=== PATIENT | male | born 1935 | race Caucasian/White ===

== ENCOUNTER → 2018-07-20 08:44 | Outpatient (CLI) | payer MEDICARE, SELFPAY ==
[2018-07-20 09:50] LABS: Add Manual Diff / Slide Review NO; Basophils Absolute Auto 100 /uL (0-100); Basophils Percent Auto 0.8 % (0-2); Eosinophils Absolute Auto 600 /uL (0-450); Eosinophils Percent Auto 7.6 % (2-4); Hematocrit 38.4 % (41-53); Hemoglobin 12.8 g/dL (13.5-17.5); Lymphocytes Absolute Auto 1300 /uL (1100-4500); Lymphocytes Percent Auto 17.7 % (25-40); Mean Corpuscular HGB Conc 33.4 % (30-36); Mean Corpuscular Hemoglobin 29.7 PG (26-34); Monocytes Absolute Auto 700 /uL (0-900); Monocytes Percent Auto 8.8 % (3-14); Neutrophils Absolute Auto 4900 /uL (1500-7000); Neutrophils Percent Auto 65.1 % (50-75); Platelet Count 229 X10^3/uL (150-400); Red Blood Cell Count 4.31 X10^6/uL (4.5-5.9); White Blood Cell Count 7.6 X10^3/uL (4.5-11.0)
[2018-07-20 09:56] LABS: Alanine Aminotransferase 34 IU/L (21-72); Albumin 4.1 g/dL (3.5-5.0); Albumin Globulin Ratio 1.5 (1.0-2.8); Alkaline Phosphatase 92 U/L (38-126); Aspartate Aminotransferase 33 IU/L (17-59); BUN Creatinine Ratio 18.3 (6-22); Bilirubin Total 0.8 mg/dL (0.2-1.3); Blood Urea Nitrogen 22 mg/dL (9-20); Calcium 9.4 mg/dL (8.4-10.2); Carbon Dioxide 29 mmol/L (22-32); Chloride 102 mmol/L (98-107); Cholesterol 141 mg/dL (140-199); Estimated Glomerular Filt Rate 57.8 mL/min (>60); Globulin 2.7 g/dL (1.7-4.1); Glucose 110 mg/dL (80-110); HDL Cholesterol 41 mg/dL (40-60); HEMOLYSIS < 15 (0-50); LDL Cholesterol Calculated 77 mg/dL (<100); Potassium 3.8 mmol/L (3.4-5.1); Sodium 140 mmol/L (137-145); Total Protein 6.8 g/dL (6.3-8.2); Triglycerides 116 mg/dL (35-150)
[2018-07-20 10:23] LABS: Thyroid Stimulating Hormone 2.15 uIU/mL (0.47-4.68)
[2018-07-20 10:25] LABS: Prostate Specific Antigen Scrn 2.19 ng/mL (0.1-4.0)
[2018-07-21 10:04] LABS: Creatinine Urine Random 140.5 mg/dL
[2018-07-21 10:07] LABS: Microalbumi Creatinin Ratio Ur 51.9 ug/mg CR (<30); Microalbumin Urine Random 7.3 mg/dL (0-1.6)
== END ==
PROVIDERS: Family Provider Family Medicine; PCP Family Medicine; Visit Provider Family Medicine
DX: E78.2 Mixed hyperlipidemia (principal); D64.9 Anemia, unspecified; E87.6 Hypokalemia; I10 Essential (primary) hypertension
CPT/HCPCS: 36415; 80053; 80061; 82043; 82570; 84443; 85025; G0103

== ENCOUNTER → 2018-07-21 08:38 | Outpatient (CLI) | payer MEDICARE, SELFPAY | PROVIDERS: PCP Family Medicine; Visit Provider Family Medicine ==

== ENCOUNTER → 2018-08-29 10:29 | Outpatient (CLI) | payer MEDICARE, SELFPAY ==
[2018-08-29 12:13] LABS: BUN Creatinine Ratio 18.2 (6-22); Blood Urea Nitrogen 20 mg/dL (9-20); Calcium 9.6 mg/dL (8.4-10.2); Carbon Dioxide 30 mmol/L (22-32); Chloride 101 mmol/L (98-107); Estimated Glomerular Filt Rate > 60.0 mL/min (>60); Glucose 103 mg/dL (80-110); HEMOLYSIS < 15 (0-50); Potassium 3.9 mmol/L (3.4-5.1); Sodium 139 mmol/L (137-145)
[2018-08-29 15:53] LABS: Creatinine Urine Random 163.6 mg/dL
[2018-08-29 17:30] LABS: Microalbumi Creatinin Ratio Ur 234.7 ug/mg CR (<30); Microalbumin Urine Random 38.4 mg/dL (0-1.6)
== END ==
PROVIDERS: PCP Family Medicine; Visit Provider Family Medicine
DX: D64.9 Anemia, unspecified (principal); I10 Essential (primary) hypertension
CPT/HCPCS: 80048; 82043; 82570; 82728

== ENCOUNTER 2018-10-04 07:58 | Day surgery (SDC) | payer MEDICARE, SELFPAY ==
[2018-10-04 08:48] VITALS: BP 167/84; PULSE 67; RESP 16; TEMP 36.3; O2SAT 96; BMI 32.5
[2018-10-04] MEDS: PROPARACAINE 0.5% OPHTH SOL 2 DROPS EYE-OP (08:57)
[2018-10-04] MEDS: CATARACT EYE COMPOUND (10 DROPS/SYRINGE) 3 DROPS EYE-OP (09:01)
--- NOTE | 2018-10-04 09:34 | PM.PREOP ---
Pre-operative Note Interval Note History & Physical reviewed/Exam performed by Physician: No Changes to H&P: No
--- NOTE | 2018-10-04 09:34 | PM.OP.1 ---
Operative Date/Time/Diagnoses Pre-op diagnosis: Nuclear Cataract Left eye Post-op diagnosis: same Procedure & Clinicians Surgeon: Carrington Haddad Anesthesia Type: MAC +/- and Sedation Operative Notes Procedure in detail: Patient brought to the operating suite. Tetracaine drops placed in the left eye. Patient was prepped and draped in sterile manner. Wire lid speculum was placed in the eye. Betadine drops were placed on the eye. This was irrigated. Lidocaine jelly was placed on the eye. A paracentesis port was created with a side-port blade. 0.1 mL 1% preservative free lidocaine was injected into the anterior chamber. The anterior chamber was deepened with viscoelastic. 2.6 mm keratome was used to create a temporal clear corneal incision. The pupil was floppy and miotic. A 6.25mm Malyugin ring was used to enlarge the pupil. Cystotome and Utrata forceps were used to create continuous tear capsulorrhexis. Balanced salt solution was used to hydro dissect the nucleus. The phacoemulsification handpiece was inserted and the nucleus was removed using the stop and chop technique. The irrigation aspiration handpiece was inserted and the remaining cortex was removed. Anterior chamber was deepened with viscoelastic. An Quintana ZCB00 intraocular lens with a power of 21.0 was injected into the capsular bag. The Malyugin ring was removed. Irrigation aspiration handpiece was inserted and the remaining viscoelastic was removed. Incision was hydrated with balanced salt solution and found to be leak free with pressure with Weck-Vanessa sponges. 0.1 mL Vigamox injected anterior chamber. 0.3 mL Kenalog 10 mg was injected subconjunctivally. Lid speculum was removed. The patient left the operating room in excellent condition. Complications: none Condition: stable Disposition: same day surgery
[2018-10-04] MEDS: CHONDROIDTIN/SOD HYALURONATE 1.05 ML SYRINGE INTRAOCULA (09:58)
[2018-10-04] MEDS: MOXIFLOXACIN OPHTH DROPS 3 ML BOTTLE 2 DROPS INJ (09:59)
[2018-10-04] MEDS: BALANCED SALT IRRIG SOLN NO.2 500 ML, EPINEPHrine 1 MG IRR (09:59)
[2018-10-04] MEDS: TETRACAINE 0.5% OPHTH DROPS 4 ML 2 DROPS EYE-OP (10:00)
[2018-10-04] MEDS: PHENYLEPHRINE/LIDOCAINE VIAL (OR) 0.2 ML EYE-OP (10:00)
[2018-10-04] MEDS: TRIAMCINOLONE 50 MG/5 ML VIAL INJ (10:02)
[2018-10-04] MEDS: LIDOCAINE JELLY 2% 5 ML 1 APPLIC TOP (10:02)
[2018-10-04 10:17] VITALS: BP 170/80; PULSE 70; RESP 16; TEMP 36.3; O2SAT 97
== END 2018-10-04 10:26 | disposition home or self-care (01) ==
LOC: OR 08:00
PROVIDERS: PCP Family Medicine; Visit Provider Ophthalmology
PROC: (CPT 66984; principal; 2018-10-04 09:45)
DX: H25.12 Age-related nuclear cataract, left eye (principal)
CPT/HCPCS: 66984; J0171; J2250; J3010; J3301

== ENCOUNTER 2018-10-18 08:16 | Day surgery (SDC) | payer MEDICARE, SELFPAY ==
[2018-10-18 09:10] VITALS: BP 179/85; PULSE 74; RESP 16; TEMP 36.1; O2SAT 97; BMI 32.5
[2018-10-18] MEDS: PROPARACAINE 0.5% OPHTH SOL 2 DROPS EYE-OP (09:15)
[2018-10-18] MEDS: CATARACT EYE COMPOUND (10 DROPS/SYRINGE) 3 DROPS EYE-OP (09:17)
--- NOTE | 2018-10-18 10:04 | PM.PREOP ---
Pre-operative Note Interval Note History & Physical reviewed/Exam performed by Physician: No Changes to H&P: No
--- NOTE | 2018-10-18 10:04 | PM.OP.1 ---
Operative Date/Time/Diagnoses Pre-op diagnosis: Nuclear cataract right eye Procedure & Clinicians Procedure: Cataract Surgery Same procedure as scheduled: Yes Surgeon: Carrington Haddad Anesthesia Type: MAC +/- and Sedation Operative Notes Procedure in detail: Patient brought to the operating suite. Tetracaine drops placed in the right eye. Patient was prepped and draped in sterile manner. Wire lid speculum was placed in the eye. Betadine drops were placed on the eye. This was irrigated. Lidocaine jelly was placed on the eye. A paracentesis port was created with a side-port blade. 0.1 mL 1% preservative free lidocaine was injected into the anterior chamber. The anterior chamber was deepened with viscoelastic. 2.6 mm keratome was used to create a temporal clear corneal incision. The pupil was floppy and miotic. A 6.25 mm Malyugin ring was used to enlarge the pupil. Cystotome and Utrata forceps were used to create continuous tear capsulorrhexis. Balanced salt solution was used to hydro dissect the nucleus. The phacoemulsification handpiece was inserted and the nucleus was removed using the stop and chop technique. The irrigation aspiration handpiece was inserted and the remaining cortex was removed. Anterior chamber was deepened with viscoelastic. An Quintana ZCB00 intraocular lens with a power of 20.5 was injected into the capsular bag. The malyugin ring was removed. Irrigation aspiration handpiece was inserted and the remaining viscoelastic was removed. Incision was hydrated with balanced salt solution and found to be leak free with pressure with Weck-Vanessa sponges. 0.1 mL Vigamox injected anterior chamber. 0.3 mL Kenalog 10 mg was injected subconjunctivally. Lid speculum was removed. The patient left the operating room in excellent condition. Complications: none Condition: stable Disposition: same day surgery
[2018-10-18] MEDS: PHENYLEPHRINE/LIDOCAINE VIAL (OR) 0.2 ML EYE-OP (10:24)
[2018-10-18] MEDS: TRIAMCINOLONE 50 MG/5 ML VIAL INJ (10:24)
[2018-10-18] MEDS: MOXIFLOXACIN OPHTH DROPS 3 ML BOTTLE 2 DROPS INJ (10:24)
[2018-10-18] MEDS: LIDOCAINE JELLY 2% 5 ML 1 APPLIC TOP (10:25)
[2018-10-18] MEDS: TETRACAINE 0.5% OPHTH DROPS 4 ML 2 DROPS EYE-OP (10:25)
[2018-10-18] MEDS: CHONDROIDTIN/SOD HYALURONATE 1.05 ML SYRINGE INTRAOCULA (10:25)
[2018-10-18] MEDS: BALANCED SALT IRRIG SOLN NO.2 500 ML, EPINEPHrine 1 MG IRR (10:26)
[2018-10-18 10:44] VITALS: BP 170/82; PULSE 66; RESP 16; TEMP 36.6; O2SAT 97
== END 2018-10-18 11:05 | disposition home or self-care (01) ==
PROVIDERS: PCP Family Medicine; Visit Provider Ophthalmology
PROC: (CPT 66982; principal; 2018-10-18 10:15)
DX: H25.11 Age-related nuclear cataract, right eye (principal)
CPT/HCPCS: 66982; J0171; J2250; J3010; J3301

== ENCOUNTER → 2019-01-24 07:48 | Outpatient (CLI) | payer MEDICARE, SELFPAY ==
[2019-01-24 08:55] LABS: Add Manual Diff / Slide Review NO; Basophils Absolute Auto 100 /uL (0-100); Basophils Percent Auto 1.3 % (0-2); Eosinophils Absolute Auto 600 /uL (0-450); Eosinophils Percent Auto 7.2 % (2-4); Hematocrit 42.4 % (41-53); Hemoglobin 14.4 g/dL (13.5-17.5); Lymphocytes Absolute Auto 2200 /uL (1100-4500); Lymphocytes Percent Auto 26.5 % (25-40); Mean Corpuscular HGB Conc 33.9 % (30-36); Mean Corpuscular Hemoglobin 30.4 PG (26-34); Mean Corpuscular Volume 89.8 fL (80-100); Monocytes Absolute Auto 800 /uL (0-900); Monocytes Percent Auto 9.1 % (3-14); Neutrophils Absolute Auto 4700 /uL (1500-7000); Neutrophils Percent Auto 55.9 % (50-75); Platelet Count 265 X10^3/uL (150-400); Red Blood Cell Count 4.73 X10^6/uL (4.5-5.9); Red Cell Distribution Width 13.3 % (11.6-14.8); White Blood Cell Count 8.4 X10^3/uL (4.5-11.0)
[2019-01-24 09:09] LABS: BUN Creatinine Ratio 18.2 (6-22); Blood Urea Nitrogen 20 mg/dL (9-20); Calcium 9.9 mg/dL (8.4-10.2); Carbon Dioxide 30 mmol/L (22-32); Chloride 101 mmol/L (98-107); Estimated Glomerular Filt Rate > 60.0 mL/min (>60); Glucose 120 mg/dL (80-110); HEMOLYSIS < 15 (0-50); Potassium 3.7 mmol/L (3.4-5.1); Sodium 142 mmol/L (137-145)
== END ==
PROVIDERS: PCP Family Medicine; Visit Provider Family Medicine
DX: I10 Essential (primary) hypertension (principal)
CPT/HCPCS: 36415; 80048; 85025

== ENCOUNTER → 2019-01-31 10:01 | Outpatient (CLI) | payer MEDICARE, SELFPAY ==
[2019-01-31 10:43] LABS: Hemoglobin A1C% w Est Avg Glu 5.8 % (4.0-6.0)
== END ==
PROVIDERS: PCP Family Medicine; Visit Provider Family Medicine
DX: R73.09 Other abnormal glucose (principal); E78.2 Mixed hyperlipidemia
CPT/HCPCS: 36415; 83036

== ENCOUNTER 2019-03-29 13:16 | Emergency (ER) | payer MEDICARE, SELFPAY ==
[2019-03-29 13:25] VITALS: BP 187/85; PULSE 74; RESP 24; TEMP 36.4; O2SAT 98
--- NOTE | 2019-03-29 13:32 | DI.CT.S_ITS ---
PROCEDURE: CT HEAD/BRAIN WO CON INDICATIONS: fell backwards hitting head on concrete floor. TECHNIQUE: Noncontrast 4.5 mm thick angled axial sections acquired from the foramen magnum to the vertex, with coronal and sagittal reformats. For radiation dose reduction, the following was used: automated exposure control, adjustment of mA and/or kV according to patient size. COMPARISON: None. FINDINGS: Image quality: Excellent. CSF spaces: Basal cisterns are patent. No extra-axial fluid collections. The ventricles are symmetric in size and shape. There is moderate cerebral volume loss, with resultant ventricular and sulcal prominence. Brain: No intracranial hemorrhage, mass, or mass effect. There are confluent subcortical, periventricular and deep white matter hypodensities consistent with moderate chronic small vessel ischemic changes. There is atrophic appearance of the pituitary in the sella. There is intracranial internal carotid artery atherosclerosis. Skull and face: There is a soft tissue laceration in the right posterior parietal scalp region. Calvarium and visualized facial bones appear intact, without suspicious lesions. Sinuses: Visualized sinuses demonstrate mild mucosal thickening within the ethmoid sinuses. The mastoid air cells are clear. IMPRESSION: 1. No acute intracranial abnormality. 2. Moderate chronic white matter small vessel ischemic changes and cerebral volume loss. 3. Atrophic appearance of the pituitary gland. Dictated by: Kev Molina M.D. on 03/29/2019 at 13:59 Approved by: Kev Molina M.D. on 03/29/2019 at 14:20
--- NOTE | 2019-03-29 13:32 | DI.CT.S_ITS ---
PROCEDURE: CT CERVICAL SPINE WO CON INDICATIONS: fell backwards hitting head on concrete floor. TECHNIQUE: Noncontrast 3 mm thick sections acquired from the skull base to the T4 level. Sagittal and coronal reformats were then constructed. For radiation dose reduction, the following was used: automated exposure control, adjustment of mA and/or kV according to patient size. COMPARISON: None. FINDINGS: Image quality: Excellent. Bones: No fractures or dislocations. Visualized superior ribs are intact. Soft tissues: Prevertebral soft tissues are normal in thickness. No paravertebral hematomas. No apical pneumothoraces. 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 Dictated by: Ed Hernandes M.D. on 03/29/2019 at 14:13 Approved by: Ed Hernandes M.D. on 03/29/2019 at 14:14
[2019-03-29] MEDS: TET,DIPH,PERTUSS(ACELL),VAC/PF 0.5 ML SYRINGE IM (14:13)
--- NOTE | 2019-03-29 14:16 | ED_ITS ---
HPI - Head Injury General Chief complaint: Head Injury Stated complaint: fell backwards and hit back of head on garage floo Time Seen by Provider: 03/29/19 14:12 Source: patient Mode of arrival: Ambulatory Limitations: no limitations History of Present Illness HPI Narrative: Patient is an 83-year-old male who presents after a mechanical ground level fall. He says that he lost his balance fell backwards hitting his head no loss of consciousness. He is not on any blood thinner or anti-platelet medication. There's no loss of consciousness no numbness tingling or weakness. He does have an obvious laceration on the right posterior scalp area. He denies any neck pain. MD Complaint: head injury Onset (ago): hour(s) Mechanism of Injury: fall Related Data Home Medications Medication Instructions Recorded Confirmed FERROUS SULFATE (#FERROUS SULFATE) 65 mg PO BID #0 05/12/11 01/31/19 Fish Oil (#FISH OIL) 1 iu PO Q DAY #0 05/12/11 01/31/19 MULTIVITAMIN (#MULTIPLE VITAMINS) 1 cap PO Q DAY #0 05/12/11 01/31/19 acetaminophen 500 mg PO Q DAY #0 06/09/16 01/31/19 cholecalciferol (vitamin D3) 1,000 u PO BID #0 06/09/16 01/31/19 [Vitamin D3] Previous Rx's Medication Instructions Recorded triamterene 37.5 1 cap PO QDAY #90 cap 04/11/18 mg-hydrochlorothiazide 25 mg capsule omeprazole magnesium 20 mg 20 mg PO Q DAY #90 cap 07/04/18 tablet,delayed release Disabled Parking Permit #1 ea 07/26/18 hydrocodone 5 mg-acetaminophen 325 1 tab PO Q6HP PRN #30 tab 07/26/18 mg tablet amlodipine 5 mg tablet 5 mg PO QDAY #90 tab 10/03/18 atorvastatin 10 mg tablet 10 mg PO HS #90 tab 10/03/18 enalapril maleate 20 mg tablet 20 mg PO BID #180 tab 10/03/18 tamsulosin 0.4 mg capsule 0.4 mg PO HS #90 cap 10/31/18 Allergies Allergy/AdvReac Type Severity Reaction Status Date / Time No Known Allergies Allergy Unknown Verified 03/29/19 13:29 [NO KNOWN ALLERGIES] Review of Systems Review of Systems Narrative: GENERAL: Denies chills, fatigue, malaise, fever, sweats, travel HEENT: Denies sinus pain, ear pain, sore throat, difficulty swallowing, neck pain RESPIRATORY: Denies dyspnea, cough, wheezing, hemoptysis, sputum. CARDIOVASCULAR: Denies chest pain, palpitations, orthopnea, edema GASTROINTESTINAL: Denies nausea, vomiting, abdominal pain, diarrhea, constipation, melena. : Denies dysuria, frequency, incontinence, hematuria, urinary retention, flank pain. MUSCULOSKELETAL: Denies weakness, joint pain, or bony pain SKIN: See HPI NEUROLOGIC: Denies weakness, dizziness, headache, numbness, change in speech, confusion PSYCHIATRIC: No concerning psychosocial issues. 12 point review of systems is negative except for those stated above and HPI Patient History Medical History Chronic anemia (Acute) Essential hypertension (Acute) Mixed hyperlipidemia (Acute) Tremor (Acute) Surgical History Status post appendectomy Social History household members: spouse Smoking Status: Former smoker Smoking Status: Former smoker alcohol intake frequency: 0-2 drinks per day Substance Use Type: does not use Exam Initial Vital Signs Initial Vital Signs: Vital Signs Temperature 97.6 F 03/29/19 13:25 Pulse Rate 74 03/29/19 13:25 Respiratory Rate 24 03/29/19 13:25 Blood Pressure 187/85 H 03/29/19 13:25 Pulse Oximetry 98 03/29/19 13:25 GENERAL: Alert well-appearing elderly male HEENT: Head skin abrasions noted on scalp and laceration noted right posterior scalp CARDIOVASCULAR: Regular rate and rhythm without murmurs, rubs or gallops. RESPIRATORY: Breath sounds equal bilaterally, no wheezes rales or rhonchi. ABDOMEN: Soft, nontender. Normoactive bowel sounds all 4 quadrants. No guarding or rebound. BACK: No vertebral tenderness no step-off EXTREMITIES: Normal range of motion, no clubbing or edema. Neurovascularly intact NEUROLOGICAL: Alert and oriented x4. Resting tremor noted moving all extremities SKIN: Warm, dry, no laceration, no petechiae, no rashes or lesions. Procedures Laceration Repair Laceration 1: Site: scalp Side (If applicable): right Size (cm): 4 Description: linear Depth: simple, single layer Local Anesthetic: lidocaine 1% and with epi Amount of anesthesia used (mL): 5 Pre-repair: wound explored, irrigated extensively and deep structures intact Skin layer closed with: emmanuel Number of sutures: 6 Course Orders Ordered: ED Orders 03/29/19 13:32 CT cervical spine wo con Stat CT head/brain wo con Stat Discontinued Medications Diphtheria/Tetanus/Acell Pertussis (Adacel) 0.5 ml IM .ONCE ONE Stop: 03/29/19 13:34 Last Admin: 03/29/19 14:13 Dose: 0.5 ml Documented by: IVIS Lidocaine/Epinephrine (Xylocaine 1% W/Epi) 10 ml SUBCUT NOW ONE Stop: 03/29/19 14:18 Vital Signs Vital signs: Vital Signs - 8 hr 03/29/19 13:25 03/29/19 15:09 Temperature 97.6 F Pulse Rate 74 59 L Respiratory Rate 24 22 Blood Pressure 187/85 H 158/93 H Pulse Oximetry 98 97 MDM - Head Injury Imaging Data CT scan - head: Radiologist's Impression: PROCEDURE: CT HEAD/BRAIN WO CON INDICATIONS: fell backwards hitting head on concrete floor. TECHNIQUE: Noncontrast 4.5 mm thick angled axial sections acquired from the foramen magnum to the vertex, with coronal and sagittal reformats. For radiation dose reduction, the following was used: automated exposure control, adjustment of mA and/or kV according to patient size. COMPARISON: None. FINDINGS: Image quality: Excellent. CSF spaces: Basal cisterns are patent. No extra-axial fluid collections. The ventricles are symmetric in size and shape. There is moderate cerebral volume loss, with resultant ventricular and sulcal prominence. Brain: No intracranial hemorrhage, mass, or mass effect. There are confluent subcortical, periventricular and deep white matter hypodensities consistent with moderate chronic small vessel ischemic changes. There is atrophic appearance of the pituitary in the sella. There is intracranial internal carotid artery atherosclerosis. Skull and face: There is a soft tissue laceration in the right posterior parietal scalp region. Calvarium and visualized facial bones appear intact, without suspicious lesions. Sinuses: Visualized sinuses demonstrate mild mucosal thickening within the ethmoid sinuses. The mastoid air cells are clear. IMPRESSION: 1. No acute intracranial abnormality. 2. Moderate chronic white matter small vessel ischemic changes and cerebral volume loss. 3. Atrophic appearance of the pituitary gland. Dictated by: Kev Molina M.D. on 03/29/2019 at 13:59 Approved by: Kev Molina M.D. on 03/29/2019 at 14:20 CT - cervical spine: Radiologist's Impression: PROCEDURE: CT CERVICAL SPINE WO CON INDICATIONS: fell backwards hitting head on concrete floor. TECHNIQUE: Noncontrast 3 mm thick sections acquired from the skull base to the T4 level. Sagittal and coronal reformats were then constructed. For radiation dose reduction, the following was used: automated exposure control, adjustment of mA and/or kV according to patient size. COMPARISON: None. FINDINGS: Image quality: Excellent. Bones: No fractures or dislocations. Visualized superior ribs are intact. Soft tissues: Prevertebral soft tissues are normal in thickness. No parav ertebral hematomas. No apical pneumothoraces. 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 Dictated by: Ed Hernandes M.D. on 03/29/2019 at 14:13 Discharge Plan Departure Patient Disposition: Home Clinical Impression: Laceration of scalp Qualifiers: Encounter type: initial encounter Qualified Code(s): S01.01XA - Laceration without foreign body of scalp, initial encounter Discharge Date/Time: 03/29/19 15:09 Instructions: DI for Laceration Repair -- Emmanuel Activity Restrictions/Additional Instructions: *You have been diagnosed with scalp laceration *What to do: Keep area clean and dry with soap and water. May apply antibiotic ointment 2 times a day. Have emmanuel removed in 5-7 days with her primary care provider *Continue to take medications as directed *Follow up with your primary care provider, call Dr. Lawrence to have emmanuel removed in 5-7 days *Return to ER if you should have recurrent falls persistent vomiting weakness numbness tingling or any new, worsening or concerning symptoms Prescriptions: No Action MULTIVITAMIN (#MULTIPLE VITAMINS) 1 cap PO Q DAY Qty: 0 RF: 0 FERROUS SULFATE (#FERROUS SULFATE) 65 mg PO BID Qty: 0 RF: 0 Fish Oil (#FISH OIL) 1 iu PO Q DAY Qty: 0 RF: 0 acetaminophen 500 MG tablet 500 mg PO Q DAY Qty: 0 RF: 0 cholecalciferol (vitamin D3) [Vitamin D3] 1,000 UNIT tablet 1,000 u PO BID Qty: 0 RF: 0 triamterene-hydrochlorothiazid [Dyazide] 37.5-25 mg capsule 1 cap PO QDAY Qty: 90 RF: 3 Prilosec OTC 20 mg tablet,delayed release (DR/EC) 20 mg PO Q DAY Qty: 90 RF: 3 amlodipine [Norvasc] 5 mg tablet 5 mg PO QDAY Qty: 90 RF: 1 atorvastatin [Lipitor] 10 mg tablet 10 mg PO HS Qty: 90 RF: 1 enalapril maleate 20 mg tablet 20 mg PO BID Qty: 180 RF: 1 tamsulosin [Flomax] 0.4 mg capsule 0.4 mg PO HS Qty: 90 RF: 2 hydrocodone-acetaminophen [[place]] 5-325 mg tablet 1 tab PO Q6HP PRN (Reason: pain) Qty: 30 RF: 0 (DME) Disabled Parking Permit 0 .Route .MEDSUPPLY Qty: 1 RF: 0 Referrals: Maico Lawrence MD [Primary Care Provider] -
[2019-03-29 15:09] VITALS: BP 158/93; PULSE 59; RESP 22; O2SAT 97
== END 2019-03-29 15:09 | disposition home or self-care (01) ==
PROVIDERS: Emergency Provider Emergency Medicine; PCP Family Medicine
DX: S01.01XA Laceration without foreign body of scalp, initial encounter (principal); W18.30XA Fall on same level, unspecified, initial encounter
CPT/HCPCS: 12002; 70450; 72125; 90471; 99283; 99284; 90715

== ENCOUNTER → 2019-04-25 08:29 | Outpatient (CLI) | payer MEDICARE, SELFPAY ==
[2019-04-25 09:34] LABS: Add Manual Diff / Slide Review NO; Basophils Absolute Auto 100 /uL (0-100); Basophils Percent Auto 1.3 % (0-2); Eosinophils Absolute Auto 600 /uL (0-450); Eosinophils Percent Auto 8.8 % (2-4); Hematocrit 39.3 % (41-53); Hemoglobin 13.5 g/dL (13.5-17.5); Lymphocytes Absolute Auto 1400 /uL (1100-4500); Lymphocytes Percent Auto 20.4 % (25-40); Mean Corpuscular HGB Conc 34.4 % (30-36); Mean Corpuscular Hemoglobin 30.8 PG (26-34); Mean Corpuscular Volume 89.4 fL (80-100); Monocytes Absolute Auto 600 /uL (0-900); Monocytes Percent Auto 9.3 % (3-14); Neutrophils Absolute Auto 4100 /uL (1500-7000); Neutrophils Percent Auto 60.2 % (50-75); Platelet Count 231 X10^3/uL (150-400); Red Blood Cell Count 4.39 X10^6/uL (4.5-5.9); Red Cell Distribution Width 13.1 % (11.6-14.8); White Blood Cell Count 6.9 X10^3/uL (4.5-11.0)
[2019-04-25 09:42] LABS: BUN Creatinine Ratio 18.2 (6-22); Blood Urea Nitrogen 20 mg/dL (9-20); Calcium 9.6 mg/dL (8.4-10.2); Carbon Dioxide 27 mmol/L (22-32); Chloride 105 mmol/L (98-107); Estimated Glomerular Filt Rate > 60.0 mL/min (>60); Glucose 110 mg/dL (80-110); HEMOLYSIS < 15 (0-50); Potassium 3.6 mmol/L (3.4-5.1); Sodium 142 mmol/L (137-145)
== END ==
PROVIDERS: PCP Family Medicine; Referring Provider Family Medicine; Visit Provider Family Medicine
DX: I10 Essential (primary) hypertension (principal)
CPT/HCPCS: 80048; 85025

== ENCOUNTER 2019-06-30 11:47 | Emergency (ER) | payer MEDICARE, SELFPAY ==
--- NOTE | 2019-06-30 11:49 | ED_ITS ---
HPI - General Adult General Chief complaint: Extremity Problem,Nontraumatic Stated complaint: Suspects blood clot in R leg Time Seen by Provider: 06/30/19 11:49 History of Present Illness HPI narrative: 83-year-old gentleman with a history of hypertension, hyperlipidemia, and iron deficiency anemia presents with right lower leg edema and erythema without significant pain. He reports that it has been present for ?about 2 months?. He was seen by his primary care physician who sent him to the emergency room for further evaluation. He has not noticed pain, dyspnea, palpitations, fevers, cough, diarrhea, urinary symptoms, orthopnea, it isn't particularly bothered by the mild swelling in the right lower extremity. Related Data Home Medications Medication Instructions Recorded Confirmed FERROUS SULFATE (#FERROUS SULFATE) 65 mg PO BID #0 05/12/11 06/30/19 Fish Oil (#FISH OIL) 1 iu PO Q DAY #0 05/12/11 06/30/19 MULTIVITAMIN (#MULTIPLE VITAMINS) 1 cap PO Q DAY #0 05/12/11 06/30/19 acetaminophen 500 mg PO Q DAY #0 06/09/16 06/30/19 cholecalciferol (vitamin D3) 25 1,000 unit PO DAILY #0 tab 06/30/19 06/30/19 mcg (1,000 unit) tablet Previous Rx's Medication Instructions Recorded triamterene 37.5 1 cap PO QDAY #90 cap 04/11/18 mg-hydrochlorothiazide 25 mg capsule omeprazole magnesium 20 mg 20 mg PO Q DAY #90 cap 07/04/18 tablet,delayed release Disabled Parking Permit #1 ea 07/26/18 tamsulosin 0.4 mg capsule 0.4 mg PO HS #90 cap 10/31/18 amlodipine 5 mg tablet See Rx Instructions .ROUTE 03/30/19 .COMPLEX #90 tablet enalapril maleate 20 mg tablet See Rx Instructions .ROUTE 03/30/19 .COMPLEX #180 tablet atorvastatin 10 mg tablet See Rx Instructions .ROUTE 06/30/19 .COMPLEX #90 tablet cephalexin 500 mg PO TID #21 cap 06/30/19 furosemide 20 mg PO DAILY #30 tab 06/30/19 gabapentin 100 mg capsule 200 mg PO BID #360 cap 06/30/19 hydrocodone 5 mg-acetaminophen 325 1 tab PO Q6HP PRN #90 tab 06/30/19 mg tablet potassium chloride 10 meq PO DAILY #30 cap 06/30/19 Allergies Allergy/AdvReac Type Severity Reaction Status Date / Time No Known Allergies Allergy Unknown Verified 06/30/19 12:06 [NO KNOWN ALLERGIES] Review of Systems Review of Systems Narrative: All systems reviewed and are unremarkable except as noted in HPI and below Patient History Medical History (Updated 06/30/19 @ 15:26 by Maico Lawrence MD) Chronic anemia (Acute) Essential hypertension (Acute) Mixed hyperlipidemia (Acute) Paroxysmal atrial fibrillation (Acute) Tremor (Acute) Surgical History Status post appendectomy Social History household members: spouse Smoking Status: Former smoker Smoking Status: Former smoker alcohol intake frequency: 0-2 drinks per day Substance Use Type: does not use Exam Narrative Exam Narrative: General: Healthy appearing, in no acute distress. Able to give a complete and coherent history. Well-nourished well-developed HEENT: Moist mucous membranes, normal sclera with reactive pupils, Neck: No JVD, supple Respiratory: Lungs are clear to auscultation, no wheezing or rhonchi. Mild scattered rales in lower lung bases that improve with deep breathing. Full and symmetrical air movement Cardiac: Irregular rate, no murmurs no bruits Abdomen: Soft nontender good bowel tones, no flank pain Skin: Warm and dry, no rashes Neurologic: Grossly neurologically intact with no obvious asymmetries or abnormalities Extremities: No trauma, right leg with 2+ [place] edema calf is more full and slightly tender to deep palpation and there is mild erythema from the mid foot to just below the calf. Has no thigh swelling and no inguinal adenopathy. Psych: Cooperative, appropriate insight and affect Initial Vital Signs Initial Vital Signs: Vital Signs Temperature 98.4 F 06/30/19 12:06 Pulse Rate 79 06/30/19 12:06 Respiratory Rate 32 H 06/30/19 12:06 Blood Pressure 163/81 H 06/30/19 12:06 Pulse Oximetry 97 06/30/19 12:06 Course Orders Ordered: ED Orders 06/30/19 12:41 US periph venous low extrem rt Stat 06/30/19 12:42 EKG-12 Lead Stat 06/30/19 12:47 XR chest 1V Stat 06/30/19 14:15 Complete Blood Count AUTO DIFF Stat Comprehensive Metabolic Panel Stat NT-proBNP (BNP-Adult 18+) Stat Discontinued Medications Cephalexin HCl (Keflex) 500 mg PO NOW ONE Stop: 06/30/19 14:03 Last Admin: 06/30/19 14:54 Dose: 500 mg Documented by: HEBER Furosemide (Lasix) 40 mg PO NOW ONE Stop: 06/30/19 14:03 Last Admin: 06/30/19 14:54 Dose: 40 mg Documented by: HEBER Vital Signs Vital signs: Vital Signs - 8 hr 06/30/19 12:06 06/30/19 14:30 Temperature 98.4 F Pulse Rate 79 70 Respiratory Rate 32 H 26 H Blood Pressure 163/81 H Blood Pressure [Right Arm] 176/99 H Pulse Oximetry 97 98 Medical Decision Making Medical Records Medical records reviewed: Yes I reviewed the patient's medical records. Lab Data Lab results reviewed: Yes I reviewed the patient's lab results. Result diagrams: 06/30/19 14:15 06/30/19 14:15 Labs: Lab Results 06/30/19 06/30/19 06/30/19 Range/Units 14:15 14:15 14:15 WBC 7.8 (4.5-11.0) X10^3/uL RBC 4.54 (4.5-5.9) X10^6/uL Hgb 13.6 (13.5-17.5) g/dL Hct 41.1 (41-53) % MCV 90.4 (80-100) fL MCH 29.9 (26-34) PG MCHC 33.0 (30-36) % RDW 13.3 (11.6-14.8) % Plt Count 241 (150-400) X10^3/uL Neut % (Auto) 62.9 (50-75) % Lymph % (Auto) 21.1 L (25-40) % Edmun[place] % (Auto) 10.3 (3-14) % Eos % (Auto) 4.5 H (2-4) % Baso % (Auto) 1.2 (0-2) % Neut # (Auto) 4900 (9086-5538) /uL Lymph # (Auto) 1600 (0169-5276) /uL Edmunds # (Auto) 800 (0-900) /uL Eos # (Auto) 400 (0-450) /uL Baso # (Auto) 100 (0-100) /uL Sodium 139 (137-145) mmol/L Potassium 3.7 (3.4-5.1) mmol/L Chloride 103 (98-107) mmol/L Carbon Dioxide 29 (22-32) mmol/L BUN 16 (9-20) mg/dL Creatinine 0.93 (0.66-1.25) mg/dL Estimated GFR > 60.0 (>60) mL/min BUN/Creatinine Ratio 17.2 (6-22) Glucose 105 (80-110) mg/dL Calcium 9.3 (8.4-10.2) mg/dL Total Bilirubin 0.6 (0.2-1.3) mg/dL AST 33 (17-59) IU/L ALT 21 (<50) IU/L Alkaline Phosphatase 117 (38-126) U/L NT-Pro-B Natriuret Pep 1030 H (<450) pg/mL Total Protein 7.0 (6.3-8.2) g/dL Albumin 4.1 (3.5-5.0) g/dL Globulin 2.9 (1.7-4.1) g/dL Albumin/Globulin Ratio 1.4 (1.0-2.8) Imaging Data Chest x-ray: Radiologist's Impression: MPRESSION: Findings concerning for CHF. No definite focal infiltrate is seen. Dictated by: Denis Escoto M.D. on 06/30/2019 at 13:03 Right lower extremity ultrasound: Radiologist's Impression: IMPRESSION: 1. No DVT in the right lower extremity. 2. Soft tissue edema in the medial aspect of the right lower leg. Dictated by: Sachin Munoz M.D. on 06/30/2019 at 13:43 ECG Data Attestation: I personally reviewed and interpreted this ECG as follows: Interpretation: Atrial fibrillation rate controlled rate of 71 No significant ischemia MDM Narrative Medical decision making narrative: No evidence of DVT. He is in atrial fibrillation would is which is not noted on his chart but he has noticed previously other medical interactions and indicated irregular rhythms. Presumably this is paroxysmal. He is not anticoagulated and his rate is controlled. He showing signs and symptoms of mild heart failure likely related to the atrial fibrillation. Will begin Lasix and potassium to help with the lower extremity edema and will ask him to follow-up with his primary care physician next week. Will also recommend a course of Keflex given the erythema in the right leg and concern for developing cellulitis without evidence of sepsis at this time Discharge Plan Departure Patient Disposition: Home Clinical Impression: AF (paroxysmal atrial fibrillation), Cellulitis of right lower leg Congestive heart failure Qualifiers: Heart failure type: unspecified Heart failure chronicity: acute Qualified Code(s): I50.9 - Heart failure, unspecified Discharge Date/Time: 06/30/19 15:16 Instructions: DI for Heart Failure, DI for Atrial Fibrillation Activity Restrictions/Additional Instructions: Thank you for coming in today You do not have a blood clot in your leg You do have atrial fibrillation and I believe that this is causing a small amount of heart failure that is making some of your lower extremity swelling worse. I am also concerned that with the extra swelling and the redness developing in your right leg that your developing a cellulitis. I am going to have you start Lasix, a diuretic, 20 mg every morning. I would recommend taking this in the morning because it will make you pee frequently. I am also going to give you potassium as the Lasix makes you lose potassium. For the concern over cellulitis in the right leg. I would like you to complete a course of antibiotics, Keflex 500 mg 3 times a day for 7 days. It is important that you have a follow-up appointment with Dr. Lawrence with the new medications and these new diagnoses. Please call to schedule an appointment next week. Prescriptions: New furosemide 20 mg tablet 20 mg PO DAILY Qty: 30 RF: 0 potassium chloride 10 mEq capsule, extended release 10 meq PO DAILY Qty: 30 RF: 0 cephalexin 500 mg capsule 500 mg PO TID Qty: 21 RF: 0 No Action MULTIVITAMIN (#MULTIPLE VITAMINS) 1 cap PO Q DAY Qty: 0 RF: 0 FERROUS SULFATE (#FERROUS SULFATE) 65 mg PO BID Qty: 0 RF: 0 Fish Oil (#FISH OIL) 1 iu PO Q DAY Qty: 0 RF: 0 acetaminophen 500 MG tablet 500 mg PO Q DAY Qty: 0 RF: 0 triamterene-hydrochlorothiazid [Dyazide] 37.5-25 mg capsule 1 cap PO QDAY Qty: 90 RF: 3 Prilosec OTC 20 mg tablet,delayed release (DR/EC) 20 mg PO Q DAY Qty: 90 RF: 3 tamsulosin [Flomax] 0.4 mg capsule 0.4 mg PO HS Qty: 90 RF: 2 enalapril maleate 20 mg tablet See Rx Instructions .ROUTE .COMPLEX Qty: 180 RF: 2 amlodipine 5 mg tablet See Rx Instructions .ROUTE .COMPLEX Qty: 90 RF: 2 cholecalciferol (vitamin D3) [Vitamin D3] 25 mcg (1,000 unit) tablet 1,000 unit PO DAILY Qty: 0 RF: 0 atorvastatin 10 mg tablet See Rx Instructions .ROUTE .COMPLEX Qty: 90 RF: 3 gabapentin 100 mg capsule 200 mg PO BID Qty: 360 RF: 3 hydrocodone-acetaminophen [[place]] 5-325 mg tablet 1 tab PO Q6HP PRN (Reason: pain) Qty: 90 RF: 0 (DME) Disabled Parking Permit 0 .Route .MEDSUPPLY Qty: 1 RF: 0 Referrals: Maico Lawrence MD [Primary Care Provider] -
[2019-06-30 12:06] VITALS: BP 163/81; PULSE 79; RESP 32; TEMP 36.9; O2SAT 97; BMI 32.8
--- NOTE | 2019-06-30 12:41 | DI.US.S_ITS ---
PROCEDURE: US PERIPH VENOUS LOW EXTREM RT INDICATIONS: RT LOWER LEG SWELLING TECHNIQUE: Real-time imaging, as well as color and pulse Doppler interrogation, were performed of the lower extremity deep veins from the inguinal ligament to the popliteal fossa. COMPARISON: None. FINDINGS: The common femoral, femoral and popliteal veins are normally compressible, and free of intraluminal thrombus. Color and pulse Doppler demonstrate normal phasic intraluminal flow. There is normal augmentation response to distal compression maneuver. Soft tissue edema in the medial aspect of the right lower leg. IMPRESSION: 1. No DVT in the right lower extremity. 2. Soft tissue edema in the medial aspect of the right lower leg. Dictated by: Sachin Munoz M.D. on 06/30/2019 at 13:43 Approved by: Sachin Munoz M.D. on 06/30/2019 at 13:45
--- NOTE | 2019-06-30 12:47 | DI.RAD.S_ITS ---
PROCEDURE: XR CHEST 1V INDICATIONS: lower ext edema TECHNIQUE: One view of the chest was acquired. COMPARISON: Located Within [facility], , CHEST 1 VIEW, 02/05/2015, 21:57. FINDINGS: Surgical changes and devices: None. Lungs and pleura: Small left pleural effusion is seen. Pulmonary vascular congestion is also noted. No definite focal infiltrate. No gross pneumothorax. Mediastinum: Mediastinal contours appear normal. Heart size is enlarged. Bones and chest wall: No suspicious bony lesions. Overlying soft tissues appear unremarkable. IMPRESSION: Findings concerning for CHF. No definite focal infiltrate is seen. Dictated by: Denis Escoto M.D. on 06/30/2019 at 13:03 Approved by: Denis Escoto M.D. on 06/30/2019 at 13:04
[2019-06-30 14:30] VITALS: BP 176/99; PULSE 70; RESP 26; O2SAT 98
[2019-06-30 14:33] LABS: Add Manual Diff / Slide Review NO; Basophils Absolute Auto 100 /uL (0-100); Basophils Percent Auto 1.2 % (0-2); Eosinophils Absolute Auto 400 /uL (0-450); Eosinophils Percent Auto 4.5 % (2-4); Hematocrit 41.1 % (41-53); Hemoglobin 13.6 g/dL (13.5-17.5); Lymphocytes Absolute Auto 1600 /uL (1100-4500); Lymphocytes Percent Auto 21.1 % (25-40); Mean Corpuscular Hemoglobin 29.9 PG (26-34); Mean Corpuscular Volume 90.4 fL (80-100); Monocytes Absolute Auto 800 /uL (0-900); Monocytes Percent Auto 10.3 % (3-14); Neutrophils Absolute Auto 4900 /uL (1500-7000); Neutrophils Percent Auto 62.9 % (50-75); Platelet Count 241 X10^3/uL (150-400); Red Blood Cell Count 4.54 X10^6/uL (4.5-5.9); Red Cell Distribution Width 13.3 % (11.6-14.8); White Blood Cell Count 7.8 X10^3/uL (4.5-11.0)
[2019-06-30 14:54] LABS: Alanine Aminotransferase 21 IU/L (<50); Albumin 4.1 g/dL (3.5-5.0); Albumin Globulin Ratio 1.4 (1.0-2.8); Alkaline Phosphatase 117 U/L (38-126); Aspartate Aminotransferase 33 IU/L (17-59); BUN Creatinine Ratio 17.2 (6-22); Bilirubin Total 0.6 mg/dL (0.2-1.3); Blood Urea Nitrogen 16 mg/dL (9-20); Calcium 9.3 mg/dL (8.4-10.2); Carbon Dioxide 29 mmol/L (22-32); Chloride 103 mmol/L (98-107); Estimated Glomerular Filt Rate > 60.0 mL/min (>60); Globulin 2.9 g/dL (1.7-4.1); Glucose 105 mg/dL (80-110); HEMOLYSIS < 15 (0-50); Potassium 3.7 mmol/L (3.4-5.1); Sodium 139 mmol/L (137-145)
[2019-06-30] MEDS: cephALEXin 250 MG CAPSULE 500 MG PO (14:54)
[2019-06-30] MEDS: FUROSEMIDE 40 MG TABLET PO (14:54)
[2019-06-30 15:03] LABS: NT-proBNP (BNP-Adult 18+) 1030 pg/mL (<450)
== END 2019-06-30 15:16 | disposition home or self-care (01) ==
PROVIDERS: Emergency Provider Emergency Medicine; PCP Family Medicine; Referring Provider Family Medicine
DX: I48.0 Paroxysmal atrial fibrillation (principal); L03.115 Cellulitis of right lower limb; I11.0 Hypertensive heart disease with heart failure; I50.9 Heart failure, unspecified; E78.5 Hyperlipidemia, unspecified; D64.9 Anemia, unspecified
CPT/HCPCS: 36415; 71045; 80053; 83880; 85025; 93005; 93971; 99283; 99284

== ENCOUNTER → 2019-07-10 08:34 | Outpatient (CLI) | payer MEDICARE, SELFPAY ==
--- NOTE | 2019-07-10 09:08 | DI.ECHO.S_ITS ---
Echocardiogram Report + + :Name: LIVAN GALLARDO Study Date: 07/10/2019 Height: 69 in : :[facility] Weight: 227 lb : : Gender: Other BSA: 2.2 m2 : :: 1935 Age: 83 yrs BP: 136/81 mmHg: :Reason For Study: atrial fibrillation : :Ordering Physician: Dr. Nina : :oHward Performed By: Jannette Tompkins : :Referring: Dr. Maico Lawrence : + + Interpretation Summary 1) Normal left ventricular size, wall motion, and systolic function (EF 55- 60%). 2) Upper normal right ventricular size with normal function. 3) The left atrium is severely dilated. 4) No significant valvular abnormalities. 5) No prior Echo available for comparison. Procedure: A two-dimensional transthoracic echocardiogram with color flow and Doppler was performed. The study quality was technically difficult. A contrast injection of Definity was performed to improve assessment of LV function. Definity contrast used after patient education and consent. Patient denied any symptoms after the use of Definity contrast. The patient was in atrial fibrillation with heart rates between 71-85 bpm during the exam. Left Ventricle: The left ventricle is normal in size. Left ventricular wall thickness is mildly increased. The ejection fraction is estimated to be 55- 60%. Diastolic function could not be accurately assessed due to atrial fibrillation. Right Ventricle: The right ventricle is at the upper limits of normal in size. The right ventricular systolic function is normal. Atria: The left atrium is severely dilated. The right atrium is moderately dilated. There is no Doppler evidence for an interatrial shunt. Mitral Valve: The mitral valve is normal in structure and function. There is mild mitral regurgitation. Aortic Valve: The aortic valve is trileaflet. The aortic valve opens well. There is no aortic valve stenosis. No aortic regurgitation is present. Tricuspid Valve: The tricuspid valve is normal in structure and function. There is mild tricuspid regurgitation. The right ventricular systolic pressure is estimated to be at least 22 mmHg based on an estimated right atrial pressure of 3 mm Hg. Pulmonic Valve: The pulmonic valve is normal in structure and function. There is mild pulmonic regurgitation. Great Vessels: The aortic root is normal size. The ascending aorta is at the upper limits of normal in size. The IVC is of normal diameter and collapses greater than 50% with a sniff. This suggests a low right atrial pressure of 3 mm Hg. Pericardium/ Pleura There is no pericardial effusion. There is no pleural effusion. MMode/2D Measurements & Calculations LVIDd: 4.6 cm LVOT diam: 2.3 cm LVIDs: 3.0 cm Ao root diam: 3.6 cm FS: 33.7 % asc Aorta Diam: 3.5 cm EPSS: 1.4 cm Ao Arch Diam (Prox Trans): 3.2 cm IVSd: 1.2 cm LVPWd: 1.1 cm LV nogueira. diameter/BSA (cm/m^2): 2.1 LV sys. diameter/BSA (cm/m^2): 1.4 LA A2 area: 32.9 cm2 RA long axis: 6.2 cm LA A4 area: 27.6 cm2 RA area: 26.2 cm2 LA length (vol): 6.5 cm RA vol: 93.5 ml LA vol: 119.3 ml RA : 42.9 ml/m2 LA vol index: 54.7 ml/m2 RVD1 (basal): 4.0 cm TAPSE: 2.1 cm Doppler Measurements & Calculations Ao V2 max: 126.7 cm/sec LVOT Max Vinay: 81.7 cm/sec Ao V2 mean: 90.3 cm/sec LV V1 max P.7 mmHg Ao max P.5 mmHg LV V1 VTI: 15.5 cm Ao mean P.7 mmHg LORNA(I,D): 2.9 cm2 Ao V2 VTI: 22.7 cm LORNA(V,D): 2.7 cm2 sev ratio: 0.68 LORNA indexed to BSA (cm^2/m^2): 1.3 MV E max vinay: 81.8 cm/sec TR max vinay: 227.6 cm/sec MV A max vinay: 1.3 cm/sec TR max P.8 mmHg MV E/A: 64.6 PA V2 max: 75.2 cm/sec Med Peak E' Vinay: 9.8 cm/sec PA V2 mean: 49.7 cm/sec E/E' med: 8.4 PA mean P.1 mmHg Lat Peak E' Vinay: 12.3 cm/sec PA pr(Accel): 37.9 mmHg E/E' lat: 6.7 E/e' average: 7.5 MV dec time: 0.19 sec SV(LVOT): 66.1 ml _ Reading Physician:12:32 PM
== END ==
PROVIDERS: PCP Family Medicine; Referring Provider Family Medicine; Visit Provider Family Medicine
DX: I08.1 Rheumatic disorders of both mitral and tricuspid valves (principal); I48.0 Paroxysmal atrial fibrillation
CPT/HCPCS: 93306

== ENCOUNTER → 2019-10-17 07:25 | Outpatient (CLI) | payer MEDICARE, SELFPAY ==
[2019-10-17 08:55] LABS: Cholesterol 135 mg/dL (140-199); HDL Cholesterol 43 mg/dL (40-60); LDL Cholesterol Calculated 63 mg/dL (<100); Magnesium 2.3 mg/dL (1.6-2.3); Triglycerides 147 mg/dL (35-150)
[2019-10-17 09:28] LABS: Thyroid Stimulating Hormone 2.33 uIU/mL (0.47-4.68)
== END ==
PROVIDERS: PCP Family Medicine; Referring Provider Internal Medicine Cardiovascular Disease; Visit Provider Internal Medicine Cardiovascular Disease
DX: I10 Essential (primary) hypertension (principal); E78.5 Hyperlipidemia, unspecified
CPT/HCPCS: 36415; 80061; 83735; 84443

== ENCOUNTER → 2019-11-13 13:56 | Outpatient (CLI) | payer MEDICARE, SELFPAY ==
[2019-11-14 20:00] LABS: COVID19 Sendout Not Detected (Not Detect)
== END ==
PROVIDERS: PCP Family Medicine; Visit Provider Physician Assistant
DX: Z11.59 Encounter for screening for other viral diseases (principal)
CPT/HCPCS: 87635

== ENCOUNTER → 2019-11-16 07:25 | Outpatient (CLI) | payer MEDICARE, SELFPAY ==
--- NOTE | 2019-11-16 20:51 | DI.NM.S_ITS ---
DATE OF SERVICE: 11/16/2019 PROCEDURE PERFORMED: Pharmacologic stress and rest myocardial perfusion imaging study with gating to assess ejection fraction, performed as a one day study. ORDERING PROVIDER: Dr. Alberto Gorman. INDICATIONS: The patient is an 83-year-old male with recently discovered atrial fibrillation and exertional dyspnea. CARDIAC STRESS: Per protocol, 0.4 mg of regadenoson with a normal hemodynamic response without any chest discomfort. His resting ECG shows atrial fibrillation with some nonspecific ST-segment abnormalities and rare PVCs. With pharmacologic stress, he developed some slightly accentuated ST-segment deviation, but this remains nonspecific given the baseline abnormality. He had occasional PVCs, but no other arrhythmias. He was with 26.2 mCi of technetium-99m Myoview per protocol and imaged 20 minutes later using a gated SPECT acquisition algorithm. Earlier in the day, he had been injected with 15.4 mCi of technetium-99m Myoview at rest and was imaged 30 minutes later, again using a similar acquisition protocol. FINDINGS: 1. Raw data: There is fair myocardial tracer uptake. There appears to be some attenuation artifact noted. He was unable to lay prone. His lung/heart ratio was normal at 0.20. His TID ratio was borderline elevated at 1.26, although this is nonspecific given the use of pharmacologic vasodilator and visually there does not appear to be significant post-stress dilatation. 2. Quantitated gated SPECT: Post-stress ejection fraction is estimated at 74% without any focal wall motion abnormality with an end-diastolic volume of 129 mL. The resting ejection fraction is 69% with an end-diastolic volume of 123 mL. 3. Myocardial perfusion imaging: Post-stress supine images shows a fairly normal myocardial perfusion pattern without any obvious perfusion defects. The resting images show a similar perfusion pattern without any clear areas of improvement. IMPRESSION: 1. Normal myocardial perfusion study. 2. No evidence for significant myocardial ischemia or previous myocardial infarction. 3. Normal left ventricular systolic function without focal wall motion abnormality. Left ventricular volumes are mildly increased. The transient ischemic dilation ratio is recorded as being mildly elevated, but visually this is not evident and thus is nonspecific. 4. No angina with pharmacologic stress. There is slight accentuation of baseline ST-segment abnormalities, but nonspecific for ischemia. He had atrial fibrillation with a controlled ventricular response and only occasional PVCs. Gallo Moore - /evita/ doc#: [id number]/job#: [id number] dd: 11/16/2019 17:01:00 dt: 11/16/2019 20:14:00 DICTATING MD/COPIES TO: Milind Patton MD; Alberto Gorman MD; Milind Patton MD COPIES MNE: AMER[employer]; ;
== END ==
PROVIDERS: PCP Family Medicine; Referring Provider Family Medicine; Visit Provider Internal Medicine Cardiovascular Disease
DX: I48.19 Other persistent atrial fibrillation (principal); R06.09 Other forms of dyspnea; I10 Essential (primary) hypertension; R06.02 Shortness of breath
CPT/HCPCS: 78452; 93017; A9502; J2785

== ENCOUNTER 2019-12-07 13:25 | Emergency (ER) | payer MEDICARE, SELFPAY ==
[2019-12-07] VITALS (9 sets, daily range): BP systolic 144–180; BP diastolic 74–86; PULSE 63–83; RESP 15; TEMP 36.5; O2SAT 95–98; BMI 31.7
--- NOTE | 2019-12-07 13:53 | DI.RAD.S_ITS ---
PROCEDURE: XR FINGER RT MIN 2V INDICATIONS: pain sp fall TECHNIQUE: PA view of the hand and two views of the right thumb. COMPARISON: None. FINDINGS: Bones: There is a mildly displaced fracture of the distal 1st metacarpal with mild volar angulation of the distal fracture fragment. No definite intra-articular extension is demonstrated. Generalized osteopenia is noted throughout the hand. There are severe degenerative changes at the 1st carpometacarpal joint. Scattered mild degenerative changes are seen in the of the phalangeal joints. Soft tissues: Soft tissue edema is noted at the base of the thumb. IMPRESSION: Mildly displaced fracture of the distal 1st metacarpal without definitive intra-articular extension. There is mild volar angulation of the distal fracture fragment with surrounding soft tissue edema. Dictated by: Dilan Pike M.D. on 12/07/2019 at 14:23 Approved by: Dilan Pike M.D. on 12/07/2019 at 14:25
--- NOTE | 2019-12-07 13:53 | DI.CT.S_ITS ---
PROCEDURE: CT CERVICAL SPINE WO CON INDICATIONS: fall on thinners TECHNIQUE: Noncontrast 3 mm thick sections acquired from the skull base to the T4 level. Sagittal and coronal reformats were then constructed. For radiation dose reduction, the following was used: automated exposure control, adjustment of mA and/or kV according to patient size. COMPARISON: [facility], CT, CT HEAD/BRAIN WO CON, 12/07/2019, 14:14. [facility], CT, CT CERVICAL SPINE WO CON, 03/29/2019, 13:44. FINDINGS: Image quality: This examination is somewhat limited by quantum mottle artifact. Bones: No fractures or dislocations. Visualized superior ribs are intact. There is moderate disc space narrowing seen at C4-C5, with moderate to severe disc space narrowing at C5-C6. At least moderate disc space narrowing is seen at C6-C7. Endplate irregularity and sclerosis are seen, which are most prominent at C5-C6. Posteriorly directed endplate osteophytes are seen, which are most prominent at C5-C6. Soft tissues: Prevertebral soft tissues are normal in thickness. No paravertebral hematomas. No apical pneumothoraces. IMPRESSION: No acute fractures are seen. Degenerative changes are seen, which are most prominent at the C5-C6 level. Dictated by: Abilio Chong M.D. on 12/07/2019 at 13:45 Approved by: Abilio Chong M.D. on 12/07/2019 at 13:49
--- NOTE | 2019-12-07 13:53 | DI.CT.S_ITS ---
PROCEDURE: CT HEAD/BRAIN WO CON INDICATIONS: fall on thinners TECHNIQUE: Noncontrast 4.5 mm thick angled axial sections acquired from the foramen magnum to the vertex, with coronal and sagittal reformats. For radiation dose reduction, the following was used: automated exposure control, adjustment of mA and/or kV according to patient size. COMPARISON: [facility], CT, CT CERVICAL SPINE WO CON, 12/07/2019, 14:14. [facility], CT, CT HEAD/BRAIN WO CON, 03/29/2019, 13:44. FINDINGS: Image quality: Excellent. CSF spaces: Basal cisterns are patent. No extra-axial fluid collections. The ventricles are symmetric in size and shape. Brain: No intracranial bleeds or masses. There is cerebral volume loss for age, with resultant ventricular and sulcal prominence. There are periventricular and deep white matter chronic small vessel ischemic changes. There is intracranial internal carotid artery atherosclerosis. Skull and face: There is a mild scalp hematoma seen involving left temporal area. No underlying calvarial fracture seen. Calvarium and visualized facial bones appear intact, without suspicious lesions. Sinuses: Mild mucosal thickening is seen within the ethmoid air cells and within the left sphenoid sinus. Visualized sinuses and mastoids otherwise appear clear. IMPRESSION: No acute intracranial hemorrhage is seen. No acute intracranial process is seen. Left temporal scalp hematoma, without associated fracture. Mild paranasal sinus disease incidentally noted. Dictated by: Abilio Chong M.D. on 12/07/2019 at 13:41 Approved by: Abilio Chong M.D. on 12/07/2019 at 13:45
[2019-12-07] MEDS: HYDROCODONE/ACET 5/325 TABLET 1 TAB PO (16:24)
--- NOTE | 2019-12-07 19:57 | ED_ITS ---
HPI - Fall <Dominga Paiz STRADDLE CARRIER OPERATOR-BC - Last Filed: 12/07/19 20:05> General Chief Complaint: Trauma Stated Complaint: Fall Time Seen by Provider: 12/07/19 13:40 Source: patient, family and EMS Mode of arrival: EMS Limitations: no limitations History of Present Illness HPI Narrative: The patient is an 84-year-old male former smoker who presents by EMS. He presents after he picked up something and fell over, falling down 3 stairs. He states his a mechanical fall. He is alert and oriented. He has a contusion left side of his head and right thumb pain. He denies any loss of consciousness, states that he was being clumsy. He states his tetanus is up-to-date. Patient does take Eliquis for atrial fibrillation. Modified trauma activated upon arrival. Denies any neck or back pain, but states it is hard to tell. He denies other injuries other than skin knees, states that he does not need x-rays of his knees. States that his thumb pain is the worst pain. Related Data Home Medications Medication Instructions Recorded Confirmed FERROUS SULFATE (#FERROUS SULFATE) 65 mg PO BID #0 05/12/11 10/19/19 Fish Oil (#FISH OIL) 1 iu PO Q DAY #0 05/12/11 10/19/19 MULTIVITAMIN (#MULTIPLE VITAMINS) 1 cap PO Q DAY #0 05/12/11 10/19/19 acetaminophen 500 mg PO Q DAY #0 06/09/16 10/19/19 cholecalciferol (vitamin D3) 25 1,000 unit PO DAILY #0 tab 06/30/19 10/19/19 mcg (1,000 unit) tablet Previous Rx's Medication Instructions Recorded Disabled Parking Permit #1 ea 07/26/18 amlodipine 5 mg tablet See Rx Instructions .ROUTE 03/30/19 .COMPLEX #90 tablet enalapril maleate 20 mg tablet See Rx Instructions .ROUTE 03/30/19 .COMPLEX #180 tablet atorvastatin 10 mg tablet See Rx Instructions .ROUTE 06/30/19 .COMPLEX #90 tablet gabapentin 100 mg capsule 200 mg PO BID #360 cap 06/30/19 hydrocodone 5 mg-acetaminophen 325 1 tab PO Q6HP PRN #90 tab 06/30/19 mg tablet tamsulosin 0.4 mg capsule 0.4 mg PO HS #90 cap 07/03/19 triamterene 37.5 1 cap PO QDAY #90 cap 07/03/19 mg-hydrochlorothiazide 25 mg capsule apixaban 2.5 mg tablet 2.5 mg PO BID #60 tab 07/05/19 omeprazole magnesium 20 mg 20 mg PO Q DAY #90 cap 07/05/19 tablet,delayed release furosemide 20 mg tablet 20 mg PO DAILY #90 tab 07/19/19 potassium chloride 10 mEq 10 meq PO DAILY #90 cap 07/19/19 capsule,extended release Allergies Allergy/AdvReac Type Severity Reaction Status Date / Time No Known Allergies Allergy Unknown Verified 12/07/19 13:33 [NO KNOWN ALLERGIES] Review of Systems <OLIVERIO Marinelli - Last Filed: 12/07/19 20:05> Review of Systems Narrative: GENERAL: Denies chills, fatigue, malaise, fever, sweats. HEENT: Denies sinus pain, ear pain, sore throat, difficulty swallowing, dizziness. RESPIRATORY: Denies dyspnea, cough, wheezing, hemoptysis, sputum. CARDIOVASCULAR: Denies chest pain, palpitations, orthopnea, edema, GASTROINTESTINAL: Denies nausea, vomiting, abdominal pain, diarrhea, con stipation, melena. : Denies dysuria, frequency, incontinence, hematuria, urinary retention. MUSCULOSKELETAL: See HPI SKIN: See HPI NEUROLOGIC: Denies weakness, headache, numbness, change in speech, confusion, seizures, incoordination. PSYCHIATRIC: No concerning psychosocial issues. 12 point review of systems is negative except for those stated above Patient History <OLIVERIO Marinelli - Last Filed: 12/07/19 20:05> Medical History (Updated 12/07/19 @ 17:39 by OLIVERIO Marinelli) Chronic anemia (Acute) Essential hypertension (Acute) Mixed hyperlipidemia (Acute) Paroxysmal atrial fibrillation (Acute) Tremor (Acute) Surgical History Status post appendectomy Social History household members: spouse Smoking Status: Former smoker Smoking Status: Former smoker alcohol intake frequency: 0-2 drinks per day Substance Use Type: does not use Exam <OLIVERIO Marinelli - Last Filed: 12/07/19 20:05> Narrative Exam Narrative: GENERAL: This is a well-nourished, well-developed patient, in no acute distress HEAD: Atraumatic. Normocephalic. No temporal or scalp tenderness. EYES: Pupils equal round and reactive. Extraocular motions intact. No scleral icterus. No injection or drainage. ENT: Nose without bleeding, purulent drainage or septal hematoma. Throat without erythema, tonsillar hypertrophy or exudate. Uvula midline. Airway patent. NECK: Trachea midline. No JVD or lymphadenopathy. Supple, nontender, no meningeal signs. CARDIOVASCULAR: Regular rate and irregular rhythm RESPIRATORY: Clear to auscultation. Breath sounds equal bilaterally. No wheezes, rales, or rhonchi. No cough. No increased respiratory effort. No accessory muscle use. GASTROINTESTINAL: Abdomen soft, non-tender, nondistended. No hepato- splenomegaly, or palpable masses. No guarding. EXTREMITIES: Pain to palpation and ecchymosis noted right 1st digit. Capillary refill less than 2 seconds. Positive right radial pulse. No snuffbox tenderness to right wrist palpation. BACK: Nontender without deformity or crepitance. No flank tenderness. NEURO: AOx3. SKIN: Abrasions noted on left side of forehead, ecchymosis noted right 1st digit. Skin over right 1st digit intact. Bilateral skin knees. Initial Vital Signs Initial Vital Signs: Vital Signs Temperature 97.7 F 12/07/19 13:33 Pulse Rate 83 12/07/19 13:33 Respiratory Rate 15 12/07/19 13:33 Blood Pressure 168/85 H 12/07/19 13:33 Pulse Oximetry 96 12/07/19 13:33 <Dalila Llanos DO - Last Filed: 12/08/19 07:38> Initial Vital Signs Initial Vital Signs: Vital Signs Temperature 97.7 F 12/07/19 13:33 Pulse Rate 83 12/07/19 13:33 Respiratory Rate 15 12/07/19 13:33 Blood Pressure 168/85 H 12/07/19 13:33 Pulse Oximetry 96 12/07/19 13:33 Procedures <ANSHUL Marinelli-BC - Last Filed: 12/07/19 20:05> Orthopedic Splinting/Casting Injury #1: Side: right Upper Extremity Injury Location: finger Upper Extremity Immobilizer: sling/shoulder immobilizer and Gene wrap (With Radial gutter splint) Post splinting neuro exam: intact Post splinting vascular exam: intact Placed by: Nursing Scores <OLIVERIO Marinelli - Last Filed: 12/07/19 20:05> GCS Cedric coma scale eye opening: Spontaneous Cedric coma scale verbal response: Orientated Cedric coma scale motor response: Obey commands Cedric coma scale total score: 15 Course <OLIVERIO Marinelli - Last Filed: 12/07/19 20:05> Orders Ordered: Discontinued Medications Hydrocodone Bitart/Acetaminophen (Geff 5/325) 1 tab PO NOW ONE Stop: 12/07/19 16:22 Last Admin: 12/07/19 16:24 Dose: 1 tab Documented by: DEREJE Vital Signs Vital signs: Vital Signs - 8 hr 12/07/19 13:33 12/07/19 14:04 12/07/19 14:05 Temperature 97.7 F Pulse Rate 83 77 76 Respiratory Rate 15 Blood Pressure 168/85 H 144/77 H Pulse Oximetry 96 98 97 12/07/19 14:30 12/07/19 15:00 12/07/19 15:01 Temperature Pulse Rate 72 63 64 Respiratory Rate Blood Pressure 163/82 H 165/74 H Pulse Oximetry 97 97 97 12/07/19 15:30 12/07/19 15:59 12/07/19 16:01 Temperature Pulse Rate 68 73 Respiratory Rate Blood Pressure 180/86 H 169/84 H Pulse Oximetry 98 95 <Dalila Llanos DO - Last Filed: 12/08/19 07:38> Orders Ordered: Discontinued Medications Hydrocodone Bitart/Acetaminophen (Geff 5/325) 1 tab PO NOW ONE Stop: 12/07/19 16:22 Last Admin: 12/07/19 16:24 Dose: 1 tab Documented by: DEREJE Vital Signs Vital signs: Vital Signs - 8 hr 12/07/19 13:33 12/07/19 14:04 12/07/19 14:05 Temperature 97.7 F Pulse Rate 83 77 76 Respiratory Rate 15 Blood Pressure 168/85 H 144/77 H Pulse Oximetry 96 98 97 12/07/19 14:30 12/07/19 15:00 12/07/19 15:01 Temperature Pulse Rate 72 63 64 Respiratory Rate Blood Pressure 163/82 H 165/74 H Pulse Oximetry 97 97 97 12/07/19 15:30 12/07/19 15:59 12/07/19 16:01 Temperature Pulse Rate 68 73 Respiratory Rate Blood Pressure 180/86 H 169/84 H Pulse Oximetry 98 95 MDM - Fall <OLIVERIO Marinelli - Last Filed: 12/07/19 20:05> Imaging Data CT scan - head: Radiologist's Impression: [address] [place] [id number] Scan Report Signed Patient: Gallo Moore [facility]#: [id number] : 5Acct:[id number] Age/Sex: 84 / MDate of Service: 12/07/19 Loc: ED Accession Number: [id number] Procedure: CT head/brain wo con Ordering Provider: Dominga Paiz PROCEDURE: CT HEAD/BRAIN WO CON INDICATIONS: fall on thinners TECHNIQUE: Noncontrast 4.5 mm thick angled axial sections acquired from the foramen magnum to the vertex, with coronal and sagittal reformats. For radiation dose reduction, the following was used: automated exposure control, adjustment of mA and/or kV according to patient size. COMPARISON: [facility], CT, CT CERVICAL SPINE WO CON, 12/07/2019, 14:14. [facility], CT, CT HEAD/BRAIN WO CON, 03/29/2019, 13:44. FINDINGS: Image quality: Excellent. CSF spaces: Basal cisterns are patent. No extra-axial fluid collections. The ventricles are symmetric in size and shape. Brain: No intracranial bleeds or masses. There is cerebral volume loss for age, with resultant ventricular and sulcal prominence. There are periventricular and deep white matter chronic small vessel ischemic changes. There is intracranial internal carotid artery atherosclerosis. Skull and face: There is a mild scalp hematoma seen involving left temporal area. No underlying calvarial fracture seen. Calvarium and visualized facial bones appear intact, without suspicious lesions. Sinuses: Mild mucosal thickening is seen within the ethmoid air cells and within the left sphenoid sinus. Visualized sinuses and mastoids otherwise appear clear. IMPRESSION: No acute intracranial hemorrhage is seen. No acute intracranial process is seen. Left temporal scalp hematoma, without associated fracture. Mild paranasal sinus disease incidentally noted. Dictated by: Abilio Chong M.D. on 12/07/2019 at 13:41 Approved by: Abilio Chong M.D. on 12/07/2019 at 13:45 Extremity x-ray #1: Radiologist's Impression: [address] [place] [id number] Scan Report Signed Patient: Gallo Moore MMR#: [id number] : 5Acct:[id number] Age/Sex: 84 / MDate of Service: 12/07/19 Loc: ED Accession Number: [id number] Procedure: CT head/brain wo con Ordering Provider: Dominga Paiz [facility] PROCEDURE: CT HEAD/BRAIN WO CON INDICATIONS: fall on thinners TECHNIQUE: Noncontrast 4.5 mm thick angled axial sections acquired from the foramen magnum to the vertex, with coronal and sagittal reformats. For radiation dose reduction, the following was used: automated exposure control, adjustment of mA and/or kV according to patient size. COMPARISON: [facility], CT, CT CERVICAL SPINE WO CON, 12/07/2019, 14:14. [facility], CT, CT HEAD/BRAIN WO CON, 03/29/2019, 13:44. FINDINGS: Image quality: Excellent. CSF spaces: Basal cisterns are patent. No extra-axial fluid collections. The ventricles are symmetric in size and shape. Brain: No intracranial bleeds or masses. There is cerebral volume loss for age, with resultant ventricular and sulcal prominence. There are periventricular and deep white matter chronic small vessel ischemic changes. There is intracranial internal carotid artery atherosclerosis. Skull and face: There is a mild scalp hematoma seen involving left temporal area. No underlying calvarial fracture seen. Calvarium and visualized facial bones appear intact, without suspicious lesions. Sinuses: Mild mucosal thickening is seen within the ethmoid air cells and within the left sphenoid sinus. Visualized sinuses and mastoids otherwise appear clear. IMPRESSION: No acute intracranial hemorrhage is seen. No acute intracranial process is seen. Left temporal scalp hematoma, without associated fracture. Mild paranasal sinus disease incidentally noted. Dictated by: Abilio Chong M.D. on 12/07/2019 at 13:41 Approved by: Abilio Chong M.D. on 12/07/2019 at 13:45 CT - cervical spine: Radiologist's Impression: [address] [place] [id number] Scan Report Signed Patient: Gallo Moore [facility]#: [id number] : 5Acct:[id number] Age/Sex: 84 / MDate of Service: 12/07/19 Loc: ED Accession Number: [id number] Procedure: CT cervical spine wo con Ordering Provider: Dominga Paiz PROCEDURE: CT CERVICAL SPINE WO CON INDICATIONS: fall on thinners TECHNIQUE: Noncontrast 3 mm thick sections acquired from the skull base to the T4 level. Sagittal and coronal reformats were then constructed. For radiation dose reduction, the following was used: automated exposure control, adjustment of mA and/or kV according to patient size. COMPARISON: [facility], CT, CT HEAD/BRAIN WO CON, 12/07/2019, 14:14. [facility], CT, CT CERVICAL SPINE WO CON, 03/29/2019, 13:44. FINDINGS: Image quality: This examination is somewhat limited by quantum mottle artifact. Bones: No fractures or dislocations. Visualized superior ribs are intact. There is moderate disc space narrowing seen at C4-C5, with moderate to severe disc space narrowing at C5-C6. At least moderate disc space narrowing is seen at C6-C7. Endplate irregularity and sclerosis are seen, which are most prominent at C5-C6. Posteriorly directed endplate osteophytes are seen, which are most prominent at C5-C6. Soft tissues: Prevertebral soft tissues are normal in thickness. No paravertebral hematomas. No apical pneumothoraces. IMPRESSION: No acute fractures are seen. Degenerative changes are seen, which are most prominent at the C5-C6 level. Dictated by: Abilio Chong M.D. on 12/07/2019 at 13:45 Approved by: Abilio Chong M.D. on 12/07/2019 at 13:49 MDM Narrative Medical decision making narrative: The patient is an 84-year-old male who presents with a chief complaint of injuries after a fall down 3 stairs. Given that he is on a blood thinner, modified trauma was activated. His tetanus is up-to-date. Given his obvious head contusion, CT of head was obtained especially given his blood thinner status, came back with no acute findings. CT C-spine came back with no acute findings as well. Unfortunately does not have any suturable lacerations to his head as Whitley abrasions and skin tears. Wound care provided by nursing. Patient does have pain at his right thumb. This was found have a fracture, no snuffbox tenderness on exam. Dr. Le's contacted who viewed the patient's x-rays and patient was placed in a radial gutter splint. Patient states he has pain medication at home. I encouraged follow-up with orthopedics next week as Dr. Le encouraged. Also encouraged follow-up with primary care provider in the next few days and coming back to the emergency department for any acute concerns. Patient has no questions or conc erns upon discharge and states understanding of return precautions as well as follow-up care. Discharge Plan Departure Patient Disposition: Home Clinical Impression: Closed fracture of right thumb Qualifiers: Encounter type: initial encounter Phalanx: distal Fracture alignment: displaced Qualified Code(s): S62.521A - Displaced fracture of distal phalanx of right thumb, initial encounter for closed fracture Abrasion of face Qualifiers: Encounter type: initial encounter Qualified Code(s): S00.81XA - Abrasion of other part of head, initial encounter Fall down steps Qualifiers: Encounter type: initial encounter Qualified Code(s): W10.8XXA - Fall (on) (from) other stairs and steps, initial encounter Discharge Date/Time: 12/07/19 17:54 Instructions: DI for Finger Fracture, How To Perform RICE (Rest, Ice, Compress, Elevate), How to Take Care of Your Splint Activity Restrictions/Additional Instructions: Thank you for trusting us with your care today. As discussed, you broke your thumb. Please leave the splint on and call [facility]. I spoke with Dr. Le regarding your care today. She would like you to be in for evaluation next week. Please monitor for decreased circulation and come back to the emergency department for any acute concerns. Please monitor your abrasions for signs and symptoms of infection such as redness, swelling, purulent drainage and come back to the emergency department for any acute concerns. Prescriptions: No Action MULTIVITAMIN (#MULTIPLE VITAMINS) 1 cap PO Q DAY Qty: 0 RF: 0 FERROUS SULFATE (#FERROUS SULFATE) 65 mg PO BID Qty: 0 RF: 0 Fish Oil (#FISH OIL) 1 iu PO Q DAY Qty: 0 RF: 0 acetaminophen 500 MG tablet 500 mg PO Q DAY Qty: 0 RF: 0 enalapril maleate 20 mg tablet See Rx Instructions .ROUTE .COMPLEX Qty: 180 RF: 2 amlodipine 5 mg tablet See Rx Instructions .ROUTE .COMPLEX Qty: 90 RF: 2 cholecalciferol (vitamin D3) [Vitamin D3] 25 mcg (1,000 unit) tablet 1,000 unit PO DAILY Qty: 0 RF: 0 tamsulosin [Flomax] 0.4 mg capsule 0.4 mg PO HS Qty: 90 RF: 3 triamterene-hydrochlorothiazid [Dyazide] 37.5-25 mg capsule 1 cap PO QDAY Qty: 90 RF: 3 Prilosec OTC 20 mg tablet,delayed release (DR/EC) 20 mg PO Q DAY Qty: 90 RF: 3 atorvastatin 10 mg tablet See Rx Instructions .ROUTE .COMPLEX Qty: 90 RF: 3 gabapentin 100 mg capsule 200 mg PO BID Qty: 360 RF: 3 hydrocodone-acetaminophen [Geff] 5-325 mg tablet 1 tab PO Q6HP PRN (Reason: pain) Qty: 90 RF: 0 Eliquis 2.5 mg tablet 2.5 mg PO BID Qty: 60 RF: 5 furosemide 20 mg tablet 20 mg PO DAILY Qty: 90 RF: 3 potassium chloride 10 mEq capsule, extended release 10 meq PO DAILY Qty: 90 RF: 3 (DME) Disabled Parking Permit 0 .Route .MEDSUPPLY Qty: 1 RF: 0 Referrals: [facility] [Provider Group] Maico Lawrence MD [Primary Care Provider] - Veronica Le MD [Physician] - Stand Alone Forms: Work Release Note <Dalila Llanos DO - Last Filed: 12/08/19 07:38> Cosign ED Attending Naimaature Attestation: I was immediately available in the department for consultation. Documentation has been reviewed. I agree with assessment and plan.
== END 2019-12-07 17:54 | disposition home or self-care (01) ==
PROVIDERS: Emergency Provider Nurse Practitioner Family; PCP Family Medicine
DX: S62.521A Displaced fracture of distal phalanx of right thumb, initial encounter for closed fracture (principal); S00.81XA Abrasion of other part of head, initial encounter; I48.91 Unspecified atrial fibrillation; W10.8XXA Fall (on) (from) other stairs and steps, initial encounter; Z79.01 Long term (current) use of anticoagulants
CPT/HCPCS: 29125; 70450; 72125; 73140; 99284

== ENCOUNTER → 2019-12-29 13:02 | Outpatient (CLI) | payer MEDICARE, SELFPAY ==
[2019-12-29 13:43] LABS: Add Manual Diff / Slide Review NO; Basophils Absolute Auto 100 /uL (0-100); Eosinophils Absolute Auto 400 /uL (0-450); Eosinophils Percent Auto 4.5 % (2-4); Hematocrit 39.5 % (41-53); Hemoglobin 13.3 g/dL (13.5-17.5); Lymphocytes Absolute Auto 1700 /uL (1100-4500); Lymphocytes Percent Auto 20.9 % (25-40); Mean Corpuscular HGB Conc 33.8 % (30-36); Mean Corpuscular Hemoglobin 30.1 PG (26-34); Mean Corpuscular Volume 89.2 fL (80-100); Monocytes Absolute Auto 900 /uL (0-900); Monocytes Percent Auto 11.3 % (3-14); Neutrophils Absolute Auto 5000 /uL (1500-7000); Neutrophils Percent Auto 62.3 % (50-75); Platelet Count 291 X10^3/uL (150-400); Red Blood Cell Count 4.43 X10^6/uL (4.5-5.9); White Blood Cell Count 7.9 X10^3/uL (4.5-11.0)
[2019-12-29 13:57] LABS: Blood Urea Nitrogen 24 mg/dL (9-20); Calcium 9.2 mg/dL (8.4-10.2); Carbon Dioxide 30 mmol/L (22-32); Chloride 101 mmol/L (98-107); Estimated Glomerular Filt Rate 54.4 mL/min (>60); Glucose 98 mg/dL (80-110); HEMOLYSIS < 15 (0-50); Sodium 139 mmol/L (137-145)
== END ==
PROVIDERS: PCP Family Medicine; Referring Provider Family Medicine; Visit Provider Family Medicine
DX: I10 Essential (primary) hypertension (principal); I48.0 Paroxysmal atrial fibrillation
CPT/HCPCS: 36415; 80048; 83735; 85025

== ENCOUNTER → 2020-02-01 14:16 | Outpatient (CLI) | payer MEDICARE, SELFPAY ==
[2020-02-01 15:30] LABS: Add Manual Diff / Slide Review NO; Basophils Absolute Auto 100 /uL (0-100); Basophils Percent Auto 1.2 % (0-2); Eosinophils Absolute Auto 300 /uL (0-450); Eosinophils Percent Auto 4.5 % (2-4); Hematocrit 39.9 % (41-53); Hemoglobin 13.4 g/dL (13.5-17.5); Lymphocytes Absolute Auto 1700 /uL (1100-4500); Lymphocytes Percent Auto 22.6 % (25-40); Mean Corpuscular HGB Conc 33.6 % (30-36); Mean Corpuscular Volume 89.2 fL (80-100); Monocytes Absolute Auto 700 /uL (0-900); Monocytes Percent Auto 9.8 % (3-14); Neutrophils Absolute Auto 4700 /uL (1500-7000); Neutrophils Percent Auto 61.9 % (50-75); Platelet Count 248 X10^3/uL (150-400); Red Blood Cell Count 4.47 X10^6/uL (4.5-5.9); Red Cell Distribution Width 13.3 % (11.6-14.8); White Blood Cell Count 7.6 X10^3/uL (4.5-11.0)
[2020-02-01 16:15] LABS: BUN Creatinine Ratio 16.4 (6-22); Blood Urea Nitrogen 20 mg/dL (9-20); Calcium 8.9 mg/dL (8.4-10.2); Carbon Dioxide 33 mmol/L (22-32); Chloride 102 mmol/L (98-107); Estimated Glomerular Filt Rate 56.5 mL/min (>60); Glucose 128 mg/dL (80-110); HEMOLYSIS 17 (0-50); Potassium 3.3 mmol/L (3.4-5.1); Sodium 138 mmol/L (137-145)
== END ==
PROVIDERS: PCP Family Medicine; Referring Provider Family Medicine; Visit Provider Family Medicine
DX: E87.6 Hypokalemia (principal); I10 Essential (primary) hypertension; N17.9 Acute kidney failure, unspecified
CPT/HCPCS: 36415; 80048; 85025

== ENCOUNTER → 2020-03-18 07:07 | Outpatient (CLI) | payer MEDICARE, SELFPAY ==
[2020-03-18 08:49] LABS: Add Manual Diff / Slide Review NO; Basophils Absolute Auto 100 /uL (0-100); Basophils Percent Auto 0.9 % (0-2); Eosinophils Absolute Auto 300 /uL (0-450); Hematocrit 42.8 % (41-53); Hemoglobin 14.2 g/dL (13.5-17.5); Lymphocytes Absolute Auto 1500 /uL (1100-4500); Lymphocytes Percent Auto 20.2 % (25-40); Mean Corpuscular HGB Conc 33.1 % (30-36); Mean Corpuscular Hemoglobin 29.2 PG (26-34); Mean Corpuscular Volume 88.3 fL (80-100); Monocytes Absolute Auto 600 /uL (0-900); Monocytes Percent Auto 8.8 % (3-14); Neutrophils Absolute Auto 4800 /uL (1500-7000); Neutrophils Percent Auto 66.1 % (50-75); Platelet Count 231 X10^3/uL (150-400); Red Blood Cell Count 4.85 X10^6/uL (4.5-5.9); Red Cell Distribution Width 13.4 % (11.6-14.8); White Blood Cell Count 7.2 X10^3/uL (4.5-11.0)
[2020-03-18 09:17] LABS: BUN Creatinine Ratio 11.3 (6-22); Blood Urea Nitrogen 12 mg/dL (9-20); Calcium 9.9 mg/dL (8.4-10.2); Carbon Dioxide 30 mmol/L (22-32); Chloride 102 mmol/L (98-107); Estimated Glomerular Filt Rate > 60.0 mL/min (>60); Glucose 116 mg/dL (80-110); HEMOLYSIS < 15 (0-50); Potassium 4.1 mmol/L (3.4-5.1); Sodium 138 mmol/L (137-145)
== END ==
PROVIDERS: PCP Family Medicine; Referring Provider Family Medicine; Visit Provider Family Medicine
DX: D64.9 Anemia, unspecified (principal); M54.9 Dorsalgia, unspecified; R60.9 Edema, unspecified
CPT/HCPCS: 36415; 80048; 85025

== ENCOUNTER 2020-04-08 00:56 | Inpatient (IN) | payer MEDICARE, SELFPAY ==
[2020-04-08] VITALS (17 sets, daily range): BP systolic 132–172; BP diastolic 71–109; PULSE 63–111; RESP 18–44; TEMP 36.2–37.3; O2SAT 91–98; BMI 33.4
--- NOTE | 2020-04-08 01:03 | DI.RAD.S_ITS ---
PROCEDURE: XR ACUTE ABDOMEN SERIES INDICATIONS: Abdominal pain. TECHNIQUE: One view chest and two views of the abdomen were acquired. COMPARISON: None. FINDINGS: Surgical changes and devices: None. Chest: Lungs are clear. Heart size is normal. No pleural effusions. No pneumoperitoneum. Abdomen: Nonspecific bowel gas pattern. Gas present in both small and large bowel. Mildly dilated jejunum. Large amount of fecal debris present in the right colon. No suspicious calcifications. Visualized solid organ contours appear normal. Bones: No suspicious bony lesions. Remote ORIF of the right femoral neck. IMPRESSION: Nonspecific bowel gas pattern. Cannot exclude early or partial small bowel obstruction. Serial follow-up imaging may be helpful. Dictated by: Jeremy Bob M.D. on 04/08/2020 at 8:52 Approved by: Jeremy Bob M.D. on 04/08/2020 at 8:54
[2020-04-08] MEDS: SODIUM CHLORIDE 0.9% 1,000 ML 1000 ML IV (01:10)
[2020-04-08] MEDS: PANTOPRAZOLE 40 MG VIAL IV (01:10)
[2020-04-08] MEDS: ONDANSETRON 4 MG/2 ML INJ (01:10)
--- NOTE | 2020-04-08 01:10 | ED.NAVMDI ---
HPI - Nausea/Vomiting/Diarrhea General Chief complaint: Weakness Stated complaint: Weakness Time Seen by Provider: 04/08/20 00:56 Source: patient and EMS Mode of arrival: EMS Limitations: no limitations History of Present Illness HPI Narrative: 84M former smoker with history of Afib, HTN, hyperlipidemia presents by EMS for evaluation of significant weakness and inability to ambulate over the course of the day. He's had N/V/D for the past few days and is normally able to get around on his own. His called EMS when he was too weak to get up. He was orthostatic on scene with EMS, but last BP was in the 140s. IV was placed and fluids given. He states he's been on an antibiotic lately, but denies knowing which one or what it was for. He denies recent travel, exposure to persons with similar symptoms or bad food. He denies any blood in his stool or vomit. He denies any pain. He states he has vomited at least once and has been having loose stools at least 3 times daily MD complaint: nausea, vomiting and diarrhea Onset (ago): day(s) Description of Vomiting: watery Description of Diarrhea: watery Associated Abdominal Pain: No Relieving factors: none Exacerbating factors: none Context: recent antibiotic use Associated symptoms: fatigue Related Data Home Medications Medication Instructions Recorded Confirmed FERROUS SULFATE (#FERROUS SULFATE) 65 mg PO BID #0 05/12/11 04/08/20 Fish Oil (#FISH OIL) 1 iu PO Q DAY #0 05/12/11 04/03/20 MULTIVITAMIN (#MULTIPLE VITAMINS) 1 cap PO Q DAY #0 05/12/11 04/03/20 acetaminophen 500 mg PO Q DAY #0 06/09/16 04/03/20 cholecalciferol (vitamin D3) 25 1,000 unit PO DAILY #0 tab 06/30/19 04/03/20 mcg (1,000 unit) tablet aspirin 325 mg PO DAILY 04/08/20 04/08/20 hydrocodone-acetaminophen [[place]] 0.5 tab PO DAILY PRN 04/08/20 04/08/20 Previous Rx's Medication Instructions Recorded Disabled Parking Permit #1 ea 07/26/18 atorvastatin 10 mg tablet See Rx Instructions .ROUTE 06/30/19 .COMPLEX #90 tablet tamsulosin 0.4 mg capsule 0.4 mg PO HS #90 cap 07/03/19 omeprazole magnesium 20 mg 20 mg PO Q DAY #90 cap 07/05/19 tablet,delayed release amlodipine 5 mg tablet 5 mg PO DAILY #90 tab 12/20/19 enalapril maleate 20 mg tablet 20 mg PO BID #180 tab 12/30/19 clindamycin HCl 300 mg capsule 300 mg PO TID #30 cap 02/12/20 potassium chloride 20 mEq oral 20 meq PO TID #100 ea 02/29/20 packet Allergies Allergy/AdvReac Type Severity Reaction Status Date / Time No Known Allergies Allergy Unknown Verified 04/03/20 12:06 [NO KNOWN ALLERGIES] Review of Systems Constitutional Constitutional: Denies chills, Denies fatigue, Denies fever(s), Denies frequent falls, Denies lethargy and Denies weakness Eyes Eyes: Denies change in vision, Denies eye discharge, Denies irritation and Denies loss of vision ENT Ears, Nose, Mouth, and Throat: Denies change in voice, Denies dizziness, Denies neck pain, Denies sore throat and Denies throat swelling Cardiovascular Cardiovascular: Denies chest pain, Denies irregular heart rhythm, Reports lightheadedness, Denies palpitations, Denies dyspnea, Denies dyspnea on exertion and Denies orthopnea Respiratory Respiratory: Denies cough, Denies dyspnea, Denies dyspnea on exertion and Denies wheezing Gastrointestinal Gastrointestinal: Reports abdominal pain, Denies change in bowel habits, Reports diarrhea, Reports nausea and Reports vomiting Musculoskeletal Musculoskeletal: Denies neck pain and Denies numbness Integumentary/Breasts Skin/Breast: Denies pruritus, Denies erythema, Denies rash and Denies wounds Neurologic Neurologic: Denies behavioral changes, Denies confusion, Denies dizziness, Denies frequent falls, Denies loss of vision, Denies numbness and Denies weakness Psychiatric Psychiatric: Denies anxiety, Denies behavioral changes, Denies confusion, Denies depression, Denies homicidal ideation and Denies suicidal ideation Endocrine Endocrine: Denies fatigue, Denies flushing and Denies palpitations Hematologic/Lymphatic Hematologic/Lymphatic: Denies easy bruising Allergic/Immunologic Allergic/Immunologic: Denies urticaria, Denies throat swelling and Denies wheezing Patient History Medical History Chronic anemia Essential hypertension Mixed hyperlipidemia Paroxysmal atrial fibrillation Tremor Surgical History Status post appendectomy Social History household members: spouse Smoking Status: Former smoker Tobacco: How many years used: 20 alcohol intake: never substance use type: does not use Smoking Status: Former smoker alcohol intake frequency: 0-2 drinks per day Substance Use Type: does not use Exam Narrative Exam Narrative: GENERAL: [84] year old patient appears stated age. Appears to be in moderate distress, chronically ill. VERY hard of hearing HEAD: Atraumatic. Normocephalic. EYES: Pupils equal round and reactive. Extraocular motions intact. No scleral icterus. No injection or drainage. ENT: Moist mucous membranes. Nose without bleeding, purulent drainage. Throat without erythema, tonsillar hypertrophy or exudate. Airway patent. NECK: Trachea midline. Non tender CARDIOVASCULAR: Irregular rate and rhythm without murmurs, gallops, or rubs. RESPIRATORY: Rapid shallow breathing with some expiratory wheeze. Patient states he is in no respiratory distress. This is normal for him GASTROINTESTINAL: Abdomen soft, distended, non-tender. Bowel sounds x4 quadrants. EXTREMITIES: No edema or joint tenderness. BACK: Nontender without deformity or crepitance. No flank tenderness. NEURO: AOx3. SKIN: No rash or erythema of visible areas Initial Vital Signs Initial Vital Signs: Vital Signs Temperature 97.9 F 04/08/20 01:04 Pulse Rate 63 04/08/20 01:04 Respiratory Rate 18 04/08/20 01:04 Blood Pressure 143/71 H 04/08/20 01:04 Pulse Oximetry 94 04/08/20 01:04 Course Orders Ordered: ED Orders 04/08/20 EKG-12 Lead Stat 04/08/20 00:53 COVID19 Stat 04/08/20 01:03 XR acute abdomen series Stat 04/08/20 01:15 Complete Blood Count AUTO DIFF Stat Comprehensive Metabolic Panel Stat 04/08/20 01:37 Stool Culture Stat Potassium Chloride 40 meq/ (Sodium Chloride) 520 mls @ 130 mls/hr IV NOW ONE Stop: 04/08/20 05:36 Last Admin: 04/08/20 02:03 Dose: 130 mls/hr Documented by: RENALDO Cosigned by: HEMAL Discontinued Medications Sodium Chloride (Normal Saline 0.9%) 1,000 mls @ 1,000 mls/hr IV BOLUS ONE Stop: 04/08/20 02:01 Last Infusion: 04/08/20 02:05 Dose: 0 mls/hr Documented by: Admin: 04/08/20 01:10 Dose: 1,000 mls/hr Documented by: HEMAL Pantoprazole Sodium (Pantoprazole 40 Mg Vial) 40 mg IV NOW ONE Stop: 04/08/20 01:03 Last Admin: 04/08/20 01:10 Dose: 40 mg Documented by: HEMAL Vital Signs Vital signs: Vital Signs - 8 hr 04/08/20 01:04 04/08/20 01:07 04/08/20 01:30 Temperature 97.9 F Pulse Rate 63 100 H 105 H Respiratory Rate 18 44 H 34 H Blood Pressure 143/71 H Pulse Oximetry 94 91 94 04/08/20 01:31 04/08/20 02:00 04/08/20 02:30 Temperature 98.6 F Pulse Rate 101 H 98 H 89 Respiratory Rate 40 H 33 H 34 H Blood Pressure 158/76 H 157/88 H Pulse Oximetry 95 95 95 MDM - Nausea/Vomiting/Diarrhea Lab Data Result diagrams: 04/08/20 01:15 04/08/20 01:15 Labs: Lab Results 04/08/20 04/08/20 04/08/20 Range/Units 00:53 01:15 01:15 WBC 14.3 H (4.5-11.0) X10^3/uL RBC 4.55 (4.5-5.9) X10^6/uL Hgb 12.9 L (13.5-17.5) g/dL Hct 39.8 L (41-53) % MCV 87.7 (80-100) fL MCH 28.4 (26-34) PG MCHC 32.4 (30-36) % RDW 13.1 (11.6-14.8) % Plt Count 231 (150-400) X10^3/uL Neut % (Auto) 79.2 H (50-75) % Lymph % (Auto) 5.7 L (25-40) % [place] % (Auto) 12.4 (3-14) % Eos % (Auto) 2.1 (2-4) % Baso % (Auto) 0.6 (0-2) % Neut # (Auto) 35487 H (5958-3551) /uL Lymph # (Auto) 800 L (8521-6113) /uL [place] # (Auto) 1800 H (0-900) /uL Eos # (Auto) 300 (0-450) /uL Baso # (Auto) 100 (0-100) /uL Sodium 135 L (137-145) mmol/L Potassium 2.9 L (3.4-5.1) mmol/L Chloride 106 (98-107) mmol/L Carbon Dioxide 25 (22-32) mmol/L BUN 16 (9-20) mg/dL Creatinine 1.27 H (0.66-1.25) mg/dL Estimated GFR 53.9 L (>60) mL/min BUN/Creatinine Ratio 12.6 (6-22) Glucose 148 H (80-110) mg/dL Calcium 8.7 (8.4-10.2) mg/dL Total Bilirubin 0.6 (0.2-1.3) mg/dL AST 20 (17-59) IU/L ALT 16 (<50) IU/L Alkaline Phosphatase 105 (38-126) U/L Total Protein 5.7 L (6.3-8.2) g/dL Albumin 3.2 L (3.5-5.0) g/dL Globulin 2.5 (1.7-4.1) g/dL Albumin/Globulin Ratio 1.3 (1.0-2.8) SARS-CoV-2 (PCR) Negative (Negative) Imaging Data Abdominal x-ray: Radiologist's Impression: Focal gas distended small in tendon in left mid abdomen is nonspecific, could represent early or partial small bowel obstruction MDM Narrative Medical decision making narrative: Patient with nausea, vomiting and diarrhea for multiple days is significantly weak and dehydrated that he is no longer able to stand on his own. He is not taking his medications and many days and this combination has resulted in his weakness and hypokalemia. Is x-ray shows questionable early or partial small bowel obstruction. Patient has 0 pain and my suspicion is this is more of an enteritis. Patient requires hospitalization for ongoing monitoring and stabilization of his condition. Daughter and have been informed and are in agreement with the plan Discharge Plan Departure Admit Date/Time: 04/08/20 02:42 Admit Provider: Yi Martínez
[2020-04-08 01:26] LABS: COVID19 -Nasal RAPID Negative (Negative)
[2020-04-08 01:27] LABS: Add Manual Diff / Slide Review NO; Basophils Absolute Auto 100 /uL (0-100); Basophils Percent Auto 0.6 % (0-2); Eosinophils Absolute Auto 300 /uL (0-450); Eosinophils Percent Auto 2.1 % (2-4); Hematocrit 39.8 % (41-53); Hemoglobin 12.9 g/dL (13.5-17.5); Lymphocytes Absolute Auto 800 /uL (1100-4500); Lymphocytes Percent Auto 5.7 % (25-40); Mean Corpuscular HGB Conc 32.4 % (30-36); Mean Corpuscular Hemoglobin 28.4 PG (26-34); Mean Corpuscular Volume 87.7 fL (80-100); Monocytes Absolute Auto 1800 /uL (0-900); Monocytes Percent Auto 12.4 % (3-14); Neutrophils Absolute Auto 11300 /uL (1500-7000); Neutrophils Percent Auto 79.2 % (50-75); Platelet Count 231 X10^3/uL (150-400); Red Blood Cell Count 4.55 X10^6/uL (4.5-5.9); Red Cell Distribution Width 13.1 % (11.6-14.8); White Blood Cell Count 14.3 X10^3/uL (4.5-11.0)
[2020-04-08 01:34] LABS: Alanine Aminotransferase 16 IU/L (<50); Albumin 3.2 g/dL (3.5-5.0); Albumin Globulin Ratio 1.3 (1.0-2.8); Alkaline Phosphatase 105 U/L (38-126); Aspartate Aminotransferase 20 IU/L (17-59); BUN Creatinine Ratio 12.6 (6-22); Bilirubin Total 0.6 mg/dL (0.2-1.3); Blood Urea Nitrogen 16 mg/dL (9-20); Calcium 8.7 mg/dL (8.4-10.2); Carbon Dioxide 25 mmol/L (22-32); Chloride 106 mmol/L (98-107); Estimated Glomerular Filt Rate 53.9 mL/min (>60); Globulin 2.5 g/dL (1.7-4.1); Glucose 148 mg/dL (80-110); HEMOLYSIS < 15 (0-50); Potassium 2.9 mmol/L (3.4-5.1); Sodium 135 mmol/L (137-145); Total Protein 5.7 g/dL (6.3-8.2)
[2020-04-08] MEDS: POTASSIUM CHLORIDE 40 MEQ in SODIUM CHLORIDE 0.9% 500 ML 130 ML IV (02:03)
--- NOTE | 2020-04-08 02:35 | PC.NURSE ---
Addendum entered by Bridget Muniz R.N. 04/08/20 03:22: Transferred to room 203 @ 0310 04/03/20. Original Note: Report given to IGGY Sharma for transfer to unit.
[2020-04-08 03:35] LABS: Lactate (Lactic Acid) 2.6 mmol/L (0.7-2.1)
[2020-04-08 03:51] LABS: Procalcitonin 0.25 ng/mL (<0.5)
--- NOTE | 2020-04-08 04:17 | PC.NURSE ---
Addendum entered by Jeny Petty R.N. 04/08/20 05:38: 0500 Received notice from lab. Patient is C-DIFF POSITIVE. 0502 Spoke with Luciana Martínez, informed of C-Diff and her answers to my previous questions are as follows: Cancel potassium order (she wasn't aware ED already give him NSK40 and is still infusing. We also happened to catch some urine in the urinal and sent that down to the lab for UA sample. Addendum entered by Jeny Petty R.N. 04/08/20 04:27: 0425 Received call from ICU. Pt had short burst of SVT. Checked on patient; he was straining, trying to use the urinal. Denies dizziness, lightheadedness and chest pain. Asymptomatic. Original Note: 0305 Pt transferred from ED to ACU in stable condition. He is alert and oriented x3, except for the date. He c/o diarrhea and weakness. Abnormal vitals are BP at 157/88 and respiratory rate of 36. His oxygen saturation is WNL. He has a baseline tremor in both arms/hands. He denies pain. His bed alarm is on. Pt oriented to unit. No s/sx of distress. 0418 NOTE LEFT FOR HOSPITALIST AT DOOR: 1)Stools are black, tar-like. GUIAC POSITIVE. 2) An order was placed for NSK40 at 130mL/h, but he already has one running that came up with him from the ED--did you mean to order that? 3) The patient is incontinent of urine and wearing a brief. Do you need us to straight-cath for the UA sample?
[2020-04-08] MEDS: SODIUM CHLORIDE 0.9% 1,000 ML 100 ML IV (04:47)
[2020-04-08 05:13] LABS: Clostridium Difficile Tox PCR Positive for C. diff
[2020-04-08 05:23] LABS: Reflexed Lactate in 2 Hours Y
[2020-04-08 05:29] LABS: Bacteria Urine None Seen; RBC Urine None Seen (0-5/HPF); WBC Urine None Seen (0-5/HPF)
[2020-04-08 05:39] LABS: Appearance Urine UA CLEAR; Bilirubin Urine UA NEGATIVE (NEGATIVE); Color Urine UA YELLOW; Glucose Urine UA NEGATIVE (Negative); Ketones Urine UA NEGATIVE (NEGATIVE); Leukocyte Esterase Urine UA NEGATIVE (NEGATIVE); Nitrite Urine UA NEGATIVE (Negative); Occult Blood Urine UA 3+ (Negative); Protein Urine UA 2+ (Negative); Specific Gravity Urine UA 1.025 (1.000-1.035); Urobilinogen Urine UA 0.2 E.U./dL (0.2)
[2020-04-08 06:10] LABS: Lactate 2HR (Lactic Acid Rflx) 0.9 mmol/L (0.7-2.1)
--- NOTE | 2020-04-08 06:55 | P.HP_ITS ---
History of Present Illness History of Present Illness Date Patient Seen: 04/08/20 Time Patient Seen: 02:00 Chief complaint: Weakness Narrative: Gallo Moore is a pleasant 84 y.o. male with essential hypertension, hyperlipidemia, GERD, and BPH presented with a several day history of nausea and vomiting, diarrhea and generalized weakness. He states that he threw up in the ambulance and then again in the emergency department. He states he has not been able to keep anything down and he has been not urinated more than normal. He denies fevers sweats or chills, he has chronic shortness of breath, and generally feels very weak. Emergency department requested admission for generalized weakness and further workup of her problem a gastroenteritis. Acute abdomen x-ray series indicated a cyst suspicion for partial small-bowel obstruction. Patient is afebrile, blood pressure 151/84, heart rate 92, respiratory rate 24, oxygen saturation of 96% on room air he weighs 102 kg with a BMI of 33.4. He has an elevated white count of 14.3, hemoglobin 12.9, hematocrit 39.8, RBC 4.55, platelet count of 231, and a left shift. His sodium was 135, potassium 2.9, I chloride 106, bicarb 25, BUN 16, creatinine 1.27 which is elevated over baseline, lactate 0.9, urinalysis is negative for a UTI, C difficile is positive, COVID-19 PCR is negative. Patient History Medical History Chronic anemia Essential hypertension Mixed hyperlipidemia Paroxysmal atrial fibrillation Tremor Surgical History Status post appendectomy Family & Social History Social History: household members spouse Prior Living Arrangements House Safety & Behavioral: Feels Safe in Current Yes Environment Been Physically Hurt or No Threatened By a Person Suicidal Ideation Description None Suicide Plan Description No Plan Tobacco & Substance use: Smoking Status Former smoker alcohol intake never alcohol intake frequency 0-2 drinks per day Substance Use Type does not use Meds Home Medications and Allergies Home Medications Medication Instructions Recorded Confirmed Type FERROUS SULFATE (#FERROUS SULFATE) 65 mg PO BID #0 05/12/11 04/08/20 History Fish Oil (#FISH OIL) 1 iu PO Q DAY #0 05/12/11 04/08/20 History MULTIVITAMIN (#MULTIPLE VITAMINS) 1 cap PO Q DAY #0 05/12/11 04/08/20 History acetaminophen 500 mg PO Q DAY #0 06/09/16 04/08/20 History Disabled Parking Permit #1 ea 07/26/18 04/03/20 Rx atorvastatin 10 mg tablet See Rx Instructions .ROUTE 06/30/19 04/08/20 Rx .COMPLEX #90 tablet cholecalciferol (vitamin D3) 25 1,000 unit PO DAILY #0 tab 06/30/19 04/08/20 History mcg (1,000 unit) tablet tamsulosin 0.4 mg capsule 0.4 mg PO HS #90 cap 07/03/19 04/08/20 Rx omeprazole magnesium 20 mg 20 mg PO Q DAY #90 cap 07/05/19 04/08/20 Rx tablet,delayed release amlodipine 5 mg tablet 5 mg PO DAILY #90 tab 12/20/19 04/08/20 Rx enalapril maleate 20 mg tablet 20 mg PO BID #180 tab 12/30/19 04/08/20 Rx clindamycin HCl 300 mg capsule 300 mg PO TID #30 cap 02/12/20 04/08/20 Rx potassium chloride 20 mEq oral 20 meq PO TID #100 ea 02/29/20 04/08/20 Rx packet aspirin 325 mg PO DAILY 04/08/20 04/08/20 History hydrocodone-acetaminophen [[place]] 0.5 tab PO DAILY PRN 04/08/20 04/08/20 History Allergies Allergy/AdvReac Type Severity Reaction Status Date / Time No Known Allergies Allergy Unknown Verified 04/03/20 12:06 [NO KNOWN ALLERGIES] Review of Systems Review of Systems ROS: Yes All systems reviewed with the patient and are negative except as otherwise documented Exam Vital Signs (past 8 hours): - 04/08/20 01:04 04/08/20 01:07 04/08/20 01:30 Temperature 97.9 F Pulse Rate 63 100 H 105 H Respiratory Rate 18 44 H 34 H Blood Pressure 143/71 H Pulse Oximetry 94 91 94 04/08/20 01:31 04/08/20 02:00 04/08/20 02:30 Temperature 98.6 F Pulse Rate 101 H 98 H 89 Respiratory Rate 40 H 33 H 34 H Blood Pressure 158/76 H 157/88 H Pulse Oximetry 95 95 95 04/08/20 03:18 04/08/20 03:25 Temperature 98.2 F 98.6 F Pulse Rate 90 82 Respiratory Rate 36 H 36 H Blood Pressure 159/74 H 157/88 H Pulse Oximetry 98 95 Oxygen Delivery Method Room Air Narrative Exam Narrative: Gen: Alert, oriented, well-developed 84 y.o. male, dusky appearing HEENT: normocephalic, atraumatic, conjunctiva clear, sclera non-icteric, oral mucosa pink and moist Neck: supple, full ROM, no JVD, trachea is midline Resp: upper airway wheezes audible, lungs otherwise CTA, non-labored breathing CV: RRR, no murmur or rubs Abd: soft, non-tender, normoactive BTs GI: stool reported to be guiac positive Skin: no lesions or rashes, dry and intact Neuro: Alert and oriented X 4 w/no focal deficits. Speech clear and coherent. Extremities: moves all 4 extremities, is ambulatory, negative Shayan?s sign Psyche: normal mood and affect. Objective Labs Result Diagrams: 04/08/20 01:15 04/08/20 01:15 Labs: Laboratory Results - last 24 hr 04/08/20 04/08/20 04/08/20 00:53 01:15 01:15 WBC 14.3 H RBC 4.55 Hgb 12.9 L Hct 39.8 L MCV 87.7 MCH 28.4 MCHC 32.4 RDW 13.1 Plt Count 231 Neut % (Auto) 79.2 H Lymph % (Auto) 5.7 L [place] % (Auto) 12.4 Eos % (Auto) 2.1 Baso % (Auto) 0.6 Neut # (Auto) 45644 H Lymph # (Auto) 800 L [place] # (Auto) 1800 H Eos # (Auto) 300 Baso # (Auto) 100 Sodium 135 L Potassium 2.9 L Chloride 106 Carbon Dioxide 25 BUN 16 Creatinine 1.27 H Estimated GFR 53.9 L BUN/Creatinine Ratio 12.6 Glucose 148 H Lactate Calcium 8.7 Total Bilirubin 0.6 AST 20 ALT 16 Alkaline Phosphatase 105 Total Protein 5.7 L Albumin 3.2 L Globulin 2.5 Albumin/Globulin Ratio 1.3 Procalcitonin Urine Color Urine Appearance Urine pH Ur Specific [place] Urine Protein Urine Glucose (UA) Urine Ketones Urine Occult Blood Urine Nitrate Urine Bilirubin Urine Urobilinogen Ur Leukocyte Esterase C. difficile Tox (PCR) SARS-CoV-2 (PCR) Negative 04/08/20 04/08/20 04/08/20 01:15 01:15 03:30 WBC RBC Hgb Hct MCV MCH MCHC RDW Plt Count Neut % (Auto) Lymph % (Auto) [place] % (Auto) Eos % (Auto) Baso % (Auto) Neut # (Auto) Lymph # (Auto) [place] # (Auto) Eos # (Auto) Baso # (Auto) Sodium Potassium Chloride Carbon Dioxide BUN Creatinine Estimated GFR BUN/Creatinine Ratio Glucose Lactate 2.6 H Calcium Total Bilirubin AST ALT Alkaline Phosphatase Total Protein Albumin Globulin Albumin/Globulin Ratio Procalcitonin 0.25 Urine Color Urine Appearance Urine pH Ur Specific [place] Urine Protein Urine Glucose (UA) Urine Ketones Urine Occult Blood Urine Nitrate Urine Bilirubin Urine Urobilinogen Ur Leukocyte Esterase C. difficile Tox (PCR) Positive for c. diff H SARS-CoV-2 (PCR) 04/08/20 04/08/20 05:20 05:50 WBC RBC Hgb Hct MCV MCH MCHC RDW Plt Count Neut % (Auto) Lymph % (Auto) [place] % (Auto) Eos % (Auto) Baso % (Auto) Neut # (Auto) Lymph # (Auto) [place] # (Auto) Eos # (Auto) Baso # (Auto) Sodium Potassium Chloride Carbon Dioxide BUN Creatinine Estimated GFR BUN/Creatinine Ratio Glucose Lactate 0.9 Calcium Total Bilirubin AST ALT Alkaline Phosphatase Total Protein Albumin Globulin Albumin/Globulin Ratio Procalcitonin Urine Color Yellow Urine Appearance Clear Urine pH 6.0 Ur Specific [place] 1.025 Urine Protein 2+ H Urine Glucose (UA) Negative Urine Ketones Negative Urine Occult Blood 3+ H Urine Nitrate Negative Urine Bilirubin Negative Urine Urobilinogen 0.2 Ur Leukocyte Esterase Negative C. difficile Tox (PCR) SARS-CoV-2 (PCR) Assessment & Plan Assessment & Plan narrative: Gallo Moore will be admitted for further workup of weakness and gastroenteritis. Upon arrival to the floor, he was found to have stool positive for c. difficile with dark tarry stool. Probable upper gi bleed, acute, present on admission -will check another cbc at 1200. If a significant loss, will be necessary to consult w/General Surgery Severe hypokalemia of 2.9 present on admission -He received a potassium rider 40 mEq in the ED and is written for another 40 mEq po X 1. C.difficile, acute present on admission -He is initiated on vancomycin 125 mg po qid SKYLER, -Likely secondary to dehydration. Repeat BMP at 1200 Paroxsymal atrial fibrillation, chronic -He previously took apixaban for anticoagulation but discontinued by his PCP due to him having frequent falls and is not rate or rhythm controlled -Telemetry Essential hypertension, chronic and stable -Continue home dose of amlodipine 5 mg po daily -Continue home dose of enalapril 20 mg po daily -Full strength ASA will be held due to possibility of bleeding Hyperlipidemia, chronic and stable -Continue home dose of atorvastatin 10 mg po in the evening BPH, chronic -Continue home dose of tamsulosin 0.4 mg po daily VTE prophylaxis: Wells risk score: [] [] Enoxaparin 40 mg subQ daily [] Bilateral SCDs Consults: none Patient is admitted under inpatient status with expected length of stay greater than 2 midnights due to severity of presenting symptoms, risk of adverse event, and complexity of treatment plan. FEN: IV NS at 100 ml/hour X 2 liters, heart healty diet, BMP and magnesium in the am. Dispo: probable discharge back to home Code Status: DNR/DNI as discussed with patient Scores Wells' Criteria for PE Clinical signs and symptoms of DVT: No PE is #1 Dx or equally likely: No Heart rate > 100: No Immobilization at least 3 days or surg in previous 4 weeks: No History of PE or DVT: No Hemoptysis: No Malignancy w/Treatment within 6 months or palliative: No Wells' PE Score total: 0 Quality VTE Deep Vein Thrombosis/Pulmonary Embolism Present on Admission: No
[2020-04-08 06:58] LABS: Culture Indicated Urine Cult Not Indicated; Hyaline Casts Urine 0-1/LPF; Mucus Urine 1+ (Negative)
[2020-04-08] MEDS: VANCOMYCIN 125 MG CAPSULE PO ×3 (09:09→20:42)
[2020-04-08] MEDS: ENALAPRIL 20 MG TABLET PO ×2 (09:10→20:45)
[2020-04-08] MEDS: AMLODIPINE 5 MG TABLET PO (09:10)
[2020-04-08] MEDS: POTASSIUM CHLORIDE 20 MEQ TAB 40 MEQ PO (10:50)
--- NOTE | 2020-04-08 14:25 | PC.NURSE ---
Day shift: Per Gallo ROSA to discuss information w/ his children, Gayla Romo, Gayatri Rock and Elizabeth Govea.
--- NOTE | 2020-04-08 15:08 | CM.DANOTE ---
Brief Assessment Note Patient is an 84 yo male who was admitted today 04/08/20 for Weakness. Pt has MCR and [employer] for insurance and his PCP is Dr. Kal Bowers. EMR was reviewed. Per MD, pt tested positive for CDiff and working pt up to determine possible AFIB. SW attempted to meet bedside with pt, who is quite [place], but he was getting cleaned from CDiff episode and had been bedside but not currently in the hospital. Pt with no recent admissions but a few ED visits over the past year. Pt resides in [place] with his and has multiple adult children who have been calling for updates and quite supportive and involved. Plan: SW to follow closely for d/c planning needs and to determine if pt will be safe for d/c home pending PT eval and recommendations. LUPILLO Doran
[2020-04-08 15:21] LABS: BUN Creatinine Ratio 12.6 (6-22); Blood Urea Nitrogen 15 mg/dL (9-20); Calcium 8.7 mg/dL (8.4-10.2); Carbon Dioxide 26 mmol/L (22-32); Chloride 107 mmol/L (98-107); Estimated Glomerular Filt Rate 58.1 mL/min (>60); Glucose 115 mg/dL (80-110); HEMOLYSIS < 15 (0-50); Potassium 3.3 mmol/L (3.4-5.1); Sodium 137 mmol/L (137-145)
[2020-04-08 16:05] LABS: Add Manual Diff / Slide Review NO; Basophils Absolute Auto 100 /uL (0-100); Basophils Percent Auto 0.4 % (0-2); Eosinophils Absolute Auto 600 /uL (0-450); Eosinophils Percent Auto 3.9 % (2-4); Hematocrit 40.4 % (41-53); Hemoglobin 13.5 g/dL (13.5-17.5); Lymphocytes Absolute Auto 700 /uL (1100-4500); Lymphocytes Percent Auto 4.9 % (25-40); Mean Corpuscular HGB Conc 33.4 % (30-36); Mean Corpuscular Hemoglobin 29.3 PG (26-34); Mean Corpuscular Volume 87.8 fL (80-100); Monocytes Absolute Auto 1600 /uL (0-900); Monocytes Percent Auto 10.5 % (3-14); Neutrophils Absolute Auto 12100 /uL (1500-7000); Neutrophils Percent Auto 80.3 % (50-75); Platelet Count 246 X10^3/uL (150-400); Red Cell Distribution Width 13.1 % (11.6-14.8); White Blood Cell Count 15.1 X10^3/uL (4.5-11.0)
--- NOTE | 2020-04-08 18:03 | PC.NURSE ---
Addendum entered by Marcia Rosas R.N. 04/08/20 22:23: Pt had a run of apparent Afib/RVR Some confusion noted later in evening. Reorients easily. Mg & K+ riders ordered. awaiting to have verified. Call light w/in reach, bed alarm on for pt safety. Continue w/plan of care. Original Note: Pt having frequent loose stools SpO2 94% RA, lungs clear/shallow Tele shows a-fib per ICU staff. NS infusing into right wrist @ 100cc/hr via pump w/o incidence. Call light w/in reach, bed alarm on for pt safety.
[2020-04-08] MEDS: POTASSIUM CHLORIDE 20 MEQ/15 ML UDC 40 MEQ PO (18:17)
[2020-04-08] MEDS: TAMSULOSIN 0.4 MG CAPSULE PO (20:42)
[2020-04-08] MEDS: METOPROLOL IR 25 MG TABLET PO (20:43)
[2020-04-08] MEDS: ATORVASTATIN 20 MG TABLET 10 MG PO (20:43)
[2020-04-08 20:55] LABS: Blood Urea Nitrogen 16 mg/dL (9-20); Calcium 8.8 mg/dL (8.4-10.2); Carbon Dioxide 25 mmol/L (22-32); Chloride 108 mmol/L (98-107); Estimated Glomerular Filt Rate > 60.0 mL/min (>60); Glucose 121 mg/dL (80-110); HEMOLYSIS < 15 (0-50); Magnesium 1.6 mg/dL (1.6-2.3); Potassium 3.3 mmol/L (3.4-5.1); Sodium 136 mmol/L (137-145)
[2020-04-08] MEDS: MAGNESIUM SULFATE 1 GM in DEXTROSE 5 % IN WATER 100 ML 102 ML IV (22:38)
[2020-04-08] MEDS: POTASSIUM CHLORIDE 30 MEQ in SODIUM CHLORIDE 0.9% 250 ML 88.333 ML IV (23:59)
[2020-04-09] VITALS (11 sets, daily range): BP systolic 103–134; BP diastolic 44–78; PULSE 70–96; RESP 16–34; TEMP 36.2–36.8; O2SAT 94–97
[2020-04-09] MEDS: VANCOMYCIN 125 MG CAPSULE PO ×4 (01:31→20:04)
[2020-04-09] MEDS: MELATONIN 3 MG TABLET 6 MG PO (02:16)
[2020-04-09] MEDS: POTASSIUM CHLORIDE 30 MEQ in SODIUM CHLORIDE 0.9% 250 ML 88.333 ML IV (02:59)
--- NOTE | 2020-04-09 04:44 | PC.NURSE ---
patient tele reading is Afib with rate of 60-99 and rate of >/ to 100, A flutter, notified hospitalist of the new reading, no new orders at this time
[2020-04-09 06:16] LABS: BUN Creatinine Ratio 13.1 (6-22); Blood Urea Nitrogen 14 mg/dL (9-20); Calcium 8.6 mg/dL (8.4-10.2); Carbon Dioxide 23 mmol/L (22-32); Chloride 107 mmol/L (98-107); Estimated Glomerular Filt Rate > 60.0 mL/min (>60); Glucose 128 mg/dL (80-110); HEMOLYSIS < 15 (0-50); Magnesium 1.7 mg/dL (1.6-2.3); Potassium 3.8 mmol/L (3.4-5.1); Sodium 135 mmol/L (137-145)
[2020-04-09 06:21] LABS: Add Manual Diff / Slide Review NO; Basophils Absolute Auto 0 /uL (0-100); Basophils Percent Auto 0.2 % (0-2); Eosinophils Absolute Auto 200 /uL (0-450); Eosinophils Percent Auto 1.2 % (2-4); Hematocrit 41.1 % (41-53); Hemoglobin 13.2 g/dL (13.5-17.5); Lymphocytes Absolute Auto 600 /uL (1100-4500); Lymphocytes Percent Auto 3.4 % (25-40); Mean Corpuscular HGB Conc 32.2 % (30-36); Mean Corpuscular Hemoglobin 28.5 PG (26-34); Mean Corpuscular Volume 88.6 fL (80-100); Monocytes Absolute Auto 1600 /uL (0-900); Monocytes Percent Auto 9.7 % (3-14); Neutrophils Absolute Auto 14000 /uL (1500-7000); Neutrophils Percent Auto 85.5 % (50-75); Platelet Count 251 X10^3/uL (150-400); Red Blood Cell Count 4.64 X10^6/uL (4.5-5.9); White Blood Cell Count 16.4 X10^3/uL (4.5-11.0)
[2020-04-09] MEDS: FUROSEMIDE 20 MG/2 ML VIAL IV (09:00)
[2020-04-09] MEDS: ENALAPRIL 20 MG TABLET PO (09:11)
[2020-04-09] MEDS: AMLODIPINE 5 MG TABLET PO (09:11)
--- NOTE | 2020-04-09 09:30 | PT.IIE ---
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, managed as type 2 Essential hypertension Mixed hyperlipidemia Paroxysmal atrial fibrillation Tremor Physical Therapy Inpatient Evaluation/Re-Eval M1 PT/OT-IP Prior Functional Status Start: 04/09/20 11:58 Freq: NEEDED Status: Active Protocol: Document 04/09/20 09:30 AB (Rec: 04/09/20 12:15 AB [email or web address]) Medical Review Prior Functional Status Medical History Reviewed Yes Communication very [place]; able to answer questions but with delay Mobility and Gait stated that he is modified independent with all mobilities and ambulation using 4WW Social History Household Members spouse Living Arrangements House Number of Floors (Floors) 3 or More Floors Number of Stairs To Enter/Railing? pt stated that there is an elevator to get into the different levels Home Environment Standard Height Toilet,High Toilet,Walk in Shower,Built-In Shower Seat,Elevator Home Equipment Four Wheel Walker,Hand Held Shower,Grab Bars Near Toilet, Grab Bars In Shower M2 PT-IP Current Condition Start: 04/09/20 11:58 Freq: NEEDED Status: Active Protocol: Document 04/09/20 09:30 AB (Rec: 04/09/20 12:15 AB [email or web address]) Physical Therapy Current Condition Current Condition Evaluation Date 04/09/20 Treatment Diagnosis (+) C-diff; difficulty in walking Onset Date 04/08/20 Precautions Other Precautions falls; (+) C-diff M3 PT-IP Subjective Start: 04/09/20 11:58 Freq: NEEDED Status: Active Protocol: Document 04/09/20 09:30 AB (Rec: 04/09/20 12:15 AB [email or web address]) Subjective Physical Therapy Visit Type Type Initial Evaluation Visit Start Time 09:30 Visit Stop Time 10:11 Total Visit Minutes 41 Number of BORING MACHINE OPERATOR VERTICAL Visits 0 M4 PT-IP Mobility and Gait Start: 04/09/20 11:58 Freq: NEEDED Status: Active Protocol: Document 04/09/20 09:30 AB (Rec: 04/09/20 12:15 AB [email or web address]) PT-Bed Mobility Assessment Supine to Sit Supine to Sit Maximum Assistance,Total Assistance,2 Person Assistance ,Head of Bed Elevated Scooting Scooting to Edge of Bed Maximum Assistance PT-Transfer Assessment Sit to and From Stand Sit to and from Stand Maximum Assistance,2 Person Assistance,Use of Upper Extremities Equipment Transfer Assistive Device Gait Belt,Front Wheeled Walker Orthotic/Prosthetic Devices or Brace: No Transfers Transfer Destination Bedside Commode Transfer Technique Stand Step Pivot Transfer Ability Level of Assist Maximum Assistance,2 Person Assistance,Use of Upper Extremities Comments Mobility Comments found pt with NAC and was about to get up. PT went in to assist. pt is very [place] and requires step by steps cues and instructions. completed supine to sit with HOB elevated max A x 2 to total A x 2 and max cues. pt with increase posterior trunk lean requiring max A for sitting balance. pt refusing to use bedside commode initially and stated that he can walk to the toilet. attempted sit to stand but pt unable. educated pt on safety and agreed to use bedside commode. completed sit to stand max A x 2 and max cues and completed step transfer to the bedside commode max A x 2 and max cues . required max A for descent to the bedside commode. pt required total A with hygiene care and brief management. pt is incontinent. completed sit to stand from the bedside commode max A x 2 and max cues . required max A for standing balance using FWW. while standing, pt stated that he has to urinate and just urinated on the floor. pt has decrease safety awareness. instructed to sit back down on the bedside commode max A and cues. assisted again with hygiene care and brief management with 2 person assist for standing balance and another person assisting with hygiene care. . completed sit to stand max A x 2 and max cues and completed step transfer to chair max A x 2 and max cues. total A x 2 for positioning on the chair. call light and table placed within reach. Left pt with NAC. informed nurse and NAC that pt is a mechanical lift transfers with nursing and agreed. Gait Assessment Comments Gait Comments unable PT-Balance Assessment Sitting Balance and Reactions Static Sitting Balance Ability Poor Dynamic Sitting Balance Ability Poor Standing Balance and Reactions Static Standing Balance Ability Poor Dynamic Standing Balance Ability Poor Device Used FWW M5 PT-IP Objective Assessments Start: 04/09/20 11:58 Freq: NEEDED Status: Active Protocol: Document 01/19/21 09:30 AB (Rec: 04/09/20 12:15 AB [id number]) Orientation Orientation/Cognition Level of Alertness Alert Orientation Name,Place,Situation Language Function Ability Hard of Hearing Safety Awareness Decreased Safety Awareness Memory Description Short Term Impaired Strength Lower Extremity Strength Assessment Bilaterally Impaired Hip 3-/5 Knee 3+/5 Other Assessments Other Other Assessments (+) hand tremors during mobility M6 PT-IP Treatment Start: 04/09/20 11:58 Freq: NEEDED Status: Active Protocol: Document 04/09/20 09:30 AB (Rec: 04/09/20 12:15 AB [id number]) Physical Therapy Treatment Education Education Provided Safety M7 PT-IP Assessment and Plan Start: 04/09/20 11:58 Freq: NEEDED Status: Active Protocol: Document 04/09/20 09:30 AB (Rec: 04/09/20 12:15 AB [email or web address]) PT Summary Assessment and Plan Potential Rehabilitation Potential Fair Status of Condition at Evaluation Evolving Summary Impairments Pain,ROM,Strength,Balance, Coordination,Sensation,Tone, Cognition,Bed Mobility, Transfers,Gait,Activity Tolerance Assessment Summary pt requiring total A x 2-3 with all tasks and is unable to ambulate at this time. pt will need SNF rehab to improve strength and functional mobility. Goals Bed Mobility Goal Minimal Assistance Transfer Goal Minimal Assistance,Front Wheeled Walker Gait Goal Minimal Assistance,Front Wheel Walker Gait Distance 50 Other Goals improve bed mobility, transers to SBA and ambulation using 4WW to CGA 100 ft Days to Meet Goals 10 Frequency of Treatment Frequency Of Treatment Once a Day Treatment Plan Physical Therapy Treatment Plan Bed Mobility Training,Transfer Training,Gait Training, Therapeutic Exercise,Balance Retraining,Discharge Planning, Neuromuscular Re-ed, Coordination Retraining Other Recommendations and Next Treatment transfers, sitting/standing Focus balance, ambulation when appropriate Recommendations To Nursing Amount of Assist Needed 3 or More Person Assist,Total Assistance,Mechanical Lift Discharge Recommendations PT Discharge Recommendations SNF Rehab Transportation Needs at Discharge Wheelchair/Cabulance
--- NOTE | 2020-04-09 10:42 | PC.NURSE ---
Day shift: Pt's hearing aids given to Pt's daughter Gayla today at approx 1030. Daughter is taking them to [facility] to have batteries replaced.
[2020-04-09 12:32] LABS: C difficie Toxins A and B, EIA Positive (Negative)
--- NOTE | 2020-04-09 14:50 | PM.CHAP ---
Pastoral care visit. Pt and spouse are long time family friends. Pt is encouraged but knows that his neumann years are going to include increasing health challenges. Shared some family stories and prayer. Jose Diamond, Pastoral Care [phone]
--- NOTE | 2020-04-09 15:18 | OT.IPNOTE ---
Nursing aids in the room about to assist pt with bed akhtar, therefore see pt for OT eval tomorrow.
--- NOTE | 2020-04-09 15:42 | P.PN_ITS ---
Subjective Subjective Date Patient Seen: 04/09/20 Interval history: Patient is 84-year-old male admitted with C diff colitis. He had some ectopy on telemetry overnight associated with low potassium and magnesium which were corrected. This morning he is very hard of hearing and seems confused. Exam Vital Signs (past 8 hours): - 04/09/20 07:47 04/09/20 07:52 04/09/20 11:53 Temperature Pulse Rate 72 91 H Respiratory Rate 16 Blood Pressure Pulse Oximetry 95 95 04/09/20 12:21 Temperature 98.3 F Pulse Rate 94 H Respiratory Rate 16 Blood Pressure 113/77 Pulse Oximetry 95 Oxygen Delivery Method Room Air Oxygen Flow Rate 0 Narrative Exam Narrative: General: Alert, confused Lungs: Bibasilar crackles Heart: Irregularly irregular Abdomen: Soft, nontender Extremities: No edema Objective Labs Result Diagrams: 04/09/20 05:50 04/09/20 05:50 Labs: Laboratory Results - last 24 hr 04/08/20 04/08/20 04/08/20 03:30 15:56 20:32 WBC 15.1 H RBC 4.60 Hgb 13.5 Hct 40.4 L MCV 87.8 MCH 29.3 MCHC 33.4 RDW 13.1 Plt Count 246 Neut % (Auto) 80.3 H Lymph % (Auto) 4.9 L [place] % (Auto) 10.5 Eos % (Auto) 3.9 Baso % (Auto) 0.4 Neut # (Auto) 99984 H Lymph # (Auto) 700 L [place] # (Auto) 1600 H Eos # (Auto) 600 H Baso # (Auto) 100 Sodium 136 L Potassium 3.3 L Chloride 108 H Carbon Dioxide 25 BUN 16 Creatinine 1.07 Estimated GFR > 60.0 BUN/Creatinine Ratio 15.0 Glucose 121 H Calcium 8.8 Magnesium 1.6 C. diff Toxin A&B (EIA) Positive A 04/09/20 04/09/20 05:50 05:50 WBC 16.4 H RBC 4.64 Hgb 13.2 L Hct 41.1 MCV 88.6 MCH 28.5 MCHC 32.2 RDW 13.0 Plt Count 251 Neut % (Auto) 85.5 H Lymph % (Auto) 3.4 L [place] % (Auto) 9.7 Eos % (Auto) 1.2 L Baso % (Auto) 0.2 Neut # (Auto) 39780 H Lymph # (Auto) 600 L [place] # (Auto) 1600 H Eos # (Auto) 200 Baso # (Auto) 0 Sodium 135 L Potassium 3.8 Chloride 107 Carbon Dioxide 23 BUN 14 Creatinine 1.07 Estimated GFR > 60.0 BUN/Creatinine Ratio 13.1 Glucose 128 H Calcium 8.6 Magnesium 1.7 C. 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 1. Acute C diff colitis -patient with frequent diarrhea and significant leukocytosis -continue oral vancomycin 125 mg q.i.d. and IV hydration 2. Electrolyte imbalances -continue checking and repleting K and magnesium. 3. Acute kidney injury, prerenal -resolved -appeared a little fluid overloaded this a.m. and received 20 mg IV Lasix 4. History of paroxysmal atrial fibrillation -previously took apixaban which was stopped due to frequent falls -patient currently in atrial fibrillation on telemetry 5. Essential hypertension -BP low normal, hold enalapril and amlodipine 6. BPH -continue tamsulosin DVT prophylaxis: Enoxaparin Quality VTE Deep Vein Thrombosis/Pulmonary Embolism Present on Admission: No
--- NOTE | 2020-04-09 16:25 | PC.NURSE ---
@1630 pt left undisturbed, and sleeping s/p incontinence of stool and williams-care
[2020-04-09] MEDS: SODIUM CHLORIDE 0.9% 1,000 ML 60 ML IV (16:53)
[2020-04-09] MEDS: TAMSULOSIN 0.4 MG CAPSULE PO (20:04)
[2020-04-09] MEDS: ATORVASTATIN 20 MG TABLET 10 MG PO (20:05)
[2020-04-10] VITALS (11 sets, daily range): BP systolic 126–148; BP diastolic 66–93; PULSE 86–109; RESP 16–20; TEMP 36.4–37.1; O2SAT 94–98
[2020-04-10] MEDS: VANCOMYCIN 125 MG CAPSULE PO ×4 (01:40→20:27)
[2020-04-10 06:33] LABS: Add Manual Diff / Slide Review NO; Basophils Absolute Auto 100 /uL (0-100); Basophils Percent Auto 0.9 % (0-2); Eosinophils Absolute Auto 1100 /uL (0-450); Eosinophils Percent Auto 7.8 % (2-4); Hematocrit 37.6 % (41-53); Hemoglobin 12.3 g/dL (13.5-17.5); Lymphocytes Absolute Auto 1100 /uL (1100-4500); Lymphocytes Percent Auto 7.8 % (25-40); Mean Corpuscular HGB Conc 32.6 % (30-36); Mean Corpuscular Hemoglobin 28.8 PG (26-34); Mean Corpuscular Volume 88.4 fL (80-100); Monocytes Absolute Auto 1400 /uL (0-900); Monocytes Percent Auto 10.3 % (3-14); Neutrophils Absolute Auto 10100 /uL (1500-7000); Neutrophils Percent Auto 73.2 % (50-75); Platelet Count 216 X10^3/uL (150-400); Red Blood Cell Count 4.26 X10^6/uL (4.5-5.9); Red Cell Distribution Width 13.4 % (11.6-14.8); White Blood Cell Count 13.8 X10^3/uL (4.5-11.0)
[2020-04-10 06:41] LABS: BUN Creatinine Ratio 16.3 (6-22); Blood Urea Nitrogen 20 mg/dL (9-20); Calcium 8.6 mg/dL (8.4-10.2); Carbon Dioxide 26 mmol/L (22-32); Chloride 109 mmol/L (98-107); Estimated Glomerular Filt Rate 55.9 mL/min (>60); Glucose 116 mg/dL (80-110); HEMOLYSIS < 15 (0-50); Magnesium 1.8 mg/dL (1.6-2.3); Potassium 3.6 mmol/L (3.4-5.1); Sodium 137 mmol/L (137-145)
[2020-04-10] MEDS: ENOXAPARIN 40 MG/0.4 ML SYRINGE SUBCUT (08:36)
[2020-04-10] MEDS: SODIUM CHLORIDE 0.9% 1,000 ML 60 ML IV (09:08)
--- NOTE | 2020-04-10 11:17 | PM.PN.1 ---
Subjective Subjective Date Patient Seen: 04/10/20 Interval history: Patient is 84-year-old male with history of hypertension, paroxysmal atrial fibrillation admitted with C diff colitis. His confusion seems to be clearing up. He feels his diarrhea is definitely improving. He had 5 bowel movements yesterday. Note he is very hard of hearing. He is still getting IV fluids. Exam Vital Signs (past 8 hours): - 04/10/20 04:59 04/10/20 09:00 04/10/20 09:05 Temperature 98.4 F 98.1 F Pulse Rate 95 H 94 H Respiratory Rate 18 17 Blood Pressure 145/83 H 148/82 H Pulse Oximetry 95 96 96 Oxygen Delivery Method Room Air Oxygen Flow Rate 0 Narrative Exam Narrative: General: Very alert and appears comfortable Lungs: Clear to auscultation Heart: Irregularly irregular Abdomen: Soft and nontender Extremities: No edema Objective Labs Result Diagrams: 04/10/20 06:25 04/10/20 06:25 Labs: Laboratory Results - last 24 hr 04/08/20 04/10/20 04/10/20 03:30 06:25 06:25 WBC 13.8 H RBC 4.26 L Hgb 12.3 L Hct 37.6 L MCV 88.4 MCH 28.8 MCHC 32.6 RDW 13.4 Plt Count 216 Neut % (Auto) 73.2 Lymph % (Auto) 7.8 L [place] % (Auto) 10.3 Eos % (Auto) 7.8 H Baso % (Auto) 0.9 Neut # (Auto) 04190 H Lymph # (Auto) 1100 [place] # (Auto) 1400 H Eos # (Auto) 1100 H Baso # (Auto) 100 Sodium 137 Potassium 3.6 Chloride 109 H Carbon Dioxide 26 BUN 20 Creatinine 1.23 Estimated GFR 55.9 L BUN/Creatinine Ratio 16.3 Glucose 116 H Calcium 8.6 Magnesium C. diff Toxin A&B (EIA) Positive A 04/10/20 06:25 WBC RBC Hgb Hct MCV MCH MCHC RDW Plt Count Neut % (Auto) Lymph % (Auto) [place] % (Auto) Eos % (Auto) Baso % (Auto) Neut # (Auto) Lymph # (Auto) [place] # (Auto) Eos # (Auto) Baso # (Auto) Sodium Potassium Chloride Carbon Dioxide BUN Creatinine Estimated GFR BUN/Creatinine Ratio Glucose Calcium Magnesium 1.8 C. diff Toxin A&B (EIA) [facility] Medical History (Updated 04/09/20 @ 10:51 by Kal Bowers DO) Chronic 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 1. Acute C diff colitis -patient presented with nausea, vomiting and diarrhea, he is improving with decreased stool frequency, leukocytosis improving -continue oral vancomycin 125 mg q.i.d. and IV hydration -continue NS at 60 cc/hour 2. Electrolyte imbalances -corrected of magnesium and potassium deficiencies 3. Acute kidney injury, prerenal -resolved -appeared a little fluid overloaded on 04/09 and got 1 dose IV Lasix 4. History of paroxysmal atrial fibrillation -previously took apixaban which was stopped due to frequent falls -patient currently in atrial fibrillation on telemetry but not requiring rate control 5. Essential hypertension -BP improved, holding enalapril and amlodipine has blood pressure had been a little low 6. BPH -continue tamsulosin 7. Acute metabolic encephalopathy -improving mental status DVT prophylaxis: Enoxaparin Patient with improving course and possibly could go home in a day or 2. Consult PT, OT. Patient states he uses front wheel walker. Quality VTE Deep Vein Thrombosis/Pulmonary Embolism Present on Admission: No
--- NOTE | 2020-04-10 11:56 | OT.IP.EVAL ---
Current Diagnoses Paroxysmal atrial fibrillation (04/08/20) Past Medical History (Last Updated 04/09/20 @ 10:51 by Kal Bowers DO) Chronic anemia Diabetes 1.5, managed as type 2 Essential hypertension Mixed hyperlipidemia Paroxysmal atrial fibrillation Tremor Surgical History (Last Reviewed 04/08/20 @ 01:20 by Timothy Brar DO) Status post appendectomy Occupational Therapy Inpatient Evaluation/Re-Eval M1 PT/OT-IP Prior Functional Status Start: 04/09/20 11:58 Freq: NEEDED Status: Active Protocol: Document 04/09/20 09:30 AB (Rec: 04/09/20 12:15 AB [id number]) Medical Review Prior Functional Status Medical History Reviewed Yes Communication very [place]; able to answer questions but with delay Mobility and Gait stated that he is modified independent with all mobilities and ambulation using 4WW Social History Household Members spouse Living Arrangements House Number of Floors (Floors) 3 or More Floors Number of Stairs To Enter/Railing? pt stated that there is an elevator to get into the different levels Home Environment Standard Height Toilet,High Toilet,Walk in Shower,Built-In Shower Seat,Elevator Home Equipment Four Wheel Walker,Hand Held Shower,Grab Bars Near Toilet, Grab Bars In Shower M1 PT/OT-IP Prior Functional Status Start: 04/10/20 12:24 Freq: NEEDED Status: Active Protocol: Document 04/10/20 11:56 [facility] (Rec: 04/10/20 12:49 [facility] [id number]) Medical Review Prior Functional Status Medical History Reviewed Yes Communication very [place]; able to answer questions but with delay Mobility and Gait stated that he is modified independent with all mobilities and ambulation using 4WW Activities of Daily Living and IADL's Pt states able to do all ADl's , however pt's states prior to coming to the hospital that she was assist him with LB dressing needs. Social History Household Members spouse Living Arrangements House Number of Floors (Floors) 3 or More Floors Number of Stairs To Enter/Railing? pt stated that there is an elevator to get into the different levels Home Environment Standard Height Toilet,High Toilet,Walk in Shower,Built-In Shower Seat,Elevator Home Equipment Four Wheel Walker,Raised Toilet Seat w/Armrests,Hand Held Shower,Long Handled Sponge,Long Handled Shoe Horn, Dumper,Sock Aid,Grab Bars Near Toilet,Grab Bars In Shower M2 OT-IP Current Condition Start: 04/10/20 12:24 Freq: Status: Active Protocol: Document 04/10/20 11:56 [facility] (Rec: 04/10/20 12:49 [facility] [id number]) Occupational Therapy Current Condition Current Condition Evaluation Date 04/10/20 Treatment Diagnosis C-diff, weakness Diagnosis Onset Date 04/08/20 M3 OT- IP Subjective and Pain Start: 04/10/20 12:24 Freq: Status: Active Protocol: Document 04/10/20 11:56 [facility] (Rec: 04/10/20 12:49 [facility] [id number]) OT- Subjective Occupational Therapy Visit Type Type Initial Evaluation Visit Start Time 11:22 Visit Stop Time 11:56 Total Visit Minutes 34 Occupational Therapy Visit Comments Patient Comments Pt agreeable to get up. Patient/Caregiver Goals TO go home. OT Pain Assessment Pain When Pain Assessed At Rest Pain Present Pain Present Denied Pain M4 OT- IP ADL's Start: 04/10/20 12:24 Freq: Status: Active Protocol: Document 04/10/20 11:56 [facility] (Rec: 04/10/20 12:49 [facility] [id number]) OT [id number] Comments OT Self-Feeding Comments Not at meal time. OT ADL-Grooming Comments OT Grooming Comments NOt performed. OT ADL-Oral Care Comments Oral Care Comments Not performed OT ADL-Dressing General Eval Lower Body Dressing Ability Maximum Assistance Areas Needing Assistance Underpants/Brief,Socks OT ADL-Toileting General Evaluation Toileting Ability Maximum Assistance Areas Needing Assistance Manage Clothing,Perform Perineal Hygiene Devices Toileting Assistive Devices Grab Bars Comments OT Toileting Comments One person to stand pt with FWW and another assist for all hygiene and brief management needs. OT ADL-Bathing Comments OT Bathing Comments NOt at this time. Pt will benefit from having a tub bench at home. M5 OT- IP IADL's Start: 04/10/20 12:24 Freq: Status: Active Protocol: Document 04/10/20 11:56 [facility] (Rec: 04/10/20 12:49 [facility] [id number]) OT-Instrumental Activities of Daily Living Home Safety Awareness Awareness of Need for Assistance at Home Decreased Awareness Driving Driving Comments Pt states he still drives. M6 OT- IP Functional Cognition Start: 04/10/20 12:24 Freq: Status: Active Protocol: Document 04/10/20 11:56 [facility] (Rec: 04/10/20 12:49 [facility] [id number]) Cognitive Factors Limiting Selfcare Function Cognitive Ability Level of Alertness Alert Patient Orientation Name,Place,Situation Attention Span Ability Capable of Focused Attention, Capable of Sustained Attention Ability to Follow Commands Able to Follow One Step Commands Safety Awareness Underestimates Need for Assistance Problem Solving Ability Needs Assist to Identify Solutions Cognitive Comments Cognitive Assessment Comments Pt needing step by step instructions for bed mobility and transfer. VC for hand placement and to push up fomr the bed and BSC. OT- Vision and Hearing OT- Hearing Assessment OT- Hearing Assessment Use of Hearing Aids OT- Vision Assessment Visual Acuity Glasses For Reading M7 OT- IP Mobility and Balance Start: 04/10/20 12:24 Freq: Status: Active Protocol: Document 04/10/20 11:56 [facility] (Rec: 04/10/20 12:49 [facility] [id number]) OT- Bed Mobility Assessment Supine to Sit Supine to Sit Assist Maximum Assistance,2 Person Assistance Scooting Scooting to Edge of Bed Maximum Assistance,2 Person Assistance OT-Transfer Assessment Sit to and From Stand Sit to and from Stand Moderate Assistance,2 Person Assistance Transfers Transfer Ability Moderate Assistance,2 Person Assistance Technique Transfer Destination Bed,Bedside Commode,Chair Transfer Technique Stand Step Pivot Devices Transfer Assistive Devices Gait Belt,Front Wheeled Walker Comments Mobility Comments MAX A x2 to help get to the edge of the bed. MODA x2 to stand to FWW. Pt needing assist to guide FWW and for balance. OT- Gait Assessment Comments Gait Ability Comments Transfer only OT- Balance Assessment Sitting Balance and Reactions Static Sitting Balance Ability Poor Dynamic Sitting Balance Ability Poor Standing Balance and Reactions Static Standing Balance Ability Poor Dynamic Standing Balance Ability Poor Comments Other Balance Tests/Deviations/Treatment Pt needing TAMIKO for sitting : balance initially on the edge of the bed and posterior and lateral tilt to the left. M8 OT- IP Objective Assessments Start: 04/10/20 12:24 Freq: Status: Active Protocol: Document 04/10/20 11:56 [facility] (Rec: 04/10/20 12:49 [facility] [id number]) OT Gross Range of Motion Upper Extremity Range of Motion Assessment Within Functional Limits OT Strength Upper Extremity Strength Assessment Within Functional Limits OT-Muscle Tone Assessment Muscle Tone WNL Yes M9 OT- IP Assessment and Plan Start: 04/10/20 12:24 Freq: Status: Active Protocol: Document 04/10/20 11:56 [facility] (Rec: 04/10/20 12:49 [facility] [id number]) OT Summary Assessment and Plan Potential Rehabilitation Potential Good Analytic Complexity at Evaluation Low Summary OT Impairments Strength,Balance,Functional Cognition,Functional Mobility, Grooming,Dressing,Toileting, Bathing,Toilet Transfers, Shower Transfers,Activity Tolerance Progress Towards Goals Slow Progress due to Medical Issues,Slow Progress due to Activity Tolerance,Slow Progress due to Cognition Assessment Summary Pt low complexity and here due to c-diff and weakness. Pt needing extensive asisst x2 for all functional mobility and ADL's. Pt's use a 4ww and not able to lift the pt. Pt will benefit from skilled rehab prior to going home. Pt not wanting to go to skilled rehab. Pt will need to have addition hired assist if going home. Goals Grooming Goal Independent Dressing Goal Minimal Assistance Toileting Goal Independent Bathing Goal Standby Assistance Toilet Transfer Goal Independent Shower Transfer Goal Independent Days to Meet Goals 20 Frequency of Treatment Frequency Of Treatment Once a Day Treatment Plan OT Treatment Plan ADL Training,Functional Cognition Training,Functional Mobility,Patient/Family Education,Discharge Planning Discharge Recommendations OT Discharge Recommendations SNF Rehab Home Equipment Needs Tub bench, fww Transportation Needs at Discharge Wheelchair/Cabulance
--- NOTE | 2020-04-10 12:13 | PT.IPTN ---
Current Diagnoses Paroxysmal atrial fibrillation (04/08/20) Physical Therapy Treatment Note M2 PT-IP Current Condition Start: 04/09/20 11:58 Freq: NEEDED Status: Active Protocol: Document 04/09/20 09:30 AB (Rec: 04/09/20 12:15 AB [id number]) Physical Therapy Current Condition Current Condition Evaluation Date 04/09/20 Treatment Diagnosis (+) C-diff; difficulty in walking Onset Date 04/08/20 Precautions Other Precautions falls; (+) C-diff M3 PT-IP Subjective Start: 04/09/20 11:58 Freq: NEEDED Status: Active Protocol: Document 04/10/20 11:55 HH (Rec: 04/10/20 12:13 HH [id number]) Subjective Physical Therapy Visit Type Type Treatment Note Visit Start Time 11:22 Visit Stop Time 11:52 Total Visit Minutes 30 Number of FURNACE OPERATOR Visits 0 M4 PT-IP Mobility and Gait Start: 04/09/20 11:58 Freq: NEEDED Status: Active Protocol: Document 04/10/20 11:55 HH (Rec: 04/10/20 12:13 HH [id number]) PT-Bed Mobility Assessment Supine to Sit Supine to Sit Maximum Assistance,2 Person Assistance,Head of Bed Elevated Scooting Scooting to Edge of Bed Maximum Assistance PT-Transfer Assessment Sit to and From Stand Sit to and from Stand Moderate Assistance,2 Person Assistance,Use of Upper Extremities Equipment Transfer Assistive Device Gait Belt,Front Wheeled Walker Orthotic/Prosthetic Devices or Brace: No Transfers Transfer Destination Chair,Bedside Commode Transfer Technique Stand Step Pivot Transfer Ability Level of Assist Moderate Assistance,2 Person Assistance,Use of Upper Extremities Comments Mobility Comments Pt was in bed upon PT and OT arrival. at bedside. Pt agreeable to mobilize with PT and OT and use of BSC followed by sitting in chair. He initially needed max A to pull from supine to sit with 2 PA followed by max A to scoot to EOB. BP at 141/82 He still had posterior trunk lean but able to correct himself by holding on to IV pole or EOB to maintain upright position. Pt then attempted 3 times to stand up by trunk lean but unsuccessful. Mod A x 2 needed for STS after and He was able to take few steps and sat on BSC on his R side. Pt voided on floor during transfer. Pt then stood up again with mod A x 2and OT assisted in pericare and assisted pt to gutierrez brief. Pt needed constant cues to extend B knees. He was able to take few steps to left and transferred to chair with poor descent. He sat in chair comfortably BP at 134/82 . Call light placed within reach. Gait Assessment Gait Gait Assistance Required: Moderate Assistance,1 Person Assist Distance (Feet) 2 Able to Maintain Weight Bearing Status Yes During Gait Assistive Devices Assistive Device Gait Belt,Front Wheeled Walker Orthotic/Prosthetic Devices or Brace: No Gait Deviations General Gait Pattern Decreased Stride Length, Decreased Feet Clearance, Flexed Trunk,Step-to Gait,Wide Based Gait Factors Limiting Gait Function Factors Limiting Gait Function Decreased Activity Tolerance, Decreased Strength,Poor Balance,Poor Safety Awareness, Respiratory Distress Comments Gait Comments transfer only Stair Climbing Assessment Comments Stair Climbing Comments unable PT-Balance Assessment Sitting Balance and Reactions Static Sitting Balance Ability Fair Dynamic Sitting Balance Ability Poor Standing Balance and Reactions Static Standing Balance Ability Poor Dynamic Standing Balance Ability Poor Device Used FWW M5 PT-IP Objective Assessments Start: 04/09/20 11:58 Freq: NEEDED Status: Active Protocol: Document 04/09/20 09:30 AB (Rec: 04/09/20 12:15 AB [id number]) Orientation Orientation/Cognition Level of Alertness Alert Orientation Name,Place,Situation Language Function Ability Hard of Hearing Safety Awareness Decreased Safety Awareness Memory Description Short Term Impaired Strength Lower Extremity Strength Assessment Bilaterally Impaired Hip 3-/5 Knee 3+/5 Other Assessments Other Other Assessments (+) hand tremors during mobility M6 PT-IP Treatment Start: 04/09/20 11:58 Freq: NEEDED Status: Active Protocol: Document 04/09/20 09:30 AB (Rec: 04/09/20 12:15 AB [id number]) Physical Therapy Treatment Education Education Provided Safety M7 PT-IP Assessment and Plan Start: 04/09/20 11:58 Freq: NEEDED Status: Active Protocol: Document 04/10/20 11:55 HH (Rec: 04/10/20 12:13 HH [id number]) PT Summary Assessment and Plan Potential Rehabilitation Potential Fair Status of Condition at Evaluation Evolving Summary Impairments Pain,ROM,Strength,Balance, Coordination,Sensation,Tone, Cognition,Bed Mobility, Transfers,Gait,Activity Tolerance Progress Towards Goals Slow Progress due to Medical Issues,Slow Progress due to Activity Tolerance,Slow Progress - Other Assessment Summary Pt shows improved mobility today. Max A for bed mobility and mod A x 2 for transfers from bed to BSC/ chair. Pt cont to have incontinence and is not able to self care. He has very poor balance in general who has significant fall risks. Cont recommend SNF for DC planning Goals Bed Mobility Goal Minimal Assistance Transfer Goal Minimal Assistance,Front Wheeled Walker Gait Goal Minimal Assistance,Front Wheel Walker Gait Distance 50 Other Goals improve bed mobility, transers to SBA and ambulation using 4WW to CGA 100 ft Days to Meet Goals 10 Frequency of Treatment Frequency Of Treatment Once a Day Treatment Plan Physical Therapy Treatment Plan Bed Mobility Training,Transfer Training,Gait Training, Therapeutic Exercise,Balance Retraining,Discharge Planning, Neuromuscular Re-ed, Coordination Retraining Other Recommendations and Next Treatment transfers, sitting/standing Focus balance, ambulation when appropriate Recommendations To Nursing Amount of Assist Needed 2 Person Assist Discharge Recommendations PT Discharge Recommendations SNF Rehab Transportation Needs at Discharge Wheelchair/Cabulance
--- NOTE | 2020-04-10 12:27 | CM.DPC ---
Addendum entered by Clary Sr R.N. 04/10/20 12:48: Called Faye at [facility] and asked her to review. Let her know that patient is observation, and may have to pay a daily rate. Left a message with Arabella at [facility] to see if she is accepting patients, and if they accept patients on private pay. Looking at P.T. note from today, he is a maximum assist of two, as far as his mobility goes. Original Note: DCP Cont: Spoke to patient's nurse, Genevieve. Mentioned that patient's daughter, Autumn, is also involved with patient's care. Patient is on isolation precautions, and have not been able to go into the room. P.T. is supposed to be working with patient today. Spoke with patient's daughter, Autumn. Confirmed that she is DPOA. Stated, please don't mention that to my other sisters. She gave her contact cell phone number which is: [phone]. Stated that her twin sister is Yvette Zelaya who resides in [place]. Confirmed with Autumn that at baseline, patient uses a walker, as well as wheel-chair. They bought patient and their mother a recliner that is automatic, and can be placed in an upright position to get up out of chair. Patient and his both have life alerts. They do not have an elevator in the home, but a chair lift that can carry patient to the second floor. Stated, they are mostly on the main level. Discussed prison, as patient is under OBS, at this time. Daughter stated, I don't think that my dad will go to a skilled facility, and we are concerned about having them go to one with his infection, as well as COVID. She did state, if he does consent to go, then that can be considered. Daughter also stated he has the finances to pay privately, but he's pretty tight with his money. Daughter also has a resources book that she used for her mother in law, and is familiar with private home agencies. Stated, I don't really want to start calling them unless my parents are ok with that. Autumn also indicated that if needed, they can come and take turns staying with their dad. Mobility is a concern, for now, he is a two person assist. Yesterday he was a mechanical lift. P: Will discuss further with PAnishT. He will be reviewed again by UR, and will see if his observation status can change. Will also consider home health, as well. Will continue to update patient's daughter, Autumn. Clary Sr RN/It Account Manager
--- NOTE | 2020-04-10 14:25 | CM.DPC ---
Addendum entered by Clary Sr R.N. 04/10/20 15:43: Met with patient in room, after gowning up. Brought him a Medicare Choice List. Introduced self and role. Placed name of this enterprise resource planner on white board in patient's room with extension. Mentioned patient's weakness, he stated, I didn't think that I was that weak. Let him know that he is able to go to [facility], due to his weakness. Stated, I really hope that you can talk this over with my . Let him know that there is a facility here in [facility], as well as in [facility]. Patient stated, I don't want to leave [place], because my is here. Did not discuss visitation at the facility as of yet. Stated, he would have his [place] into it. He gave permission for this counter caser to call , as well as daughter, Autumn, if needed. Discussed with , regarding his transfers. She stated, I know he's weak, I was in the room when therapy worked with him. stated, I have a bad back, and I know I can't lift him. She stated, what about in home caregivers. Let her know that patient may need two caregivers in the home to transfer him, and it would be unclear how many hours would be needed. Discussed rehab, [facility] and [facility]. stated, I don't think he would go, I will talk to him. also will talk to her daughters. She also gave permission to call Autumn. Faye at [facility] stated that they can accept, as well as Tata at [facility]. Spoke to Autumn about [facility]. Encouraged her to call Faye in admissions with questions, for it is unclear if patient would get a private room. Also, unclear if they have certain days of visitation. Will discuss tomorrow with daughter, Autumn, and Richelle, for they are going to discuss it as a family today. Addendum entered by Clary Sr R.N. 04/10/20 14:44: Kev in UR stated that patient qualifies for inpatient status as of 04/08. Updated Faye at [facility], she is continuing to review. Faxed referral to [facility], as well. Indicated on fax sheet that patient did become inpatient status on 04-08. Original Note: DCP Cont: Confirmed with Stefania at [facility] is not accepting patients until 04/16. Jennifer Morrison has not called back, Faye at [facility] is reviewing. Tata at [facility] stated, they may have a bed available, though it's getting pretty tight. Let her know that this patient is under observation, and attempting to look for a facility, should patient not have a safe home plan. Tata stated, they can possibly do a Medicare waiver, as long as documentation states DC to a skilled facility to assure bed availability. Tata stated that she would review. Will send over referral. P: DCP to continue to follow closely. Patient may need [facility], it is unclear if he will consent to go, but will send referral for back up, to [facility]. Clary Sr RN/Rn Assessment
[2020-04-10] MEDS: ATORVASTATIN 20 MG TABLET 10 MG PO (20:27)
[2020-04-10] MEDS: TAMSULOSIN 0.4 MG CAPSULE PO (20:27)
[2020-04-11] VITALS (9 sets, daily range): BP systolic 149–168; BP diastolic 74–104; PULSE 86–105; RESP 16–22; TEMP 36.6–37.2; O2SAT 93–98
[2020-04-11] MEDS: VANCOMYCIN 125 MG CAPSULE PO ×4 (01:27→20:09)
[2020-04-11] MEDS: SODIUM CHLORIDE 0.9% 1,000 ML 30 ML IV (05:16)
--- NOTE | 2020-04-11 06:53 | PC.NURSE ---
Addendum entered by Tata Young R.N. 04/11/20 07:01: Lab unable to draw blood, will return at a later time. Original Note: Pt stable through shift, frequent urination and small BMs. Pt retaining urine, approx 550 bladder scanned, 600 mL out straight cath, rona and clear. Pt tolerated procedure well. Pt mildly confused, asking same questions and did not know location or building type.
[2020-04-11 08:47] LABS: Add Manual Diff / Slide Review NO; Basophils Absolute Auto 100 /uL (0-100); Basophils Percent Auto 0.8 % (0-2); Eosinophils Absolute Auto 700 /uL (0-450); Eosinophils Percent Auto 6.3 % (2-4); Hematocrit 39.7 % (41-53); Hemoglobin 13.1 g/dL (13.5-17.5); Lymphocytes Absolute Auto 1000 /uL (1100-4500); Lymphocytes Percent Auto 9.2 % (25-40); Mean Corpuscular Volume 87.9 fL (80-100); Monocytes Absolute Auto 900 /uL (0-900); Monocytes Percent Auto 8.5 % (3-14); Neutrophils Absolute Auto 8300 /uL (1500-7000); Neutrophils Percent Auto 75.2 % (50-75); Platelet Count 241 X10^3/uL (150-400); Red Blood Cell Count 4.52 X10^6/uL (4.5-5.9); Red Cell Distribution Width 13.2 % (11.6-14.8); White Blood Cell Count 11.1 X10^3/uL (4.5-11.0)
[2020-04-11 08:55] LABS: BUN Creatinine Ratio 16.8 (6-22); Blood Urea Nitrogen 16 mg/dL (9-20); Calcium 8.7 mg/dL (8.4-10.2); Carbon Dioxide 28 mmol/L (22-32); Chloride 106 mmol/L (98-107); Estimated Glomerular Filt Rate > 60.0 mL/min (>60); Glucose 107 mg/dL (80-110); HEMOLYSIS < 15 (0-50); Sodium 136 mmol/L (137-145)
[2020-04-11] MEDS: ENOXAPARIN 40 MG/0.4 ML SYRINGE SUBCUT (10:44)
--- NOTE | 2020-04-11 10:57 | OT.IP.TRT ---
Current Diagnoses Paroxysmal atrial fibrillation (04/08/20) Occupational Therapy Treatment Note M2 OT-IP Current Condition Start: 04/10/20 12:24 Freq: Status: Active Protocol: Document 04/10/20 11:56 [facility] (Rec: 04/10/20 12:49 [facility] [id number]) Occupational Therapy Current Condition Current Condition Evaluation Date 04/10/20 Treatment Diagnosis C-diff, weakness Diagnosis Onset Date 04/08/20 M3 OT- IP Subjective and Pain Start: 04/10/20 12:24 Freq: Status: Active Protocol: Document 04/11/20 11:04 [facility] (Rec: 04/11/20 11:24 [facility] [id number]) OT- Subjective Occupational Therapy Visit Type Type Treatment Note Visit Start Time 10:15 Visit Stop Time 10:57 Total Visit Minutes 42 Occupational Therapy Visit Comments Patient Comments Pt very sleepy but agreeable to get up. ELECTRICAL TECH and OT saw pt together as pt needing extensive 2-3 person assist for needs. Pt's in the room. Patient/Caregiver Goals TO go home. OT Pain Assessment Pain When Pain Assessed At Rest Pain Present Pain Present Denied Pain M4 OT- IP ADL's Start: 04/10/20 12:24 Freq: Status: Active Protocol: Document 04/11/20 11:04 [facility] (Rec: 04/11/20 11:24 [facility] [id number]) OT [id number] Comments OT Self-Feeding Comments Not at meal time. OT ADL-Grooming Comments OT Grooming Comments NOt performed. OT ADL-Oral Care Comments Oral Care Comments Not performed OT ADL-Dressing General Eval Lower Body Dressing Ability Maximum Assistance Areas Needing Assistance Underpants/Brief,Socks OT ADL-Toileting General Evaluation Toileting Ability Maximum Assistance Areas Needing Assistance Manage Clothing,Perform Perineal Hygiene Devices Toileting Assistive Devices Grab Bars Comments OT Toileting Comments Today pt needing 2 person assist to stand with FWW while nursing able to assist to wipe pt. OT ADL-Bathing Comments OT Bathing Comments Sponge bath more appropriate for pt at this time due to poor balance. M5 OT- IP IADL's Start: 04/10/20 12:24 Freq: Status: Active Protocol: Document 04/10/20 11:56 [facility] (Rec: 04/10/20 12:49 [facility] [id number]) OT-Instrumental Activities of Daily Living Home Safety Awareness Awareness of Need for Assistance at Home Decreased Awareness Driving Driving Comments Pt states he still drives. M6 OT- IP Functional Cognition Start: 04/10/20 12:24 Freq: Status: Active Protocol: Document 04/11/20 11:04 [facility] (Rec: 04/11/20 11:24 [facility] [id number]) Cognitive Factors Limiting Selfcare Function Cognitive Ability Level of Alertness Alert Patient Orientation Name,Place,Situation Attention Span Ability Capable of Focused Attention, Capable of Sustained Attention Ability to Follow Commands Able to Follow One Step Commands Safety Awareness Underestimates Need for Assistance Problem Solving Ability Needs Assist to Identify Solutions Cognitive Comments Cognitive Assessment Comments Pt needing step by step instructions for bed mobility and transfer. VC for hand placement and to push up from the bed and BSC. Pt also having insight would be best for him to go to skilled rehab as pt realizes that he is needing lots of assist and does not want to fall. Pt's flips from being open to skilled rehab and then insistent that pt to go home. Therapists recommending skilled rehab and that it would not be safe to go home. Pt would need 2 skilled persons to assist with his care and equipment needs-[facility]. tub bench, hospital bed, wc, and possible regulo lift M7 OT- IP Mobility and Balance Start: 04/10/20 12:24 Freq: Status: Active Protocol: Document 04/11/20 11:04 [facility] (Rec: 04/11/20 11:24 [facility] [id number]) OT- Bed Mobility Assessment Supine to Sit Supine to Sit Assist Maximum Assistance,2 Person Assistance Scooting Scooting to Edge of Bed Maximum Assistance,2 Person Assistance OT-Transfer Assessment Sit to and From Stand Sit to and from Stand Moderate Assistance,Maximum Assistance,2 Person Assistance Transfers Transfer Ability Maximum Assistance,2 Person Assistance Technique Transfer Destination Bed,Bedside Commode,Chair Transfer Technique Stand Step Pivot Devices Transfer Assistive Devices Gait Belt,Front Wheeled Walker Comments Mobility Comments MAX A x2 to transfer today to [facility] and recliner. Pt needing more assist for bed mobility needs today. OT- Gait Assessment Comments Gait Ability Comments Transfer only OT- Balance Assessment Sitting Balance and Reactions Static Sitting Balance Ability Poor Dynamic Sitting Balance Ability Poor Standing Balance and Reactions Static Standing Balance Ability Poor Dynamic Standing Balance Ability Poor Comments Other Balance Tests/Deviations/Treatment TOday MODA for balance while : sitting on the edge of the bed . Heavy use of green pad to scoot the pt to the edge of the bed. Pt very unsteady on his feet and needing cues to keep his legs apart and lean forwards to get his weight over his feet . M8 OT- IP Objective Assessments Start: 04/10/20 12:24 Freq: Status: Active Protocol: Document 04/10/20 11:56 [facility] (Rec: 04/10/20 12:49 [facility] [id number]) OT Gross Range of Motion Upper Extremity Range of Motion Assessment Within Functional Limits OT Strength Upper Extremity Strength Assessment Within Functional Limits OT-Muscle Tone Assessment Muscle Tone WNL Yes M9 OT- IP Assessment and Plan Start: 04/10/20 12:24 Freq: Status: Active Protocol: Document 04/11/20 11:04 [facility] (Rec: 04/11/20 11:24 [facility] [id number]) OT Summary Assessment and Plan Potential Rehabilitation Potential Good Analytic Complexity at Evaluation Low Summary OT Impairments Strength,Balance,Functional Cognition,Functional Mobility, Grooming,Dressing,Toileting, Bathing,Toilet Transfers, Shower Transfers,Activity Tolerance Progress Towards Goals Slow Progress due to Medical Issues,Slow Progress due to Activity Tolerance,Slow Progress due to Cognition Assessment Summary Pt needing more assist for mobility needs today. Pt having increased insight today and agreeable to go to skilled rehab however pt's insistent on pt to go home. Pt's if going home which is not recommended would need 2 skilled persons to assist or use of regulo lift. Still recommend pt to go to skilled rehab. Goals Grooming Goal Independent Dressing Goal Minimal Assistance Toileting Goal Independent Bathing Goal Standby Assistance Toilet Transfer Goal Independent Shower Transfer Goal Independent Days to Meet Goals 20 Frequency of Treatment Frequency Of Treatment Once a Day Treatment Plan OT Treatment Plan ADL Training,Functional Cognition Training,Functional Mobility,Patient/Family Education,Discharge Planning Other Treatment Recommendations and Next Sit at edge of bed with SBA Treatment Focus and able to do grooming needs. Discharge Recommendations OT Discharge Recommendations SNF Rehab Home Equipment Needs Tub bench, fww, wc, BSc, hospital bed, regulo lift Transportation Needs at Discharge Wheelchair/Cabulance
--- NOTE | 2020-04-11 10:57 | PT.IPTN ---
Current Diagnoses Paroxysmal atrial fibrillation (04/08/20) Physical Therapy Treatment Note M2 PT-IP Current Condition Start: 04/09/20 11:58 Freq: NEEDED Status: Active Protocol: Document 04/09/20 09:30 AB (Rec: 04/09/20 12:15 AB [id number]) Physical Therapy Current Condition Current Condition Evaluation Date 04/09/20 Treatment Diagnosis (+) C-diff; difficulty in walking Onset Date 04/08/20 Precautions Other Precautions falls; (+) C-diff M3 PT-IP Subjective Start: 04/09/20 11:58 Freq: NEEDED Status: Active Protocol: Document 04/11/20 10:15 KS (Rec: 04/11/20 13:24 KS [id number]) Subjective Physical Therapy Visit Type Type Treatment Note Visit Start Time 10:15 Visit Stop Time 10:57 Total Visit Minutes 42 Number of LAMP REPLACER Visits 1 Physical Therapy Visit Comments Patient Comments Co-treat w/ OT. RN as third person assist. M4 PT-IP Mobility and Gait Start: 04/09/20 11:58 Freq: NEEDED Status: Active Protocol: Document 04/11/20 10:15 KS (Rec: 04/11/20 13:24 KS [id number]) PT-Bed Mobility Assessment Rolling Type of Rolling Log Rolling,Roll to Left Level of Assist Moderate Assistance,1 Person Assistance Supine to Sit Supine to Sit Maximum Assistance,2 Person Assistance Scooting Scooting to Edge of Bed Maximum Assistance PT-Transfer Assessment Sit to and From Stand Sit to and from Stand Moderate Assistance,Maximum Assistance,2 Person Assistance ,Use of Upper Extremities Equipment Transfer Assistive Device Gait Belt,Front Wheeled Walker Orthotic/Prosthetic Devices or Brace: No Transfers Transfer Destination Chair,Bedside Commode Transfer Technique Stand Step Pivot Transfer Ability Level of Assist Maximum Assistance,2 Person Assistance,Use of Upper Extremities Comments Mobility Comments Pt in bed upon arrival from therapy w/ in room. Patient Mod A and max cues for logroll to L, Max A x2 for sidelying<>sit, Max A x2 for scooting to EOB. Pt needing Mod A for trunk stability when sitting. Pt then sit<>stand from bed Mod A x2 w/ FWW and cues and performed stand step pivot to chair Max A x2. After sitting, patient requested to use BSC. Max A x2 for sit<> stand from chair and stand step pivot to BSC, Max A for descent. After toileting, RN arrived to assist with pericare while PT and OT provided Max A for standing balance. Patient has consistent posterior lean when standing and needs frequent verbal and tactile cues to correct. Max A x2 for transfer back to chair and descent. Pt left reclined in chair w/ all needs in reach. Gait Assessment Gait Gait Assistance Required: Maximum Assistance,2 Person Assist Distance (Feet) 4 Able to Maintain Weight Bearing Status Yes During Gait Assistive Devices Assistive Device Gait Belt,Front Wheeled Walker Orthotic/Prosthetic Devices or Brace: No Gait Deviations General Gait Pattern Decreased Stride Length, Decreased Feet Clearance, Flexed Trunk,Step-to Gait,Wide Based Gait Factors Limiting Gait Function Factors Limiting Gait Function Decreased Activity Tolerance, Decreased Strength,Poor Balance,Poor Safety Awareness, Respiratory Distress Comments Gait Comments stand step pivot transfer only Stair Climbing Assessment Comments Stair Climbing Comments unable PT-Balance Assessment Sitting Balance and Reactions Static Sitting Balance Ability Poor Dynamic Sitting Balance Ability Poor Standing Balance and Reactions Static Standing Balance Ability Poor Dynamic Standing Balance Ability Poor Device Used FWW M5 PT-IP Objective Assessments Start: 04/09/20 11:58 Freq: NEEDED Status: Active Protocol: Document 04/09/20 09:30 AB (Rec: 04/09/20 12:15 AB [id number]) Orientation Orientation/Cognition Level of Alertness Alert Orientation Name,Place,Situation Language Function Ability Hard of Hearing Safety Awareness Decreased Safety Awareness Memory Description Short Term Impaired Strength Lower Extremity Strength Assessment Bilaterally Impaired Hip 3-/5 Knee 3+/5 Other Assessments Other Other Assessments (+) hand tremors during mobility M6 PT-IP Treatment Start: 04/09/20 11:58 Freq: NEEDED Status: Active Protocol: Document 04/11/20 10:15 KS (Rec: 04/11/20 13:24 KS [id number]) Physical Therapy Treatment Other Treatments Other Treatment Performed Discussed SNF w/ pt and . M7 PT-IP Assessment and Plan Start: 04/09/20 11:58 Freq: NEEDED Status: Active Protocol: Document 04/11/20 10:15 KS (Rec: 04/11/20 13:24 KS [id number]) PT Summary Assessment and Plan Potential Rehabilitation Potential Fair Status of Condition at Evaluation Evolving Summary Impairments Pain,ROM,Strength,Balance, Coordination,Sensation,Tone, Cognition,Bed Mobility, Transfers,Gait,Activity Tolerance Progress Towards Goals Slow Progress due to Medical Issues,Slow Progress due to Activity Tolerance,Slow Progress - Other Assessment Summary Patient continues to be limited by low toelrance for activity and high need for assist. Max A x2 for bed mobility, Mod to Max x2 for sit<>stand, Max A x2 for stand step pivot w/ FWW, and Max A for stand<>sit for controlled descent. Patients need for assist increased with repetition due to fatigue. He has consistent posterior lean when standing, needing Max A, verbal and tactile cues to avoid. Patient is a high fall risk and is not safe to go home due to weakness, poor safety awareness, poor balance , and low tolerance for activity. He will require SNF to improve strength and functional mobility. Goals Bed Mobility Goal Minimal Assistance Transfer Goal Minimal Assistance,Front Wheeled Walker Gait Goal Minimal Assistance,Front Wheel Walker Gait Distance 50 Other Goals improve bed mobility, transers to SBA and ambulation using 4WW to CGA 100 ft Days to Meet Goals 10 Frequency of Treatment Frequency Of Treatment Once a Day Treatment Plan Physical Therapy Treatment Plan Bed Mobility Training,Transfer Training,Gait Training, Therapeutic Exercise,Balance Retraining,Discharge Planning, Neuromuscular Re-ed, Coordination Retraining Other Recommendations and Next Treatment transfers, sitting/standing Focus balance, ambulation when appropriate Recommendations To Nursing Amount of Assist Needed 2 Person Assist Discharge Recommendations PT Discharge Recommendations SNF Rehab Transportation Needs at Discharge Wheelchair/Cabulance
--- NOTE | 2020-04-11 11:22 | P.PN_ITS ---
Subjective Subjective Date Patient Seen: 04/11/20 Interval history: Patient is 84-year-old male with history of hypertension, paroxysmal atrial fibrillation admitted with C diff colitis. He had 4 bowel movements yesterday. Mental status is much improved the last couple of days. He is taking adequate oral intake. Exam Vital Signs (past 8 hours): - 04/11/20 05:00 04/11/20 07:21 04/11/20 10:04 Temperature 98.1 F 98.3 F Pulse Rate 105 H 86 Respiratory Rate 16 17 Blood Pressure 157/90 H 166/90 H Pulse Oximetry 98 97 97 Oxygen Delivery Method Room Air Oxygen Flow Rate 0 Narrative Exam Narrative: General: Alert and pleasant NAD, hard of hearing Lungs: Clear to auscultation Heart: Irregularly irregular Abdomen: Soft and nontender Extremities: Warm no edema Neurological: Oriented to person and place, interactive, nonfocal Objective Labs Result Diagrams: 04/11/20 08:20 04/11/20 08:20 Labs: Laboratory Results - last 24 hr 04/11/20 04/11/20 08:20 08:20 WBC 11.1 H RBC 4.52 Hgb 13.1 L Hct 39.7 L MCV 87.9 MCH 29.0 MCHC 33.0 RDW 13.2 Plt Count 241 Neut % (Auto) 75.2 H Lymph % (Auto) 9.2 L [place] % (Auto) 8.5 Eos % (Auto) 6.3 H Baso % (Auto) 0.8 Neut # (Auto) 8300 H Lymph # (Auto) 1000 L [place] # (Auto) 900 Eos # (Auto) 700 H Baso # (Auto) 100 Sodium 136 L Potassium 3.0 L Chloride 106 Carbon Dioxide 28 BUN 16 Creatinine 0.95 Estimated GFR > 60.0 BUN/Creatinine Ratio 16.8 Glucose 107 Calcium 8.7 PFSH Medical History (Updated 04/09/20 @ 10:51 by Kal Bowers DO) Chronic 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 1. Acute C diff colitis, improved -patient presented with nausea, vomiting and diarrhea, he is improving with decreased stool frequency, leukocytosis improving -continue oral vancomycin 125 mg q.i.d. for 10-14 day course -discontinue IV fluids 2. Electrolyte imbalances, resolved -corrected magnesium and potassium deficiencies 3. Acute kidney injury, prerenal, resolved -appeared a little fluid overloaded on 04/09 and got 1 dose IV Lasix 4. History of paroxysmal atrial fibrillation -previously took apixaban which was stopped due to frequent falls -patient currently in atrial fibrillation on telemetry but not requiring rate control 5. Essential hypertension -BP improved, and now mildly hypertensive -restart enalapril and amlodipine on 04/12 6. BPH with acute urinary retention -had 500 cc on Thorne straight cath -continue tamsulosin 7. Acute metabolic encephalopathy -improving mental status DVT prophylaxis: Enoxaparin Patient is medically stable and could be discharged today. However, per PT and OT eval he is requiring 2 person assist. Patient and family declined discharge to senior living facility and would like to take him home. We agreed to keep patient 1 more day to allow family to get caregiver support to bring patient home tomorrow. Quality VTE Deep Vein Thrombosis/Pulmonary Embolism Present on Admission: No
--- NOTE | 2020-04-11 11:42 | CM.DPC ---
Addendum entered by Clary Sr R.N. 04/11/20 12:54: Daughter, Autumn, has arranged for [facility] to come into the home tomorrow afternoon. She agreed that patient will need BLS transport. She is aware that there will be some cost involved. Patient has stairs at home, and will not be able to navigate. Daughter was inquiring on a time tomorrow of discharge, let her know that discharge would occur in the morning, and transportation would need to be called and set up. Let her know that she can be updated tomorrow morning. Original Note: DCP Cont: Patient's daughter, Autumn, called this morning to stated that after having a discussion with their mother, and other siblings, they really want to take patient home. [facility] and [facility] was ready to accept patient today. Daughter stated, we just worry about his C-Diff, and that my mom can't visit. let daughter know that patient is ready for discharge today, for he is medically stable. Explained to her that patient could have gone to two skilled facilities, today, and hospitalist could have discharged patient. Daughter stated, if he has to be discharged today, we can make it work, I have been on the phone with several caregivers. Let her know that patient is a two person max assist, and she will need to have additional help, or hire another caregiver at the agency. After speaking to nursing, and O.T, confirmed that patient is max assist of 2, tends to lean back on transfers. He is also incontent of bowel at times, but can use commode. Explained this to daughter. Discussed good hand washing techniques, and wearing gloves at home. Dr. Wilkins had told , Richelle, that patient could stay another day, so he would not discharge today, but that patient will discharge tomorrow. Asked August at [facility] to hold on to referral in case family can't take him home tomorrow. Updated daughter, Autumn, SANTO. Let her know that patient will be discharged home tomorrow. She is working on caregivers. Asked daughter if she has any preferences on any home health agencies. No preference at this time. [facility] is listed on calendar for this week. Went ahead and had Dr. Wilkins sign a face to face, put in orders, for nursing, P.T, O.T, and bath aide. Nursing can assist with follow up labs as well. Called [facility] and spoke to More. She is aware of referral. Faxed over face sheet, orders, face to face, H&P, as well as P.T and O.T. notes to [facility]. P: Patient will be discharged home tomorrow with [facility]. They will just need DC summary. Autumn will coordinate with her sister, Gayla. They stated that they will get wheel-chair, and they have walker, as well as reclining chair. Other option is for [facility] tomorrow, if at the last minute, family can't take him home. Clary Sr RN/[employer] P[employer]
[2020-04-11] MEDS: POTASSIUM CHLORIDE 20 MEQ TAB PO ×2 (13:20→17:14)
--- NOTE | 2020-04-11 15:17 | PC.NURSE ---
Pt's told this nurse at approx 1245 that she gave her a half tablet of Conesus because he seemed grumpy and uncomfortable. Pt's has been asked not to administer medications to her while in he hospital for his safety. Pt has been unable to void efficiently this morning and early afternoon. Nursing staff bladder scanned him at approx. 1300 and found to have approx 430 mls urine. Pt has been I/O cathed with 550mls urine out at approx 1315. Dr. Wilkins has been made aware and placed knew order for a Thorne cath to remain on discharge. Pt will need to follow up with urology as out pt.
[2020-04-11] MEDS: SODIUM CHLORIDE 0.9% FLUSH 10 ML IV (20:09)
[2020-04-11] MEDS: TAMSULOSIN 0.4 MG CAPSULE PO (20:09)
[2020-04-11] MEDS: ATORVASTATIN 20 MG TABLET 10 MG PO (20:09)
[2020-04-11] MEDS: ENALAPRIL 20 MG TABLET PO (20:15)
[2020-04-12] MEDS: VANCOMYCIN 125 MG CAPSULE PO ×3 (00:17→13:45)
[2020-04-12 03:15] VITALS: BP 161/95; PULSE 95; RESP 22; TEMP 36.9; O2SAT 96
--- NOTE | 2020-04-12 03:59 | PC.NURSE ---
Addendum entered by Tata Young R.N. 04/12/20 06:37: Pt complains of pain in R elbow unknown etiology, given tylenol PRN. Original Note: Pt confused at start of shift, indicating to this RN that he was not receiving adequate care, but could not elaborate further. This RN assured him of staff competency and care. Pt confusion increasing throughout night, attempting to get out of bed multiple times. Pt finding sleep difficult.
[2020-04-12 05:42] LABS: BUN Creatinine Ratio 15.1 (6-22); Blood Urea Nitrogen 13 mg/dL (9-20); Calcium 8.8 mg/dL (8.4-10.2); Carbon Dioxide 32 mmol/L (22-32); Chloride 102 mmol/L (98-107); Estimated Glomerular Filt Rate > 60.0 mL/min (>60); Glucose 122 mg/dL (80-110); HEMOLYSIS < 15 (0-50); Potassium 3.4 mmol/L (3.4-5.1); Sodium 137 mmol/L (137-145)
[2020-04-12] MEDS: ACETAMINOPHEN 325 MG TABLET 650 MG PO (06:13)
[2020-04-12 08:52] VITALS: BP 152/90; PULSE 88; RESP 18; TEMP 36.8; O2SAT 96
--- NOTE | 2020-04-12 09:03 | CM.DPC ---
Addendum entered by Lauren Key LPN 04/12/20 10:10: SARAH Dolan is now faxing referral packet to [facility] with inclusion of these notes and the final d/c orders. DC summary to follow when available. Addendum entered by Lauren Key LPN 04/12/20 10:02: Called [facility]: next on vendor list: Lin said they have no open spots until >Thursday 04/13. Called [facility]: [facility] accepts and because a new black catheter is involved will plans to go out within 24 hours of d/c. She will call SANTO Leyva to reassure her about this and Autumn in turn will call her mother. P: home today: 1400 ambulance/ Family and 24 hour caregivers with [facility] RN/PT/OT/YESSY. Original Note: DCP: continued: case received, EMR reviewed and note plan in process for home setting with Dre , caregivers, family. Ambulance transport planned. Noted: Black catheter was placed last evening for acute urinary retention. Follow up: Spoke with Dr. Conte, on as hospitalist today. He confirms that pt is stable for d/c and plan made for d/c time of early afternoon. Checked in with pt and let him know that he would be going home after lunch today. Pt stated But I am already home... Gave gentle reminder that he was in the hospital but was going home to day. Pt very agreeable to this. Spoke with SANTO Leyva. She confirms that [facility] is in place for 24/7 caregiving and that a caregiver is scheduled for 1500 today. Agreed to set up ambulance transport for 1400/done. [place] crew aware of stairs and pt's weight and will bring stair stepper equipment. IGGY Barber aware. Ambulance form, completed yesterday by IGGY Means is now put in for scan and placed in folder to be included in the d/c process. update: called [facility] re the d/c today and with the addition of black catheter. [facility] explained that at this time they do not have any staff who can go out on weekends and would likely not be able to see pt until Wednesday.
--- NOTE | 2020-04-12 09:10 | P.DS_ITS ---
History of Present Illness History of Present Illness Date Patient Seen: 04/12/20 Time Patient Seen: 09:11 Chief complaint: Weakness Narrative: Gallo Moore is a pleasant 84 y.o. male with essential hypertension, hyperlipidemia, GERD, and BPH presented with a several day history of nausea and vomiting, diarrhea and generalized weakness. He states that he threw up in the ambulance and then again in the emergency department. He states he has not been able to keep anything down and he has been not urinated more than normal. He denies fevers sweats or chills, he has chronic shortness of breath, and generally feels very weak. Emergency department requested admission for generalized weakness and further workup of her problem a gastroenteritis. Acute abdomen x-ray series indicated a cyst suspicion for partial small-bowel obstruction. Patient is afebrile, blood pressure 151/84, heart rate 92, respiratory rate 24, oxygen saturation of 96% on room air he weighs 102 kg with a BMI of 33.4. He has an elevated white count of 14.3, hemoglobin 12.9, hematocrit 39.8, RBC 4.55, platelet count of 231, and a left shift. His sodium was 135, potassium 2.9, I chloride 106, bicarb 25, BUN 16, creatinine 1.27 which is elevated over baseline, lactate 0.9, urinalysis is negative for a UTI, C difficile is positive, COVID-19 PCR is negative. Discharge Providers Provider Date of admission: 04/08/20 02:42 Discharge Date: 04/12/20 Primary care physician: Kal Damon DO Consults: 04/08/20 16:37 Consult to Occupational Therapy Evaluate & Treat Comment: Physician Instructions: Evaluate and treat Consult to Physical Therapy Evaluate & Treat Comment: Physician Instructions: Evaluate and Treat 04/09/20 01:29 Consult to Respiratory Therapy Evaluate & Treat Comment: Wheezing Physician Instructions: Evaluate and treat 04/11/20 11:30 Consult to Home Health Routine Comment: Reason For Exam: Home Health RN, P.T, O.T, bath aide Discharge provider: Teresa Conte MD Summary Hospital Course Hospital Course: 1. Acute C diff colitis, improved -probably caused by recent clindamycin course for treatment of a skin infection in a cyst on his back. Clindamycin is added to his list of medication intolerances. He should not receive it in the future without significant concern for recurrent C diff -patient presented with nausea, vomiting and diarrhea, he improved readily with decreased stool frequency and leukocytosis. -continue oral vancomycin 125 mg q.i.d. for 14 day course at home. 2. Electrolyte imbalances, resolved -corrected magnesium and potassium deficiencies with normal BMP today 04/12 3. Acute kidney injury, prerenal, resolved -appeared a little fluid overloaded on 04/09 and got 1 dose IV Lasix 4. History of paroxysmal atrial fibrillation -previously took apixaban which was stopped due to frequent falls -patient currently in atrial fibrillation on telemetry but not requiring rate control 5. Essential hypertension -BP improved, and now mildly hypertensive -restart enalapril and amlodipine on 04/12 6. BPH with acute urinary retention -had 500 cc on Thorne straight cath -continue tamsulosin Urinary catheter placed 04/11 for acute urinary retention. Patient will need to go home with urinary catheter and schedule outpatient appointment with Urology. He is already on tamsulosin. 7. Acute metabolic encephalopathy -improving mental status Per PT and OT eval he is requiring 2 person assist. Patient and family declined discharge to long-term facility and would like to take him home. We kept him 1 more day to allow family to get caregiver support to bring patient home today 04/12. Exam Vital Signs (past 8 hours): - 04/12/20 03:15 Temperature 98.5 F Pulse Rate 95 H Respiratory Rate 22 Blood Pressure 161/95 H Pulse Oximetry 96 Oxygen Delivery Method Room Air Oxygen Flow Rate 0 Narrative Exam Narrative: He is oriented to his own name and is quite confused. He starts at the conversation by saying ?I am sorry? and when asked if he wants to go home he says ?I am already home.? Heart is regular rate and rhythm without murmur Lungs are clear to auscultation bilaterally Abdomen is soft, bowel sounds positive, nontender, no organomegaly. Extremities have no ankle edema Thorne catheter is in place Objective Labs Result Diagrams: 04/11/20 08:20 04/12/20 05:15 Labs: Laboratory Results - last 24 hr 04/11/20 04/12/20 08:20 05:15 Sodium 136 L 137 Potassium 3.0 L 3.4 Chloride 106 102 Carbon Dioxide 28 32 BUN 16 13 Creatinine 0.95 0.86 Estimated GFR > 60.0 > 60.0 BUN/Creatinine Ratio 16.8 15.1 Glucose 107 122 H Calcium 8.7 8.8 PFSH Medical History (Updated 04/11/20 @ 16:59 by Dong Wilkins MD) Chronic anemia Diabetes 1.5, managed as type 2 Essential hypertension Mixed hyperlipidemia Paroxysmal atrial fibrillation Tremor Urinary retention Surgical History Status post appendectomy Social History household members: spouse Smoking Status: Former smoker Tobacco: How many years used: 20 alcohol intake: never substance use type: does not use Discharge Plan Discharge Plan Patient Disposition: Home Provider Discharge Comment: See Dr. Damon in one week and Dr. Jaffe in 2 weeks Discharge orders & Medications Prescriptions: New vancomycin 125 mg Capsule 125 mg PO Q6H Qty: 28 RF: 0 Continued MULTIVITAMIN (#MULTIPLE VITAMINS) 1 cap PO Q DAY Qty: 0 RF: 0 FERROUS SULFATE (#FERROUS SULFATE) 65 mg PO BID Qty: 0 RF: 0 Fish Oil (#FISH OIL) 1 iu PO Q DAY Qty: 0 RF: 0 acetaminophen 500 MG tablet 500 mg PO Q DAY Qty: 0 RF: 0 cholecalciferol (vitamin D3) [Vitamin D3] 25 mcg (1,000 unit) tablet 1,000 unit PO DAILY Qty: 0 RF: 0 tamsulosin [Flomax] 0.4 mg capsule 0.4 mg PO HS Qty: 90 RF: 3 Prilosec OTC 20 mg tablet,delayed release (DR/EC) 20 mg PO Q DAY Qty: 90 RF: 3 amlodipine 5 mg tablet 5 mg PO DAILY Qty: 90 RF: 3 enalapril maleate 20 mg tablet 20 mg PO BID Qty: 180 RF: 2 atorvastatin 10 mg tablet See Rx Instructions .ROUTE .COMPLEX Qty: 90 RF: 3 (DME) Disabled Parking Permit 0 .Route .MEDSUPPLY Qty: 1 RF: 0 aspirin 325 mg Tablet 325 mg PO DAILY RF: 0 hydrocodone-acetaminophen [Gantt] 5-325 mg tablet 0.5 tab PO DAILY PRN (Reason: pain) RF: 0 Discontinued clindamycin HCl 300 mg capsule 300 mg PO TID Qty: 30 RF: 5 Follow up/Referrals: Blanca Jaffe MD [Physician] - 04/17/20 8:00 am (APPT:04/17 @ check in at 8:[address] jaffe please fill out & bring your new patient information packet) Kal Damon DO [Primary Care Provider] - 04/26/20 11:00 am (appt:04/26 @ 11:[address] damon please arrive 15 minutes prior to your scheduled appointment time ) Diet/Activity/Treatments Diet: Regular Catheter: 2-way Thorne Visit Report/Discharge Packet Instructions: Clostridium difficile Infection, DI for Clostridium difficile Infection Discharge Data Primary Care Provider: Kal Damon Quality VTE Deep Vein Thrombosis/Pulmonary Embolism Present on Admission: No
[2020-04-12] MEDS: AMLODIPINE 5 MG TABLET PO (09:24)
[2020-04-12] MEDS: ENOXAPARIN 40 MG/0.4 ML SYRINGE SUBCUT (09:25)
[2020-04-12] MEDS: ENALAPRIL 20 MG TABLET PO (09:25)
[2020-04-12] MEDS: SODIUM CHLORIDE 0.9% FLUSH 10 ML IV (09:25)
--- NOTE | 2020-04-12 10:15 | CM.DPNOTE ---
Faxed med list, clinicals, order, face to face & instructions to [facility] on 04/12/20. Received fax confirmation and scanned face to face. Kelsi Reddy CM Ass.t
--- NOTE | 2020-04-12 10:58 | PC.NURSE ---
Assess-Patient is alert but confused x2. He is aware of his surroundings and has some shelter memory but his short term memory is better. He had an incontinent episode of running stool, patient is admitted to the hospital for cdiff. He is on po vancomycin. He is unsteady on his feet and a 2 person assist with the walker. Cleaned up and is now resting in bed. Patient denies pain and is resting comfortably supine.
--- NOTE | 2020-04-12 11:16 | OT.IP.TRT ---
Current Diagnoses Paroxysmal atrial fibrillation (04/08/20) Retention of urine, unspecified (04/08/20) Occupational Therapy Treatment Note M2 OT-IP Current Condition Start: 04/10/20 12:24 Freq: Status: Active Protocol: Document 04/10/20 11:56 CCC (Rec: 04/10/20 12:49 [facility] [id number]) Occupational Therapy Current Condition Current Condition Evaluation Date 04/10/20 Treatment Diagnosis C-diff, weakness Diagnosis Onset Date 04/08/20 M3 OT- IP Subjective and Pain Start: 04/10/20 12:24 Freq: Status: Active Protocol: Document 04/12/20 11:14 CGR (Rec: 04/12/20 11:16 CGR [id number]) OT- Subjective Occupational Therapy Visit Type Type Administrative Note Notes Attempted to see pt in AM. Pt is sleeping soundly and pts states that she expects him to be tired after transfer home. Will check back as able .
--- NOTE | 2020-04-12 11:35 | PT-IP ANOTE ---
Attempted to see pt 1135am and pt was sleeping soundly. at bedside. Pt was feeling tired after getting up with nursing earlier this morning. stated to skip therapy if possible since pt will be DC home with 12/10 CG assistance + Roro MCGARRY at 2pm this afternoon.
--- NOTE | 2020-04-12 14:29 | PC.NURSE ---
Discharge paperwork gone over with Richelle. Taught patient black care, and leg bag teaching. Patient just left via [facility] ambulance.
== END 2020-04-12 14:28 | disposition home health service (06) | DRG 371 ==
LOC: ED 01:43 → AC 03:24
PROVIDERS: Internal Medicine; Nurse Practitioner Adult Health; Admitting Provider Nurse Practitioner Family; Emergency Provider Emergency Medicine; PCP Family Medicine; Visit Provider Nurse Practitioner Family
DX: A04.72 Enterocolitis due to Clostridium difficile, not specified as recurrent (principal); G93.41 Metabolic encephalopathy; N17.9 Acute kidney failure, unspecified; E86.0 Dehydration; E87.6 Hypokalemia; I48.0 Paroxysmal atrial fibrillation; I10 Essential (primary) hypertension; E78.5 Hyperlipidemia, unspecified; K21.9 Gastro-esophageal reflux disease without esophagitis; D64.9 Anemia, unspecified; Z66 Do not resuscitate; N40.1 Benign prostatic hyperplasia with lower urinary tract symptoms; R33.9 Retention of urine, unspecified; Z20.822 Contact with and (suspected) exposure to COVID-19
CPT/HCPCS: 36415; 74022; 80048; 80053; 81001; 83605; 83735; 84145; 85025; 87045; 87493; 87635; 87899; 93005; 93010; 94640; 94760; 96361; 96365; 96375; 97162; 97165; 97530; 97535; 99284; 99291; 99292; C9803; A9270; C9113; J1650; J1940; J2405; J3475; J3480

== ENCOUNTER 2020-04-22 16:49 | Inpatient (IN) | payer MEDICARE, SELFPAY ==
[2020-04-12 09:14] VITALS: BMI 33.4
[2020-04-22] VITALS (14 sets, daily range): BP systolic 142–215; BP diastolic 74–104; PULSE 100–124; RESP 30–48; TEMP 36.9–38.1; O2SAT 94–97; BMI 33.5
--- NOTE | 2020-04-22 17:12 | DI.RAD.S_ITS ---
PROCEDURE: XR CHEST 1V INDICATIONS: Short of breath TECHNIQUE: One view of the chest was acquired. COMPARISON: [facility], CHEST 1 VIEW, 02/05/2015, 21:57. [place], [place], BONE SCAN WHOLE BODY, 06/28/2015, 12:44. [facility], XR CHEST 1V, 06/30/2019, 12:52. FINDINGS: Surgical changes and devices: None. Lungs and pleura: An incomplete inspiratory result is noted, causing a crowded appearance to the lung markings. No focal infiltrates are seen. No pneumothorax or significant pleural effusions are seen. Mediastinum: The cardiac contours are within normal limits. The aorta demonstrates calcification and tortuosity. Bones and chest wall: There is partial lytic destruction seen of the posterior left 6th rib. Age-appropriate bony degenerative changes are seen. Overlying soft tissues appear unremarkable. IMPRESSION: Partial lytic destruction of the left posterior 6th rib. If clinically appropriate, please consider a dedicated CT for further evaluation. Low lung volumes. Note: Findings and recommendations discussed by telephone with Dr. Chow at 4:41 p.m. [place] time on April 22, 2020. Dictated by: Abilio Chong M.D. on 04/22/2020 at 16:38 Approved by: Abilio Chong M.D. on 04/22/2020 at 16:42
[2020-04-22 17:23] LABS: Add Manual Diff / Slide Review NO; Basophils Absolute Auto 100 /uL (0-100); Basophils Percent Auto 0.4 % (0-2); Eosinophils Absolute Auto 200 /uL (0-450); Eosinophils Percent Auto 1.1 % (2-4); Hematocrit 38.2 % (41-53); Hemoglobin 12.6 g/dL (13.5-17.5); Lymphocytes Absolute Auto 900 /uL (1100-4500); Lymphocytes Percent Auto 5.1 % (25-40); Mean Corpuscular HGB Conc 32.9 % (30-36); Monocytes Absolute Auto 1000 /uL (0-900); Monocytes Percent Auto 5.7 % (3-14); Neutrophils Absolute Auto 15300 /uL (1500-7000); Neutrophils Percent Auto 87.7 % (50-75); Platelet Count 372 X10^3/uL (150-400); Red Blood Cell Count 4.34 X10^6/uL (4.5-5.9); Red Cell Distribution Width 13.6 % (11.6-14.8); White Blood Cell Count 17.4 X10^3/uL (4.5-11.0)
[2020-04-22] MEDS: ACETAMINOPHEN 325 MG TABLET 650 MG PO (17:24)
[2020-04-22] MEDS: CEFTRIAXONE 1 GM/50 ML FROZ.PIGGY IV (17:25)
[2020-04-22] MEDS: SODIUM CHLORIDE 0.9% 1,000 ML 125 ML IV (17:25)
--- NOTE | 2020-04-22 17:28 | PC.NURSE ---
catheter bag changed to new sterile bag. noted cloudy urine. UA sample taken from new bag and sent to lab.
[2020-04-22 17:32] LABS: Alanine Aminotransferase 141 IU/L (<50); Albumin 3.8 g/dL (3.5-5.0); Albumin Globulin Ratio 1.1 (1.0-2.8); Alkaline Phosphatase 131 U/L (38-126); Aspartate Aminotransferase 114 IU/L (17-59); BUN Creatinine Ratio 14.6 (6-22); Bilirubin Total 0.5 mg/dL (0.2-1.3); Blood Urea Nitrogen 14 mg/dL (9-20); Calcium 9.5 mg/dL (8.4-10.2); Carbon Dioxide 31 mmol/L (22-32); Chloride 97 mmol/L (98-107); Creatine Kinase 39 U/L (55-170); Estimated Glomerular Filt Rate > 60.0 mL/min (>60); Globulin 3.4 g/dL (1.7-4.1); Glucose 142 mg/dL (80-110); HEMOLYSIS 38 (0-50); Lipase 202 U/L (23-300); Potassium 4.6 mmol/L (3.4-5.1); Sodium 134 mmol/L (137-145); Total Protein 7.2 g/dL (6.3-8.2)
[2020-04-22 17:35] LABS: COVID19 -Nasal RAPID Negative (Negative)
[2020-04-22 17:39] LABS: Lactate (Lactic Acid) 1.9 mmol/L (0.7-2.1)
[2020-04-22 17:41] LABS: Troponin I < 0.012 ng/mL (0.01-0.034)
--- NOTE | 2020-04-22 17:42 | DI.CT.S_ITS ---
PROCEDURE: CT CHEST ABD PEL W CON INDICATIONS: C diff with abdominal distension and left rib lytic lesion TECHNIQUE: After the administration of intravenous contrast, 5 mm thick sections acquired from the lung apices to the symphysis. 5 mm coronal and sagittal reformats were performed, with additional 7 mm MIP reformats through the lungs. For radiation dose reduction, the following was used: automated exposure control, adjustment of mA and/or kV according to patient size. COMPARISON: [facility], CR, CHEST 1 VIEW, 02/05/2015, 21:57. [facility], CR, XR CHEST 1V, 04/22/2020, 17:15. FINDINGS: Image quality: Excellent. CHEST: Lungs and pleura: No acute airspace opacities. Chronic interstitial prominence, reduced inspiratory volume. No pleural effusions or pneumothorax. Central and peripheral airways on the right appear patent and normal in caliber. The bronchi to the left lower lobe are small in caliber, and appearance potentially a manifestation of prior radiation therapy. Mediastinum: Heart size is normal. No pericardial effusion. No mediastinal or hilar adenopathy by size criteria. Thoracic aorta and central pulmonary arteries are normal in size. Esophagus is normal in caliber. No hiatal hernia. Chest wall: No axillary or supraclavicular adenopathy by size criteria. Thyroid gland appears normal where well seen . 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 ABDOMEN: Solid organs: Liver is normal in size and enhancement. Gallbladder appears normal . Biliary system is non dilated. Pancreas enhances normally. Spleen is normal in size and enhancement. No adrenal nodules. Kidneys demonstrate normal size and enhancement, without hydronephrosis. There is a moderate size water density cyst at the upper 3rd cortex of the right kidney, measuring up to 4.7 cm, and a slightly low smaller exophytic lower pole cortex cyst is present on. These appear simple in require no follow-up. Peritoneum and bowel: Bowel loops demonstrate normal wall thickness and caliber. No free fluid or air. Nodes and vessels: No retroperitoneal or mesenteric adenopathy by size criteria. Aorta and inferior vena cava are normal in size. Miscellaneous: No ventral hernias. PELVIS: Genitourinary: Bladder wall thickness is normal. Thorne catheter is within the central portion of the bladder lumen, which is not distended. Miscellaneous: No inguinal hernias or adenopathy. Bones: No suspicious bony lesions. No vertebral body compression fractures. 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 No follow-up needed. Relatively small size caliber of the left lower lobe pulmonary bronchi, potentially a manifestation of prior radiation therapy into that area. No malignancy found. Thorne catheter centrally positioned within the bladder lumen, no urinary retention found. No sign of intestinal obstruction or perforation. Several simple appearing water density renal cortical cysts are incidentally noted. Dictated by: Ed Hernandes M.D. on 04/22/2020 at 18:28 Approved by: Ed Hernandes M.D. on 04/22/2020 at 18:40
[2020-04-22 17:44] LABS: Appearance Urine UA SL CLOUDY; Bilirubin Urine UA NEGATIVE (NEGATIVE); Color Urine UA RED; Glucose Urine UA NEGATIVE (Negative); Ketones Urine UA NEGATIVE (NEGATIVE); Leukocyte Esterase Urine UA 2+ (NEGATIVE); Nitrite Urine UA POSITIVE (Negative); Occult Blood Urine UA 3+ (Negative); Protein Urine UA 2+ (Negative); Urobilinogen Urine UA 0.2 E.U./dL (0.2)
[2020-04-22 18:00] LABS: RBC Urine >100/HPF (0-5/HPF); Squamous Epithelial Cell Urine 0-1 /HPF (0-5/HPF); WBC Urine 30-100/HPF (0-5/HPF)
[2020-04-22 18:01] LABS: Bacteria Urine Moderate (10-30)
[2020-04-22 18:02] LABS: Culture Indicated Urine Cult Not Indicated; Urine Comments CX ALREADY ORDERED
[2020-04-22 18:11] LABS: Procalcitonin 0.19 ng/mL (<0.5)
--- NOTE | 2020-04-22 18:14 | ED.FEVER ---
HPI - Fever General Chief Complaint: Fever Stated Complaint: SOB/Fever Time Seen by Provider: 04/22/20 18:08 Source: patient and EMS Mode of arrival: EMS Limitations: no limitations History of Present Illness HPI Narrative: This is an 84-year-old male who comes to the emergency department with complaint of fever, shortness of breath and elevated heart rate and felt increasingly weak. Patient was recently discharged on the for C diff on vancomycin orally. He also had urinary retention at that time and had an indwelling Thorne catheter. Patient denies any headaches he denies any chest pain, he does complain of some pressure in his chest. He denies any abdominal pain. He denies any nausea, no vomiting. Denies any new urinary symptoms but does still have the bag in place. Patient denies any diarrhea or issues with his bowel movements since discharge. He has some mild to moderate swelling his lower extremities which he and his both state he is typical. Patient has a history of AFib, hypertension, dyslipidemia and denies any prior history of heart attacks or strokes. He states he takes an aspirin daily. 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 Denies tobacco, no alcohol, he does use hemp regularly but denies other recreational drugs. He is accompanied by his who he lives with. Related Data Home Medications Medication Instructions Recorded Confirmed cholecalciferol (vitamin D3) 25 1,000 unit PO QAM #0 tab 06/30/19 04/22/20 mcg (1,000 unit) tablet aspirin 325 mg PO QAM 04/08/20 04/22/20 hydrocodone-acetaminophen [[place]] 0.5 tab PO DAILY PRN 04/08/20 04/22/20 amlodipine 5 mg PO QAM 04/22/20 04/22/20 atorvastatin 10 mg PO QAM 04/22/20 04/22/20 ferrous sulfate 325 mg PO QAM 04/22/20 04/22/20 omeprazole magnesium [Prilosec OTC] 20 mg PO QAM 04/22/20 04/22/20 vitamin B complex 1 tab PO QAM 04/22/20 04/22/20 Previous Rx's Medication Instructions Recorded Disabled Parking Permit #1 ea 07/26/18 tamsulosin 0.4 mg capsule 0.4 mg PO HS #90 cap 07/03/19 enalapril maleate 20 mg tablet 20 mg PO BID #180 tab 12/30/19 vancomycin 125 mg PO Q6H #28 cap 04/12/20 Allergies Allergy/AdvReac Type Severity Reaction Status Date / Time clindamycin AdvReac Severe C.diff Verified 04/12/20 09:12 Colitis 04/11 Review of Systems Review of Systems ROS Unobtainable: All systems reviewed & are unremarkable except as noted in HPI and below Patient History Medical History (Updated 04/22/20 @ 21:12 by JESSIE Daniel) Benign prostatic hyperplasia Chronic anemia Clostridioides difficile infection Diabetes 1.5, managed as type 2 Essential hypertension Frequent falls LFT elevation Mixed hyperlipidemia Osteoarthritis Paroxysmal atrial fibrillation Tremor Urinary retention Surgical History (Updated 04/22/20 @ 21:16 by JESSIE Daniel) History of lobectomy of lung History of resection of rib Status post appendectomy Family History (Updated 04/22/20 @ 21:17 by JESSIE Daniel) Father Hypertension Brother Atrial fibrillation Mother No significant medical problems Social History household members: spouse Smoking Status: Former smoker Tobacco: How many years used: 20 alcohol intake: never substance use type: does not use Smoking Status: Former smoker alcohol intake frequency: 0-2 drinks per day Substance Use Type: does not use Exam Narrative Exam Narrative: GEN: well nourished, elderly male, alert and oriented x 3, patient appears to be in mild distress. HEENT: Atraumatic, pupils are equal round reactive to light, extraocular movements are intact, nares are clear. HEART: Irregularly irregular rate and rhythm without murmur, clicks, rubs. No carotid bruits, pulses are equal in upper extremities. Patient has 1+ edema bilateral lower extremities particular pretibial and ankles. LUNGS:Lungs clear to auscultation, no wheezes, rales, crackles, chest moves symmetrically, mild tachypnea. No accessory muscle use. Patient is able to speak in full sentences. ABD:bowel sounds normal, soft, non-tender, no guarding, rebound, rigidity, no masses noted, no hepatosplenomegaly, mildly distended which patient states is his normal. :No CVA tenderness MSCL: Non-tender, no muscle atrophy. NEURO:CN 2-12 intact, sensation normal SKIN: No rash, erythema or other changes appreciated. Initial Vital Signs Initial Vital Signs: Vital Signs Pulse Rate 117 H 04/22/20 17:02 Respiratory Rate 48 H 04/22/20 17:02 Pulse Oximetry 97 04/22/20 17:02 Scores GCS [place] coma scale eye opening: Spontaneous Cedric coma scale verbal response: Orientated Cedric coma scale motor response: Obey commands Cedric coma scale total score: 15 Course Orders Ordered: ED Orders 04/22/20 17:02 Blood Culture Stat Complete Blood Count AUTO DIFF Stat Comprehensive Metabolic Panel Stat Lactate (Lactic Acid) Stat Lipase Stat NT-proBNP (BNP-Adult 18+) Stat Procalcitonin Stat Troponin & CK Cardiac Panel Stat 04/22/20 17:10 Urinalysis and Microscopic Stat Urine Culture Stat 04/22/20 17:12 XR chest 1V Stat EKG-12 Lead Stat 04/22/20 17:42 CT chest abd pel w con Stat Acetaminophen (Acetaminophen 325 Mg Tablet) 650 mg PO Q6HR PRN PRN Reason: Fever/Mild Pain (1-3) Al Hydrox/Mg Hydrox/Simethicone (Mag Hydrox/Alum/Simeth 30 Ml Udc) 30 ml PO Q6HR PRN PRN Reason: Dyspepsia Amlodipine Besylate (Amlodipine 5 Mg Tablet) 5 mg PO DAILY [facility] Aspirin (Aspirin 325 Mg Tablet) 325 mg PO DAILY [facility] Atorvastatin Calcium (Atorvastatin 20 Mg Tablet) 10 mg PO DAILY [facility] Calcium Carbonate (Calcium Carbonate 500 Mg Tab) 1,000 mg PO Q4HR PRN PRN Reason: Dyspepsia Enalapril Maleate (Enalapril 20 Mg Tablet) 20 mg PO BID [facility] Last Admin: 04/22/20 22:18 Dose: 20 mg Documented by: ROBIN Enoxaparin Sodium (Enoxaparin 40 Mg/0.4 Ml Syringe) 40 mg SUBCUT DAILY [facility] Famotidine (Famotidine 20 Mg Tablet) 40 mg PO BEDTIME [facility] Last Admin: 04/22/20 22:25 Dose: 40 mg Documented by: ROBIN Finasteride (Finasteride 5 Mg Tablet) 5 mg PO BEDTIME [facility] Last Admin: 04/22/20 22:18 Dose: 5 mg Documented by: ROBIN Melatonin (Melatonin 3 Mg Tablet) 6 mg PO BEDTIME PRN PRN Reason: Sleep Last Admin: 04/23/20 00:48 Dose: 6 mg Documented by: NIYAH Naloxone HCl (Naloxone 0.4 Mg/Ml Vial) 0.2 mg IV Q2MIN PRN PRN Reason: Opiate Reversal Ondansetron HCl (Ondansetron 4 Mg/2 Ml Inj) 4 mg IV Q8HR PRN PRN Reason: Nausea And Vomiting Sodium Chloride (Sodium Chloride 0.9% Flush) 10 ml IV PRN PRN PRN Reason: Flush Sodium Chloride (Sodium Chloride 0.9% Flush) 10 ml IV BID [facility] Tamsulosin HCl (Tamsulosin 0.4 Mg Capsule) 0.4 mg PO BEDTIME [facility] Last Admin: 04/22/20 22:19 Dose: 0.4 mg Documented by: ROBIN Vancomycin HCl (Vancomycin 125 Mg Capsule) 125 mg PO Q6H [facility] Discontinued Medications Acetaminophen (Acetaminophen 325 Mg Tablet) 650 mg PO NOW ONE Stop: 04/22/20 17:14 Last Admin: 04/22/20 17:24 Dose: 650 mg Documented by: IGOR Atorvastatin Calcium (Atorvastatin 20 Mg Tablet) 10 mg PO BEDTIME [facility] Sodium Chloride (Normal Saline 0.9%) 1,000 mls @ 125 mls/hr IV CONT [facility]EL[facility] Last Infusion: 04/22/20 20:07 Dose: 0 mls/hr Documented by: Admin: 04/22/20 17:25 Dose: 125 mls/hr Documented by: IGOR Ceftriaxone Sodium/Dextrose (Rocephin) 1 gm in 50 mls @ 100 mls/hr IV NOW ONE Stop: 04/22/20 17:43 Last Infusion: 04/22/20 18:15 Dose: 0 mls/hr Documented by: Admin: 04/22/20 17:25 Dose: 100 mls/hr Documented by: IGOR Ceftriaxone Sodium/Dextrose (Rocephin) 1 gm in 50 mls @ 100 mls/hr IV Q24H [facility]ELIA Sodium Chloride (Sodium Chloride 0.9% Flush) 10 ml IV PRN PRN PRN Reason: Flush Sodium Chloride (Sodium Chloride 0.9% Flush) 10 ml IV BID ROMELIA Vancomycin HCl (Vancomycin 125 Mg Capsule) 125 mg PO NOW ONE Stop: 04/22/20 19:02 Last Admin: 04/22/20 19:15 Dose: 125 mg Documented by: HEBER Vancomycin HCl (Vancomycin 125 Mg Capsule) 125 mg PO Q6H [facility] Reevaluation(s) Time: 19:19 Consultations Consultation #1: Spoke with TELEGRAPH MESSENGER Ed who accepts for inpatient admission for UTI, with indwelling Thorne, sepsis, AFib RVR. Time: 19:19 Vital Signs Vital signs: Vital Signs - 8 hr 04/22/20 18:07 04/22/20 18:09 04/22/20 18:15 Temperature Pulse Rate 105 H 107 H 111 H Respiratory Rate 30 H 37 H 40 H Blood Pressure 171/81 H 166/83 H Pulse Oximetry 94 95 96 04/22/20 18:20 04/22/20 18:30 04/22/20 18:45 Temperature 99.7 F H Pulse Rate 107 H 117 H Respiratory Rate 43 H 40 H Blood Pressure 162/74 H 184/84 H Pulse Oximetry 96 96 04/22/20 19:00 Temperature Pulse Rate 105 H Respiratory Rate 39 H Blood Pressure Pulse Oximetry 96 MDM - Fever Lab Data Result diagrams: 04/22/20 17:02 04/22/20 17:02 Labs: Lab Results 04/22/20 04/22/20 04/22/20 Range/Units 16:45 16:52 17:02 WBC 17.4 H (4.5-11.0) X10^3/uL RBC 4.34 L (4.5-5.9) X10^6/uL Hgb 12.6 L (13.5-17.5) g/dL Hct 38.2 L (41-53) % MCV 88.0 (80-100) fL MCH 29.0 (26-34) PG MCHC 32.9 (30-36) % RDW 13.6 (11.6-14.8) % Plt Count 372 (150-400) X10^3/uL Neut % (Auto) 87.7 H (50-75) % Lymph % (Auto) 5.1 L (25-40) % [place] % (Auto) 5.7 (3-14) % Eos % (Auto) 1.1 L (2-4) % Baso % (Auto) 0.4 (0-2) % Neut # (Auto) 25716 H (0638-7334) /uL Lymph # (Auto) 900 L (9172-3749) /uL Grayson # (Auto) 1000 H (0-900) /uL Eos # (Auto) 200 (0-450) /uL Baso # (Auto) 100 (0-100) /uL Sodium (137-145) mmol/L Potassium (3.4-5.1) mmol/L Chloride (98-107) mmol/L Carbon Dioxide (22-32) mmol/L BUN (9-20) mg/dL Creatinine (0.66-1.25) mg/dL Estimated GFR (>60) mL/min BUN/Creatinine Ratio (6-22) Glucose (80-110) mg/dL Hemoglobin A1c (4.0-6.0) % Lactate (0.7-2.1) mmol/L Calcium (8.4-10.2) mg/dL Magnesium 1.7 (1.6-2.3) mg/dL Total Bilirubin (0.2-1.3) mg/dL AST (17-59) IU/L ALT (<50) IU/L Alkaline Phosphatase (38-126) U/L Total Creatine Kinase (55-170) U/L CK-MB (CK-2) CK-MB (CK-2) Rel Index Troponin I (0.01-0.034) ng/mL NT-Pro-B Natriuret Pep (<450) pg/mL Total Protein (6.3-8.2) g/dL Albumin (3.5-5.0) g/dL Globulin (1.7-4.1) g/dL Albumin/Globulin Ratio (1.0-2.8) Lipase (23-300) U/L Procalcitonin (<0.5) ng/mL Urine Color Urine Appearance Urine pH (4.5-8.0) Ur Specific [place] (1.000-1.035) Urine Protein (Negative) Urine Glucose (UA) (Negative) g/dL Urine Ketones (NEGATIVE) Urine Occult Blood (Negative) Urine Nitrate (Negative) Urine Bilirubin (NEGATIVE) Urine Urobilinogen (0.2) E.U./dL Ur Leukocyte Esterase (NEGATIVE) Urine RBC (0-5/HPF) Urine WBC (0-5/HPF) Ur Squamous Epith Cells (0-5/HPF) Urine Bacteria (None) Ur Culture Indicated? Micro UA Comment SARS-CoV-2 (PCR) Negative (Negative) 04/22/20 04/22/20 04/22/20 Range/Units 17:02 17:02 17:02 WBC (4.5-11.0) X10^3/uL RBC (4.5-5.9) X10^6/uL Hgb (13.5-17.5) g/dL Hct (41-53) % MCV (80-100) fL MCH (26-34) PG MCHC (30-36) % RDW (11.6-14.8) % Plt Count (150-400) X10^3/uL Neut % (Auto) (50-75) % Lymph % (Auto) (25-40) % [place] % (Auto) (3-14) % Eos % (Auto) (2-4) % Baso % (Auto) (0-2) % Neut # (Auto) (0774-0893) /uL Lymph # (Auto) (9157-1437) /uL Grayson # (Auto) (0-900) /uL Eos # (Auto) (0-450) /uL Baso # (Auto) (0-100) /uL Sodium 134 L (137-145) mmol/L Potassium 4.6 (3.4-5.1) mmol/L Chloride 97 L (98-107) mmol/L Carbon Dioxide 31 (22-32) mmol/L BUN 14 (9-20) mg/dL Creatinine 0.96 (0.66-1.25) mg/dL Estimated GFR > 60.0 (>60) mL/min BUN/Creatinine Ratio 14.6 (6-22) Glucose 142 H (80-110) mg/dL Hemoglobin A1c (4.0-6.0) % Lactate 1.9 (0.7-2.1) mmol/L Calcium 9.5 (8.4-10.2) mg/dL Magnesium (1.6-2.3) mg/dL Total Bilirubin 0.5 (0.2-1.3) mg/dL AST 114 H (17-59) IU/L ALT 141 H (<50) IU/L Alkaline Phosphatase 131 H (38-126) U/L Total Creatine Kinase 39 L (55-170) U/L CK-MB (CK-2) TNP CK-MB (CK-2) Rel Index TNP Troponin I < 0.012 (0.01-0.034) ng/mL NT-Pro-B Natriuret Pep (<450) pg/mL Total Protein 7.2 (6.3-8.2) g/dL Albumin 3.8 (3.5-5.0) g/dL Globulin 3.4 (1.7-4.1) g/dL Albumin/Globulin Ratio 1.1 (1.0-2.8) Lipase 202 (23-300) U/L Procalcitonin 0.19 (<0.5) ng/mL Urine Color Urine Appearance Urine pH (4.5-8.0) Ur Specific [place] (1.000-1.035) Urine Protein (Negative) Urine Glucose (UA) (Negative) g/dL Urine Ketones (NEGATIVE) Urine Occult Blood (Negative) Urine Nitrate (Negative) Urine Bilirubin (NEGATIVE) Urine Urobilinogen (0.2) E.U./dL Ur Leukocyte Esterase (NEGATIVE) Urine RBC (0-5/HPF) Urine WBC (0-5/HPF) Ur Squamous Epith Cells (0-5/HPF) Urine Bacteria (None) Ur Culture Indicated? Micro UA Comment SARS-CoV-2 (PCR) (Negative) 04/22/20 04/22/20 04/22/20 Range/Units 17:02 17:02 17:10 WBC (4.5-11.0) X10^3/uL RBC (4.5-5.9) X10^6/uL Hgb (13.5-17.5) g/dL Hct (41-53) % MCV (80-100) fL MCH (26-34) PG MCHC (30-36) % RDW (11.6-14.8) % Plt Count (150-400) X10^3/uL Neut % (Auto) (50-75) % Lymph % (Auto) (25-40) % [place] % (Auto) (3-14) % Eos % (Auto) (2-4) % Baso % (Auto) (0-2) % Neut # (Auto) (7967-6621) /uL Lymph # (Auto) (4739-6884) /uL [place] # (Auto) (0-900) /uL Eos # (Auto) (0-450) /uL Baso # (Auto) (0-100) /uL Sodium (137-145) mmol/L Potassium (3.4-5.1) mmol/L Chloride (98-107) mmol/L Carbon Dioxide (22-32) mmol/L BUN (9-20) mg/dL Creatinine (0.66-1.25) mg/dL Estimated GFR (>60) mL/min BUN/Creatinine Ratio (6-22) Glucose (80-110) mg/dL Hemoglobin A1c 6.5 H (4.0-6.0) % Lactate (0.7-2.1) mmol/L Calcium (8.4-10.2) mg/dL Magnesium (1.6-2.3) mg/dL Total Bilirubin (0.2-1.3) mg/dL AST (17-59) IU/L ALT (<50) IU/L Alkaline Phosphatase (38-126) U/L Total Creatine Kinase (55-170) U/L CK-MB (CK-2) CK-MB (CK-2) Rel Index Troponin I (0.01-0.034) ng/mL NT-Pro-B Natriuret Pep 1240 H (<450) pg/mL Total Protein (6.3-8.2) g/dL Albumin (3.5-5.0) g/dL Globulin (1.7-4.1) g/dL Albumin/Globulin Ratio (1.0-2.8) Lipase (23-300) U/L Procalcitonin (<0.5) ng/mL Urine Color Red Urine Appearance Sl cloudy Urine pH 7.0 (4.5-8.0) Ur Specific [place] 1.020 (1.000-1.035) Urine Protein 2+ H (Negative) Urine Glucose (UA) Negative (Negative) g/dL Urine Ketones Negative (NEGATIVE) Urine Occult Blood 3+ H (Negative) Urine Nitrate Positive (Negative) Urine Bilirubin Negative (NEGATIVE) Urine Urobilinogen 0.2 (0.2) E.U./dL Ur Leukocyte Esterase 2+ H (NEGATIVE) Urine RBC >100/hpf H (0-5/HPF) Urine WBC 30-100/hpf H (0-5/HPF) Ur Squamous Epith Cells 0-1 /hpf (0-5/HPF) Urine Bacteria Moderate (10-30) H (None) Ur Culture Indicated? Cult not indicated Micro UA Comment Cx already ordered SARS-CoV-2 (PCR) (Negative) Imaging Data Chest x-ray: Radiologist's Impression: Gallo Moore 84 M [address] [id number] ReportSigned Patient: Gallo Moore MMR#: [id number]: 5Acct:[id number]/Sex: 84 / MDate of Service: 04/22/20Loc: EDAccession Number: [id number] Procedure: XR chest 1V Ordering Provider: Joni Chow D.O. PROCEDURE: XR CHEST 1V INDICATIONS: Short of breath TECHNIQUE: One view of the chest was acquired. COMPARISON: [facility], , CHEST 1 VIEW, 02/05/2015, 21:57. [place], BONE SCAN WHOLE BODY, 06/28/2015, 12:44. [facility], , XR CHEST 1V, 06/30/2019, 12:52. FINDINGS: Surgical changes and devices: None. Lungs and pleura: An incomplete inspiratory result is noted, causing a crowded appearance to the lung markings. No focal infiltrates are seen. No pneumothorax or significant pleural effusions are seen. Mediastinum: The cardiac contours are within normal limits. The aorta demonstrates calcification and tortuosity. Bones and chest wall: There is partial lytic destruction seen of the posterior left 6th rib. Age-appropriate bony degenerative changes are seen. Overlying soft tissues appear unremarkable. IMPRESSION: Partial lytic destruction of the left posterior 6th rib. If clinically appropriate, please consider a dedicated CT for further evaluation. Low lung volumes. Note: Findings and recommendations discussed by telephone with Dr. Chow at 4:41 p.m. [place] time on April 22, 2020. Dictated by: Abilio Chong M.D. on 04/22/2020 at 16:38 Approved by: Abilio Chong M.D. on 04/22/2020 at 16:42 CT scan - abdomen/pelvis: Radiologist's Impression: [address] [id number] Scan ReportSigned Patient: Gallo Moore MMR#: [id number]: 5Acct:[id number]/Sex: 84 / MDate of Service: 04/22/20Loc: EDAccession Number: [id number] Procedure: CT chest abd pel w con Ordering Provider: Joni Chow D.O. PROCEDURE: CT CHEST ABD PEL W CON INDICATIONS: C diff with abdominal distension and left rib lytic lesion TECHNIQUE: After the administration of intravenous contrast, 5 mm thick sections acquired from the lung apices to the symphysis. 5 mm coronal and sagittal reformats were performed, with additional 7 mm MIP reformats through the lungs. For radiation dose reduction, the following was used: automated exposure control, adjustment of mA and/or kV according to patient size. COMPARISON: [facility], CR, CHEST 1 VIEW, 02/05/2015, 21:57. [facility], CR, XR CHEST 1V, 04/22/2020, 17:15. FINDINGS: Image quality: Excellent. CHEST: Lungs and pleura: No acute airspace opacities. Chronic interstitial prominence, reduced inspiratory volume. No pleural effusions or pneumothorax. Central and peripheral airways on the right appear patent and normal in caliber. The bronchi to the left lower lobe are small in caliber, and appearance potentially a manifestation of prior radiation therapy. Mediastinum: Heart size is normal. No pericardial effusion. No mediastinal or hilar adenopathy by size criteria. Thoracic aorta and central pulmonary arteries are normal in size. Esophagus is normal in caliber. No hiatal hernia. Chest wall: No axillary or supraclavicular adenopathy by size criteria. Thyroid gland appears normal where well seen . 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 ABDOMEN: Solid organs: Liver is normal in size and enhancement. Gallbladder appears normal . Biliary system is non dilated. Pancreas enhances normally. Spleen is normal in size and enhancement. No adrenal nodules. Kidneys demonstrate normal size and enhancement, without hydronephrosis. There is a moderate size water density cyst at the upper 3rd cortex of the right kidney, measuring up to 4.7 cm, and a slightly low smaller exophytic lower pole cortex cyst is present on. These appear simple in require no follow-up. Peritoneum and bowel: Bowel loops demonstrate normal wall thickness and caliber. No free fluid or air. Nodes and vessels: No retroperitoneal or mesenteric adenopathy by size criteria. Aorta and inferior vena cava are normal in size. Miscellaneous: No ventral hernias. PELVIS: Genitourinary: Bladder wall thickness is normal. Thorne catheter is within the central portion of the bladder lumen, which is not distended. Miscellaneous: No inguinal hernias or adenopathy. Bones: No suspicious bony lesions. No vertebral body compression fractures. 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 No follow-up needed. Relatively small size caliber of the left lower lobe pulmonary bronchi, potentially a manifestation of prior radiation therapy into that area. No malignancy found. Thorne catheter centrally positioned within the bladder lumen, no urinary retention found. No sign of intestinal obstruction or perforation. Several simple appearing water density renal cortical cysts are incidentally noted. Dictated by: Ed Hernandes M.D. on 04/22/2020 at 18:28 Approved by: Ed Hernandes M.D. on 04/22/2020 at 18:40 ECG Data Attestation: I personally reviewed and interpreted this ECG as follows: Prior ECG tracings: available for review Interpretation: AFib with RVR rate of 108, QRS is 72 and QTC 431. Q-wave in lead 3. No ST elevation appreciated. Nonspecific T-wave abnormality. Patient has a prior EKG from 06/30/2019 that also shows AFib with no major ST segment changes MDM Narrative Medical decision making narrative: 84-year-old male who presents with fever, tachycardia, elevated respiratory rate and hypertension. Patient meets septic criteria. He recently had C diff colitis but also has a UTI with indwelling Thorne from his last discharge. Rocephin was ordered. Patient had a lytic lesion on his chest x-ray, patient is unaware of any cancer history besides ?a disease lung partial removed in his 20s.Patient's lactate and procalcitonin are normal range but he does have a leukocytosis consistent with infection and elevated from his prior hospitalization. Renal function appears intact with no major electrolyte abnormalities but patient's LFTs including AST, ALT alk phos are all elevated. Patient's bilirubin and lipase are normal range. Troponin is negative. COVID today is negative. CT chest abdomen pelvis was obtained and shows a cyst on the right kidney, the lytic lesion noted on his chest x-ray appears to be a thoracotomy defect. Patient does not have any changes to the bile ducts that make it suspicious for choledocholithiasis with his elevated LFTs. No suspicion for cholangitis at this time. His C diff not appear to be worsened on imaging or show any colitis. Oral vancomycin continued in department. Spoke with HAL Ward who accepts for admission for UTI with indwelling Thorne, sepsis, possibly CHF exacerbation and elevated LFTs. Patient did not receive a 30 cc/kilos bolus based on his elderly age, cardiac history and concern for possible fluid overload. He already has some mild edema in his by lower extremities and may not tolerate such a large fluid bolus. Discharge Plan Departure Patient Disposition: Admitted As Inpatient Clinical Impression: Sepsis, Acute UTI, LFT elevation Admit Date/Time: 04/22/20 19:19 Admit Provider: Neil Ward
[2020-04-22 19:03] LABS: NT-proBNP (BNP-Adult 18+) 1240 pg/mL (<450)
[2020-04-22] MEDS: VANCOMYCIN 125 MG CAPSULE PO (19:15)
--- NOTE | 2020-04-22 20:43 | PM.HP.1 ---
History of Present Illness History of Present Illness Date Patient Seen: 04/22/20 Time Patient Seen: 20:12 Chief complaint: SOB/Fever Narrative: Mr. Gallo Moore is an 84-year-old male with a past medical history significant for hypertension, hyperlipidemia, paroxysmal atrial fibrillation (anticoagulated on aspirin only related to frequent falls), urinary retention, chronic anemia, diabetes type 2, GERD and osteoarthritis who presents to the hospital complaining of rapid heartbeat with precordial chest pain that is nonradiating and nonpleuritic this morning with associated shortness of breath and fever. Patient was recently admitted on April 08 through April 12 for the patient was to have acute C diff colitis, hypokalemia as well as BPH with acute urinary retention for which Thorne catheter was placed on 04/11 2020. The patient was discharged on the with home health and follow-up scheduled with Dr. Jaffe for tomorrow.. The patient continues to have indwelling Thorne catheter with cloudy urine with reports of fevers and per subtle cognitive changes and fevers. He developed chest pressure this morning with a history of paroxysmal atrial fibrillation and upon arrival is found to be in atrial fibrillation with a rate of 124. Patient has associated complaints of generalized weakness, fevers without chills, fatigue and is pale per his . The patient had weakness at the time of prior discharge and did sustain of nonsyncopal fall onto carpeted floor without injury following returning home and has been improving until today. The patient denies headaches or dizziness, visual changes or lateralizing symptoms. He has had no nasal congestion or sore throat. He reports chest pressure as above. The patient has a history of atrial fibrillation and felt his heart racing. He endorses shortness of breath without wheezing or cough. He denies epigastric or abdominal pain, nausea vomiting. He continues to have soft stools twice daily and finished his last dose of vancomycin this evening to complete his course of treatment. He has indwelling Thorne catheter draining cloudy urine. Upon arrival to the ER the patient is febrile with temperature 100.5?, blood pressure 215/104 improved to 180 4/84, heart rate of 124 improved to 105, respiratory rate of 48 improved to 39 maintaining a saturation 96% on room air. Chest x-ray reveals persistent partially lytic lesion left posterior 6th rib but no focal infiltrates or pulmonary edema. A CT of the chest abdomen pelvis reveals chronic interstitial prominence with reduced inspiratory volume, heart size normal with pulmonary vasculature normal in size, evaluation of chest wall finds persistent lesion also present rib lesion in 2004 abdomen finds normal liver size gallbladder is normal with no biliary dilatation kidneys are normal in size and enhances hydronephrosis with a watery density the upper 3rd of the right renal cortex. Pelvis finds normal bladder wall thickness and identification Thorne catheter. Twelve lead EKG finds atrial fibrillation with a ventricular rate of 107 without ectopy or or aberrant conduction, no ST or T-wave changes. On laboratory analysis patient has elevated white count of 17.4 with elevated neutrophils of 15,300 elevated monocytes at 1000, hemoglobin of 12.6 and hematocrit of 38.2 with platelets of 372. His electrolytes are all within normal limits a nonfasting glucose of 142. Liver functions he has a total bilirubin 0.5, AST of 114, ALT 141 and alkaline phosphatase of 131. He had lactic acid of 1.9 and procalcitonin 0.19. His total CK is 39 is troponin is negative at less than 0.012. His proBNP is elevated at 1240. Urinalysis is positive for protein, blood, wbc's, bacteria, nitrites and leukocyte esterase and cultures ordered. In the ER the patient received Tylenol for fever, ceftriaxone 1 g IV and his final dose of Vanco mycin 125 mg p.o. completing his course of treatment previously prescribed. The patient is admitted to the hospitalist team for UTI secondary to indwelling Thorne catheter placed for BPH and acute urinary retention. Patient History Medical History (Updated 04/22/20 @ 21:12 by JESSIE Daniel) Benign prostatic hyperplasia Chronic anemia Clostridioides difficile infection Diabetes 1.5, managed as type 2 Essential hypertension Frequent falls LFT elevation Mixed hyperlipidemia Osteoarthritis Paroxysmal atrial fibrillation Tremor Urinary retention Surgical History (Updated 04/22/20 @ 21:16 by JESSIE Daniel) History of lobectomy of lung History of resection of rib Status post appendectomy Family & Social History Family History (Updated 04/22/20 @ 21:17 by JESSIE Daniel) Father Hypertension Brother Atrial fibrillation Mother No significant medical problems Social History: household members spouse Safety & Behavioral: Feels Safe in Current Yes Environment Been Physically Hurt or No Threatened By a Person Tobacco & Substance use: Smoking Status Former smoker alcohol intake never alcohol intake frequency 0-2 drinks per day Substance Use Type does not use Meds Home Medications and Allergies Home Medications Medication Instructions Recorded Confirmed Type Disabled Parking Permit #1 ea 07/26/18 04/22/20 Rx cholecalciferol (vitamin D3) 25 1,000 unit PO QAM #0 tab 06/30/19 04/22/20 History mcg (1,000 unit) tablet tamsulosin 0.4 mg capsule 0.4 mg PO HS #90 cap 07/03/19 04/22/20 Rx enalapril maleate 20 mg tablet 20 mg PO BID #180 tab 12/30/19 04/22/20 Rx aspirin 325 mg PO QAM 04/08/20 04/22/20 History hydrocodone-acetaminophen [[place]] 0.5 tab PO DAILY PRN 04/08/20 04/22/20 History vancomycin 125 mg PO Q6H #28 cap 04/12/20 04/22/20 Rx amlodipine 5 mg PO QAM 04/22/20 04/22/20 History atorvastatin 10 mg PO QAM 04/22/20 04/22/20 History ferrous sulfate 325 mg PO QAM 04/22/20 04/22/20 History omeprazole magnesium [Prilosec OTC] 20 mg PO QAM 04/22/20 04/22/20 History vitamin B complex 1 tab PO QAM 04/22/20 04/22/20 History Allergies Allergy/AdvReac Type Severity Reaction Status Date / Time clindamycin AdvReac Severe C.diff Verified 04/12/20 09:12 Colitis 04/11 Review of Systems Review of Systems ROS: Yes All systems reviewed with the patient and are negative except as otherwise documented Exam Vital Signs (past 8 hours): - 04/22/20 17:02 04/22/20 17:15 04/22/20 17:16 Temperature 100.5 F H Pulse Rate 117 H 115 H 113 H Respiratory Rate 48 H 48 H 47 H Blood Pressure 215/104 H 211/103 H Pulse Oximetry 97 96 96 04/22/20 17:30 04/22/20 17:31 04/22/20 17:45 Temperature Pulse Rate 107 H 114 H 106 H Respiratory Rate 38 H 38 H 41 H Blood Pressure 207/83 H 188/100 H Pulse Oximetry 96 96 97 04/22/20 18:07 04/22/20 18:09 04/22/20 18:15 Temperature Pulse Rate 105 H 107 H 111 H Respiratory Rate 30 H 37 H 40 H Blood Pressure 171/81 H 166/83 H Pulse Oximetry 94 95 96 04/22/20 18:20 04/22/20 18:30 04/22/20 18:45 Temperature 99.7 F H Pulse Rate 107 H 117 H Respiratory Rate 43 H 40 H Blood Pressure 162/74 H 184/84 H Pulse Oximetry 96 96 04/22/20 19:00 04/22/20 20:37 Temperature 98.5 F Pulse Rate 105 H 100 H Respiratory Rate 39 H 40 H Blood Pressure 142/87 H Pulse Oximetry 96 96 Oxygen Delivery Method Room Air Narrative Exam Narrative: GENERAL APPEARANCE: well developed, well nourished, tachypneic lying semi recumbent in bed without accessory muscle use. HEENT: Normocephalic, atraumatic, PERRLA, conjunctiva clear, EOMs intact without nystagmus, mucous membranes are moist and pink without lesions or exudate. NECK/THYROID: neck supple, no JVD, no carotid bruit, no thyromegaly, trachea midline. LYMPH NODES: no cervical or supraclavicular lymphadenopathy. SKIN: [place], warm and dry, no visible lesions, rashes, ulcerations or petechiae. HEART: regular rate and rhythm, S1-S2, no murmur, no rubs or gallops, brisk capillary refill, trace to 1+ bilateral lower extremity edema. LUNGS: Breath sounds clear upper with bibasilar fine crackles left greater than right,, no coarseness or wheezing, no cough present CHEST: Symmetrical movement, no accessory muscle use or retractions, shallow tidal volume. ABDOMEN: Soft, protuberant, no epigastric or abdominal tenderness on palpation, no organomegaly, no flank or suprapubic tenderness, active bowel tones. BACK: Nontender to palpation, no back pain listed on straight leg raise. EXTREMITIES: moves all extremities, strength is 5/5 and symmetrical, no deformities or joint effusions, no clubbing or cyanosis. NEUROLOGIC: AAO x person place and time, no lateralizing neurologic deficits, cranial nerves II-XII grossly intact, bilateral gross motor tremors, sensation intact to light touch. PSYCH: Good eye contact, briskly interactive, cooperative, stable behavior. Objective Labs Result Diagrams: 04/22/20 17:02 04/22/20 17:02 Labs: Laboratory Results - last 24 hr 04/22/20 04/22/20 04/22/20 16:52 17:02 17:02 WBC 17.4 H RBC 4.34 L Hgb 12.6 L Hct 38.2 L MCV 88.0 MCH 29.0 MCHC 32.9 RDW 13.6 Plt Count 372 Neut % (Auto) 87.7 H Lymph % (Auto) 5.1 L Major % (Auto) 5.7 Eos % (Auto) 1.1 L Baso % (Auto) 0.4 Neut # (Auto) 09929 H Lymph # (Auto) 900 L Major # (Auto) 1000 H Eos # (Auto) 200 Baso # (Auto) 100 Sodium 134 L Potassium 4.6 Chloride 97 L Carbon Dioxide 31 BUN 14 Creatinine 0.96 Estimated GFR > 60.0 BUN/Creatinine Ratio 14.6 Glucose 142 H Lactate Calcium 9.5 Total Bilirubin 0.5 AST 114 H ALT 141 H Alkaline Phosphatase 131 H Total Creatine Kinase 39 L CK-MB (CK-2) TNP CK-MB (CK-2) Rel Index TNP Troponin I < 0.012 NT-Pro-B Natriuret Pep Total Protein 7.2 Albumin 3.8 Globulin 3.4 Albumin/Globulin Ratio 1.1 Lipase 202 Procalcitonin Urine Color Urine Appearance Urine pH Ur Specific [place] Urine Protein Urine Glucose (UA) Urine Ketones Urine Occult Blood Urine Nitrate Urine Bilirubin Urine Urobilinogen Ur Leukocyte Esterase Urine RBC Urine WBC Ur Squamous Epith Cells Urine Bacteria Ur Culture Indicated? Micro UA Comment SARS-CoV-2 (PCR) Negative 04/22/20 04/22/20 04/22/20 17:02 17:02 17:02 WBC RBC Hgb Hct MCV MCH MCHC RDW Plt Count Neut % (Auto) Lymph % (Auto) Major % (Auto) Eos % (Auto) Baso % (Auto) Neut # (Auto) Lymph # (Auto) Major # (Auto) Eos # (Auto) Baso # (Auto) Sodium Potassium Chloride Carbon Dioxide BUN Creatinine Estimated GFR BUN/Creatinine Ratio Glucose Lactate 1.9 Calcium Total Bilirubin AST ALT Alkaline Phosphatase Total Creatine Kinase CK-MB (CK-2) CK-MB (CK-2) Rel Index Troponin I NT-Pro-B Natriuret Pep 1240 H Total Protein Albumin Globulin Albumin/Globulin Ratio Lipase Procalcitonin 0.19 Urine Color Urine Appearance Urine pH Ur Specific [place] Urine Protein Urine Glucose (UA) Urine Ketones Urine Occult Blood Urine Nitrate Urine Bilirubin Urine Urobilinogen Ur Leukocyte Esterase Urine RBC Urine WBC Ur Squamous Epith Cells Urine Bacteria Ur Culture Indicated? Micro UA Comment SARS-CoV-2 (PCR) 04/22/20 17:10 WBC RBC Hgb Hct MCV MCH MCHC RDW Plt Count Neut % (Auto) Lymph % (Auto) Major % (Auto) Eos % (Auto) Baso % (Auto) Neut # (Auto) Lymph # (Auto) Major # (Auto) Eos # (Auto) Baso # (Auto) Sodium Potassium Chloride Carbon Dioxide BUN Creatinine Estimated GFR BUN/Creatinine Ratio Glucose Lactate Calcium Total Bilirubin AST ALT Alkaline Phosphatase Total Creatine Kinase CK-MB (CK-2) CK-MB (CK-2) Rel Index Troponin I NT-Pro-B Natriuret Pep Total Protein Albumin Globulin Albumin/Globulin Ratio Lipase Procalcitonin Urine Color Red Urine Appearance Sl cloudy Urine pH 7.0 Ur Specific [place] 1.020 Urine Protein 2+ H Urine Glucose (UA) Negative Urine Ketones Negative Urine Occult Blood 3+ H Urine Nitrate Positive Urine Bilirubin Negative Urine Urobilinogen 0.2 Ur Leukocyte Esterase 2+ H Urine RBC >100/hpf H Urine WBC 30-100/hpf H Ur Squamous Epith Cells 0-1 /hpf Urine Bacteria Moderate (10-30) H Ur Culture Indicated? Cult not indicated Micro UA Comment Cx already ordered SARS-CoV-2 (PCR) Assessment & Plan Assessment & Plan narrative: S an 84-year-old male patient with a past medical history significant for hypertension, hyperlipidemia, paroxysmal atrial fibrillation (anticoagulated on aspirin only related to frequent falls), urinary retention, chronic anemia, diabetes type 2, GERD and osteoarthritis who presents to the ER chest pressure found to be in atrial fibrillation with RVR, shortness of breath and fevers found to have urinary tract infection secondary to indwelling Thorne catheter which is remain in place since discharge 10 days ago. 1. Acute cystitis, secondary to indwelling Thorne catheter, present on admission, active -patient presents with shortness of breath, fevers with mild metabolic encephalopathy. -patient has can not continuous indwelling Thorne catheter since placed on April 11. -patient has elevated white count at 17.4 with neutrophils of 15,300 and monocytes of 1000. BUN is 14 and creatinine is 0.96. Procalcitonin is 0.19 and lactic acid 1.9. -urine is not cloudy and positive for protein, blood, wbc's, bacteria, nitrates and leukocyte esterase. Urine is reflex to culture. -patient started on ceftriaxone 1 g IV daily, 1st dose administered in the emergency department. -follow CBC 2. Chronic benign prosthetic hypertrophy with acute urinary retention, active -on prior admission patient had urinary retention and had multiple straight caths prompting insertion of Thorne catheter and referral to Urology. -patient is already taking tamsulosin 0.4 mg daily. -will add finasteride 5 mg daily at bedtime. -patient had follow-up appointment with Dr. Jaffe tomorrow, will place consult for Dr. Jaffe to re-evaluate the patient in need for continuation of Thorne catheter 3. Paroxysmal atrial fibrillation with rapid ventricular response, acute, present on admission, active. -patient describes racing heart earlier today with chest pressure that was nonpleuritic and nonradiating resolved with decreased heart rate. He is not on rate control medication -total CK is 39, troponin is negative, proBNP is 1240 and 12 lead EKG shows atrial fibrillation with ventricular rate of 107, no ectopy or aberrancy or signs of ST or T-wave changes, -patient previously took apixaban which was discontinued due to frequent falls. Patient continues to be anticoagulated on aspirin 325 mg daily. -patient presents with heart rate of 124 improved with fluid to 105. Patient will remain on telemetry. 4. Acute C diff colitis, improving -the patient was treated for acute C difficile colitis secondary to clindamycin administration with improvement however the patient continues to report loose stools twice daily. -completed his course of vancomycin 125 mg 4 times daily with this evening's dose. -will obtain stool for C difficile and continue vancomycin 125 mg p.o. 4 times daily pending test results. 5. Essential hypertension, chronic, stable -patient significantly hypertensive upon arrival to the ER at 215/104. Blood pressures since normalized following admission to the acute care floor at 142/87. -will continue patient's home regimen of amlodipine 5 mg daily and enalapril 20 mg twice daily. 6. Generalized weakness, acute, present on admission, active -patient did sustain a fall without trauma upon returning home after discharge from prior admission 10 days ago. -patient with generalized weakness on prior admission improving at home but worsening today. -requested PT and OT to evaluate and treat. VTE prophylaxis: Enoxaparin. IV fluid: Saline lock. Diet: Heart healthy, 2 g low-sodium. Code status: Full code, the patient designates his to be his surrogate decision maker. The patient is admitted to the hospital due to the severity is symptoms and unable to his return safely to his home setting related to the risk of complications adverse events. The patient is admitted for further evaluation C difficile colitis and complex urinary tract infection secondary to indwelling Thorne catheter requiring for BPH and urinary retention and treatment with IV antibiotics. COVID-19 COVID-19 status: Negative Result date/Date tested (Pos, Neg/Pending): 04/23/20 Scores GCS Cedric coma scale eye opening: Spontaneous Cedric coma scale verbal response: Orientated Cedric coma scale motor response: Obey commands [place] coma scale total score: 15
[2020-04-22 20:52] LABS: Magnesium 1.7 mg/dL (1.6-2.3)
[2020-04-22 20:59] LABS: Hemoglobin A1C% w Est Avg Glu 6.5 % (4.0-6.0)
--- NOTE | 2020-04-22 21:43 | PC.NURSE ---
Addendum entered by Marcia Rosas R.N. 04/22/20 22:33: due to late orders & verification meds given late. Original Note: Pt arrived from ED alert/oriented. Placed in enteric isolation for ? C-diff. No stool at this time. Denies discomfort. SpO2 96% RA IVF NS infusing into LAC @ 125cc/hr via pump w/o incidence. Thorne cath patent steve color urine. Call light w/in reach, bed alarm on for pt safety. Continue w/plan of care.
[2020-04-22] MEDS: FINASTERIDE 5 MG TABLET PO (22:18)
[2020-04-22] MEDS: ENALAPRIL 20 MG TABLET PO (22:18)
[2020-04-22] MEDS: TAMSULOSIN 0.4 MG CAPSULE PO (22:19)
[2020-04-22] MEDS: FAMOTIDINE 20 MG TABLET 40 MG PO (22:25)
[2020-04-23] VITALS (13 sets, daily range): BP systolic 128–163; BP diastolic 67–93; PULSE 65–114; RESP 14–24; TEMP 36.6–38.1; O2SAT 93–95
[2020-04-23] MEDS: MELATONIN 3 MG TABLET 6 MG PO ×2 (00:48→23:30)
[2020-04-23] MEDS: VANCOMYCIN 125 MG CAPSULE PO ×4 (02:06→20:30)
--- NOTE | 2020-04-23 02:07 | PC.NURSE ---
Addendum entered by Reyna Lindsey R.N. 04/23/20 06:06: Refusing to leave continuous pulse oximeter on and refusing SCD's this morning. Ed ROMAN, informed. Addendum entered by Reyna Lindsey R.N. 04/23/20 05:45: Patient slept for approximately 30 minutes and then began hollering out again. Have been sitting with patient 1:1 for past hour and making frequent attempts to pull himself up in bed and throw legs off end of bed trying to get out of bed. As long as staff in room patient is not hollering out. Addendum entered by Reyna Lindsey R.N. 04/23/20 03:44: Notified by [employer] that HR sustaining > 120. Ed ROMAN, notified and order received for po Metoprolol. Original Note: 2325 Catheter changed as per [facility] order. Urine in tubing cloudy with sediment noted. Patient complained of pain during catheter insertion and tip of penis is reddened. 2340 patient assessed. Is alert and oriented but very [place] and has bilateral hearing aids out at this time. Bilateral UE tremors. Respirations are shallow; breath sounds CTA with RA sat of 93%. Is on continuous pulse oximetry. HR irregular and telemetry reading was afib RVR with rate of 101. BP consistently high and is currently 149/93. Denies nausea. BT present and abdomen is soft; is passing flatus but has had no stools since prior to admission. Is able to turn himself. Up to BSC with walker and 2 assists as is very weak. Denies pain. Wearing bilateral calf SCD's. Being maintained on enteric precautions until stool obtained and tested for c-diff. Patient is intermittently calling out for help and/or hollering 's name. Medicated with Melatonin but still not sleeping. Needing frequent staff attention.
[2020-04-23] MEDS: METOPROLOL IR 25 MG TABLET 12.5 MG PO (03:43)
[2020-04-23 05:49] LABS: Add Manual Diff / Slide Review NO; Basophils Absolute Auto 100 /uL (0-100); Basophils Percent Auto 0.7 % (0-2); Eosinophils Absolute Auto 100 /uL (0-450); Eosinophils Percent Auto 0.3 % (2-4); Hematocrit 36.4 % (41-53); Hemoglobin 11.6 g/dL (13.5-17.5); Lymphocytes Absolute Auto 1100 /uL (1100-4500); Lymphocytes Percent Auto 5.5 % (25-40); Mean Corpuscular Hemoglobin 28.1 PG (26-34); Mean Corpuscular Volume 87.8 fL (80-100); Monocytes Absolute Auto 1300 /uL (0-900); Monocytes Percent Auto 6.6 % (3-14); Neutrophils Absolute Auto 17600 /uL (1500-7000); Neutrophils Percent Auto 86.9 % (50-75); Platelet Count 364 X10^3/uL (150-400); Red Blood Cell Count 4.14 X10^6/uL (4.5-5.9); Red Cell Distribution Width 13.6 % (11.6-14.8); White Blood Cell Count 20.2 X10^3/uL (4.5-11.0)
[2020-04-23 06:04] LABS: Alanine Aminotransferase 101 IU/L (<50); Albumin 3.4 g/dL (3.5-5.0); Albumin Globulin Ratio 1.2 (1.0-2.8); Alkaline Phosphatase 114 U/L (38-126); Aspartate Aminotransferase 57 IU/L (17-59); BUN Creatinine Ratio 13.1 (6-22); Bilirubin Total 0.7 mg/dL (0.2-1.3); Blood Urea Nitrogen 11 mg/dL (9-20); Calcium 8.9 mg/dL (8.4-10.2); Carbon Dioxide 30 mmol/L (22-32); Chloride 95 mmol/L (98-107); Estimated Glomerular Filt Rate > 60.0 mL/min (>60); Globulin 2.8 g/dL (1.7-4.1); Glucose 144 mg/dL (80-110); HEMOLYSIS < 15 (0-50); Sodium 129 mmol/L (137-145); Total Protein 6.2 g/dL (6.3-8.2)
[2020-04-23 06:08] LABS: Hemoglobin A1C% w Est Avg Glu 6.5 % (4.0-6.0)
[2020-04-23 06:13] LABS: NT-proBNP (BNP-Adult 18+) 2200 pg/mL (<450)
[2020-04-23 06:16] LABS: Troponin I < 0.012 ng/mL (0.01-0.034)
[2020-04-23] MEDS: MAGNESIUM SULFATE 1 GM in DEXTROSE 5 % IN WATER 100 ML 102 ML IV (06:32)
[2020-04-23] MEDS: ENALAPRIL 20 MG TABLET PO ×2 (09:22→20:30)
[2020-04-23] MEDS: ASPIRIN 325 MG TABLET PO (09:23)
[2020-04-23] MEDS: ATORVASTATIN 20 MG TABLET 10 MG PO (09:23)
[2020-04-23] MEDS: ENOXAPARIN 40 MG/0.4 ML SYRINGE SUBCUT (09:23)
[2020-04-23] MEDS: AMLODIPINE 5 MG TABLET PO (09:25)
--- NOTE | 2020-04-23 11:24 | PT.IIE ---
Current Diagnoses Infection and inflammatory reaction due to indwelling urethral catheter, initial encounter (04/22/20) Surgical History (Last Updated 04/22/20 @ 21:16 by JESSIE Daniel) History of lobectomy of lung History of resection of rib Status post appendectomy Medical History (Last Updated 04/22/20 @ 21:12 by JESSIE Daniel) Benign prostatic hyperplasia Chronic anemia Clostridioides difficile infection Diabetes 1.5, managed as type 2 Essential hypertension Frequent falls LFT elevation Mixed hyperlipidemia Osteoarthritis Paroxysmal atrial fibrillation Tremor Urinary retention Physical Therapy Inpatient Evaluation/Re-Eval M1 PT/OT-IP Prior Functional Status Start: 04/23/20 11:58 Freq: NEEDED Status: Active Protocol: Document 04/23/20 11:24 AB (Rec: 04/23/20 12:10 AB [facility]) Medical Review Prior Functional Status Medical History Reviewed Yes Communication able to make needs known Mobility and Gait pt stated that he has 24/7 assist at home and only needed person assist with bed mobility, transfers and ambulation using FWW/4WW but only short distances in the house. Activities of Daily Living and IADL's stated that his caregiver assists him with toileting and showers Social History Household Members spouse,caregiver Living Arrangements House Number of Floors (Floors) 3 or More Floors Number of Stairs To Enter/Railing? has elevator to get to different levels of the house Home Environment Elevator Home Equipment Front Wheel Walker,Four Wheel Walker M2 PT-IP Current Condition Start: 04/23/20 11:58 Freq: NEEDED Status: Active Protocol: Document 04/23/20 11:24 AB (Rec: 04/23/20 12:10 AB [facility]) Physical Therapy Current Condition Current Condition Evaluation Date 04/23/20 Treatment Diagnosis acute cystitis; difficulty in walking Onset Date 04/22/20 Precautions Other Precautions falls, C-diff colitis M3 PT-IP Subjective Start: 04/23/20 11:58 Freq: NEEDED Status: Active Protocol: Document 04/23/20 11:24 AB (Rec: 04/23/20 12:10 AB [facility]) Subjective Physical Therapy Visit Type Type Initial Evaluation Visit Start Time 11:24 Visit Stop Time 11:46 Total Visit Minutes 22 Number of [facility] Visits 0 Physical Therapy Visit Comments Patient Comments pt is agreeable to do PT M4 PT-IP Mobility and Gait Start: 04/23/20 11:58 Freq: NEEDED Status: Active Protocol: Document 04/23/20 11:24 AB (Rec: 04/23/20 12:10 AB [id number]) PT-Bed Mobility Assessment Supine to Sit Supine to Sit Moderate Assistance,Head of Bed Elevated,Bedrails Sit to Supine Sit to Supine Moderate Assistance,1 Person Assistance,Bedrails Scooting Scooting to Edge of Bed Maximum Assistance PT-Transfer Assessment Sit to and From Stand Sit to and from Stand Moderate Assistance,Maximum Assistance,1 Person Assistance ,Use of Upper Extremities Equipment Transfer Assistive Device Gait Belt,Front Wheeled Walker Orthotic/Prosthetic Devices or Brace: No Transfers Transfer Destination Bedside Commode Transfer Technique Stand Step Pivot Transfer Ability Level of Assist Moderate Assistance,1 Person Assistance,Use of Upper Extremities Comments Mobility Comments completed supine to sit with HOB elevated mod A and cues and used bed rail to assist. pt was able to sit on EOB CGA. completed sit to stand mod to max A and cues and completed step transfer using FWW mod A and cues. pt completed sit to stand from commode mod A and cues and was able to maintain standing using FWW min A while NAC assist with hygiene care. pt agreed to ambulate in room and completed ~ 12 ft mod A and cues using FWW and requested to go backt o bed. completed sit to supine mod A and cues. positioned in bed. call light and table placed within reach. Gait Assessment Gait Gait Assistance Required: Moderate Assistance Distance (Feet) 12 Able to Maintain Weight Bearing Status No During Gait Assistive Devices Assistive Device Gait Belt,Front Wheeled Walker Orthotic/Prosthetic Devices or Brace: No Gait Deviations General Gait Pattern Antalgic,Decreased Stride Length,Decreased Feet Clearance,Step-to Gait Factors Limiting Gait Function Factors Limiting Gait Function Decreased Activity Tolerance, Decreased Strength,Difficulty Following Directions,Limited Range of Motion,Pain,Poor Balance,Poor Safety Awareness PT-Balance Assessment Sitting Balance and Reactions Static Sitting Balance Ability Good Dynamic Sitting Balance Ability Fair Standing Balance and Reactions Static Standing Balance Ability Fair Dynamic Standing Balance Ability Poor Device Used FWW M5 PT-IP Objective Assessments Start: 04/23/20 11:58 Freq: NEEDED Status: Active Protocol: Document 04/23/20 11:24 AB (Rec: 04/23/20 12:10 AB [id number]) Orientation Orientation/Cognition Level of Alertness Alert Orientation Name,Place,Situation Safety Awareness Decreased Safety Awareness Strength Lower Extremity Strength Hip 4-/5 Knee 4-/5 Muscle Tone Muscle Tone WNL Yes M6 PT-IP Treatment Start: 04/23/20 11:58 Freq: NEEDED Status: Active Protocol: Document 04/23/20 11:24 AB (Rec: 04/23/20 12:10 AB [id number]) Physical Therapy Treatment Education Education Provided Safety M7 PT-IP Assessment and Plan Start: 04/23/20 11:58 Freq: NEEDED Status: Active Protocol: Document 04/23/20 11:24 AB (Rec: 04/23/20 12:10 AB [email or web address]) PT Summary Assessment and Plan Potential Rehabilitation Potential Good Status of Condition at Evaluation Stable Summary Impairments Pain,ROM,Strength,Balance, Coordination,Sensation,Tone, Cognition,Bed Mobility, Transfers,Gait,Activity Tolerance Assessment Summary pt requiring mod A to max A for mobility. pt has 24/7 assist at home and may go home when medically stable. pt will benefit from HHPT to improve overall strength and mobility independence. Goals Bed Mobility Goal Contact Guard Assistance Transfer Goal Contact Guard Assistance,Front Wheeled Walker Gait Goal Contact Guard Assistance,Front Wheel Walker Gait Distance 50 Days to Meet Goals 10 Frequency of Treatment Frequency Of Treatment Once a Day Treatment Plan Physical Therapy Treatment Plan Bed Mobility Training,Transfer Training,Gait Training, Therapeutic Exercise,Balance Retraining,Discharge Planning, Hot or Cold Pack,Neuromuscular Re-ed,Coordination Retraining Recommendations To Nursing Amount of Assist Needed 2 Person Assist Discharge Recommendations PT Discharge Recommendations Home with 24/7 Assist,Home Health Transportation Needs at Discharge Private Vehicle,Wheelchair/ Cabulance
--- NOTE | 2020-04-23 12:11 | PM.PN.1 ---
Subjective Subjective Date Patient Seen: 04/23/20 Interval history: Patient is 84-year-old male with history of likely chronic atrial fibrillation, hypertension, hyperlipidemia, urinary retention, diet-controlled diabetes and recent hospitalization for C diff colitis presented to emergency department with complaints of fever, shortness of breath, chest discomfort and racing heart rate. Patient was started on antibiotic for catheter associated UTI. He was discharged recently with catheter and scheduled to see Urology April 23 but ended up in hospital. He remains on oral vancomycin for C diff colitis with substantial improvement in diarrhea. Exam Vital Signs (past 8 hours): - 04/23/20 09:03 04/23/20 09:22 04/23/20 09:41 Temperature 98.5 F Pulse Rate 81 81 Respiratory Rate 16 Blood Pressure 147/89 H 147/89 H Pulse Oximetry 94 94 04/23/20 09:52 Temperature Pulse Rate 65 Respiratory Rate Blood Pressure 143/67 H Pulse Oximetry Oxygen Delivery Method Room Air Oxygen Flow Rate 0 Narrative Exam Narrative: General: Patient is sleeping but easily awakens, hard of hearing, no acute distress Lungs: Clear to auscultation Heart: Irregularly irregular rhythm Abdomen: Nontender Extremities: Trace edema Neurological: Speech normal, oriented to person and place, nonfocal Objective Labs Result Diagrams: 04/23/20 05:30 04/23/20 05:30 Labs: Laboratory Results - last 24 hr 04/22/20 04/22/20 04/22/20 16:45 16:52 17:02 WBC 17.4 H RBC 4.34 L Hgb 12.6 L Hct 38.2 L MCV 88.0 MCH 29.0 MCHC 32.9 RDW 13.6 Plt Count 372 Neut % (Auto) 87.7 H Lymph % (Auto) 5.1 L [place] % (Auto) 5.7 Eos % (Auto) 1.1 L Baso % (Auto) 0.4 Neut # (Auto) 45284 H Lymph # (Auto) 900 L [place] # (Auto) 1000 H Eos # (Auto) 200 Baso # (Auto) 100 Sodium Potassium Chloride Carbon Dioxide BUN Creatinine Estimated GFR BUN/Creatinine Ratio Glucose Hemoglobin A1c Lactate Calcium Magnesium 1.7 Total Bilirubin AST ALT Alkaline Phosphatase Total Creatine Kinase CK-MB (CK-2) CK-MB (CK-2) Rel Index Troponin I NT-Pro-B Natriuret Pep Total Protein Albumin Globulin Albumin/Globulin Ratio Lipase Procalcitonin Urine Color Urine Appearance Urine pH Ur Specific [place] Urine Protein Urine Glucose (UA) Urine Ketones Urine Occult Blood Urine Nitrate Urine Bilirubin Urine Urobilinogen Ur Leukocyte Esterase Urine RBC Urine WBC Ur Squamous Epith Cells Urine Bacteria Ur Culture Indicated? Micro UA Comment SARS-CoV-2 (PCR) Negative 04/22/20 04/22/20 04/22/20 17:02 17:02 17:02 WBC RBC Hgb Hct MCV MCH MCHC RDW Plt Count Neut % (Auto) Lymph % (Auto) [place] % (Auto) Eos % (Auto) Baso % (Auto) Neut # (Auto) Lymph # (Auto) [place] # (Auto) Eos # (Auto) Baso # (Auto) Sodium 134 L Potassium 4.6 Chloride 97 L Carbon Dioxide 31 BUN 14 Creatinine 0.96 Estimated GFR > 60.0 BUN/Creatinine Ratio 14.6 Glucose 142 H Hemoglobin A1c Lactate 1.9 Calcium 9.5 Magnesium Total Bilirubin 0.5 AST 114 H ALT 141 H Alkaline Phosphatase 131 H Total Creatine Kinase 39 L CK-MB (CK-2) TNP CK-MB (CK-2) Rel Index TNP Troponin I < 0.012 NT-Pro-B Natriuret Pep Total Protein 7.2 Albumin 3.8 Globulin 3.4 Albumin/Globulin Ratio 1.1 Lipase 202 Procalcitonin 0.19 Urine Color Urine Appearance Urine pH Ur Specific [place] Urine Protein Urine Glucose (UA) Urine Ketones Urine Occult Blood Urine Nitrate Urine Bilirubin Urine Urobilinogen Ur Leukocyte Esterase Urine RBC Urine WBC Ur Squamous Epith Cells Urine Bacteria Ur Culture Indicated? Micro UA Comment SARS-CoV-2 (PCR) 04/22/20 04/22/20 04/22/20 17:02 17:02 17:10 WBC RBC Hgb Hct MCV MCH MCHC RDW Plt Count Neut % (Auto) Lymph % (Auto) [place] % (Auto) Eos % (Auto) Baso % (Auto) Neut # (Auto) Lymph # (Auto) [place] # (Auto) Eos # (Auto) Baso # (Auto) Sodium Potassium Chloride Carbon Dioxide BUN Creatinine Estimated GFR BUN/Creatinine Ratio Glucose Hemoglobin A1c 6.5 H Lactate Calcium Magnesium Total Bilirubin AST ALT Alkaline Phosphatase Total Creatine Kinase CK-MB (CK-2) CK-MB (CK-2) Rel Index Troponin I NT-Pro-B Natriuret Pep 1240 H Total Protein Albumin Globulin Albumin/Globulin Ratio Lipase Procalcitonin Urine Color Red Urine Appearance Sl cloudy Urine pH 7.0 Ur Specific [place] 1.020 Urine Protein 2+ H Urine Glucose (UA) Negative Urine Ketones Negative Urine Occult Blood 3+ H Urine Nitrate Positive Urine Bilirubin Negative Urine Urobilinogen 0.2 Ur Leukocyte Esterase 2+ H Urine RBC >100/hpf H Urine WBC 30-100/hpf H Ur Squamous Epith Cells 0-1 /hpf Urine Bacteria Moderate (10-30) H Ur Culture Indicated? Cult not indicated Micro UA Comment Cx already ordered SARS-CoV-2 (PCR) 04/23/20 04/23/20 04/23/20 05:30 05:30 05:30 WBC 20.2 H RBC 4.14 L Hgb 11.6 L Hct 36.4 L MCV 87.8 MCH 28.1 MCHC 32.0 RDW 13.6 Plt Count 364 Neut % (Auto) 86.9 H Lymph % (Auto) 5.5 L [place] % (Auto) 6.6 Eos % (Auto) 0.3 L Baso % (Auto) 0.7 Neut # (Auto) 89002 H Lymph # (Auto) 1100 [place] # (Auto) 1300 H Eos # (Auto) 100 Baso # (Auto) 100 Sodium 129 L Potassium 4.0 Chloride 95 L Carbon Dioxide 30 BUN 11 Creatinine 0.84 Estimated GFR > 60.0 BUN/Creatinine Ratio 13.1 Glucose 144 H Hemoglobin A1c 6.5 H Lactate Calcium 8.9 Magnesium Total Bilirubin 0.7 AST 57 ALT 101 H Alkaline Phosphatase 114 Total Creatine Kinase CK-MB (CK-2) CK-MB (CK-2) Rel Index Troponin I NT-Pro-B Natriuret Pep 2200 H Total Protein 6.2 L Albumin 3.4 L Globulin 2.8 Albumin/Globulin Ratio 1.2 Lipase Procalcitonin Urine Color Urine Appearance Urine pH Ur Specific [place] Urine Protein Urine Glucose (UA) Urine Ketones Urine Occult Blood Urine Nitrate Urine Bilirubin Urine Urobilinogen Ur Leukocyte Esterase Urine RBC Urine WBC Ur Squamous Epith Cells Urine Bacteria Ur Culture Indicated? Micro UA Comment SARS-CoV-2 (PCR) 04/23/20 05:30 WBC RBC Hgb Hct MCV MCH MCHC RDW Plt Count Neut % (Auto) Lymph % (Auto) [place] % (Auto) Eos % (Auto) Baso % (Auto) Neut # (Auto) Lymph # (Auto) [place] # (Auto) Eos # (Auto) Baso # (Auto) Sodium Potassium Chloride Carbon Dioxide BUN Creatinine Estimated GFR BUN/Creatinine Ratio Glucose Hemoglobin A1c Lactate Calcium Magnesium Total Bilirubin AST ALT Alkaline Phosphatase Total Creatine Kinase CK-MB (CK-2) CK-MB (CK-2) Rel Index Troponin I < 0.012 NT-Pro-B Natriuret Pep Total Protein Albumin Globulin Albumin/Globulin Ratio Lipase Procalcitonin Urine Color Urine Appearance Urine pH Ur Specific [place] Urine Protein Urine Glucose (UA) Urine Ketones Urine Occult Blood Urine Nitrate Urine Bilirubin Urine Urobilinogen Ur Leukocyte Esterase Urine RBC Urine WBC Ur Squamous Epith Cells Urine Bacteria Ur Culture Indicated? Micro UA Comment SARS-CoV-2 (PCR) [facility] Medical History (Updated 04/22/20 @ 21:12 by JESSIE Daniel) Benign prostatic hyperplasia Chronic anemia Clostridioides difficile infection Diabetes 1.5, managed as type 2 Essential hypertension Frequent falls LFT elevation Mixed hyperlipidemia Osteoarthritis Paroxysmal atrial fibrillation Tremor Urinary retention Surgical History (Updated 04/22/20 @ 21:16 by JESSIE Daniel) History of lobectomy of lung History of resection of rib Status post appendectomy Family History (Updated 04/22/20 @ 21:17 by JESSIE Daniel) Father Hypertension Brother Atrial fibrillation Mother No significant medical problems Social History household members: spouse and caregiver Smoking Status: Former smoker Tobacco: How many years used: 20 alcohol intake: never substance use type: does not use Assessment & Plan Assessment & Plan narrative: S an 84-year-old male patient with a past medical history significant for hypertension, hyperlipidemia, paroxysmal atrial fibrillation (anticoagulated on aspirin only related to frequent falls), urinary retention, chronic anemia, diabetes type 2, GERD and osteoarthritis who presents to the ER chest pressure found to be in atrial fibrillation with RVR, shortness of breath and fevers found to have urinary tract infection secondary to indwelling Thorne catheter which is remain in place since discharge 10 days ago. 1. Acute cystitis, secondary to indwelling Thorne catheter, present on admission, active -patient presents with shortness of breath, fevers with mild metabolic encephalopathy. -catheter was placed on April 11 during last admission -WBC 17.4 on admit, 20.2 today. Procalcitonin was 0.19 and lactic acid 1.9 on admit. -continue Rocephin 1 g IV daily -follow-up on blood and urine cultures, urine growing Gram-negative bacilli -CBC and procalcitonin in a.m. 2. Chronic benign prosthetic hypertrophy with urinary retention, active -on prior admission patient had urinary retention and had multiple straight caths prompting insertion of Thorne catheter and referral to Urology. -patient is already taking tamsulosin 0.4 mg daily. -added finasteride 5 mg daily at bedtime though will not help acutely. -requested Dr. Jaffe to see patient in hospital in lieu of scheduled office visit -catheter was replaced on this admission 3. Chronic atrial fibrillation with rapid ventricular response, acute, present on admission, active. -previous diagnosis of paroxysmal AFib but likely now more chronic AFib as patient has been in AFib during whole time of last and current hospitalization -patient previously took apixaban which was discontinued due to frequent falls. -patient not on rate control agent, tachycardia improved with fluids, continue telemetry -continue aspirin 325 mg daily -echo 07/10/2019: Normal LV size, EF 55-60%, normal RV, no valvular abnormalities, repeat echo probably unnecessary at this time 4. Acute C diff colitis, improving -the patient was treated for acute C difficile colitis secondary to clindamycin administration with improvement however the patient continues to report loose stools twice daily. -completed 2 week course of vancomycin on 04/22 -continue vancomycin 125 mg p.o. 4 times daily since patient is back on antibiotic for UTI 5. Essential hypertension, chronic, stable -patient significantly hypertensive upon arrival to the ER at 215/104. Blood pressures since normalized following admission to the acute care floor. -will continue patient's home regimen of amlodipine 5 mg daily and enalapril 20 mg twice daily. 6. Generalized weakness, acute, present on admission, active -patient did sustain a fall without trauma upon returning home after discharge from prior admission 10 days ago. -patient with generalized weakness on prior admission improving at home but worsening with UTI -requested PT and OT to evaluate and treat. VTE prophylaxis: Enoxaparin. IV fluid: Saline lock. Diet: Heart healthy, 2 g low-sodium. Code status: Full code, the patient designates his to be his surrogate decision maker.
[2020-04-23 12:40] LABS: Clostridium Difficile Tox PCR Negative for C. diff
--- NOTE | 2020-04-23 13:30 | PC.NURSE ---
Patient is alert and oriented but does not know the date, month or year. Patient has not been impulsive this shift. Continues to be SOB at rest and on exertions. O2 saturation is 95% on room air. Patient has had some hypertension this AM 147/89. Tele: Afib 60-99. Lung sounds are clear. Patient has bilateral non pitting edema bilateral ankle and feet 1+. CDIff was negative today, patient was taken off of isolation. Patient's daughter is concerned about the continuation of catheter. I contacted Ld's office to check in and gave send a message stating that patient was here and would not be going to appointment today. Dr. Jaffe will follow up w/patient as an outpatient and black is to be left in for ease of patient treatment per his office.
--- NOTE | 2020-04-23 14:36 | OT.IP.EVAL ---
Current Diagnoses Infection and inflammatory reaction due to indwelling urethral catheter, initial encounter (04/22/20) Past Medical History (Last Updated 04/22/20 @ 21:12 by JESSIE Daniel) Benign prostatic hyperplasia Chronic anemia Clostridioides difficile infection Diabetes 1.5, managed as type 2 Essential hypertension Frequent falls LFT elevation Mixed hyperlipidemia Osteoarthritis Paroxysmal atrial fibrillation Tremor Urinary retention Surgical History (Last Updated 04/22/20 @ 21:16 by JESSIE Daniel) History of lobectomy of lung History of resection of rib Status post appendectomy Occupational Therapy Inpatient Evaluation/Re-Eval M1 PT/OT-IP Prior Functional Status Start: 04/23/20 14:45 Freq: NEEDED Status: Active Protocol: Document 04/23/20 14:01 [facility] (Rec: 04/23/20 15:41 [facility] [id number]) Medical Review Prior Functional Status Medical History Reviewed Yes Communication able to make needs known Mobility and Gait pt stated that he has 24/7 assist at home and only needed person assist with bed mobility, transfers and ambulation using FWW/4WW but only short distances in the house. Activities of Daily Living and IADL's stated that his caregiver assists him with toileting and showers Social History Household Members spouse,caregiver Living Arrangements House Number of Floors (Floors) 3 or More Floors Number of Stairs To Enter/Railing? has elevator to get to different levels of the house Home Environment Elevator Home Equipment Front Wheel Walker,Four Wheel Walker M2 OT-IP Current Condition Start: 04/23/20 14:45 Freq: Status: Active Protocol: Document 04/23/20 14:01 [facility] (Rec: 04/23/20 15:41 [facility] [id number]) Occupational Therapy Current Condition Current Condition Evaluation Date 04/23/20 Treatment Diagnosis UTI, acute cystitis M3 OT- IP Subjective and Pain Start: 04/23/20 14:45 Freq: Status: Active Protocol: Document 04/23/20 14:01 [facility] (Rec: 04/23/20 15:41 [facility] [id number]) OT- Subjective Occupational Therapy Visit Type Type Initial Evaluation Visit Start Time 14:01 Visit Stop Time 14:36 Total Visit Minutes 35 Occupational Therapy Visit Comments Patient Comments Pt asleep initially, but agreed to get up to do grooming needs. Patient/Caregiver Goals To go home. OT Pain Assessment Pain When Pain Assessed At Rest Pain Present Pain Present Denied Pain M4 OT- IP ADL's Start: 04/23/20 14:45 Freq: Status: Active Protocol: Document 04/23/20 14:01 [facility] (Rec: 04/23/20 15:41 [facility] [id number]) OT [id number] Comments OT Self-Feeding Comments Nursing aid states was able to self feed on his own after set-up. OT ADL-Grooming General Evaluation Grooming Ability Standby Assistance Areas Needing Assistance Retrieving/Set-up of Grooming Items Comments OT Grooming Comments set-up assist OT ADL-Oral Care General Eval Oral Care Ability Standby Assistance Areas of Assistance Retrieving/Set-Up of Items OT ADL-Dressing General Eval Lower Body Dressing Ability Maximum Assistance Areas Needing Assistance Underpants/Brief Comments OT Dressing Comments Pt needing assist to help gutierrez brief over his feet and up over his hips. OT ADL-Toileting General Evaluation Toileting Ability Maximum Assistance Areas Needing Assistance Manage Clothing,Perform Perineal Hygiene Devices Toileting Assistive Devices Grab Bars Comments OT Toileting Comments Pt needing assist to stand with fww while aid able to do all his hygiene and brief management needs. OT ADL-Bathing Comments OT Bathing Comments not performed M5 OT- IP IADL's Start: 04/23/20 14:45 Freq: Status: Active Protocol: Document 04/23/20 14:01 [facility] (Rec: 04/23/20 15:41 [facility] [id number]) OT-Instrumental Activities of Daily Living Home Safety Awareness Awareness of Need for Assistance at Home Good Awareness Medication Management Medication Management Caregiver Administers Money Management Money Management Caregiver Provides Assistance Meal Preparation Meal Preparation Caregiver Provides Assist Vending Manager Vending Manager Caregiver Provides Assist Driving Driving Caregiver Provides Assist M6 OT- IP Functional Cognition Start: 04/23/20 14:45 Freq: Status: Active Protocol: Document 04/23/20 14:01 [facility] (Rec: 04/23/20 15:41 [facility] [id number]) Cognitive Factors Limiting Selfcare Function Cognitive Ability Level of Alertness Alert,Confusional State Patient Orientation Name,Place Attention Span Ability Capable of Focused Attention, Unable to Sustain Attention Ability to Follow Commands Able to Follow One Step Commands with Increased Time, Able to Follow One Step Commands with Repetition Safety Awareness Underestimates Need for Assistance Problem Solving Ability Unable to Identify Errors, Needs Assist to Identify Solutions Cognitive Comments Cognitive Assessment Comments Pt needing step by step safety instructions for FWW use , vc to push up from the bed to stand, vc to keep his feet apart more while walking with FWW, and vc to lean to the left as pt tends to lean to the right. OT- Vision and Hearing OT- Vision Assessment Visual Acuity WFL M7 OT- IP Mobility and Balance Start: 04/23/20 14:45 Freq: Status: Active Protocol: Document 04/23/20 14:01 [facility] (Rec: 04/23/20 15:41 [facility] [id number]) OT- Bed Mobility Assessment Rolling Type of Rolling Roll to Left Level of Assistance Contact Guard Assistance Scooting Scooting to Edge of Bed Minimal Assistance OT-Transfer Assessment Sit to and From Stand Sit to and from Stand Moderate Assistance,Maximum Assistance Transfers Transfer Ability Moderate Assistance,Maximum Assistance,1 Person Assistance ,2 Person Assistance Technique Transfer Destination Bed,Chair,Toilet Transfer Technique Stand Step Pivot Devices Transfer Assistive Devices Gait Belt,Front Wheeled Walker Comments Mobility Comments Increased time with HOB up for bed mobility to come from supine to sit. MODA to stand from higher surfaces and MAX A to stand from lower surfaces. Pt has a lift chair to assist him to stand at home. Initially pt needing MODA X1 to walk with FWW and then MAX A X 1 and then as he tires needing MODA x2 for safety, balance and help guide the FWW. OT- Balance Assessment Sitting Balance and Reactions Static Sitting Balance Ability Fair Dynamic Sitting Balance Ability Poor Standing Balance and Reactions Static Standing Balance Ability Poor Dynamic Standing Balance Ability Poor M8 OT- IP Objective Assessments Start: 04/23/20 14:45 Freq: Status: Active Protocol: Document 04/23/20 14:01 [facility] (Rec: 04/23/20 15:41 [facility] [id number]) OT Gross Range of Motion Upper Extremity Range of Motion ROM Impairments grossly WFL OT Strength Upper Extremity Strength Assessment Within Functional Limits OT-Muscle Tone Assessment Muscle Tone WNL Yes M9 OT- IP Assessment and Plan Start: 04/23/20 14:45 Freq: Status: Active Protocol: Document 04/23/20 14:01 [facility] (Rec: 04/23/20 15:41 [facility] [id number]) OT Summary Assessment and Plan Potential Rehabilitation Potential Good Analytic Complexity at Evaluation Low Summary OT Impairments Strength,Balance,Functional Cognition,Functional Mobility, Grooming,Dressing,Toileting, Bathing,Toilet Transfers, Shower Transfers,Activity Tolerance Progress Towards Goals Slow Progress due to Medical Issues,Slow Progress due to Activity Tolerance,Slow Progress due to Cognition Assessment Summary Pt low complexity and here with acute cystitis and now needing 1-2 person assist for all ADl and mobility needs. Pt has 24/7 caregivers at home to assist with all his needs. Pt to go home with 24/7 assist when medically stable and would benefit from home health services. Goals Self-Feeding Goal Independent Grooming Goal Independent Dressing Goal Minimal Assistance Toileting Goal Minimal Assistance Bathing Goal Moderate Assistance Toilet Transfer Goal Contact Guard Assistance Shower Transfer Goal Minimal Assistance Days to Meet Goals 10 Frequency of Treatment Frequency Of Treatment Once a Day Treatment Plan OT Treatment Plan ADL Training,Functional Cognition Training,Functional Mobility,Patient/Family Education,Discharge Planning Other Treatment Recommendations and Next Stand for grooming needs. Treatment Focus Discharge Recommendations OT Discharge Recommendations Home with 24/7 Assist,Home Health Transportation Needs at Discharge Private Vehicle
--- NOTE | 2020-04-23 15:18 | CM.DANOTE ---
Discharge Planning/Care Management DCP: assessment: case received, EMR reviewed and spoke with POA daughter Yvette Fernández Stoop: [phone]. Yvette reports she and her sister are currently in the ER with pt's Richelle. Introduced self and role. Pt is an 84 year old male who admitted last evening to care of hospitalist team. PCP: Kal Bowers Payer: Medicare and [employer]. Soap Chipper: Dr. Wilkins has requested that Dr. Westfall consult while pt is in the hospital as he was to have an appt Apr 23 to followup on the black catheter. Pt was here 04/08 with a d/c to home setting 04/12 with indwelling black catheter at the order of Dr. Westfall and plan for outpt appointment. [facility] was ordered and family set [facility] up for 12/10 care. Confirmed now with Yvette that this remains in place but she says they are called off for the moment while pt is in the hospital. She requests that she be given as much notice as possible re date of d/c so that she can get them back in place. DCP team will be following as POC unfolds. Likely home with resumption of [facility] and ongoing [facility] caregivers. CM Discharge Assessment Start: 04/23/20 15:16 Freq: Status: Active Protocol: Document 04/23/20 15:17 [facility] (Rec: 04/23/20 15:18 [facility] [id number]) Discharge Planning Assessment Advance Directives? Yes Advance Directives on File No History Provided By Patient,Medical Record Has Patient been admitted in last 30 Yes days? Prior Living Arrangements House Household Members spouse,family Type of transporation used prior to Relies on Others admit Independent with ADL's No Is patient alert and oriented? No Review Status In Process
[2020-04-23] MEDS: CEFTRIAXONE 1 GM/50 ML FROZ.PIGGY IV (19:00)
[2020-04-23] MEDS: TAMSULOSIN 0.4 MG CAPSULE PO (20:30)
[2020-04-23] MEDS: FINASTERIDE 5 MG TABLET PO (20:30)
[2020-04-23] MEDS: FAMOTIDINE 20 MG TABLET PO (20:30)
[2020-04-23] MEDS: SODIUM CHLORIDE 0.9% FLUSH 10 ML IV (20:31)
[2020-04-24] VITALS (8 sets, daily range): BP systolic 112–127; BP diastolic 50–73; PULSE 75–76; RESP 16–20; TEMP 36.2–37.9; O2SAT 94–95
[2020-04-24] MEDS: VANCOMYCIN 125 MG CAPSULE PO ×3 (02:02→14:50)
[2020-04-24] MEDS: ACETAMINOPHEN 325 MG TABLET 650 MG PO (03:23)
[2020-04-24 07:37] LABS: Add Manual Diff / Slide Review NO; Basophils Absolute Auto 100 /uL (0-100); Basophils Percent Auto 0.9 % (0-2); Eosinophils Absolute Auto 200 /uL (0-450); Hematocrit 33.5 % (41-53); Hemoglobin 11.2 g/dL (13.5-17.5); Lymphocytes Absolute Auto 1300 /uL (1100-4500); Lymphocytes Percent Auto 8.1 % (25-40); Mean Corpuscular HGB Conc 33.5 % (30-36); Mean Corpuscular Hemoglobin 29.3 PG (26-34); Mean Corpuscular Volume 87.4 fL (80-100); Monocytes Absolute Auto 1500 /uL (0-900); Monocytes Percent Auto 9.9 % (3-14); Neutrophils Absolute Auto 12400 /uL (1500-7000); Neutrophils Percent Auto 80.1 % (50-75); Platelet Count 363 X10^3/uL (150-400); Red Blood Cell Count 3.84 X10^6/uL (4.5-5.9); Red Cell Distribution Width 13.7 % (11.6-14.8); White Blood Cell Count 15.5 X10^3/uL (4.5-11.0)
[2020-04-24 07:48] LABS: BUN Creatinine Ratio 13.9 (6-22); Blood Urea Nitrogen 14 mg/dL (9-20); Carbon Dioxide 31 mmol/L (22-32); Chloride 99 mmol/L (98-107); Estimated Glomerular Filt Rate > 60.0 mL/min (>60); Glucose 124 mg/dL (80-110); HEMOLYSIS < 15 (0-50); Potassium 3.5 mmol/L (3.4-5.1); Sodium 133 mmol/L (137-145)
--- NOTE | 2020-04-24 09:21 | OT.IP.TRT ---
Current Diagnoses Infection and inflammatory reaction due to indwelling urethral catheter, initial encounter (04/22/20) Occupational Therapy Treatment Note M2 OT-IP Current Condition Start: 04/23/20 14:45 Freq: Status: Active Protocol: Document 04/23/20 14:01 [facility] (Rec: 04/23/20 15:41 [facility] [id number]) Occupational Therapy Current Condition Current Condition Evaluation Date 04/23/20 Treatment Diagnosis UTI, acute cystitis M3 OT- IP Subjective and Pain Start: 04/23/20 14:45 Freq: Status: Active Protocol: Document 04/24/20 09:27 [facility] (Rec: 04/24/20 09:33 [facility] [id number]) OT- Subjective Occupational Therapy Visit Type Type Treatment Note Visit Start Time 08:58 Visit Stop Time 09:21 Total Visit Minutes 23 Occupational Therapy Visit Comments Patient Comments Pt wanting to get up to brush his teeth. Patient/Caregiver Goals To go home. OT Pain Assessment Pain When Pain Assessed At Rest Pain Present Pain Present Denied Pain M4 OT- IP ADL's Start: 04/23/20 14:45 Freq: Status: Active Protocol: Document 04/24/20 09:27 [facility] (Rec: 04/24/20 09:33 [facility] [id number]) OT ADL-Grooming General Evaluation Grooming Ability Standby Assistance Areas Needing Assistance Retrieving/Set-up of Grooming Items Comments OT Grooming Comments Pt able to stand at the sink for grooming needs. OT ADL-Oral Care Comments Oral Care Comments Pt able to stand at the sink for all oral care needs. OT ADL-Dressing General Eval Lower Body Dressing Ability Moderate Assistance Areas Needing Assistance Socks Comments OT Dressing Comments Pt able to gutierrez left sock and needing assist to gutierrez his right sock.Pt states at home his assists him. OT ADL-Toileting Comments OT Toileting Comments Thorne in place. OT ADL-Bathing Comments OT Bathing Comments not performed M5 OT- IP IADL's Start: 04/23/20 14:45 Freq: Status: Active Protocol: Document 04/23/20 14:01 [facility] (Rec: 04/23/20 15:41 [facility] [id number]) OT-Instrumental Activities of Daily Living Home Safety Awareness Awareness of Need for Assistance at Home Good Awareness Medication Management Medication Management Caregiver Administers Money Management Money Management Caregiver Provides Assistance Meal Preparation Meal Preparation Caregiver Provides Assist Hob Machine Operator Hob Machine Operator Caregiver Provides Assist Driving Driving Caregiver Provides Assist M6 OT- IP Functional Cognition Start: 04/23/20 14:45 Freq: Status: Active Protocol: Document 04/24/20 09:27 [facility] (Rec: 04/24/20 09:33 [facility] [id number]) Cognitive Factors Limiting Selfcare Function Cognitive Ability Level of Alertness Alert Patient Orientation Name,Place,Situation Attention Span Ability Capable of Focused Attention, Capable of Sustained Attention Ability to Follow Commands Able to Follow One Step Commands Cognitive Comments Cognitive Assessment Comments Pt doing better today with safety and following directions. Pt after cues able to recall to push up from the bed to stand versus just pull on the FWW. M7 OT- IP Mobility and Balance Start: 04/23/20 14:45 Freq: Status: Active Protocol: Document 04/24/20 09:27 [facility] (Rec: 04/24/20 09:33 [facility] [id number]) OT- Bed Mobility Assessment Rolling Level of Assistance Standby Assistance Supine to Sit Supine to Sit Assist Standby Assistance OT-Transfer Assessment Sit to and From Stand Sit to and from Stand Contact Guard Assistance Transfers Transfer Ability Contact Guard Assistance Technique Transfer Destination Bed,Chair Transfer Technique Stand Step Pivot Devices Transfer Assistive Devices Gait Belt,Front Wheeled Walker Comments Mobility Comments Much improved today and able to come to the edge of the bed with SBA , CGA to stand to FWW. OT- Balance Assessment Sitting Balance and Reactions Static Sitting Balance Ability Good Dynamic Sitting Balance Ability Fair Standing Balance and Reactions Static Standing Balance Ability Fair Comments Other Balance Tests/Deviations/Treatment Pt much steadier on his feet : today and only needing one person assist for mobility needs now. M8 OT- IP Objective Assessments Start: 04/23/20 14:45 Freq: Status: Active Protocol: Document 04/23/20 14:01 [facility] (Rec: 04/23/20 15:41 [facility] [id number]) OT Gross Range of Motion Upper Extremity Range of Motion ROM Impairments grossly WFL OT Strength Upper Extremity Strength Assessment Within Functional Limits OT-Muscle Tone Assessment Muscle Tone WNL Yes M9 OT- IP Assessment and Plan Start: 04/23/20 14:45 Freq: Status: Active Protocol: Document 04/24/20 09:27 [facility] (Rec: 04/24/20 09:33 [facility] [id number]) OT Summary Assessment and Plan Potential Rehabilitation Potential Good Analytic Complexity at Evaluation Low Summary OT Impairments Strength,Balance,Functional Cognition,Functional Mobility, Grooming,Dressing,Toileting, Bathing,Toilet Transfers, Shower Transfers,Activity Tolerance Progress Towards Goals Progressing Toward Goals Assessment Summary Pt able to stand for grooming needs at the sink and now only needing one person assist for ADl and functional mobility needs. Pt to have assist from [facility] at home. Pt to go home when medically stable. Goals Self-Feeding Goal Independent Grooming Goal Independent Dressing Goal Minimal Assistance Toileting Goal Minimal Assistance Bathing Goal Moderate Assistance Toilet Transfer Goal Contact Guard Assistance Shower Transfer Goal Minimal Assistance Days to Meet Goals 7 Frequency of Treatment Frequency Of Treatment Once a Day Treatment Plan OT Treatment Plan ADL Training,Functional Cognition Training,Functional Mobility,Patient/Family Education,Discharge Planning Discharge Recommendations OT Discharge Recommendations Home with Assistance,Home Health Transportation Needs at Discharge Private Vehicle
[2020-04-24] MEDS: AMLODIPINE 5 MG TABLET PO (10:11)
[2020-04-24] MEDS: ENALAPRIL 20 MG TABLET PO (10:11)
[2020-04-24] MEDS: FAMOTIDINE 20 MG TABLET PO (10:12)
[2020-04-24] MEDS: ATORVASTATIN 20 MG TABLET 10 MG PO (10:12)
[2020-04-24] MEDS: ASPIRIN 325 MG TABLET PO (10:12)
[2020-04-24] MEDS: ENOXAPARIN 40 MG/0.4 ML SYRINGE SUBCUT (10:13)
[2020-04-24] MEDS: SODIUM CHLORIDE 0.9% FLUSH 10 ML IV ×2 (10:13)
--- NOTE | 2020-04-24 10:26 | CM.DPC ---
Addendum entered by Clary Sr R.N. 04/24/20 12:24: Updated Nisha at [facility] about discharge. Faxed over resumption orders, confirmed with Nisha that patient is getting RN, P.T, O.T, and bath aide. DC summary is not yet completed. Went ahead and faxed yesterday's progress note, H&P, and resumption orders. Will fax DC summary when completed. Original Note: DCP Cont: Discussed patient during team rounds. Dr. Turner indicated that she would discharge patient today, secondary to having 1500 urology appointment. Called daughter, Yvette Zelaya. Updated her. Stated, her dad does not have a urology appointment, he was supposed to have one yesterday. She also indicated that [facility] is not coming until 8:00pm. Updated Dr. Turner. Stated that patient is clinically ready for discharge. Catheter was changed yesterday. Updated daughter, and will do a later discharge. Confirmed with daughter that patient will need BLS transport, secondary to max assist, and stairs to get into the home. Patient's family aware of getting bill, as were explained upon the last discharge. Patient has several stairs to get into the home. Filled out BLS form. Refrigeration Lead, Kelsi, arranged for picking table worker between [phone]. Updated white board, discharge orders pending. Updated nurse, Elisabeth, as well as patient. Patient is happy to be going home. Left a message with daughter and let her know that the catheter was changed yesterday, and that [facility] will be notified as soon as discharge orders come in, for they will need a resumption order. P: Patient will be discharged today, and picked up between [id number]. Will notify [facility] as soon as discharge orders come in. Clary Sr RN/Photographic Process Worker
--- NOTE | 2020-04-24 10:46 | PC.NURSE ---
Addendum entered by Elisabeth Lema R.N. 04/24/20 13:50: Patient ate well at lunch and will be discharging home at around 1700. Original Note: Patient is tired this morning and napping. He is doing better mentation yeager and is familiar with faces and family. He will be discharging home today via bls at 1700. [facility] will be taking care of him at home, he also has a supportive family. Patient had a bowel movement and is sitting up in chair.
--- NOTE | 2020-04-24 11:00 | DIET.PN ---
Dietary Progress Note Assessment: 84y M admitted for UTI after recent hospitalization for c. diff colitis referred to nutrition for low-sodium MNT education. 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 Pt lives c loving of 60y and has [facility] helping out at home. Pt reports his is an excellent cook and manages all the meals. Pt reports slight LLE and does have hx of essential HTN averaging 142/87 this hospital stay. Per chart review, pt is weight stable over the past 3y. HT: 175.2cm WT: 103kg UBW: 100-104kg x3y BMI: 33 Labs: WBC 15.5 H, A1c 6.5, NTProBNP 2200 H MNA: 14 normal Eliseo:21 good skin integrity Interventions: 1. Educated pt on importance of 2g sodium restriction for support of cardiovascular system. Provided pt Low-Sodium MNT handout with tips and meal planning ideas. Pt will give handout to his to review. Diet Order: HH/CCD EER: 2g Na max
--- NOTE | 2020-04-24 11:40 | PT.IPTN ---
Current Diagnoses Infection and inflammatory reaction due to indwelling urethral catheter, initial encounter (04/22/20) Physical Therapy Treatment Note M2 PT-IP Current Condition Start: 04/23/20 11:58 Freq: NEEDED Status: Active Protocol: Document 04/23/20 11:24 AB (Rec: 04/23/20 12:10 AB [id number]) Physical Therapy Current Condition Current Condition Evaluation Date 04/23/20 Treatment Diagnosis acute cystitis; difficulty in walking Onset Date 04/22/20 Precautions Other Precautions falls, C-diff colitis M3 PT-IP Subjective Start: 04/23/20 11:58 Freq: NEEDED Status: Active Protocol: Document 04/24/20 11:26 SP (Rec: 04/24/20 12:54 SP [id number]) Subjective Physical Therapy Visit Type Type Treatment Note Visit Start Time 11:26 Visit Stop Time 11:40 Total Visit Minutes 14 Notes METAL CLEANER called with permission of patient pre tx for varification of home set up due to BLS transportation identified and possible CGT required pre DC. 3 stairs to enter home pt but uses a lift chair on stairs and elevator between 3 level house so no need to assess stairs. Visiting angels set up for care of staff to assist patient as before upon arrival of 5pm DC, no need to assess family assist with mobility per . stated unable to assist at this time to recent injury. OUMAR [place] provided physical assisted of the 2nd person required during tx. Number of METAL CLEANER Visits 1 Physical Therapy Visit Comments Patient Comments Pt required Max verbal cuing and sternal rub to wake, in deep sleep. Agreeable to working with therapy. I am very tired and want to go to bed. Patient Goals Return to bed. When able, return home with [facility] [place] staffing to provide physical assist 12/10 and family. M4 PT-IP Mobility and Gait Start: 04/23/20 11:58 Freq: NEEDED Status: Active Protocol: Document 04/24/20 11:26 SP (Rec: 04/24/20 12:54 SP [id number]) PT-Bed Mobility Assessment Sit to Supine Sit to Supine Maximum Assistance,2 Person Assistance Scooting Scooting Up and Down in Bed Dependent PT-Transfer Assessment Sit to and From Stand Sit to and from Stand Minimal Assistance,Moderate Assistance,2 Person Assistance ,Use of Upper Extremities Equipment Transfer Assistive Device Gait Belt,Front Wheeled Walker Orthotic/Prosthetic Devices or Brace: No Transfers Transfer Destination Bed Transfer Technique Pt ambulated using FWW Transfer Ability Level of Assist Contact Guard Assistance, Moderate Assistance,2 Person Assistance,Use of Upper Extremities Comments Mobility Comments Max verbal and tactile sternal rub cuing to arouse patient in chair, difficulty keeping eyes open at first. Once scooted forward in chair was more alert and safe for mobility. Sit> stand using BUE on chair arms Mod A of 1 person, Min of 1 person. Ambulated around room to sit on R EOB, see gait for details , Mod A x1 and CGA of 2nd person. Sit>supine Max A x1 Mod A 2nd person for trunk and LE assist. Pt able to center self in bed but required Max A of 2 person to scoot up in bed. Instructed LE exercises to improve Le mobility for circulation and transfers x2 reps each LE before tired and started to fall asleep. Elevated HOB and LEs for comfort, applied SCDs for circulation support with decreased activity tolerance. Pt had call light, bed armed and all needs in reach. Gait Assessment Gait Gait Assistance Required: Moderate Assistance Distance (Feet) 15 Able to Maintain Weight Bearing Status No During Gait Assistive Devices Assistive Device Gait Belt,Front Wheeled Walker Orthotic/Prosthetic Devices or Brace: No Gait Deviations General Gait Pattern Antalgic,Decreased Stride Length,Decreased Feet Clearance,Flexed Trunk,Lateral Trunk Lean,Narrow Based Gait, Step-to Gait Factors Limiting Gait Function Factors Limiting Gait Function Decreased Activity Tolerance, Decreased Strength,Difficulty Following Directions,Limited Range of Motion,Poor Balance, Poor Safety Awareness Comments Gait Comments Ambulated from chair around bed using FWW, narrow base gait requiring Mod-Max A of 1 and CGA of 2nd person for safety, support at L to recover from L lateral lean and FWW repositioning when needed approx 15 ft. Max cuing for upright posture, increase foot stride and clearance due to decreased on L. Stair Climbing Assessment Comments Stair Climbing Comments Not required and pt unable due to decreased activity tolerance and strength. Pt has chair lift to ascend 3 stairs per phone conversation and elevator in house to get between 3 level house. PT-Balance Assessment Sitting Balance and Reactions Static Sitting Balance Ability Good Dynamic Sitting Balance Ability Fair Standing Balance and Reactions Static Standing Balance Ability Fair Dynamic Standing Balance Ability Poor Device Used FWW M5 PT-IP Objective Assessments Start: 04/23/20 11:58 Freq: NEEDED Status: Active Protocol: Document 04/23/20 11:24 AB (Rec: 04/23/20 12:10 AB [id number]) Orientation Orientation/Cognition Level of Alertness Alert Orientation Name,Place,Situation Safety Awareness Decreased Safety Awareness Strength Lower Extremity Strength Hip 4-/5 Knee 4-/5 Muscle Tone Muscle Tone WNL Yes M6 PT-IP Treatment Start: 04/23/20 11:58 Freq: NEEDED Status: Active Protocol: Document 04/24/20 11:26 SP (Rec: 04/24/20 12:54 SP [id number]) Physical Therapy Treatment Exercises Exercises Ankle Pumps,Heel Slides, Straight Leg Raises,Seated Knee Flexion/Extension Education Education Provided Safety M7 PT-IP Assessment and Plan Start: 04/23/20 11:58 Freq: NEEDED Status: Active Protocol: Document 04/24/20 11:26 SP (Rec: 04/24/20 12:54 SP [id number]) PT Summary Assessment and Plan Potential Rehabilitation Potential Good Status of Condition at Evaluation Stable Summary Impairments Pain,ROM,Strength,Balance, Coordination,Sensation,Tone, Cognition,Bed Mobility, Transfers,Gait,Activity Tolerance Progress Towards Goals Slow Progress due to Activity Tolerance Assessment Summary pt requiring mod A to max A for mobility using FWW for short distance gait, transfers . pt has 24/7 assist at home and may go home when medically stable. pt will benefit from HHPT to improve overall strength and mobility independence. Goals Bed Mobility Goal Contact Guard Assistance Transfer Goal Contact Guard Assistance,Front Wheeled Walker Gait Goal Contact Guard Assistance,Front Wheel Walker Gait Distance 50 Days to Meet Goals 10 Frequency of Treatment Frequency Of Treatment Once a Day Treatment Plan Physical Therapy Treatment Plan Bed Mobility Training,Transfer Training,Gait Training, Therapeutic Exercise,Balance Retraining,Discharge Planning, Hot or Cold Pack,Neuromuscular Re-ed,Coordination Retraining Recommendations To Nursing Amount of Assist Needed 2 Person Assist Discharge Recommendations PT Discharge Recommendations Home with 24/ Assist,Home Health Transportation Needs at Discharge Private Vehicle,Wheelchair/ Cabulance
--- NOTE | 2020-04-24 15:30 | PM.CHAP ---
Short visit with Mr. Moore. Pt not responsive except to nod when I asked if I could call his family. Spoke to Richelle at home. After yesterday in the ER after her fall, she said they are ready for Pt to return home this afternoon. She has both daughters and [facility] [place] to assist this evening. Jose Diamond, [facility] [phone]
--- NOTE | 2020-04-24 16:37 | PC.NURSE ---
Addendum entered by Liliana Sutton R.N. 04/24/20 17:50: BLS transfer team here to take pt to home. Pt taking evening meal. Incontinent of stool and assisted to commode with two assist for further stool. Pericare provided and brief place. Black in place for transfer. Able to ambulate to stretcher for transfer. Per report this marketing underwriter received from dayshift RN, discharge instructions to be provided in written format for spouse, daughters and [facility] [place] to see. This was done. Pt left hospital with all belongings accounted for in stable condition awake, alert, appropriately conversant. Original Note: Seam Steamer visits pt this late afternoon pending discharge. Pt quite sleepy and not engaged with hair clipper power. Chaplain Garcia then phones pt's spouse and has conversation offering services. Pt wakes easily to voice and is verbally appropriately engaged. Tele dc'd and iv dc'd in preparation for discharge to home. Pt states is eager to go home and reports is feeling better since admission. Seam Steameryvonne Garcia did report to this marketing underwriter pt's spouse, two daughters and [facility] [place] are standing by at home for pt's return to home. Discharge packet printed for medics to provide to family members as no family will be coming to hospital for patient's discharge. Pt to be discharged with black catheter in place and this is secured to pt's leg.
--- NOTE | 2020-04-25 08:11 | P.DS_ITS ---
History of Present Illness History of Present Illness Chief complaint: SOB/Fever Narrative: Mr. Gallo Moore is an 84-year-old male with a past medical history significant for hypertension, hyperlipidemia, paroxysmal atrial fibrillation (anticoagulated on aspirin only related to frequent falls), urinary retention, chronic anemia, diabetes type 2, GERD and osteoarthritis who presents to the hospital complaining of rapid heartbeat with precordial chest pain that is nonradiating and nonpleuritic this morning with associated shortness of breath and fever. Patient was recently admitted on April 08 through April 12 for the patient was to have acute C diff colitis, hypokalemia as well as BPH with acute urinary retention for which Thorne catheter was placed on 04/11 2020. The patient was discharged on the with home health and follow-up scheduled with Dr. Jaffe for tomorrow.. The patient continues to have indwelling Thorne catheter with cloudy urine with reports of fevers and per subtle cognitive changes and fevers. He developed chest pressure this morning with a history of paroxysmal atrial fibrillation and upon arrival is found to be in atrial fibrillation with a rate of 124. Patient has associated complaints of generalized weakness, fevers without chills, fatigue and is pale per his . The patient had weakness at the time of prior discharge and did sustain of nonsy ncopal fall onto carpeted floor without injury following returning home and has been improving until today. The patient denies headaches or dizziness, visual changes or lateralizing symptoms. He has had no nasal congestion or sore throat. He reports chest pressure as above. The patient has a history of atrial fibrillation and felt his heart racing. He endorses shortness of breath without wheezing or cough. He denies epigastric or abdominal pain, nausea vomiting. He continues to have soft stools twice daily and finished his last dose of vancomycin this evening to complete his course of treatment. He has indwelling Thorne catheter draining cloudy urine. Upon arrival to the ER the patient is febrile with temperature 100.5?, blood pressure 215/104 improved to 180 4/84, heart rate of 124 improved to 105, respiratory rate of 48 improved to 39 maintaining a saturation 96% on room air. Chest x-ray reveals persistent partially lytic lesion left posterior 6th rib but no focal infiltrates or pulmonary edema. A CT of the chest abdomen pelvis reveals chronic interstitial prominence with reduced inspiratory volume, heart size normal with pulmonary vasculature normal in size, evaluation of chest wall finds persistent lesion also present rib lesion in 2005 abdomen finds normal liver size gallbladder is normal with no biliary dilatation kidneys are normal in size and enhances hydronephrosis with a watery density the upper 3rd of the right renal cortex. Pelvis finds normal bladder wall thickness and identification Thorne catheter. Twelve lead EKG finds atrial fibrillation with a ventricular rate of 107 without ectopy or or aberrant conduction, no ST or T- wave changes. On laboratory analysis patient has elevated white count of 17.4 with elevated neutrophils of 15,300 elevated monocytes at 1000, hemoglobin of 12.6 and hematocrit of 38.2 with platelets of 372. His electrolytes are all within normal limits a nonfasting glucose of 142. Liver functions he has a total bilirubin 0.5, AST of 114, ALT 141 and alkaline phosphatase of 131. He had lactic acid of 1.9 and procalcitonin 0.19. His total CK is 39 is troponin is negative at less than 0.012. His proBNP is elevated at 1240. Urinalysis is positive for protein, blood, wbc's, bacteria, nitrites and leukocyte esterase and cultures ordered. In the ER the patient received Tylenol for fever, ceftriaxone 1 g IV and his final dose of Vanco mycin 125 mg p.o. completing his course of treatment previously prescribed. The patient is admitted to the hospitalist team for UTI secondary to indwelling Thorne catheter placed for BPH and acute urinary retention. Discharge Providers Provider Date of admission: 04/22/20 19:19 Discharge Date: 04/24/20 Primary care physician: Kal Bowers DO Consults: 04/22/20 20:40 Consult to Dietitian, Adult Routine Comment: Reason For Exam: Elevated proBNP, BLE swelling, low-sodium diet Consult to Discharge Planning Routine Comment: Consult to Occupational Therapy Evaluate & Treat Comment: Generalized weakness assess for home care Physician Instructions: Evaluate and treat Consult to Physical Therapy Evaluate & Treat Comment: Generalized weakness assess for home care Physician Instructions: Evaluate and Treat 04/22/20 22:04 Consult to General Surgery Routine Comment: Consulting Provider: Blanca Jaffe Reason for consultation: UTI, indwelling Thorne, BPH, acute urinary retention Has provider been notified: No 04/24/20 11:07 Consult to Home Health Routine Comment: Reason For Exam: Resume Home Health RN, P.T, O.T, Bath Aide Discharge provider: Lainey Turner MD Summary Hospital Course Discharge Diagnosis: 1. Catheter associated urinary tract infection 2. Chest pain, secondary to 3. Atrial fibrillation with rapid ventricular response rate 4. Hypertension 5. Hyperlipidemia 6. GERD 7. Urinary retention, with a chronic indwelling Thorne catheter 8. Recent C difficile colitis 9 hyponatremia Hospital Course: Patient was admitted to the hospital for catheter associated urinary tract infection. He initially had fever, chills, and rapid heart rate associated with his atrial fibrillation. The patient was placed on IV antibiotics, he had improvement of his fever. He had no further diarrhea. The patient completed his course for C diff colitis. However he was placed back on antibiotics for his UTI. As such vancomycin was added to his regimen to be used until the antibiotics have been discontinued. The patient's catheter remained in place. He will follow-up with Dr. Jaffe as an outpatient for re-eval uation of his urinary retention. The patient made significant improvement. He was deemed to be back at his baseline. He was deemed to be appropriate for discharge and arrangements were made for him to discharge home. The patient had his catheter exchanged during his hospital stay. Status at Discharge Cognitive/behavioral status at discharge: oriented Functional status at discharge: uses cane/walker Overall status at discharge: patient is back to baseline Time Spent with Patient Time spent: Less than 30 minutes Exam Vital Signs (past 8 hours): Oxygen Delivery Method Room Air Oxygen Flow Rate 0 Narrative Exam Narrative: Pleasant elderly male lying in bed in no obvious distress Lungs: Clear to auscultation with end-expiratory wheezing Cardiac exam: Irregularly irregular, normal S1-S2 Abdomen: Soft nontender nondistended Extremities: No edema Objective Labs Result Diagrams: 04/24/20 07:25 04/24/20 07:25 Labs: Laboratory Results - last 24 hr 04/24/20 07:25 Sodium 133 L Potassium 3.5 Chloride 99 Carbon Dioxide 31 BUN 14 Creatinine 1.01 Estimated GFR > 60.0 BUN/Creatinine Ratio 13.9 Glucose 124 H Calcium 9.0 PFSH Medical History (Updated 04/22/20 @ 21:12 by JESSIE Daniel) Benign prostatic hyperplasia Chronic anemia Clostridioides difficile infection Diabetes 1.5, managed as type 2 Essential hypertension Frequent falls LFT elevation Mixed hyperlipidemia Osteoarthritis Paroxysmal atrial fibrillation Tremor Urinary retention Surgical History (Updated 04/22/20 @ 21:16 by JESSIE Daniel) History of lobectomy of lung History of resection of rib Status post appendectomy Family History (Updated 04/22/20 @ 21:17 by JESSIE Daniel) Father Hypertension Brother Atrial fibrillation Mother No significant medical problems Social History household members: spouse and family Smoking Status: Former smoker Tobacco: How many years used: 20 alcohol intake: never substance use type: does not use Discharge Assessment & Plan Assessment and Plan Assessment: 1. Catheter associated urinary tract infection 2. Paroxysmal atrial fibrillation 3. Hypertension 4. Hyperlipidemia 5. Recent C diff colitis Plan of Treatment: Discharge home with treatment plan as outlined above Outpatient follow-up with Dr. Jaffe Discharge Plan Discharge Plan Patient Disposition: Home Discharge orders & Medications Prescriptions: New levofloxacin 250 mg tablet 250 mg PO Q24H 10 Days Qty: 10 RF: 0 vancomycin 125 mg capsule 125 mg PO QID 10 Days Qty: 40 RF: 0 Continued cholecalciferol (vitamin D3) [Vitamin D3] 25 mcg (1,000 unit) tablet 1,000 unit PO QAM Qty: 0 RF: 0 tamsulosin [Flomax] 0.4 mg capsule 0.4 mg PO HS Qty: 90 RF: 3 enalapril maleate 20 mg tablet 20 mg PO BID Qty: 180 RF: 2 aspirin 325 mg Tablet 325 mg PO QAM RF: 0 hydrocodone-acetaminophen [[place]] 5-325 mg tablet 0.5 tab PO DAILY PRN (Reason: pain) RF: 0 vancomycin 125 mg Capsule 125 mg PO Q6H Qty: 28 RF: 0 ferrous sulfate 325 mg (65 mg iron) Capsule, Extended Release 325 mg PO QAM RF: 0 atorvastatin 10 mg tablet 10 mg PO QAM RF: 0 amlodipine 5 mg tablet 5 mg PO QAM RF: 0 omeprazole magnesium [Prilosec OTC] 20 mg tablet,delayed release (DR/EC) 20 mg PO QAM RF: 0 vitamin B complex Tablet 1 tab PO QAM RF: 0 No Action (DME) Disabled Parking Permit 0 .Route .MEDSUPPLY Qty: 1 RF: 0 Follow up/Referrals: Kal Bowers DO [Primary Care Provider] - Discharge Health Status Multidrug resistant organism: No MDRO Diet/Activity/Treatments Diet: Low-sodium Catheter: 2-way Thorne Other treatments: outpatient f/u with Dr. Jaffe regarding catheter removal Skin/Wound/Dressing Care Report to your healthcare provider any signs of infection, such as:: chills, fever Visit Report/Discharge Packet Instructions: How to Care for Your Thorne Catheter -- Male, DI for Urinary Tract Infection (UTI), Vancomycin, Levofloxacin Discharge Data Primary Care Provider: Kal Bowers
== END 2020-04-24 17:15 | disposition home or self-care (01) | DRG 698 ==
LOC: ED 19:19 → AC 19:20
PROVIDERS: Emergency Medicine; Internal Medicine; Admitting Provider Nurse Practitioner Adult Health; Emergency Provider Emergency Medicine; PCP Family Medicine; Referring Provider Emergency Medicine; Visit Provider Nurse Practitioner Adult Health
DX: T83.511A Infection and inflammatory reaction due to indwelling urethral catheter, initial encounter (principal); G93.41 Metabolic encephalopathy; N30.00 Acute cystitis without hematuria; A04.72 Enterocolitis due to Clostridium difficile, not specified as recurrent; E87.1 Hypo-osmolality and hyponatremia; N40.1 Benign prostatic hyperplasia with lower urinary tract symptoms; R33.8 Other retention of urine; I48.0 Paroxysmal atrial fibrillation; I10 Essential (primary) hypertension; E78.5 Hyperlipidemia, unspecified; E11.9 Type 2 diabetes mellitus without complications; R53.1 Weakness; D64.9 Anemia, unspecified; K21.9 Gastro-esophageal reflux disease without esophagitis; Z87.891 Personal history of nicotine dependence; Z79.82 Long term (current) use of aspirin; Z20.822 Contact with and (suspected) exposure to COVID-19
CPT/HCPCS: 36415; 71045; 71260; 74177; 80048; 80053; 81001; 82550; 83036; 83605; 83690; 83735; 83880; 84145; 84484; 85025; 87040; 87077; 87086; 87493; 87635; 93005; 96361; 96365; 97161; 97165; 97530; 97535; 99284; 99285; C9803; A9270; J1650; J3475; Q9967

== ENCOUNTER → 2020-06-05 10:39 | Outpatient (CLI) | payer MEDICARE, SELFPAY ==
[2020-05-30 15:51] VITALS: BMI 33.5
[2020-06-05] MEDS: COVID-19 VACC #1, MRNA(MOD) 100 MCG/0.5 ML VIAL IM (10:57)
== END ==
PROVIDERS: PCP Family Medicine; Visit Provider Internal Medicine
DX: Z23 Encounter for immunization (principal)
CPT/HCPCS: 0011A; 91301

== ENCOUNTER → 2020-07-03 10:40 | Outpatient (CLI) | payer MEDICARE, SELFPAY ==
[2020-05-30 15:51] VITALS: BMI 33.5
[2020-07-03] MEDS: COVID-19 VACC #2, MRNA(MOD) 100 MCG/0.5 ML VIAL IM (10:55)
== END ==
PROVIDERS: PCP Family Medicine; Visit Provider Internal Medicine
DX: Z23 Encounter for immunization (principal)
CPT/HCPCS: 0012A; 91301

== ENCOUNTER → 2020-07-04 16:26 | Outpatient (CLI) | payer MEDICARE, SELFPAY ==
[2020-07-04 16:09] VITALS: BMI 33.5
== END ==
PROVIDERS: PCP Family Medicine; Visit Provider Specialist
DX: N39.0 Urinary tract infection, site not specified (principal); R33.9 Retention of urine, unspecified
CPT/HCPCS: 51702; 51798; 87086

== ENCOUNTER → 2020-07-18 12:51 | Outpatient (ROUT) | payer MEDICARE, SELFPAY ==
[2020-07-04 16:09] VITALS: BMI 33.5
[2020-07-18 14:28] LABS: Appearance Urine UA SL CLOUDY; Bilirubin Urine UA NEGATIVE (NEGATIVE); Color Urine UA YELLOW; Glucose Urine UA NEGATIVE (Negative); Ketones Urine UA NEGATIVE (NEGATIVE); Leukocyte Esterase Urine UA 2+ (NEGATIVE); Nitrite Urine UA NEGATIVE (Negative); Occult Blood Urine UA 3+ (Negative); Protein Urine UA 1+ (Negative); Urobilinogen Urine UA 0.2 E.U./dL (0.2)
[2020-07-18 14:33] LABS: RBC Urine 30-100/HPF (0-5/HPF); Squamous Epithelial Cell Urine 0-1 /HPF (0-5/HPF); WBC Urine 10-30/HPF (0-5/HPF)
[2020-07-18 14:34] LABS: Bacteria Urine Few (2-10); Culture Indicated Urine Specimen Cultured
== END ==
PROVIDERS: PCP Family Medicine; Visit Provider Specialist
DX: R41.0 Disorientation, unspecified (principal); R82.90 Unspecified abnormal findings in urine; M54.9 Dorsalgia, unspecified
CPT/HCPCS: 81001; 87077; 87086; 87185; 87186

== ENCOUNTER → 2020-08-29 11:03 | Outpatient (ROUT) | payer MEDICARE, SELFPAY ==
[2020-07-04 16:09] VITALS: BMI 33.5
[2020-08-29 11:28] LABS: Appearance Urine UA SL CLOUDY; Bilirubin Urine UA NEGATIVE (NEGATIVE); Color Urine UA YELLOW; Glucose Urine UA NEGATIVE (Negative); Ketones Urine UA NEGATIVE (NEGATIVE); Leukocyte Esterase Urine UA 2+ (NEGATIVE); Nitrite Urine UA NEGATIVE (Negative); Occult Blood Urine UA 2+ (Negative); Protein Urine UA 3+ (Negative); Urobilinogen Urine UA 0.2 E.U./dL (0.2)
[2020-08-29 11:44] LABS: Amorphous Sediment Urine 2+; Bacteria Urine Moderate (10-30); RBC Urine 5-10/HPF (0-5/HPF); WBC Urine >100/HPF (0-5/HPF)
[2020-08-29 11:45] LABS: Culture Indicated Urine Specimen Cultured
== END ==
PROVIDERS: PCP Family Medicine; Visit Provider Family Medicine
DX: N39.0 Urinary tract infection, site not specified (principal)
CPT/HCPCS: 81001; 87077; 87086; 87185; 87186

== ENCOUNTER → 2020-09-30 15:47 | Outpatient (ROUT) | payer MEDICARE, SELFPAY ==
[2020-07-04 16:09] VITALS: BMI 33.5
[2020-09-30 18:30] LABS: Appearance Urine UA CLEAR; Bilirubin Urine UA NEGATIVE (NEGATIVE); Color Urine UA YELLOW; Glucose Urine UA NEGATIVE (Negative); Ketones Urine UA NEGATIVE (NEGATIVE); Leukocyte Esterase Urine UA TRACE (NEGATIVE); Nitrite Urine UA NEGATIVE (Negative); Occult Blood Urine UA TRACE-INTACT (Negative); Protein Urine UA 2+ (Negative); Specific Gravity Urine UA 1.015 (1.000-1.035); Urobilinogen Urine UA 0.2 E.U./dL (0.2); pH Urine UA 5.5 (4.5-8.0)
[2020-09-30 18:32] LABS: Bacteria Urine Few (2-10); Culture Indicated Urine Specimen Cultured; RBC Urine 5-10/HPF (0-5/HPF); Renal Epithelial Cells Urine 0-1/HPF (0-1/HPF); Transitional Epi Cells Urine 0-1/HPF (0-5/HPF); WBC Urine 10-30/HPF (0-5/HPF)
== END ==
PROVIDERS: PCP Family Medicine; Visit Provider Family Medicine
DX: N39.0 Urinary tract infection, site not specified (principal)
CPT/HCPCS: 81001; 87077; 87086; 87186

== ENCOUNTER → 2020-10-01 16:24 | Outpatient (CLI) | payer MEDICARE, SELFPAY ==
[2020-07-04 16:09] VITALS: BMI 33.5
== END ==
PROVIDERS: PCP Family Medicine; Visit Provider Specialist
DX: N39.0 Urinary tract infection, site not specified (principal); R33.9 Retention of urine, unspecified; Z87.440 Personal history of urinary (tract) infections
CPT/HCPCS: 52000; 87086; 99215

== ENCOUNTER → 2020-10-21 11:07 | Outpatient (CLI) | payer MEDICARE, SELFPAY ==
[2020-07-04 16:09] VITALS: BMI 33.5
[2020-10-21 12:33] LABS: BUN Creatinine Ratio 17.9 (6-22); Blood Urea Nitrogen 19 mg/dL (9-20); Calcium 9.3 mg/dL (8.4-10.2); Carbon Dioxide 31 mmol/L (22-32); Chloride 100 mmol/L (98-107); Estimated Glomerular Filt Rate > 60.0 mL/min (>60); Glucose 142 mg/dL (80-110); HEMOLYSIS < 15 (0-50); Potassium 3.4 mmol/L (3.4-5.1); Sodium 140 mmol/L (137-145)
== END ==
PROVIDERS: PCP Family Medicine; Referring Provider Internal Medicine Cardiovascular Disease; Visit Provider Internal Medicine Cardiovascular Disease
DX: I50.30 Unspecified diastolic (congestive) heart failure (principal)
CPT/HCPCS: 36415; 80048

== ENCOUNTER → 2020-10-29 13:59 | Outpatient (CLI) | payer MEDICARE, SELFPAY ==
[2020-07-04 16:09] VITALS: BMI 33.5
[2020-10-29 15:03] LABS: BUN Creatinine Ratio 16.1 (6-22); Blood Urea Nitrogen 18 mg/dL (9-20); Calcium 9.9 mg/dL (8.4-10.2); Carbon Dioxide 29 mmol/L (22-32); Chloride 101 mmol/L (98-107); Estimated Glomerular Filt Rate > 60.0 mL/min (>60); Glucose 119 mg/dL (80-110); HEMOLYSIS < 15 (0-50); Potassium 4.1 mmol/L (3.4-5.1); Sodium 139 mmol/L (137-145)
== END ==
PROVIDERS: PCP Family Medicine; Referring Provider Internal Medicine Cardiovascular Disease; Visit Provider Internal Medicine Cardiovascular Disease
DX: I10 Essential (primary) hypertension (principal)
CPT/HCPCS: 36415; 80048

== ENCOUNTER 2020-11-01 09:07 | Inpatient (IN) | payer MEDICARE, SELFPAY ==
[2020-07-04 16:09] VITALS: BMI 33.5
[2020-11-01] VITALS (12 sets, daily range): BP systolic 150–190; BP diastolic 81–117; PULSE 70–97; RESP 15–26; TEMP 36.6–36.8; O2SAT 92–98; BMI 34.9
--- NOTE | 2020-11-01 09:28 | DI.RAD.S_ITS ---
PROCEDURE: XR HIP W PEL IF DONE LT 2V INDICATIONS: fall. left hip pain TECHNIQUE: AP pelvis with lateral view(s) of the left hip(s). COMPARISON: None. FINDINGS: Bones: Evaluation of the of the proximal left femur limited secondary to femur held in internal rotation in the AP view and nonvisualization of the femoral neck in the lateral view. No displaced fractures or dislocations. Pelvic ring appears intact. No suspicious bony lesions. Soft tissues: The visualized bowel gas pattern is normal. No suspicious soft tissue calcifications. IMPRESSION: Limited examination demonstrates no displaced fracture. Recommend either CT scan or MRI of the left hip for additional evaluation if there is continued clinical concern for fracture. Dictated by: Dionna Hutton MD, PhD on 11/01/2020 at 10:37 Approved by: Dionna Hutton MD, PhD on 11/01/2020 at 10:38
[2020-11-01] MEDS: OXYCODONE IR 5 MG TABLET PO (09:40)
--- NOTE | 2020-11-01 10:01 | ED.LOWEXIN ---
HPI - Extremity Injury (Lower) General Chief Complaint: Extremity Injury, Lower Stated Complaint: GLF, L hip pain Time Seen by Provider: 11/01/20 09:22 Source: patient, family (daughter) and EMS Mode of arrival: EMS Limitations: no limitations History of Present Illness HPI Narrative: This is an 84-year-old male who comes emergency department ground level fall last evening. Patient states he dropped a pill. He attempted to pick it up and fell on his left hip. He injury to his head he denies hitting his head. He denies any headache, neck pain or back pain. His pain is specifically in the left hip with movement or any attempt at weight-bearing. If he seated or not moving his pain is controllable. They did contact EMS last night for lift assist. When he attempted to get the car today they could not hardly even get his pants on an EMS was re-contacted. Patient is not currently anticoagulated. He does typically take an aspirin daily but stopped this several days ago in anticipation of having what sounds like a cystoscopy and possible attempt to reopen the urethra or prostate intervention with urology tomorrow. Patient was supposed to see urology outpatient today prior to his procedure. He denies any chest pain or shortness of breath. No nausea or vomiting. No loss of bowel or bladder control. No other GI or urinary symptoms. Has pain with movement of his leg but denies any new swelling, numbness, tingling or other weakness. Patient is allergic to clindamycin. Has known benign essential familial tremor, he takes chronic pain medication including hydrocodone, omeprazole, medication for hypertension and dyslipidemia but denies any known cardiac history. He has known history of diabetes as well as proximal atrial fibrillation. Patient used to take Eliquis but this was stopped secondary to fall risk. He is accompanied by his daughter who he states is his DPOA. Related Data Home Medications Medication Instructions Recorded Confirmed cholecalciferol (vitamin D3) 25 1,000 unit PO QAM #0 tab 06/30/19 11/01/20 mcg (1,000 unit) tablet (Vitamin D3) aspirin 325 mg tablet 325 mg PO QAM 04/08/20 11/01/20 ferrous sulfate 325 mg (65 mg 325 mg PO QAM 04/22/20 11/01/20 iron) capsule,extended release vitamin B complex 1 tab PO QAM 04/22/20 11/01/20 Previous Rx's Medication Instructions Recorded Disabled Parking Permit #1 ea 07/26/18 atorvastatin 10 mg tablet 10 mg PO BEDTIME #90 tab 05/14/20 omeprazole magnesium 20 mg 20 mg PO QAM #90 tab 05/14/20 tablet,delayed release (Prilosec OTC) potassium chloride 10 mEq 10 meq PO BID #270 cap 05/14/20 capsule,extended release finasteride 5 mg tablet 5 mg PO DAILY #90 tab 07/10/20 amlodipine 5 mg tablet 5 mg PO BID #90 tab 08/30/20 clotrimazole 1 % topical cream 1 applic TOPICAL BID #15 g 08/30/20 nystatin 100,000 unit/gram topical 1 applic TOPICAL BID #60 g 09/04/20 powder trazodone 100 mg tablet 100 mg PO BEDTIME #90 tab 09/10/20 hydrocodone 5 mg-acetaminophen 325 0.5 tab PO DAILY PRN #60 tab 09/27/20 mg tablet enalapril maleate 20 mg tablet See Rx Instructions .ROUTE 10/09/20 .COMPLEX #180 tab furosemide 20 mg tablet 20 mg PO DAILY #30 tab 10/11/20 Allergies Allergy/AdvReac Type Severity Reaction Status Date / Time clindamycin AdvReac Severe C.diff Verified 10/01/20 14:51 Colitis 04/11 Review of Systems Review of Systems ROS Unobtainable: All systems reviewed & are unremarkable except as noted in HPI and below Patient History Medical History Afib Anemia Arthritis Benign prostatic hyperplasia Chronic anemia Clostridioides difficile infection Diabetes 1.5, managed as type 2 Essential hypertension Frequent falls History of UTI LFT elevation Low back pain Mixed hyperlipidemia Osteoarthritis Paroxysmal atrial fibrillation Tremor Urinary retention Surgical History History of lobectomy of lung History of resection of rib Hx of bilateral cataract extraction Status post appendectomy Family History Father Hypertension Brother Atrial fibrillation Mother No significant medical problems Social History marital status: number of children: 3 household members: spouse and family occupational status: previously employed Smoking Status: Former smoker Tobacco: How many years used: 20 alcohol intake: never substance use type: does not use caffeine: Yes Smoking Status: Former smoker alcohol intake frequency: 0-2 drinks per day Substance Use Type: does not use Exam Narrative Exam Narrative: GEN: Patient appears in mild distress. HEAD: No evidence of trauma, no raccoon/Mann sign. NECK: Nontender, painless range of motion, trachea midline Negative Nexus criteria, there is no mid line tenderness, distracting injury, altered mental status, neuro deficit, recent EtOH. EYES: PERRLA, EOMI ENT: External inspection normal, trachea is midline, TM's are normal no hemotypanum, Nares are clear, no dental or oral injury, airway is normal and with normal occlusion, No bony tenderness RESP: Chest is nontender and has symmetric movement, no ecchymosis, breath sounds are normal no crackles, wheezes or rales CVS: Heart sounds are normal, no murmur noted, No JVD. ABG/GI: Nontender, soft, normal bowel sounds, no distention, no organomegaly, pelvic rock is negative NEURO: Oriented AOx3, neuro is grossly intact, sensation and motor is normal all 4 extremities moving, cranial nerves II through XII are intact, GCS is 15 PSYCH: Normal mood and affect SKIN: Intact, warm and dry, no crepitus and without decubitus BACK: No CVA tenderness, no vertebral tenderness, no step-off's, no crepitus EXT: Atraumatic, right hip is negative, left hip is positive for tenderness, no other bony tenderness throughout the left lower extremity. No pedal edema, normal color and temperature, normal range of motion of right leg and upper extremities. Patient has normal movement at the foot with dorsi and plantar flexion. Positive pulses bilaterally. Patient has normal sensation bilateral lower extremities. Initial Vital Signs Initial Vital Signs: Vital Signs Temperature 98.1 F 11/01/20 09:21 Pulse Rate 89 11/01/20 09:21 Respiratory Rate 16 11/01/20 09:21 Blood Pressure 183/117 H 11/01/20 09:21 Pulse Oximetry 98 11/01/20 09:21 Course Orders Ordered: Acetaminophen (Acetaminophen 325 Mg Tablet) 650 mg PO Q6HR PRN PRN Reason: Fever/Mild Pain (1-3) Hydrocodone Bitart/Acetaminophen (Hydrocodone/Acet 5/325 Tablet) 0.5 tab PO BEDTIME PRN PRN Reason: Pain, Moderate (4-6) Last Admin: 11/01/20 20:09 Dose: 0.5 tab Documented by: NAVI Amlodipine Besylate (Amlodipine 5 Mg Tablet) 5 mg PO BID [facility] Atorvastatin Calcium (Atorvastatin 20 Mg Tablet) 10 mg PO BEDTIME [facility] Clotrimazole (Clotrimazole 1% Crm 30 Gm) 1 applic TOP BID [facility] Dextrose (Dextrose 50 % In Water 25 Gm/50 Ml Syringe) 25 gm IV PRN PRN PRN Reason: Hypoglycemia Enalapril Maleate (Enalapril 20 Mg Tablet) 20 mg PO BID [facility] Ferrous Sulfate (Ferrous Sulfate 325 Mg Tablet) 325 mg PO DAILY ROMELIA Finasteride (Finasteride 5 Mg Tablet) 5 mg PO DAILY [facility] Sodium Chloride (Normal Saline 0.9%) 1,000 mls @ 150 mls/hr IV CONT ROMELIA Last Admin: 11/01/20 18:29 Dose: 150 mls/hr Documented by: Infusion: 11/01/20 17:44 Dose: 150 mls/hr Documented by: Infusion: 11/01/20 14:18 Dose: 150 mls/hr Documented by: Admin: 11/01/20 11:04 Dose: 150 mls/hr Documented by: ATAYLSUAD Insulin Human Lispro (Insulin Lispro 100 Unit/Ml 3ml Vial) 0 unit SUBCUT ACHS ROMELIA; Protocol Morphine Sulfate (Morphine 2 Mg/Ml Inj) 2 mg IV Q4HR PRN PRN Reason: Pain, Moderate (4-6) Naloxone HCl (Naloxone 0.4 Mg/Ml Vial) 0.2 mg IV Q2MIN PRN PRN Reason: Opiate Reversal Nystatin (Nystatin Powder 15gm) 1 applic TOP BID [facility] Ondansetron HCl (Ondansetron 4 Mg/2 Ml Inj) 4 mg IV Q8HR PRN PRN Reason: Nausea And Vomiting Discontinued Medications Morphine Sulfate (Morphine 2 Mg/Ml Inj) 2 mg IV Q4HR PRN PRN Reason: pain Last Admin: 11/01/20 13:34 Dose: 2 mg Documented by: MINDI Ondansetron HCl (Ondansetron 4 Mg/2 Ml Inj) 4 mg IV NOW ONE Stop: 11/01/20 10:34 Last Admin: 11/01/20 11:35 Dose: Not Given Documented by: GOYO Oxycodone HCl (Oxycodone Ir 5 Mg Tablet) 5 mg PO NOW ONE Stop: 11/01/20 09:33 Last Admin: 11/01/20 09:40 Dose: 5 mg Documented by: ASHELY Consultations Consultation #1: Dr. Choudhury, feels that it is likely rotational causing appearance and he would call as negative. Similar to rads. Plan for CT LE and if negative MRI. Dr. Choudhury, recontacted and has subcapital fracture on CT imaging. Plan for admission to medicine for medical management and ortho to consult. Consultation #2: Dr. Turner, accepts for admission. Vital Signs Vital signs: Vital Signs - 8 hr 11/01/20 09:21 11/01/20 09:30 11/01/20 10:03 Temperature 98.1 F Pulse Rate 89 81 83 Respiratory Rate 16 16 16 Blood Pressure 183/117 H 170/107 H 176/108 H Pulse Oximetry 98 95 95 11/01/20 10:30 11/01/20 11:00 11/01/20 11:30 Temperature Pulse Rate 92 H 77 83 Respiratory Rate 15 16 16 Blood Pressure 173/81 H 190/88 H 183/90 H Pulse Oximetry 95 94 94 MDM - Extremity Injury (Lower) Lab Data Result diagrams: 11/01/20 10:46 11/01/20 10:46 Labs: Lab Results 11/01/20 11/01/20 11/01/20 Range/Units 09:36 10:46 10:46 WBC 13.2 H (4.5-11.0) X10^3/uL RBC 4.73 (4.5-5.9) X10^6/uL Hgb 13.9 (13.5-17.5) g/dL Hct 42.5 (41-53) % MCV 89.8 (80-100) fL MCH 29.3 (26-34) PG MCHC 32.7 (30-36) % RDW 13.9 (11.6-14.8) % Plt Count 214 (150-400) X10^3/uL Neut % (Auto) 75.4 H (50-75) % Lymph % (Auto) 9.3 L (25-40) % [place] % (Auto) 9.5 (3-14) % Eos % (Auto) 5.0 H (2-4) % Baso % (Auto) 0.8 (0-2) % Neut # (Auto) 13419 H (1458-4842) /uL Lymph # (Auto) 1200 (4536-1204) /uL [place] # (Auto) 1300 H (0-900) /uL Eos # (Auto) 700 H (0-450) /uL Baso # (Auto) 100 (0-100) /uL PT (10.1-12.7) SECONDS INR (0.9-1.3) APTT (26.4-36.2) SECONDS Sodium 136 L (137-145) mmol/L Potassium 4.5 (3.4-5.1) mmol/L Chloride 101 (98-107) mmol/L Carbon Dioxide 29 (22-32) mmol/L BUN 21 H (9-20) mg/dL Creatinine 0.90 (0.66-1.25) mg/dL Estimated GFR > 60.0 (>60) mL/min BUN/Creatinine Ratio 23.3 H (6-22) Glucose 147 H (80-110) mg/dL Hemoglobin A1c (4.0-6.0) % Calcium 9.6 (8.4-10.2) mg/dL SARS-CoV-2 (PCR) Negative (Negative) 11/01/20 11/01/20 11/01/20 Range/Units 10:51 11:37 11:37 WBC (4.5-11.0) X10^3/uL RBC (4.5-5.9) X10^6/uL Hgb (13.5-17.5) g/dL Hct (41-53) % MCV (80-100) fL MCH (26-34) PG MCHC (30-36) % RDW (11.6-14.8) % Plt Count (150-400) X10^3/uL Neut % (Auto) (50-75) % Lymph % (Auto) (25-40) % [place] % (Auto) (3-14) % Eos % (Auto) (2-4) % Baso % (Auto) (0-2) % Neut # (Auto) (8146-6613) /uL Lymph # (Auto) (4082-0965) /uL [place] # (Auto) (0-900) /uL Eos # (Auto) (0-450) /uL Baso # (Auto) (0-100) /uL PT 11.6 (10.1-12.7) SECONDS INR 1.0 (0.9-1.3) APTT 35 (26.4-36.2) SECONDS Sodium (137-145) mmol/L Potassium (3.4-5.1) mmol/L Chloride (98-107) mmol/L Carbon Dioxide (22-32) mmol/L BUN (9-20) mg/dL Creatinine (0.66-1.25) mg/dL Estimated GFR (>60) mL/min BUN/Creatinine Ratio (6-22) Glucose (80-110) mg/dL Hemoglobin A1c 5.8 (4.0-6.0) % Calcium (8.4-10.2) mg/dL SARS-CoV-2 (PCR) (Negative) Imaging Data Extremity x-ray #1: Radiologist's Impression: [address] [id number] ReportSigned Patient: Gallo Moore MMR#: [id number]: 5Acct:[id number]/Sex: 84 / MDate of Service: 11/01/20Loc: EDAccession Number: [id number] Procedure: XR hip w pel if done LT 2V Ordering Provider: Dominga Andino D.O. PROCEDURE: XR HIP W PEL IF DONE LT 2V INDICATIONS: fall. left hip pain TECHNIQUE: AP pelvis with lateral view(s) of the left hip(s). COMPARISON: None. FINDINGS: Bones: Evaluation of the of the proximal left femur limited secondary to femur held in internal rotation in the AP view and nonvisualization of the femoral neck in the lateral view. No displaced fractures or dislocations. Pelvic ring appears intact. No suspicious bony lesions. Soft tissues: The visualized bowel gas pattern is normal. No suspicious soft tissue calcifications. IMPRESSION: Limited examination demonstrates no displaced fracture. Recommend either CT scan or MRI of the left hip for additional evaluation if there is continued clinical concern for fracture. Dictated by: Dionna Hutton MD, PhD on 11/01/2020 at 10:37 Approved by: Dionna Hutton MD, PhD on 11/01/2020 at 10:38 CT LE: Radiologist's Impression: [place] [id number] [place] [id number] Scan ReportSigned Patient: Gallo Moore MMR#: [id number]: 5Acct:[id number]/Sex: 84 / MDate of Service: 11/01/20Loc: EDAccession Number: [id number] Procedure: CT LE LT wo con Ordering Provider: Dominga Andino D.O. PROCEDURE: CT LE LT W CON INDICATIONS: left hip pain, concern for fracture. TECHNIQUE: Noncontrast 3 mm axial sections acquired through the bony pelvis. Additional 3 mm axial sections acquired through the symptomatic hip joint, with coronal and sagittal reformats. COMPARISON: [facility], CR, XR HIP W PEL IF DONE LT 2V, 11/01/2020, 10:06. FINDINGS: Image quality: Excellent. Bones: Right femoral pin fixation is present. Hardware is intact with good anatomic alignment. There is a nondisplaced left subcapital femoral fracture, extending to the proximal femoral neck remaining osseous structures appear intact. Soft tissues: Visualized portions of the lower abdomen pelvis demonstrate colonic diverticula. No gross obstruction. Bladder is collapsed and limited evaluation secondary to Thorne catheter. Fat containing inguinal hernias are present. IMPRESSION: 1. Nondisplaced left subcapital femoral fracture extending to the proximal femoral neck. Dictated by: Madelyn Mcintosh M.D. on 11/01/2020 at 11:56 Approved by: Madelyn Mcintosh M.D. on 11/01/2020 at 12:00 ECG Data Attestation: I personally reviewed and interpreted this ECG as follows: Interpretation: AFib, rate of 72 QRS of 90 and QTC of 438. No acute ST changes appreciated. MDM Narrative Medical decision making narrative: This is a 84-year-old gentleman with mechanical ground level fall last night. Patient has left hip pain and is painful even to try to lift his hip. X-ray was initially concerning for fracture but read as negative. CT was obtained and is positive for subcapital fracture. Patient denies any head injury, neck pain without loss of consciousness or headache. He does take an aspirin daily but has been off this for about 2 days in anticipation of urologic procedure. Patient's labs do not show any major new abnormalities. Spoke with orthopedic surgery who is happy to see the patient. Spoke with the hospitalist Dr. turner who accepts for admission. Unknown for current OR time. Patient is NPO in the department. Discharge Plan Departure Patient Disposition: Admitted As Inpatient Clinical Impression: Fall from ground level, Acute pain of left hip, Closed subcapital fracture of femur Admit Date/Time: 11/01/20 13:56 Admit Provider: Lainey Turner
[2020-11-01 10:37] LABS: COVID19 - ADMIT (NP swab/PCR) Negative (Negative)
[2020-11-01 10:56] LABS: Add Manual Diff / Slide Review NO; Basophils Absolute Auto 100 /uL (0-100); Basophils Percent Auto 0.8 % (0-2); Eosinophils Absolute Auto 700 /uL (0-450); Hematocrit 42.5 % (41-53); Hemoglobin 13.9 g/dL (13.5-17.5); Lymphocytes Absolute Auto 1200 /uL (1100-4500); Lymphocytes Percent Auto 9.3 % (25-40); Mean Corpuscular HGB Conc 32.7 % (30-36); Mean Corpuscular Hemoglobin 29.3 PG (26-34); Mean Corpuscular Volume 89.8 fL (80-100); Monocytes Absolute Auto 1300 /uL (0-900); Monocytes Percent Auto 9.5 % (3-14); Neutrophils Absolute Auto 10000 /uL (1500-7000); Neutrophils Percent Auto 75.4 % (50-75); Platelet Count 214 X10^3/uL (150-400); Red Blood Cell Count 4.73 X10^6/uL (4.5-5.9); Red Cell Distribution Width 13.9 % (11.6-14.8); White Blood Cell Count 13.2 X10^3/uL (4.5-11.0)
[2020-11-01] MEDS: SODIUM CHLORIDE 0.9% 1,000 ML 150 ML IV ×2 (11:04→18:29)
[2020-11-01 11:07] LABS: BUN Creatinine Ratio 23.3 (6-22); Blood Urea Nitrogen 21 mg/dL (9-20); Calcium 9.6 mg/dL (8.4-10.2); Carbon Dioxide 29 mmol/L (22-32); Chloride 101 mmol/L (98-107); Estimated Glomerular Filt Rate > 60.0 mL/min (>60); Glucose 147 mg/dL (80-110); HEMOLYSIS 87 (0-50); Potassium 4.5 mmol/L (3.4-5.1); Sodium 136 mmol/L (137-145)
--- NOTE | 2020-11-01 11:13 | DI.CT.S_ITS ---
PROCEDURE: CT LE LT W CON INDICATIONS: left hip pain, concern for fracture. TECHNIQUE: Noncontrast 3 mm axial sections acquired through the bony pelvis. Additional 3 mm axial sections acquired through the symptomatic hip joint, with coronal and sagittal reformats. COMPARISON: [facility], CR, XR HIP W PEL IF DONE LT 2V, 11/01/2020, 10:06. FINDINGS: Image quality: Excellent. Bones: Right femoral pin fixation is present. Hardware is intact with good anatomic alignment. There is a nondisplaced left subcapital femoral fracture, extending to the proximal femoral neck remaining osseous structures appear intact. Soft tissues: Visualized portions of the lower abdomen pelvis demonstrate colonic diverticula. No gross obstruction. Bladder is collapsed and limited evaluation secondary to Thorne catheter. Fat containing inguinal hernias are present. IMPRESSION: 1. Nondisplaced left subcapital femoral fracture extending to the proximal femoral neck. Dictated by: Madelyn Mcintosh M.D. on 11/01/2020 at 11:56 Approved by: Madelyn Mcintosh M.D. on 11/01/2020 at 12:00
[2020-11-01 11:53] LABS: Prothrombin Time 11.6 SECONDS (10.1-12.7)
[2020-11-01 12:05] LABS: PTT Partial Thromboplastin Tim 35 SECONDS (26.4-36.2)
[2020-11-01] MEDS: MORPHINE 2 MG/ML INJ IV ×2 (13:34→21:05)
--- NOTE | 2020-11-01 14:44 | PC.NURSE ---
Day shift: Pt on unit from ED at approx 1440. He is A&Ox4. He denies any pain. Per ED RN he was given IV morphine in ED. BP is elevated. RA 97%. HR WNL. Hx Afib. Per ED report Pt has been falling at home. No MD orders at this time. IV fluids from ED are set TKO at this time. Pt also NPO per this global technical writer until orders placed by MD. Family in room for support.
--- NOTE | 2020-11-01 17:44 | P.HP_ITS ---
History of Present Illness History of Present Illness Date Patient Seen: 11/01/20 Time Patient Seen: 17:44 Date of Onset of Symptoms: 10/31/20 Chief complaint: GLF, L hip pain Narrative: Patient is an 84-year-old male who presented to the emergency department after ground level fall last evening. Patient states he dropped a pill. He attempted to pick it up and fell on his left hip. Denies syncope. His pain is specifically in the left hip with movement or any attempt at weight- bearing. If he seated or not moving his pain is controllable. Patient is not currently anticoagulated. He does typically take an aspirin daily but stopped this several days ago in anticipation of having what sounds like a TURP with urology on Wednesday. Of note patient had a ground level fall about 4 years ago onto his right hip and sustained a nondisplaced femoral neck fracture which was treated with cannulated screws. He has done well from this. Patient History Medical History Afib Anemia Arthritis Benign prostatic hyperplasia Chronic anemia Clostridioides difficile infection Diabetes 1.5, managed as type 2 Essential hypertension Frequent falls History of UTI LFT elevation Low back pain Mixed hyperlipidemia Osteoarthritis Paroxysmal atrial fibrillation Tremor Urinary retention Surgical History History of lobectomy of lung History of resection of rib Hx of bilateral cataract extraction Status post appendectomy Family & Social History Family History Father Hypertension Brother Atrial fibrillation Mother No significant medical problems Social History: household members spouse,family Prior Living Arrangements House Safety & Behavioral: Feels Safe in Current Yes Environment Been Physically Hurt or No Threatened By a Person Suicidal Ideation Description None Suicide Plan Description No Plan Tobacco & Substance use: Smoking Status Former smoker alcohol intake never alcohol intake frequency 0-2 drinks per day Substance Use Type does not use Meds Home Medications and Allergies Home Medications Medication Instructions Recorded Confirmed Type Disabled Parking Permit #1 ea 07/26/18 10/07/20 Rx cholecalciferol (vitamin D3) 25 1,000 unit PO QAM #0 tab 06/30/19 11/01/20 History mcg (1,000 unit) tablet (Vitamin D3) aspirin 325 mg tablet 325 mg PO QAM 04/08/20 11/01/20 History ferrous sulfate 325 mg (65 mg 325 mg PO QAM 04/22/20 11/01/20 History iron) capsule,extended release vitamin B complex 1 tab PO QAM 04/22/20 11/01/20 History atorvastatin 10 mg tablet 10 mg PO BEDTIME #90 tab 05/14/20 11/01/20 Rx omeprazole magnesium 20 mg 20 mg PO QAM #90 tab 05/14/20 11/01/20 Rx tablet,delayed release (Prilosec OTC) potassium chloride 10 mEq 10 meq PO BID #270 cap 05/14/20 11/01/20 Rx capsule,extended release finasteride 5 mg tablet 5 mg PO DAILY #90 tab 07/10/20 11/01/20 Rx amlodipine 5 mg tablet 5 mg PO BID #90 tab 08/30/20 11/01/20 Rx clotrimazole 1 % topical cream 1 applic TOPICAL BID #15 g 08/30/20 11/01/20 Rx nystatin 100,000 unit/gram topical 1 applic TOPICAL BID #60 g 09/04/20 11/01/20 Rx powder trazodone 100 mg tablet 100 mg PO BEDTIME #90 tab 09/10/20 11/01/20 Rx hydrocodone 5 mg-acetaminophen 325 0.5 tab PO DAILY PRN #60 tab 09/27/20 11/01/20 Rx mg tablet enalapril maleate 20 mg tablet See Rx Instructions .ROUTE 10/09/20 11/01/20 Rx .COMPLEX #180 tab furosemide 20 mg tablet 20 mg PO DAILY #30 tab 10/11/20 11/01/20 Rx Allergies Allergy/AdvReac Type Severity Reaction Status Date / Time clindamycin AdvReac Severe C.diff Verified 10/01/20 14:51 Colitis 04/11 Exam Vital Signs (past 8 hours): - 11/01/20 10:03 11/01/20 10:30 11/01/20 11:00 Temperature Pulse Rate 83 92 H 77 Respiratory Rate 16 15 16 Blood Pressure 176/108 H 173/81 H 190/88 H Pulse Oximetry 95 95 94 11/01/20 11:30 11/01/20 14:28 11/01/20 15:06 Temperature 98.2 F Pulse Rate 83 70 80 Respiratory Rate 16 20 19 Blood Pressure 183/90 H 151/102 H Pulse Oximetry 94 98 94 Oxygen Delivery Method Room Air Narrative Exam Narrative: Neurovascular intact in left lower extremity. No skin breaks or rashes. No pain at rest. Objective Imaging CT scan - pelvis: My impression: Nondisplaced subcapital femoral neck fracture of the left hip. Labs Result Diagrams: 11/01/20 10:46 11/01/20 10:46 Labs: Laboratory Results - last 24 hr 11/01/20 11/01/20 11/01/20 09:36 10:46 10:46 WBC 13.2 H RBC 4.73 Hgb 13.9 Hct 42.5 MCV 89.8 MCH 29.3 MCHC 32.7 RDW 13.9 Plt Count 214 Neut % (Auto) 75.4 H Lymph % (Auto) 9.3 L [place] % (Auto) 9.5 Eos % (Auto) 5.0 H Baso % (Auto) 0.8 Neut # (Auto) 46486 H Lymph # (Auto) 1200 [place] # (Auto) 1300 H Eos # (Auto) 700 H Baso # (Auto) 100 PT INR APTT Sodium 136 L Potassium 4.5 Chloride 101 Carbon Dioxide 29 BUN 21 H Creatinine 0.90 Estimated GFR > 60.0 BUN/Creatinine Ratio 23.3 H Glucose 147 H Calcium 9.6 SARS-CoV-2 (PCR) Negative 11/01/20 11/01/20 11:37 11:37 WBC RBC Hgb Hct MCV MCH MCHC RDW Plt Count Neut % (Auto) Lymph % (Auto) [place] % (Auto) Eos % (Auto) Baso % (Auto) Neut # (Auto) Lymph # (Auto) [place] # (Auto) Eos # (Auto) Baso # (Auto) PT 11.6 INR 1.0 APTT 35 Sodium Potassium Chloride Carbon Dioxide BUN Creatinine Estimated GFR BUN/Creatinine Ratio Glucose Calcium SARS-CoV-2 (PCR) Assessment & Plan Assessment & Plan narrative: Patient is a 84-year-old male who had a mechanical 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 He fell onto his left side had immediate onset of pain. He has been unable weightbear since that time. He is brought to the ER imaging was obtained which demonstrates a nondisplaced subcapital femoral neck fracture. Patient is normally anticoagulated but he has been off of his aspirin for the last several days in anticipation of a TURP procedure on Wednesday. Plan will be to taken to the OR tomorrow morning for cannulated screw fixation of his left subcapital femoral neck fracture, possible hemiarthroplasty. -nonweightbearing left lower extremity -OCTOR tomorrow morning (9am) -NPO after midnight Time Spent With Patient Time with patient: 15-24 minutes
[2020-11-01 18:12] LABS: Alanine Aminotransferase 40 IU/L (<50); Albumin 4.1 g/dL (3.5-5.0); Albumin Globulin Ratio 1.3 (1.0-2.8); Alkaline Phosphatase 127 U/L (38-126); Aspartate Aminotransferase 54 IU/L (17-59); Bilirubin Total 1.4 mg/dL (0.2-1.3); Bilirubin Unconjugated 1.1 mg/dL (0.0-1.1); Globulin 3.2 g/dL (1.7-4.1); HEMOLYSIS < 15 (0-50); Total Protein 7.3 g/dL (6.3-8.2)
--- NOTE | 2020-11-01 19:00 | P.HP_ITS ---
History of Present Illness History of Present Illness Date Patient Seen: 11/01/20 Time Patient Seen: 16:45 Chief complaint: GLF, L hip pain Narrative: Gallo Moore is an 84-year-old male with hypertension, hyperlipidemia, atrial fibrillation formerly anticoagulated on apixaban, and prediabetic presented to the emergency department ground level fall last evening. Patient states he dropped a pill and while he attempted to pick it up, stated he lost his balance and fell on his left hip. He denies hitting his head. He denies any headache, neck pain or back pain. His pain is specifically in the left hip with movement or any attempt at weight-bearing. If he is inactive his pain is controllable. He denies any chest pain or shortness of breath. No nausea or vo miting. No loss of bowel or bladder control. No other GI or urinary symptoms. Has pain with movement of his leg but denies any new swelling, numbness, tingling or other weakness. Has known bilateral benign essential familial tremor, he takes chronic pain medication including hydrocodone, omeprazole, medication for hypertension and dyslipidemia but denies any known cardiac history. He has known history of diabetes as well as proximal atrial fibrillation. Patient used to take Eliquis but this was stopped secondary to fall risk. Family did contact EMS last night for lift assist. When he attempted to get the car today they could not hardly even get his pants on and EMS was re-contacted. Patient is not currently anticoagulated. He does typically take an aspirin daily but stopped this several days ago in anticipation of having a TURP by Urology tomorrow. Patient was supposed to see urology outpatient today prior to his procedure. He has been self catheterizing for the past 6 days due to urinary retention. Patient saw Dr. Baumann his educational audiologist on October 15 and was cleared for surgery for his TURP. He is accompanied by his daughter who he states is his DPOA. In the emergency department they did a CT of the lower extremities indicating ?Nondisplaced left subcapital femoral fracture extending to the proximal femoral neck.Patient is afebrile, blood pressure 151/102, heart rate 80, respiratory rate 19, oxygen saturation of 94% on room air, he weighs 103.2 kg with a BMI of 34.9. WBC is 13.2 likely due to injury stress, is a mild left shift of 10,000, platelet count is 214, sodium 136, potassium 4.5, chloride 101, bicarb 29, BUN 21, creatinine 0.9, with a GFR greater than 60, glucose is 147, total bilirubin is mildly elevated at 1.4, alk-phos is 127, patient COVID-19 PCR is negative. Hemoglobin A1c and patient's blood type are currently pending. Patient History Medical History Afib Anemia Arthritis Benign prostatic hyperplasia Chronic anemia Clostridioides difficile infection Diabetes 1.5, managed as type 2 Essential hypertension Frequent falls History of UTI LFT elevation Low back pain Mixed hyperlipidemia Osteoarthritis Paroxysmal atrial fibrillation Tremor Urinary retention Surgical History History of lobectomy of lung History of resection of rib Hx of bilateral cataract extraction Status post appendectomy Family & Social History Family History Father Hypertension Brother Atrial fibrillation Mother No significant medical problems Social History: household members spouse,family Prior Living Arrangements House Safety & Behavioral: Feels Safe in Current Yes Environment Been Physically Hurt or No Threatened By a Person Suicidal Ideation Description None Suicide Plan Description No Plan Tobacco & Substance use: Smoking Status Former smoker alcohol intake never alcohol intake frequency 0-2 drinks per day Substance Use Type does not use Meds Home Medications and Allergies Home Medications Medication Instructions Recorded Confirmed Type Disabled Parking Permit #1 ea 07/26/18 10/07/20 Rx cholecalciferol (vitamin D3) 25 1,000 unit PO QAM #0 tab 06/30/19 11/01/20 History mcg (1,000 unit) tablet (Vitamin D3) aspirin 325 mg tablet 325 mg PO QAM 04/08/20 11/01/20 History ferrous sulfate 325 mg (65 mg 325 mg PO QAM 04/22/20 11/01/20 History iron) capsule,extended release vitamin B complex 1 tab PO QAM 04/22/20 11/01/20 History atorvastatin 10 mg tablet 10 mg PO BEDTIME #90 tab 05/14/20 11/01/20 Rx omeprazole magnesium 20 mg 20 mg PO QAM #90 tab 05/14/20 11/01/20 Rx tablet,delayed release (Prilosec OTC) potassium chloride 10 mEq 10 meq PO BID #270 cap 05/14/20 11/01/20 Rx capsule,extended release finasteride 5 mg tablet 5 mg PO DAILY #90 tab 07/10/20 11/01/20 Rx amlodipine 5 mg tablet 5 mg PO BID #90 tab 08/30/20 11/01/20 Rx clotrimazole 1 % topical cream 1 applic TOPICAL BID #15 g 08/30/20 11/01/20 Rx nystatin 100,000 unit/gram topical 1 applic TOPICAL BID #60 g 09/04/20 11/01/20 Rx powder trazodone 100 mg tablet 100 mg PO BEDTIME #90 tab 09/10/20 11/01/20 Rx hydrocodone 5 mg-acetaminophen 325 0.5 tab PO DAILY PRN #60 tab 09/27/20 11/01/20 Rx mg tablet enalapril maleate 20 mg tablet See Rx Instructions .ROUTE 10/09/20 11/01/20 Rx .COMPLEX #180 tab furosemide 20 mg tablet 20 mg PO DAILY #30 tab 10/11/20 11/01/20 Rx Allergies Allergy/AdvReac Type Severity Reaction Status Date / Time clindamycin AdvReac Severe C.diff Verified 10/01/20 14:51 Colitis 04/11 Review of Systems Review of Systems ROS: Yes All systems reviewed with the patient and are negative except as otherw ise documented Exam Vital Signs (past 8 hours): - 11/01/20 11:30 11/01/20 14:28 11/01/20 15:06 Temperature 98.2 F Pulse Rate 83 70 80 Respiratory Rate 16 20 19 Blood Pressure 183/90 H 151/102 H Pulse Oximetry 94 98 94 Oxygen Delivery Method Room Air Narrative Exam Narrative: Gen: Alert, oriented, obese 84 y.o. male, appears comfortable except when moving HEENT: normocephalic, atraumatic, conjunctiva clear, sclera non-icteric, oral mucosa pink and moist Neck: supple, full ROM Resp: Lungs CTA, non-labored breathing CV: irregularly irregular, no murmur or rubs Abd: soft, non-tender, normoactive BTs Skin: no lesions or rashes, dry and intact Neuro: Alert and oriented X 4 w/no focal deficits Extremities: moves all 4 extremities, is not ambulatory on hip precautions, negative Shayan?s sign Psyche: normal mood and affect. Objective Labs Result Diagrams: 11/01/20 10:46 11/01/20 10:46 Labs: Laboratory Results - last 24 hr 11/01/20 11/01/20 11/01/20 09:36 10:46 10:46 WBC 13.2 H RBC 4.73 Hgb 13.9 Hct 42.5 MCV 89.8 MCH 29.3 MCHC 32.7 RDW 13.9 Plt Count 214 Neut % (Auto) 75.4 H Lymph % (Auto) 9.3 L Calloway % (Auto) 9.5 Eos % (Auto) 5.0 H Baso % (Auto) 0.8 Neut # (Auto) 82722 H Lymph # (Auto) 1200 Calloway # (Auto) 1300 H Eos # (Auto) 700 H Baso # (Auto) 100 PT INR APTT Sodium 136 L Potassium 4.5 Chloride 101 Carbon Dioxide 29 BUN 21 H Creatinine 0.90 Estimated GFR > 60.0 BUN/Creatinine Ratio 23.3 H Glucose 147 H Calcium 9.6 Total Bilirubin Conjugated Bilirubin Unconjugated Bilirubin AST ALT Alkaline Phosphatase Total Protein Albumin Globulin Albumin/Globulin Ratio SARS-CoV-2 (PCR) Negative 11/01/20 11/01/20 11/01/20 11:37 11:37 17:31 WBC RBC Hgb Hct MCV MCH MCHC RDW Plt Count Neut % (Auto) Lymph % (Auto) Calloway % (Auto) Eos % (Auto) Baso % (Auto) Neut # (Auto) Lymph # (Auto) Calloway # (Auto) Eos # (Auto) Baso # (Auto) PT 11.6 INR 1.0 APTT 35 Sodium Potassium Chloride Carbon Dioxide BUN Creatinine Estimated GFR BUN/Creatinine Ratio Glucose Calcium Total Bilirubin 1.4 H Conjugated Bilirubin 0.0 Unconjugated Bilirubin 1.1 AST 54 ALT 40 Alkaline Phosphatase 127 H Total Protein 7.3 Albumin 4.1 Globulin 3.2 Albumin/Globulin Ratio 1.3 SARS-CoV-2 (PCR) Assessment & Plan Assessment & Plan narrative: Gallo Moore is admitted to the inpatient service for surgical management and repair of a left hip fracture. 1. Left hip fracture, acute, present on admission * Dr. Choudhury, orthopedic surgery will be taking the patient into surgery tomorrow * He is NPO after midnight, carb controlled diet prior to * Pain control with Tylenol and IV morphine for pain * Aspirin is held 2. Diabetes type 2 versus prediabetes last A1c was 6.5 * A1c is pending and he is placed on a low-dose insulin correctional scale with glucose checks q.6 hours after midnight * He will be able to have dinner tonight and as stated above NPO after midnight 3. Essential hypertension fair control * Essential hypertension * now mildly hypertensive * Continue home dose of enalapril and amlodipine 4. History of paroxysmal atrial fibrillation * previously anticoagulated on apixaban which was stopped due to frequent falls * patient currently in atrial fibrillation on telemetry but not requiring rate control * Patient cleared for surgery by , his educational audiologist in anticipation of TURP which also applies to the surgery. 5.BPH with acute urinary retention * Currently has a Thorne * Patient's family I believe has notified Urology that the patient is currently in house for a different problem and his TURP will have to be rescheduled. VTE Prophylaxis: Wells risk score 0 X Bilateral SCDs Patient is admitted to the inpatient service due to the severity of disease, risks of further disease progression and this stay is expected to exceed 2 midnights. FEN: IV fluids: NS at 100 ml/hour X 2 liters, diet: carb control diet, then NPO after midnight, labs: CBC, C/BMP, liver enzymes, Mag, PT/INR Code status: Full code as discussed with the patient who identifies Gayatri Kirby, his daughter as his surrogate and POA. Anticipated dispo: unknown at this time I have utilized all available immediate resources (patient, family member, internal and external medical records) to obtain, update, or review the patient?s current home medications. COVID-19 COVID-19 status: Negative Result date/Date tested (Pos, Neg/Pending): 11/01/20 Scores Wells' Criteria for PE Clinical signs and symptoms of DVT: No PE is #1 Dx or equally likely: No Heart rate > 100: No Immobilization at least 3 days or surg in previous 4 weeks: No History of PE or DVT: No Hemoptysis: No Malignancy w/Treatment within 6 months or palliative: No Wells' PE Score total: 0
[2020-11-01 19:28] LABS: Hemoglobin A1C% w Est Avg Glu 5.8 % (4.0-6.0)
[2020-11-01] MEDS: HYDROCODONE/ACET 5/325 TABLET 0.5 TAB PO (20:09)
[2020-11-01] MEDS: ATORVASTATIN 20 MG TABLET 10 MG PO (21:06)
[2020-11-01] MEDS: ENALAPRIL 20 MG TABLET PO (21:06)
[2020-11-01] MEDS: AMLODIPINE 5 MG TABLET PO (21:06)
[2020-11-01] MEDS: CLOTRIMAZOLE 1% CRM 30 GM 1 APPLIC TOP (21:16)
[2020-11-01] MEDS: NYSTATIN POWDER 15GM 1 APPLIC TOP (21:17)
[2020-11-02] VITALS (18 sets, daily range): BP systolic 147–181; BP diastolic 68–114; PULSE 77–105; RESP 16–29; TEMP 36.6–37.8; O2SAT 91–100; BMI 35.0
[2020-11-02] MEDS: METOPROLOL TARTRATE 5 MG/5 ML INJ IV ×2 (00:10→02:18)
[2020-11-02] MEDS: SODIUM CHLORIDE 0.9% 1,000 ML 150 ML IV ×3 (00:14→21:12)
[2020-11-02] MEDS: MORPHINE 2 MG/ML INJ IV ×2 (02:01→17:09)
[2020-11-02 05:42] LABS: Add Manual Diff / Slide Review NO; Basophils Absolute Auto 100 /uL (0-100); Basophils Percent Auto 0.6 % (0-2); Eosinophils Absolute Auto 700 /uL (0-450); Eosinophils Percent Auto 4.5 % (2-4); Hematocrit 41.2 % (41-53); Hemoglobin 13.7 g/dL (13.5-17.5); Lymphocytes Absolute Auto 900 /uL (1100-4500); Lymphocytes Percent Auto 5.6 % (25-40); Mean Corpuscular HGB Conc 33.2 % (30-36); Mean Corpuscular Hemoglobin 30.2 PG (26-34); Monocytes Absolute Auto 1100 /uL (0-900); Neutrophils Absolute Auto 13000 /uL (1500-7000); Neutrophils Percent Auto 82.3 % (50-75); Platelet Count 187 X10^3/uL (150-400); Red Blood Cell Count 4.52 X10^6/uL (4.5-5.9); Red Cell Distribution Width 13.6 % (11.6-14.8); White Blood Cell Count 15.8 X10^3/uL (4.5-11.0)
--- NOTE | 2020-11-02 05:48 | PC.NURSE ---
2300 pt alert and oriented able to answer all questions appropriately but forgetful with frequent calling out every 2-3 minutes and forgetting about the call wilson in his hand. Pt was HTN 180/110 metoprolol administered with good relief to 156/89 0200 pt called for assistance on bedpan and had pain with attempted move, medicated pt with ordered 2mg morphine IVP for bedpan use, turning and repositioning. pt placed on bedpan this RN left the room with PROJECT MANAGER at bedside. PROJECT MANAGER reported that patient became diaphoretic and sleepy looking, telemetry alarmed v tach 180's Howard DOUBLE REAMER OPERATOR to bedside to assess pt pt again HTN repeat dose of Metoprolol 5 mg IV verbal ordered with stat EKG revealing AFIB controlled rate 80's. pt pt denied any symptoms and stated he now had no pain. pt slept for about 3 hours with no further episodes.
--- NOTE | 2020-11-02 05:49 | PC.NURSE ---
@0200 Pt requested to use bedpan for BM. While pt was attempting to have BM, sitting upright in bed, he appeared to be in slight discomfort and became very mildly diaphoretic. @205 BP was taken; 182/110 with HR on pulse ox showing 100-110 and O2 90-93% on 1L. Shortly afterward RN who was monitoring chris came to room to inform us he may have been in [place] briefly. Hospitalist and assigned RN notified. BP was retaken at 0220; 152/113.
[2020-11-02 05:50] LABS: Blood Urea Nitrogen 16 mg/dL (9-20); Calcium 9.1 mg/dL (8.4-10.2); Carbon Dioxide 26 mmol/L (22-32); Chloride 103 mmol/L (98-107); Estimated Glomerular Filt Rate > 60.0 mL/min (>60); Glucose 129 mg/dL (80-110); HEMOLYSIS < 15 (0-50); Magnesium 1.7 mg/dL (1.6-2.3); Potassium 3.6 mmol/L (3.4-5.1); Sodium 136 mmol/L (137-145)
[2020-11-02] MEDS: LACTATED RINGERS 1,000 ML 42 ML IV (09:22)
--- NOTE | 2020-11-02 09:24 | PM.PREOP ---
Pre-operative Note Interval Note History & Physical reviewed/Exam performed by Physician: Yes Changes to H&P: No H&P completed within 30 days and has changed as indicated here:: Plan for CRPP left hip intracapsular femoral neck fracture
[2020-11-02] MEDS: CEFAZOLIN 1 GM VIAL 2 GM IV ×3 (09:38→19:35)
--- NOTE | 2020-11-02 09:59 | SUR.OPER ---
Head on pillow. Supine on fracture table with operative leg secured in traction. Other leg secured in padded stirrup. Arms across chest, secured with sheet.
[2020-11-02] MEDS: BUPIVACAINE 0.25% (PF) VIAL 30 ML INJ (10:11)
[2020-11-02] MEDS: EPINEPHrine 1 MG/ML 0.15 MG INJ (10:12)
--- NOTE | 2020-11-02 10:36 | DI.RAD.S_ITS ---
PROCEDURE: XR HIP W PEL IF DONE LT 2V INDICATIONS: LEFT HIP PINNING TECHNIQUE: 2 low resolution fluoroscopic spot films were obtained COMPARISON: [facility], CT, CT CHEST ABD PEL W CON, 04/22/2020, 17:48. [facility], CR, XR HIP W PEL IF DONE LT 2V, 11/01/2020, 10:06. FINDINGS: Bones: Orthopedic cannulated screws noted traversing an femoral neck fracture in good position. Soft tissues: The visualized bowel gas pattern is normal. No suspicious soft tissue calcifications. IMPRESSION: Well-positioned orthopedic cannulated screws Approved by: Telly Jimenes M.D. on 11/02/2020 at 12:27
--- NOTE | 2020-11-02 10:40 | P.OP_ITS ---
Operative Date/Time/Diagnoses Date of procedure: 11/02/20 Time of procedure: 10:40 Pre-op diagnosis: left hip valgus impacted femoral neck fracture Post-op diagnosis: same Procedure & Clinicians Procedure: Left hip closed reduction percutaneous pinning Same procedure as scheduled: Yes Indications: Valgus impacted femoral neck fracture Surgeon: Oswaldo Choudhury Click Yes if Unassisted: Yes Anesthesia Type: General Operative Notes Findings: Valgus impacted femoral neck fracture Closure Type: primary Specimen(s): none sent Prosthetic devices, grafts, tissues, transplants, or devices: 1x 105mm 7.3mm cannulated screw with washer 1x 100mm 7.3mm cannulated screw 1x 95mm 7.3mm cannulated screw Estimated Blood Loss (mL): 10 Procedure in detail: Patient was met in the preoperative holding area where the site and side surgery marked by . informed consent was reviewed the patient signed. In addition was reviewed with his oldest daughter helps make medical decision making. All in attendance were in agreement to proceed. All last m inute questions were answered. Patient is brought back in the operating room where he was induced under general anesthesia. He was then transferred on the [place] table. Left foot was placed in hot well padded [place] table boots the right leg was placed in a well leg kline. This point fluoroscopy was brought in to make sure we get tangential views B get tangential views and not been a significant increase in displacement of the femoral neck fracture. This point the left lower extremity then prepped and draped in normal sterile fashion. A 4 cm long incision was made over the lateral aspect hip and 10. Blade was then used to cut down to the ITB band split the ITB band. This point threaded tip pin was placed underneath fluoroscopic guidance on tangential views I started with the inferior screw placement I then moved proximal to the superior posterior screw placement again this wire was placed under tangential views. Followed by the left 3rd pin which was the superior anterior pin placement. Once was happy with the orientation of the wires an inverted triangle making sure that the most inferior screw would not be below the level of the lesser trochanter. The screw lengths were measured 105 for the most inferior screw and 100 each for the superior anterior superior posterior screws I then used a drill to over ream the outer cortex of the distal pin. The most inferior screw was then placed with a washer. I then turned to the superior anterior screw. A 100 mm self tapping screw was placed followed by placement of the superior posterior screw which was also 100 mm in length. Once this was fully seated I got another x-ray which demonstrated this was closed perforating into the joint this last screw was backed out and changed for 95 mm screw. The wires were removed and final fluoroscopic imaging was obtained verifying that all screws were placed without any intrusion into the joint. The surgical incision was then copiously irrigated and the ID band was repaired using 1. Vicryl interrupted fashion followed by a running 1-0 Vicryl in the fat layer followed by 2 0 Vicryl the subcutaneous layer followed by pierre on skin an Aquacel dressing. Post-operative Condition: stable Disposition: PACU Plan for aftercare: Partial weight-bearing right lower extremity, restart aspirin, 24 hours postop antibiotics.
--- NOTE | 2020-11-02 10:55 | SUR.PHASEI ---
Patient to PACU from OR with nursing staff and anesthesia in stable condition s/p left hip repair. Placed on monitor, vss. Afib noted with a controlled rate of 80s-90s. Patient resting with eyes closed. RR even and unlabored. Oxygen saturation 90% on room air; placed on 2 liters oxygen via nasal cannula. Dressing to left hip clean, dry and intact.
--- NOTE | 2020-11-02 12:22 | CM.DANOTE ---
Addendum entered by Lanie Johnson Rey 11/03/20 15:32: DCP/Continued: Received call from August at [facility] she reports that they can accept patient on 11-05. In addition, LAN MANAGER placed call to [facility] to check on whether or not they can accept if patient medically stable before 11-05. Spoke with Lorraine and she requested that clinical be resent. LAN MANAGER faxed to [facility] again. P: team to follow closely. [facility] can accept on Wednesday and [facility] reviewing for acceptance earlier if needed. Lanielola Le, LAN MANAGER Original Note: Patient is an 84 yo male who was admitted on 11/01/20 for GLF. Pt has MCR and AARP for insurance and his PCP is Dr. Kal Bowers. EMR was reviewed. Per MD, pt with hx of urinary retention and was scheduled for TURP today with Urologist but had GLF last night and now with femoral fx. Per Ortho MD, pt to have surgical intervention with screw fixation in the OR this morning. SW met bedside with pt's 2 local Dtrs (Yvette pt's DPSHANTAL) and spouse as pt was being taken down to surgery and explained role. They confirm that pt still lives at home with spouse (who uses a walker herself for ambulation) and [facility] PP CG but no longer 24/7 care. [facility] had provided 24/7 care after pt's last admission to [facility] in Apr 2020 but care was reduced over the past few months as pt had improved some. But PP CG were assisting with toileting, transfers and mobility as spouse unable to physically perform these tasks herself. Pt also open with [facility] RN for once a month black cath changes. Family confirms that pt has no hx of SNF as they have worked very hard to keep pt at home but state pt's strength and endurance has gradually declined in the past month and they feel SNF will likely be needed at d/c prior to return home. Family also confirms that pt is fully vaccinated for COVID. SW provided the SNF/HH Choice list and discussed that pt will need to work with PT/OT post surgery to determine recommendations and what pt can tolerate and they acknowledge understanding. SW discussed need for likely plan A and B. Preference for SNF is [facility] as they all live in [place] and can visit and support pt better here but SW discussed need to also confirm bed availability and accepting facility. Family agreeable with referrals to [facility] SNF's with first preference [facility]. Family also agreeable with planning for if pt makes good progress for increased services through [facility] (include PT/OT/MOTOR VEHICLE INSPECTOR) in addition to current RN and increased [facility] hours. SW faxed H&P to [facility] to alert them to pt's admission to the hospital. SW called [facility] with new referral and faxed referral to Jennifer Morrison, [facility], and [facility] for review. Plan: SW to follow follow closely for eventual PT/OT eval and recommendations post surgery today towards determining SNF vs home with [facility] and [facility]. LUPILLO Doran Discharge Planning/Care Management Advanced directive, confirm from FAMILY Start: 11/01/20 16:52 Freq: Q24H Status: Active Protocol: Document 11/01/20 21:00 CJW (Rec: 11/01/20 22:35 CJW [id number]) Advance Directive, confirm on record Time 21:00 Person contacted pt's Copy received No CM Discharge Assessment Start: 11/02/20 12:19 Freq: Status: Active Protocol: Document 11/02/20 12:19 BF (Rec: 11/02/20 12:22 BF [id number]) Discharge Planning Assessment Assigned Closing Manager LUPILLO Rosario DPOA/Assigned Designee Name Dtkip Yvetteflower Zelaya Contact Information [phone] Advance Directives? Yes Advance Directives on File No History Provided By Patient,Family Member,Medical Record Has Patient been admitted in last 30 No days? Prior Living Arrangements House Household Members spouse Type of transporation used prior to Relies on Others admit Independent with ADL's No Is patient alert and oriented? Yes: somewhat Needs Assistance With Meal Prep,Toileting,Managing Medications,Home Chores / Shopping Caregiver for Another No Community Services used prior to Home Health Nurse admission: Comment Open With [facility] RN for [place] and [facility] PP CGs Patient/Family Preference Senior Living Facility Comment Likely SNF Barriers to Discharge No Discharge Plan Senior Living Facility Transportation Arrangement Likely facility van if SNF vs family or BLS Referrals Initiated Senior Living,Home Health Additional Comment H&P sent to [facility] Medicare Choice List Provided Yes SNF/HH Preference [facility] Has Agency SNF been contacted Yes Whiteboard Updated in Patient Room with Yes name and ext. # of Closing Manager Review Status In Process Please Provide Date Initial DC 11/02/20 Assessment Was Performed Next Review Type Continued Stay Review
--- NOTE | 2020-11-02 15:31 | PT.IPTN ---
Surgery Performed Operation Date: 11/02/20 09:30 Actual Procedures p ORIF Hip/Cannulated Screws(Left) - Oswaldo Choudhury MD Physical Therapy Treatment Note M3 PT-IP Subjective Start: 11/02/20 16:04 Freq: NEEDED Status: Active Protocol: Document 11/02/20 15:31 AB (Rec: 11/02/20 16:18 AB [id number]) Subjective Physical Therapy Visit Type Type Patient Refusal Notes checked on pt and pt refused PT. Daughter in room and stated that Dr. Turner told them that pt will not have any PT today. informed pt's daughter that the PT order came from the ortho surgeon but PT intervention is really up to the pt and family if they want to do it or not. Daughter requested that pt rest for today. PT to check on pt tomorrow and family agreed. Family also provided home set up and PLOF. Post -op folder provided to pt/family and informed them regarding pt's weight bearing restriction and understood. informed case liner that pt will require OT eval order.
--- NOTE | 2020-11-02 15:32 | PM.PN.1 ---
Subjective Subjective Interval history: The patient is an 84 y/o male s/p l hip closed reduction percutaneous pinning. Patient is sleepy but arousable, his pain is controlled. patient appears calm Exam Vital Signs (past 8 hours): - 11/02/20 08:00 11/02/20 09:00 11/02/20 10:41 Temperature 97.9 F 100.1 F H 99.3 F Pulse Rate 105 H 98 H 88 Respiratory Rate 18 24 29 H Blood Pressure 152/113 H 181/101 H 172/103 H Pulse Oximetry 94 93 91 11/02/20 10:52 11/02/20 10:57 11/02/20 11:01 Temperature Pulse Rate 93 H 94 H 88 Respiratory Rate 26 H 27 H 27 H Blood Pressure 174/92 H 151/92 H 167/95 H Pulse Oximetry 95 98 98 11/02/20 11:35 11/02/20 12:05 11/02/20 12:25 Temperature 99 F 98.8 F 98.3 F Pulse Rate 92 H 77 90 Respiratory Rate 18 18 18 Blood Pressure 154/79 H 147/87 H 152/73 H Pulse Oximetry 96 100 100 11/02/20 13:35 Temperature 97.8 F Pulse Rate 85 Respiratory Rate 18 Blood Pressure 166/80 H Pulse Oximetry 100 Oxygen Delivery Method Nasal Cannula Oxygen Flow Rate 3 Narrative Exam Narrative: elderly male in No distress Resp Other: Lungs: clear to auscultation Cardio Other: Irregularly Irregular nl Sl S2 GI Other: Abd: soft /non tender Extrem Other: left hip with dressing in place Objective Labs Result Diagrams: 11/02/20 05:25 11/02/20 05:25 Labs: Laboratory Results - last 24 hr 11/01/20 11/01/20 11/01/20 10:51 17:31 17:31 WBC RBC Hgb Hct MCV MCH MCHC RDW Plt Count Neut % (Auto) Lymph % (Auto) [place] % (Auto) Eos % (Auto) Baso % (Auto) Neut # (Auto) Lymph # (Auto) [place] # (Auto) Eos # (Auto) Baso # (Auto) Sodium Potassium Chloride Carbon Dioxide BUN Creatinine Estimated GFR BUN/Creatinine Ratio Glucose Hemoglobin A1c 5.8 Calcium Magnesium Total Bilirubin 1.4 H Conjugated Bilirubin 0.0 Unconjugated Bilirubin 1.1 AST 54 ALT 40 Alkaline Phosphatase 127 H Total Protein 7.3 Albumin 4.1 Globulin 3.2 Albumin/Globulin Ratio 1.3 Blood Type A Positive Antibody Screen Negative 11/02/20 11/02/20 05:25 05:25 WBC 15.8 H RBC 4.52 Hgb 13.7 Hct 41.2 MCV 91.0 MCH 30.2 MCHC 33.2 RDW 13.6 Plt Count 187 Neut % (Auto) 82.3 H Lymph % (Auto) 5.6 L [place] % (Auto) 7.0 Eos % (Auto) 4.5 H Baso % (Auto) 0.6 Neut # (Auto) 50114 H Lymph # (Auto) 900 L [place] # (Auto) 1100 H Eos # (Auto) 700 H Baso # (Auto) 100 Sodium 136 L Potassium 3.6 Chloride 103 Carbon Dioxide 26 BUN 16 Creatinine 0.84 Estimated GFR > 60.0 BUN/Creatinine Ratio 19.0 Glucose 129 H Hemoglobin A1c Calcium 9.1 Magnesium 1.7 Total Bilirubin Conjugated Bilirubin Unconjugated Bilirubin AST ALT Alkaline Phosphatase Total Protein Albumin Globulin Albumin/Globulin Ratio Blood Type Antibody Screen [facility] Medical History Afib Anemia Arthritis Benign prostatic hyperplasia Chronic anemia Clostridioides difficile infection Diabetes 1.5, managed as type 2 Essential hypertension Frequent falls History of UTI LFT elevation Low back pain Mixed hyperlipidemia Osteoarthritis Paroxysmal atrial fibrillation Tremor Urinary retention Surgical History History of lobectomy of lung History of resection of rib Hx of bilateral cataract extraction Status post appendectomy Family History Father Hypertension Brother Atrial fibrillation Mother No significant medical problems Social History marital status: number of children: 3 household members: spouse occupational status: previously employed Smoking Status: Former smoker Tobacco: How many years used: 20 alcohol intake: never substance use type: does not use caffeine: Yes Assessment & Plan Assessment & Plan narrative: left hip fracture, acute, present on admission s/p Hip pinning 2. Diabetes type 2 versus prediabetes last A1c was 6.5 A1c is pending and he is placed on a low-dose insulin correctional scale with glucose checks q.6 hours after midnight He will be able to have dinner tonight and as stated above NPO after midnight patient is not diabetic, d/c sliding scale, resume regular diet 3. Essential hypertension fair control Essential hypertension now mildly hypertensive Continue home dose of enalapril and amlodipine 4. History of paroxysmal atrial fibrillation previously anticoagulated on apixaban which was stopped due to frequent falls patient currently in atrial fibrillation on telemetry but not requiring rate control Patient cleared for surgery by , his product safety associate in anticipation of TURP which also applies to the surgery. 5.BPH with acute urinary retention Currently has a Thorne Patient's family I believe has notified Urology that the patient is currently in house for a different problem and his TURP will have to be rescheduled.
[2020-11-02 18:30] LABS: Alanine Aminotransferase 32 IU/L (<50); Albumin 3.6 g/dL (3.5-5.0); Albumin Globulin Ratio 1.2 (1.0-2.8); Alkaline Phosphatase 97 U/L (38-126); Aspartate Aminotransferase 33 IU/L (17-59); Bilirubin Total 0.8 mg/dL (0.2-1.3); Bilirubin Unconjugated 0.7 mg/dL (0.0-1.1); Globulin 2.9 g/dL (1.7-4.1); HEMOLYSIS 29 (0-50); Total Protein 6.5 g/dL (6.3-8.2)
[2020-11-02] MEDS: CLOTRIMAZOLE 1% CRM 30 GM 1 APPLIC TOP (19:35)
[2020-11-02] MEDS: NYSTATIN POWDER 15GM 1 APPLIC TOP (19:35)
[2020-11-02] MEDS: AMLODIPINE 5 MG TABLET PO (21:08)
[2020-11-02] MEDS: ATORVASTATIN 20 MG TABLET 10 MG PO (21:08)
[2020-11-02] MEDS: HYDROCODONE/ACET 5/325 TABLET 0.5 TAB PO (21:08)
[2020-11-02] MEDS: ENALAPRIL 20 MG TABLET PO (21:10)
[2020-11-03] VITALS (11 sets, daily range): BP systolic 145–188; BP diastolic 81–109; PULSE 70–99; RESP 16–33; TEMP 36.7–37.3; O2SAT 93–99
[2020-11-03] MEDS: SODIUM CHLORIDE 0.9% 1,000 ML 150 ML IV ×2 (00:12→06:57)
[2020-11-03] MEDS: MORPHINE 2 MG/ML INJ IV (02:45)
[2020-11-03 05:35] LABS: Add Manual Diff / Slide Review NO; Basophils Absolute Auto 200 /uL (0-100); Basophils Percent Auto 1.2 % (0-2); Eosinophils Absolute Auto 700 /uL (0-450); Hematocrit 38.3 % (41-53); Hemoglobin 12.4 g/dL (13.5-17.5); Lymphocytes Absolute Auto 1400 /uL (1100-4500); Lymphocytes Percent Auto 9.8 % (25-40); Mean Corpuscular HGB Conc 32.5 % (30-36); Mean Corpuscular Hemoglobin 29.6 PG (26-34); Monocytes Absolute Auto 1700 /uL (0-900); Monocytes Percent Auto 11.5 % (3-14); Neutrophils Absolute Auto 10700 /uL (1500-7000); Neutrophils Percent Auto 72.5 % (50-75); Platelet Count 181 X10^3/uL (150-400); White Blood Cell Count 14.8 X10^3/uL (4.5-11.0)
[2020-11-03 05:49] LABS: BUN Creatinine Ratio 18.4 (6-22); Blood Urea Nitrogen 18 mg/dL (9-20); Calcium 8.9 mg/dL (8.4-10.2); Carbon Dioxide 28 mmol/L (22-32); Chloride 104 mmol/L (98-107); Estimated Glomerular Filt Rate > 60.0 mL/min (>60); Glucose 118 mg/dL (80-110); HEMOLYSIS 19 (0-50); Magnesium 1.6 mg/dL (1.6-2.3); Potassium 3.6 mmol/L (3.4-5.1); Sodium 136 mmol/L (137-145)
--- NOTE | 2020-11-03 06:24 | PC.NURSE ---
Outlined the slight drainage onto aquacell dressing. Remains, dry and intact.
--- NOTE | 2020-11-03 07:43 | P.PN_ITS ---
Subjective Subjective Date Patient Seen: 11/03/20 Interval history: He is seen in his room here today to follow-up the left hip fracture. 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 His daughter is sitting by his bedside. He tells me that he is decided to adopt at least 2 of the nurses that he has met so far. It is looking like he will need to go [place] [facility] for [facility], pending physical therapy evaluation and orthopedic recommendations later today. Exam Vital Signs (past 8 hours): - 11/03/20 00:10 11/03/20 05:21 11/03/20 06:29 Temperature 99.1 F 98.8 F Pulse Rate 93 H 93 H 79 Respiratory Rate 20 22 16 Blood Pressure 155/81 H 153/93 H Pulse Oximetry 93 95 96 Oxygen Delivery Method Nasal Cannula Oxygen Flow Rate 3 Narrative Exam Narrative: He is alert and oriented x3. No apparent distress. He is telling stories and enjoying being the center of attention with a captive audience. Heart is regular rate and rhythm without murmur Lungs are clear to auscultation bilaterally Extremities have no ankle edema. There is a clean dressing over the left lateral hip surgical site. Objective Labs Result Diagrams: 11/03/20 05:20 11/03/20 05:20 Labs: Laboratory Results - last 24 hr 11/02/20 11/03/20 11/03/20 17:58 05:20 05:20 WBC 14.8 H RBC 4.20 L Hgb 12.4 L Hct 38.3 L MCV 91.0 MCH 29.6 MCHC 32.5 RDW 14.0 Plt Count 181 Neut % (Auto) 72.5 Lymph % (Auto) 9.8 L [place] % (Auto) 11.5 Eos % (Auto) 5.0 H Baso % (Auto) 1.2 Neut # (Auto) 15845 H Lymph # (Auto) 1400 [place] # (Auto) 1700 H Eos # (Auto) 700 H Baso # (Auto) 200 H Sodium 136 L Potassium 3.6 Chloride 104 Carbon Dioxide 28 BUN 18 Creatinine 0.98 Estimated GFR > 60.0 BUN/Creatinine Ratio 18.4 Glucose 118 H Calcium 8.9 Magnesium 1.6 Total Bilirubin 0.8 Conjugated Bilirubin 0.0 Unconjugated Bilirubin 0.7 AST 33 ALT 32 Alkaline Phosphatase 97 Total Protein 6.5 Albumin 3.6 Globulin 2.9 Albumin/Globulin Ratio 1.2 PFSH Medical History Afib Anemia Arthritis Benign prostatic hyperplasia Chronic anemia Clostridioides difficile infection Diabetes 1.5, managed as type 2 Essential hypertension Frequent falls History of UTI LFT elevation Low back pain Mixed hyperlipidemia Osteoarthritis Paroxysmal atrial fibrillation Tremor Urinary retention Surgical History History of lobectomy of lung History of resection of rib Hx of bilateral cataract extraction Status post appendectomy Family History Father Hypertension Brother Atrial fibrillation Mother No significant medical problems Social History marital status: number of children: 3 household members: spouse occupational status: previously employed Smoking Status: Former smoker Tobacco: How many years used: 20 alcohol intake: never substance use type: does not use caffeine: Yes Assessment & Plan Assessment & Plan narrative: 1. Left hip fracture, acute, present on admission -s/p Hip pinning on 11/02 -Aspirin for DVT prevention -now pending SNF rehab per PT and ortho recommendations 2. Prediabetes with last A1c 6.5 -A1c 11/01 is 5.8. -patient is not diabetic, d/c sliding scale, resume regular diet 3. Essential hypertension fair control -now mildly hypertensive -Continue home dose of enalapril and amlodipine 4. Paroxysmal atrial fibrillation previously anticoagulated on apixaban which was stopped due to frequent falls patient currently in atrial fibrillation on telemetry but not requiring rate control Patient cleared for surgery by , his hadoop engineer in anticipation of TURP which also applies to this surgery. 5.BPH with acute urinary retention Currently has a Thorne Patient's family has notified Urology that the patient is currently in house for a different problem and his TURP will have to be rescheduled.
[2020-11-03] MEDS: ENALAPRIL 20 MG TABLET PO ×2 (08:41→21:24)
[2020-11-03] MEDS: FERROUS SULFATE 325 MG TABLET PO (08:42)
[2020-11-03] MEDS: HYDROCODONE/ACET 5/325 TABLET 0.5 TAB PO (08:42)
[2020-11-03] MEDS: FINASTERIDE 5 MG TABLET PO (08:42)
[2020-11-03] MEDS: AMLODIPINE 5 MG TABLET PO ×2 (08:42→21:25)
--- NOTE | 2020-11-03 08:52 | PM.PN.1 ---
Subjective Subjective Date Patient Seen: 11/03/20 Time Patient Seen: 08:52 Interval history: Patient is a 84-year-old male who is now postop day 1 from closed reduction percutaneous pinning of his left hip intracapsular hip fracture. Pain is well controlled. Has not yet mobilized with physical therapy. Exam Vital Signs (past 8 hours): - 11/03/20 05:21 11/03/20 06:29 11/03/20 08:15 Temperature 98.8 F 98.3 F Pulse Rate 93 H 79 70 Respiratory Rate 22 16 Blood Pressure 153/93 H 188/109 H Pulse Oximetry 95 96 99 11/03/20 08:41 Temperature Pulse Rate 83 Respiratory Rate Blood Pressure 188/107 H Pulse Oximetry Oxygen Delivery Method Nasal Cannula Oxygen Flow Rate 2 Narrative Exam Narrative: Neurovascular intact left lower extremity. Dressings clean dry intact without strike through. Objective Labs Result Diagrams: 11/03/20 05:20 11/03/20 05:20 Labs: Laboratory Results - last 24 hr 11/02/20 11/03/20 11/03/20 17:58 05:20 05:20 WBC 14.8 H RBC 4.20 L Hgb 12.4 L Hct 38.3 L MCV 91.0 MCH 29.6 MCHC 32.5 RDW 14.0 Plt Count 181 Neut % (Auto) 72.5 Lymph % (Auto) 9.8 L [place] % (Auto) 11.5 Eos % (Auto) 5.0 H Baso % (Auto) 1.2 Neut # (Auto) 02170 H Lymph # (Auto) 1400 [place] # (Auto) 1700 H Eos # (Auto) 700 H Baso # (Auto) 200 H Sodium 136 L Potassium 3.6 Chloride 104 Carbon Dioxide 28 BUN 18 Creatinine 0.98 Estimated GFR > 60.0 BUN/Creatinine Ratio 18.4 Glucose 118 H Calcium 8.9 Magnesium 1.6 Total Bilirubin 0.8 Conjugated Bilirubin 0.0 Unconjugated Bilirubin 0.7 AST 33 ALT 32 Alkaline Phosphatase 97 Total Protein 6.5 Albumin 3.6 Globulin 2.9 Albumin/Globulin Ratio 1.2 PFSH Medical History Afib Anemia Arthritis Benign prostatic hyperplasia Chronic anemia Clostridioides difficile infection Diabetes 1.5, managed as type 2 Essential hypertension Frequent falls History of UTI LFT elevation Low back pain Mixed hyperlipidemia Osteoarthritis Paroxysmal atrial fibrillation Tremor Urinary retention Surgical History History of lobectomy of lung History of resection of rib Hx of bilateral cataract extraction Status post appendectomy Family History Father Hypertension Brother Atrial fibrillation Mother No significant medical problems Social History marital status: number of children: 3 household members: spouse occupational status: previously employed Smoking Status: Former smoker Tobacco: How many years used: 20 alcohol intake: never substance use type: does not use caffeine: Yes Assessment & Plan Assessment & Plan narrative: Patient is an 84-year-old male now postop day 1 from closed reduction percutaneous pinning of his left hip intracapsular femoral neck fracture. Patient admitted Medicine Service. - Partial weight bearing LLE (50%) - Continue to work with PT to mobilize - Leave dressings in place
--- NOTE | 2020-11-03 09:51 | PT.IIE ---
Current Diagnoses Unspecified intracapsular fracture of left femur, initial encounter for closed fracture (11/01/20) Surgery Performed Operation Date: 11/02/20 09:30 Actual Procedures p ORIF Hip/Cannulated Screws(Left) - Oswaldo Choudhury MD Surgical History (Last Reviewed 11/01/20 @ 19:09 by JESSIE Carmichael) Status post appendectomy Medical History (Last Reviewed 11/01/20 @ 19:09 by JESSIE Carmichael) Afib Anemia Arthritis Benign prostatic hyperplasia Chronic anemia Clostridioides difficile infection Diabetes 1.5, managed as type 2 Essential hypertension Frequent falls History of UTI LFT elevation Low back pain Mixed hyperlipidemia Osteoarthritis Paroxysmal atrial fibrillation Tremor Urinary retention Physical Therapy Inpatient Evaluation/Re-Eval M1 PT/OT-IP Prior Functional Status Start: 11/02/20 16:04 Freq: NEEDED Status: Active Protocol: Document 11/03/20 09:51 AW (Rec: 11/03/20 12:13 AW [id number]) Medical Review Prior Functional Status Medical History Reviewed Yes Communication Pt is able to make needs known . Mobility and Gait Per daughter: pt is modified independent with ambulation using 4WW but does not ambulate much; able to mobilize at home and just short distance ambulation. Activities of Daily Living and IADL's Daughter stated that pt needs assistance with dressing, toileting hygiene needs, bathing Social History Household Members spouse Living Arrangements House Number of Floors (Floors) 3 or More Floors Number of Stairs To Enter/Railing? pt stays on just the main level of the house: has a chair lift to get into the house from the garage; ramp from the front Home Environment Tub/Shower Home Equipment Four Wheel Walker,Manual Wheelchair,Shower Seat without Backrest,Hand Held Shower, Lift Recliner,Grab Bars In Shower Additional Social History Comment has a toilet safety frame pt sleeps on a lift chair pt has [employer] [place] 6x/week ~ 8-9 hours each day and pt's spouse (who uses a walker herself) mostly assist him when [employer] [place] are not around but his daughters also assists when him M2 PT-IP Current Condition Start: 11/02/20 16:04 Freq: NEEDED Status: Active Protocol: Document 11/03/20 09:51 AW (Rec: 11/03/20 12:13 AW [id number]) Physical Therapy Current Condition Current Condition Evaluation Date 11/03/20 Treatment Diagnosis GLF, L femoral neck fx s/p perc pin; impaired mobility and gait Onset Date 11/01/20 Weight Bearing Status Weight Bearing Status Partial Weight Bearing Allowed Weight Bearing Amount (enter % 50% PWB LLE or #) (%) M3 PT-IP Subjective Start: 11/02/20 16:04 Freq: NEEDED Status: Active Protocol: Document 11/03/20 09:51 AW (Rec: 11/03/20 12:13 AW [id number]) Subjective Physical Therapy Visit Type Type Initial Evaluation Visit Start Time 09:20 Visit Stop Time 09:51 Total Visit Minutes 31 Notes SIGN INSTALLER provided assist with all mobility. Pt's daughter, Gayatri, was present throughout session and providing encouragement. Number of PROGRAM DIRECTOR GROUP WORK Visits 0 Physical Therapy Visit Comments Patient Comments Pt is willing to participate with PT Patient Goals Pt understands he may need SNF rehab at discharge Therapy Pain Assessment Pain When Pain Assessed During Mobility Pain Present Pain Present Pain Reported Location Left Hip Scale Used not quantified Pain Behaviors Calling Out,Facial Grimacing, Restlessness,Wincing Pain Management Techniques Modification of Treatment,Re- positioning,Timing of Activity with Medications M4 PT-IP Mobility and Gait Start: 11/02/20 16:04 Freq: NEEDED Status: Active Protocol: Document 11/03/20 09:51 AW (Rec: 11/03/20 12:13 AW [id number]) PT-Bed Mobility Assessment Supine to Sit Supine to Sit Total Assistance,2 Person Assistance,Head of Bed Elevated,Bedrails Scooting Scooting to Edge of Bed Dependent PT-Transfer Assessment Sit to and From Stand Sit to and from Stand Moderate Assistance,Maximum Assistance,2 Person Assistance ,Use of Upper Extremities Equipment Transfer Assistive Device Gait Belt,Front Wheeled Walker Orthotic/Prosthetic Devices or Brace: No Transfers Transfer Destination Chair Transfer Technique Stand Step Pivot Transfer Ability Level of Assist Maximum Assistance,2 Person Assistance,Use of Upper Extremities Comments Mobility Comments Pt was sitting up in bed as PT arrived. BP 148/82 HR 82. With HOB elevated, he required total assist x 2 for supine to sit and mod assist at all times to maintain seated balance at EOB. Educated pt on weightbearing restriction and pt verbalized understanding. With bed raised ~2 inches from lowest position, pt was able to stand mod A x 2. With max A x 2, pt used FWW to transfer to bedside chair. Pt needed max cues and assist with FWW management during transfer which took ~5 min. Questionable whether pt able to maintain 50% PWB LLE during transfer in spite of max cues for UE weightbearing. Ultimately, chair was positioned behind pt who sat with poor control of descent, requiring max assist for safe transition. Pt was left in reclined position with call light and all needs in reach. His daughter remained in the room. Gait Assessment Gait Gait Assistance Required: Maximum Assistance,2 Person Assist Distance (Feet) 2 Able to Maintain Weight Bearing Status No During Gait Assistive Devices Assistive Device Gait Belt,Front Wheeled Walker Gait Deviations General Gait Pattern Antalgic,Decreased Stride Length,Decreased Feet Clearance,Flexed Trunk,Step-to Gait Factors Limiting Gait Function Factors Limiting Gait Function Decreased Activity Tolerance, Decreased Strength,Difficulty Following Directions,Pain,Poor Balance,Poor Safety Awareness Comments Gait Comments Steps taken during transfer only. See mobility comments for details. Stair Climbing Assessment Comments Stair Climbing Comments Not assessed. Ramped entry and chair lift at home. PT-Balance Assessment Sitting Balance and Reactions Static Sitting Balance Ability Fair Dynamic Sitting Balance Ability Poor Standing Balance and Reactions Static Standing Balance Ability Poor Dynamic Standing Balance Ability Poor Device Used FWW M5 PT-IP Objective Assessments Start: 11/02/20 16:04 Freq: NEEDED Status: Active Protocol: Document 11/03/20 09:51 AW (Rec: 11/03/20 12:13 AW [id number]) Orientation Orientation/Cognition Level of Alertness Alert Orientation Name,Year,Place,Situation Language Function Ability No Deficits Noted Safety Awareness Decreased Safety Awareness Memory Description No Deficits Noted Gross Range of Motion Lower Extremity ROM Assessment Left Impaired Impairments all hip AROM and PROM limited by pain response Strength Lower Extremity Strength Assessment Bilaterally Impaired Hip R 3/5; L 3-/5 Knee R 4-/5; L 3/5 Ankle B 4-/5 Sensation Assessment Sensation Gross Sensation WNL Muscle Tone Muscle Tone WNL Yes M6 PT-IP Treatment Start: 11/02/20 16:04 Freq: NEEDED Status: Active Protocol: Document 11/03/20 09:51 AW (Rec: 11/03/20 12:13 AW [id number]) Physical Therapy Treatment Exercises Exercises Ankle Pumps,Heel Slides Education Education Provided Weight Bearing Status,Post-Op Packet,Safety Other Treatments Other Treatment Performed Educated pt on PT plan of care , weightbearing status, and safe use of FWW. M7 PT-IP Assessment and Plan Start: 11/02/20 16:04 Freq: NEEDED Status: Active Protocol: Document 11/03/20 09:51 AW (Rec: 11/03/20 12:13 AW [id number]) PT Summary Assessment and Plan Potential Rehabilitation Potential Fair Status of Condition at Evaluation Evolving Summary Impairments Pain,ROM,Strength,Balance,Bed Mobility,Transfers,Gait, Activity Tolerance Assessment Summary Gallo is an 84yo man seen for PT evaluation on POD1 following left hip percutaneous pinning for nondisplaced femoral neck fracture. He is modified independent for short distance household ambulation using 4WW but his mobility has declined recently. Pt has caregiver and family support at home but pt is now requiring max to total 2- person assist for bed mobility and transfers. In addition, he is unable to maintain 50% PWB LLE during transfers. He will need SNF rehab to improve stength and mobility independence before safe return home. Goals Bed Mobility Goal Minimal Assistance Transfer Goal Minimal Assistance,Front Wheeled Walker Gait Goal Minimal Assistance,Front Wheel Walker Gait Distance 10 Days to Meet Goals 10 Frequency of Treatment Frequency Of Treatment Twice a Day Treatment Plan Physical Therapy Treatment Plan Bed Mobility Training,Transfer Training,Gait Training, Therapeutic Exercise,Balance Retraining,Post Op Education, Discharge Planning,Hot or Cold Pack,Neuromuscular Re-ed Other Recommendations and Next Treatment transfers, standing tolerance Focus with 50% PWB LLE Precautions Other Precautions 50% PWB LLE Recommendations To Nursing Amount of Assist Needed 3 or More Person Assist, Mechanical Lift Discharge Recommendations PT Discharge Recommendations SNF Rehab Transportation Needs at Discharge Wheelchair/Cabulance
[2020-11-03] MEDS: HYDROCODONE/ACET 5/325 TABLET 1 TAB PO ×3 (12:39→23:21)
--- NOTE | 2020-11-03 14:28 | PC.NURSE ---
Patient's daughter mentioned that the patient was recently prescribed lasix and an increased dose of potassium chloride. No current orders to continue this medication. Audible wheezes heard on expiration, concern for fluid overload. IV fluids paused. notifed, awaiting further orders.
[2020-11-03] MEDS: ACETAMINOPHEN 325 MG TABLET 650 MG PO (14:51)
--- NOTE | 2020-11-03 15:28 | PT-IP ANOTE ---
Attempted to work with pt x 2 this PM. Both times, pt was sleeping soundly. He roused briefly on last attempt but was unable to attend meaningfully to task. PT determined pt was not safe to transfer at this time and recommended nursing transfer him back to bed when ready using overhead lift.
[2020-11-03] MEDS: FUROSEMIDE 40 MG/4 ML VIAL IV (16:20)
[2020-11-03 17:46] LABS: Alanine Aminotransferase 20 IU/L (<50); Albumin 3.5 g/dL (3.5-5.0); Albumin Globulin Ratio 1.2 (1.0-2.8); Alkaline Phosphatase 100 U/L (38-126); Aspartate Aminotransferase 29 IU/L (17-59); Bilirubin Total 0.8 mg/dL (0.2-1.3); Bilirubin Unconjugated 0.6 mg/dL (0.0-1.1); Globulin 2.9 g/dL (1.7-4.1); HEMOLYSIS < 15 (0-50); Total Protein 6.4 g/dL (6.3-8.2)
--- NOTE | 2020-11-03 20:30 | DI.RAD.S_ITS ---
PROCEDURE: XR CHEST 1V INDICATIONS: poss aspiration TECHNIQUE: One view of the chest was acquired. COMPARISON: [facility], CT, CT CHEST ABD PEL W CON, 04/22/2020, 17:48. [facility], CR, XR CHEST 1V, 04/22/2020, 17:15. FINDINGS: Surgical changes and devices: None. Lungs and pleura: No pleural effusions or pneumothorax. Low lung volumes and scattered atelectasis versus aspiration. No focal consolidation. Mediastinum: Mediastinal contours appear normal. Heart size is normal. Bones and chest wall: Scoliosis and discogenic changes. Chronic left rib deformity IMPRESSION: Low lung volumes and scattered atelectasis versus aspiration. If there is persistent clinical diagnostic uncertainty, continued surveillance with short interval radiographic followup after treatment is recommended. Dictated by: Reza Martínez M.D. on 11/03/2020 at 21:33 Approved by: Reza Martínez M.D. on 11/03/2020 at 21:34
[2020-11-03] MEDS: ASPIRIN EC 81 MG TABLET PO (21:25)
[2020-11-03] MEDS: ATORVASTATIN 20 MG TABLET 10 MG PO (21:25)
[2020-11-03] MEDS: NYSTATIN POWDER 15GM 1 APPLIC TOP (21:28)
--- NOTE | 2020-11-03 22:10 | PC.NURSE ---
Evening Shift Note- Patient heard choking and coughing while eating dinner. assisting patient with food. raised head of bed more and encouraged patient to keep coughing. Patient s did report that patient often starts coughing like this at home when eating. kept head of bed up and advised patient to uck chin down when swallowing. No more coughing or coughing noted with dinner. Patient did choke and cough again when taking bedtime medications. Patient able to clear cough and took the rest of his medications with applesause with no issue.
[2020-11-04] VITALS (16 sets, daily range): BP systolic 147–173; BP diastolic 84–118; PULSE 92–103; RESP 22–32; TEMP 36.5–36.9; O2SAT 92–100
[2020-11-04] MEDS: ALBUTEROL 2.5 MG/3 ML NEB (ADULT) INH (00:51)
[2020-11-04 05:01] LABS: Add Manual Diff / Slide Review NO; Basophils Absolute Auto 100 /uL (0-100); Eosinophils Absolute Auto 1300 /uL (0-450); Eosinophils Percent Auto 8.5 % (2-4); Hematocrit 38.2 % (41-53); Hemoglobin 12.5 g/dL (13.5-17.5); Lymphocytes Absolute Auto 1500 /uL (1100-4500); Lymphocytes Percent Auto 9.8 % (25-40); Mean Corpuscular HGB Conc 32.8 % (30-36); Mean Corpuscular Hemoglobin 29.7 PG (26-34); Mean Corpuscular Volume 90.4 fL (80-100); Monocytes Absolute Auto 2100 /uL (0-900); Monocytes Percent Auto 13.9 % (3-14); Neutrophils Absolute Auto 10100 /uL (1500-7000); Neutrophils Percent Auto 66.8 % (50-75); Platelet Count 169 X10^3/uL (150-400); Red Blood Cell Count 4.23 X10^6/uL (4.5-5.9); Red Cell Distribution Width 13.9 % (11.6-14.8); White Blood Cell Count 15.2 X10^3/uL (4.5-11.0)
[2020-11-04 05:10] LABS: BUN Creatinine Ratio 17.6 (6-22); Blood Urea Nitrogen 18 mg/dL (9-20); Calcium 9.2 mg/dL (8.4-10.2); Carbon Dioxide 30 mmol/L (22-32); Chloride 101 mmol/L (98-107); Estimated Glomerular Filt Rate > 60.0 mL/min (>60); Glucose 140 mg/dL (80-110); HEMOLYSIS < 15 (0-50); Magnesium 1.7 mg/dL (1.6-2.3); Potassium 3.1 mmol/L (3.4-5.1); Sodium 136 mmol/L (137-145)
[2020-11-04] MEDS: ASPIRIN EC 81 MG TABLET PO ×2 (08:05→20:25)
[2020-11-04] MEDS: ENALAPRIL 20 MG TABLET PO ×2 (08:05→20:26)
[2020-11-04] MEDS: FINASTERIDE 5 MG TABLET PO (08:05)
[2020-11-04] MEDS: AMLODIPINE 5 MG TABLET PO ×2 (08:05→20:25)
[2020-11-04] MEDS: FERROUS SULFATE 325 MG TABLET PO (08:05)
--- NOTE | 2020-11-04 09:41 | DI.RAD.S_ITS ---
PROCEDURE: XR CHEST 1V INDICATIONS: aspiration TECHNIQUE: One view of the chest was acquired. COMPARISON: [facility], CR, XR CHEST 1V, 11/03/2020, 20:50. FINDINGS: Surgical changes and devices: None. Lungs and pleura: Low lung volumes. No pleural effusions or pneumothorax. Mildly worsened patchy consolidative opacity involving both lung bases. Mediastinum: Mediastinal contours appear normal. Heart size is normal. Bones and chest wall: No suspicious bony lesions. Overlying soft tissues appear unremarkable. IMPRESSION: Low lung volumes and slightly worsened bibasilar patchy consolidative opacities since yesterday. Dictated by: Reza Martínez M.D. on 11/04/2020 at 10:33 Approved by: Reza Martínez M.D. on 11/04/2020 at 10:43
[2020-11-04] MEDS: NYSTATIN POWDER 15GM 1 APPLIC TOP ×2 (10:20→20:27)
--- NOTE | 2020-11-04 10:20 | PM.PNPO.1 ---
Subjective Subjective Date Patient Seen: 11/04/20 Time Patient Seen: 10:20 Interval history: Patient states he is doing well overall and is in minimal discomfort at rest. Patient denies fever, chills, nausea, chest pain, or shortness of breath. Patient reports mild tenderness on his anterolateral proximal left thigh. Exam Vital Signs (past 8 hours): - 11/04/20 04:20 11/04/20 07:00 11/04/20 07:57 Temperature 97.7 F 98.1 F Pulse Rate 99 H 97 H Respiratory Rate 24 24 Blood Pressure 173/112 H 160/88 H Pulse Oximetry 92 95 95 11/04/20 08:05 11/04/20 10:00 Temperature Pulse Rate 103 H Respiratory Rate Blood Pressure 160/88 H Pulse Oximetry 95 Oxygen Delivery Method Room Air Oxygen Flow Rate 0 Narrative Exam Narrative: Pleasant 84-year-old male postop day 2 status post closed reduction and percutaneous pinning of a left intracapsular hip fracture. Patient is resting comfortably in bed, is in no acute distress, is alert and oriented x3. Skin is warm and dry, skin surrounding the incision site is free of erythema, warmth, induration, or discharge. Good sensation appreciated throughout the bilateral lower extremities to light touch. Mild tenderness to palpation along the anterolateral aspect of the proximal left thigh. Ankle dorsiflexion, plantar flexion, eversion, inversion performed bilaterally without difficulty or discomfort. DP pulses palpated bilaterally and are even. No signs of DVT appreciated. Const General: cooperative, healthy appearing and comfortable Resp Effort & Inspection: normal respiratory effort and able to speak in complete sentences Skin General: no rashes or lesions noted Objective Labs Result Diagrams: 11/04/20 04:50 11/04/20 04:50 Labs: Laboratory Results - last 24 hr 11/03/20 11/04/20 11/04/20 17:15 04:50 04:50 WBC 15.2 H RBC 4.23 L Hgb 12.5 L Hct 38.2 L MCV 90.4 MCH 29.7 MCHC 32.8 RDW 13.9 Plt Count 169 Neut % (Auto) 66.8 Lymph % (Auto) 9.8 L [place] % (Auto) 13.9 Eos % (Auto) 8.5 H Baso % (Auto) 1.0 Neut # (Auto) 53152 H Lymph # (Auto) 1500 [place] # (Auto) 2100 H Eos # (Auto) 1300 H Baso # (Auto) 100 Sodium 136 L Potassium 3.1 L Chloride 101 Carbon Dioxide 30 BUN 18 Creatinine 1.02 Estimated GFR > 60.0 BUN/Creatinine Ratio 17.6 Glucose 140 H Calcium 9.2 Magnesium 1.7 Total Bilirubin 0.8 Conjugated Bilirubin 0.0 Unconjugated Bilirubin 0.6 AST 29 ALT 20 Alkaline Phosphatase 100 Total Protein 6.4 Albumin 3.5 Globulin 2.9 Albumin/Globulin Ratio 1.2 PFSH Medical History Afib Anemia Arthritis Benign prostatic hyperplasia Chronic anemia Clostridioides difficile infection Diabetes 1.5, managed as type 2 Essential hypertension Frequent falls History of UTI LFT elevation Low back pain Mixed hyperlipidemia Osteoarthritis Paroxysmal atrial fibrillation Tremor Urinary retention Surgical History History of lobectomy of lung History of resection of rib Hx of bilateral cataract extraction Status post appendectomy Family History Father Hypertension Brother Atrial fibrillation Mother No significant medical problems Social History marital status: number of children: 3 household members: spouse occupational status: previously employed Smoking Status: Former smoker Tobacco: How many years used: 20 alcohol intake: never substance use type: does not use caffeine: Yes Assessment & Plan Post-op Postoperative Procedures: Procedures Operation Date: 11/02/20 09:30 Actual Procedure Side Surgeon p ORIF Hip/Cannulated Screws Left Oswaldo Choudhury MD Postoperative day: 2 Postoperative status: doing well Postoperative plan: ambulate Postoperative plan narrative: Patient is to continue working on ambulation with the assistance of a front wheeled walker with physical therapy. He is to remain at limited weight-bearing status of 50% on the left lower extremity. Dressing over the incision site is to remain in place. Current pain management regimen is to be continued as it has adequately controlled the patient's pain level. Aspirin 81 mg twice daily is to be continued for DVT prophylaxis along with the assistance of sequential compression devices.
[2020-11-04] MEDS: OXYCODONE IR 5 MG TABLET PO ×3 (10:21→23:38)
--- NOTE | 2020-11-04 10:43 | ST.IPCSEOM ---
Visit Care Team Role Provider Type Kal Bowers DO Primary Care Provider Physician Specialty: Family Practice Address: [address] [place] [address], [id number] Email: [email or web address] Oswaldo Choudhury MD Other Providers Physician Specialty: Orthopedic Surgery Address: [address] [place] [address], [address] Email: [email or web address] Dominga Andino DO Emergency Provider Physician Referring Provider Specialty: Emergency Medicine Address: [address] [place] [address], [address] Email: [email or web address] Lainey Turner MD Admit Provider Physician Attending Provider Specialty: Internal Medicine Address: [address] [place] [address], [id number] Email: [email or web address] Current Diagnoses Unspecified intracapsular fracture of left femur, initial encounter for closed fracture (11/01/20) Past Medical History (Last Reviewed 11/04/20 @ 10:22 by Gino Montero PA-C) Afib (Medical) Anemia (Medical) Arthritis (Medical) Benign prostatic hyperplasia (Medical) Chronic anemia (Medical) Clostridioides difficile infection (Medical) Diabetes 1.5, managed as type 2 (Medical) Essential hypertension (Medical) Frequent falls (Medical) History of lobectomy of lung (Medical) History of resection of rib (Medical) History of UTI (Medical) Hx of bilateral cataract extraction (Medical) LFT elevation (Medical) Low back pain (Medical) Mixed hyperlipidemia (Medical) Osteoarthritis (Medical) Paroxysmal atrial fibrillation (Medical) Tremor (Medical) Urinary retention (Medical) Speech-Language Pathology 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 Clinical Swallow Evaluation Start: 11/04/20 09:34 Freq: Status: Active Protocol: Document 11/04/20 10:23 LNK (Rec: 11/04/20 10:42 LNK [id number]) Clinical Swallow Evaluation Session Time Visit Start Time 09:45 Visit Stop Time 09:45 Total Visit Minutes 30 Setting Assessment Location Acute Care Visit Type Note Type Initial evaluation Next Note Type Next Note Type Re-evaluation Patient Information Identification Type Name,ID Card History Gallo Moore is an 84-year-old male with hypertension, hyperlipidemia, atrial fibrillation formerly anticoagulated on apixaban, and prediabetic presented to the emergency department ground level fall last evening . Patient states he dropped a pill and while he attempted to pick it up, stated he lost his balance and fell on his left hip. He denies hitting his head. He denies any headache, neck pain or back pain. His pain is specifically in the left hip with movement or any attempt at weight-bearing. Last evening, nursing observed that pt was choking in bed. He was relined and his was feeding him dinner. According to his daughter, pt eventually coughed up a small piece of carrot. Subjective Observations Pt was up in bed with his daughter in the room. Daughter remarked that pt has congestive heart failure. Reported by Patient Other Symptoms Choking,Coughing Current Diet Nothing by mouth Baseline Feeding Method Independent in self-feeding Objective Assessment Mental Status Responsive,Cooperative, Confused Oral Integrity WFL Dentition Within normal limits Lip Function Within normal limits Observation of Lips at Rest Symmetrical Lip Retraction Within normal limits Tongue Function Within normal limits Hard/Soft Palate Function Within normal limits Observations of Hard/Soft Palate Within normal limits Respiratory Sufficiency Moderate impairment Comment Pt was breathing rapidly this morning. O2 on room air was between 93 and 95% during assessment. Food and Liquid Trials Position During Assessment Slightly reclined Liquids Trialed Webber Solids Trialed Puree Administration Type Tea spoon,Cup single sip,Straw ,Needs some assistance Oral Impairment Within normal limits Oral Phase Comments Oral phase of swallow appeared to be WFL Pharyngeal Impairment Moderately impaired Pharyngeal Phase Comments Pt presented with a consistent throat clear following each teaspoon. His swallow was audible ~50% of swallows. Wet voicing noted x2 with cues to clear throat and swallow. His voice would clear. After ~6-7 small teaspoon-sized trials, pt's breathing was wheezy with wetness. At that time, evaluation was stopped due to potential for aspiration. Continue NPO status. Pt fatigued at end of session. Fatigue/Endurance Moderate fatigue Findings Swallowing Function Pharyngeal phase dysphagia Severity of Swallow Impairment Mildly-moderately impaired Contributing Factors to Swallow Reduced alertness or attention Impairment ,Reduced oral strength/ coordination/sensation,Delayed swallow initiation,Reduced laryngeal excursion,Excessive pharyngeal residue Prognosis Good Based on Family support,Duration of symptoms/severity Impact on Safety and Functioning Risk for aspiration Recommendations Instrumental Assessment Yes Swallowing Treatment Yes Frequency MBSS is recommended when pt is able to tolerate sitting up for ~30 minuets Recommended Solids Nothing by Mouth Safety Precautions/Swallowing Supervision needed for all Recommendations meals,1 to 1 close supervision ,Feed only when alert,Reduce distractions,Remain upright ( 90 degrees) during all oral intake,Needs verbal cues to use recommended strategies, Upright position at least 30 minutes after meals,Small bites and sips when eating, Slow rate; swallow between bites,Sip by straw only, Multiple swallows,Set-up assistance,1 to 1 feeding assistance,Family assistance/ supervision Medication Recommendations Not Recommended by Mouth Discharge Recommendations intermediate facility Education Patient/Caregiver Education Family/caregivers expressed understanding of evaluation, Family/caregivers expressed understanding of safety precautions,Family/caregivers expressed understanding of feeding recommendations,Family /caregivers require further education/training Goals Short-term Goals Pt will safely tolerate the least restrictive diet to maintain nutrition and hydration.
--- NOTE | 2020-11-04 11:04 | PT.IPTN ---
Current Diagnoses Unspecified intracapsular fracture of left femur, initial encounter for closed fracture (11/01/20) Surgery Performed Operation Date: 11/02/20 09:30 Actual Procedures p ORIF Hip/Cannulated Screws(Left) - Oswaldo Choudhury MD Physical Therapy Treatment Note M2 PT-IP Current Condition Start: 11/02/20 16:04 Freq: NEEDED Status: Active Protocol: Document 11/03/20 09:51 AW (Rec: 11/03/20 12:13 AW [id number]) Physical Therapy Current Condition Current Condition Evaluation Date 11/03/20 Treatment Diagnosis GLF, L femoral neck fx s/p perc pin; impaired mobility and gait Onset Date 11/01/20 Weight Bearing Status Weight Bearing Status Partial Weight Bearing Allowed Weight Bearing Amount (enter % 50% PWB LLE or #) (%) M3 PT-IP Subjective Start: 11/02/20 16:04 Freq: NEEDED Status: Active Protocol: Document 11/04/20 11:04 AW (Rec: 11/04/20 11:29 AW [id number]) Subjective Physical Therapy Visit Type Type Treatment Note Visit Start Time 10:45 Visit Stop Time 11:04 Total Visit Minutes 19 Notes New orders for pre-medication prior to PT. Coordinated with RN to admin meds 20-30 minutes before session. FIRE TOWER KEEPER provided assist with all mobility. Pt's daughter, Gayatri, was present throughout session and providing encouragement. Physical Therapy Visit Comments Patient Comments Pt is groggy but agreeable to participate. Therapy Pain Assessment Pain When Pain Assessed During Mobility Pain Present Pain Present Pain Reported Location Left Hip Intensity 9 Scale Used Numeric (0 - 10) Description Acute,Sharp,With Movement Pain Behaviors Calling Out,Facial Grimacing, Wincing Pain Management Techniques Modification of Treatment,Re- positioning,Timing of Activity with Medications M4 PT-IP Mobility and Gait Start: 11/02/20 16:04 Freq: NEEDED Status: Active Protocol: Document 11/04/20 11:04 AW (Rec: 11/04/20 11:29 AW [id number]) PT-Bed Mobility Assessment Supine to Sit Supine to Sit Total Assistance,2 Person Assistance,Head of Bed Elevated,Bedrails Scooting Scooting to Edge of Bed Dependent PT-Transfer Assessment Sit to and From Stand Sit to and from Stand Moderate Assistance,Maximum Assistance,2 Person Assistance ,Use of Upper Extremities Equipment Transfer Assistive Device Gait Belt,Front Wheeled Walker Orthotic/Prosthetic Devices or Brace: No Transfers Transfer Destination Chair Transfer Technique Stand Step Pivot Transfer Ability Level of Assist Maximum Assistance,2 Person Assistance,Use of Upper Extremities Comments Mobility Comments Pt was sitting up in bed as PT arrived. BP 152/102 HR 86. Pt began to move his legs toward left EOB with assist. As he leaned toward his right, he was able to tolerate HOB raised to ~70 degrees. FIRE TOWER KEEPER arrived to assist from behind as PT used draw pad to bring pt to sitting EOB and FIRE TOWER KEEPER provided max balance assist. Pt cried out in pain. Encouraged pt to attend to his breathing as RR increased. With bed raised ~2, pt was able to stand mod-max A x 2 and use of bed cane on pt's left side. In standing, pt required max A x 2 for step pivot transfer to chair which was ultimately moved into position behind him. Pt needed [place] assist for right hand to chair arm in order to improve control of descent. Pt was exhausted. He was left in reclined position with call light and tray table in reach. His remained in the room . Gait Assessment Gait Gait Assistance Required: Maximum Assistance,2 Person Assist Distance (Feet) 2 Able to Maintain Weight Bearing Status No During Gait Assistive Devices Assistive Device Gait Belt,Front Wheeled Walker Gait Deviations General Gait Pattern Antalgic,Decreased Stride Length,Decreased Feet Clearance,Flexed Trunk,Step-to Gait Factors Limiting Gait Function Factors Limiting Gait Function Decreased Activity Tolerance, Decreased Strength,Difficulty Following Directions,Pain,Poor Balance,Poor Safety Awareness Comments Gait Comments Steps taken during transfer only. See mobility comments for details. Stair Climbing Assessment Comments Stair Climbing Comments Not assessed. Ramped entry and chair lift at home. PT-Balance Assessment Sitting Balance and Reactions Static Sitting Balance Ability Poor Dynamic Sitting Balance Ability Poor Standing Balance and Reactions Static Standing Balance Ability Poor Dynamic Standing Balance Ability Poor Device Used FWW M5 PT-IP Objective Assessments Start: 11/02/20 16:04 Freq: NEEDED Status: Active Protocol: Document 11/03/20 09:51 AW (Rec: 11/03/20 12:13 AW [id number]) Orientation Orientation/Cognition Level of Alertness Alert Orientation Name,Year,Place,Situation Language Function Ability No Deficits Noted Safety Awareness Decreased Safety Awareness Memory Description No Deficits Noted Gross Range of Motion Lower Extremity ROM Assessment Left Impaired Impairments all hip AROM and PROM limited by pain response Strength Lower Extremity Strength Assessment Bilaterally Impaired Hip R 3/5; L 3-/5 Knee R 4-/5; L 3/5 Ankle B 4-/5 Sensation Assessment Sensation Gross Sensation WNL Muscle Tone Muscle Tone WNL Yes M6 PT-IP Treatment Start: 11/02/20 16:04 Freq: NEEDED Status: Active Protocol: Document 11/04/20 11:04 AW (Rec: 11/04/20 11:29 AW [id number]) Physical Therapy Treatment Education Education Provided Weight Bearing Status,Safety M7 PT-IP Assessment and Plan Start: 11/02/20 16:04 Freq: NEEDED Status: Active Protocol: Document 11/04/20 11:04 AW (Rec: 11/04/20 11:29 AW [id number]) PT Summary Assessment and Plan Potential Rehabilitation Potential Fair Summary Impairments Pain,ROM,Strength,Balance,Bed Mobility,Transfers,Gait, Activity Tolerance Progress Towards Goals Slow Progress due to Pain,Slow Progress due to Medical Issues,Slow Progress due to Activity Tolerance Assessment Summary Gallo continues to require max to total assist for bed mobility and transfers with FWW. He is unable to ambulate due to significant pain, weakness, and inability to maintain 50% PWB LLE. He will need SNF rehab to improve stength and mobility independence before safe return home. Goals Bed Mobility Goal Minimal Assistance Transfer Goal Minimal Assistance,Front Wheeled Walker Gait Goal Minimal Assistance,Front Wheel Walker Gait Distance 10 Days to Meet Goals 10 Frequency of Treatment Frequency Of Treatment Twice a Day Treatment Plan Physical Therapy Treatment Plan Bed Mobility Training,Transfer Training,Gait Training, Therapeutic Exercise,Balance Retraining,Post Op Education, Discharge Planning,Hot or Cold Pack,Neuromuscular Re-ed Other Recommendations and Next Treatment transfers, standing tolerance Focus with 50% PWB LLE; re-evaluate ability to tolerate bid tx Precautions Other Precautions 50% PWB LLE Recommendations To Nursing Amount of Assist Needed Mechanical Lift Discharge Recommendations PT Discharge Recommendations SNF Rehab Transportation Needs at Discharge Wheelchair/Cabulance,Stretcher /Ambulance
[2020-11-04] MEDS: INSULIN LISPRO 100 UNIT/ML 3ML VIAL SUBCUT ×2 (12:03→16:36)
--- NOTE | 2020-11-04 12:15 | PM.PN.1 ---
Subjective Subjective Date Patient Seen: 11/04/20 Time Patient Seen: 09:00 Interval history: Last night he was noted to have aspirated. He today is slightly more confused, with coarser breath sounds. No fevers, no shortness of breath, no phlegm production. His pain is moderately well controlled. Exam Vital Signs (past 8 hours): - 11/04/20 04:20 11/04/20 07:00 11/04/20 07:57 Temperature 97.7 F 98.1 F Pulse Rate 99 H 97 H Respiratory Rate 24 24 Blood Pressure 173/112 H 160/88 H Pulse Oximetry 92 95 95 11/04/20 08:05 11/04/20 10:00 11/04/20 10:48 Temperature Pulse Rate 103 H 94 H Respiratory Rate Blood Pressure 160/88 H 152/108 H Pulse Oximetry 95 100 11/04/20 11:06 11/04/20 11:08 Temperature 98.4 F Pulse Rate 99 H 98 H Respiratory Rate 24 Blood Pressure 159/101 H 159/101 H Pulse Oximetry 97 Oxygen Delivery Method Room Air Oxygen Flow Rate 0 Narrative Exam Narrative: GEN: he is mildly confused, No apparent distress. CV: regular rate and rhythm PULM: coarse breath sounds bilaterally are clear to auscultation bilaterally EXT: no ankle edema, clean dressing over left hip Objective Labs Result Diagrams: 11/04/20 04:50 11/04/20 04:50 Labs: Laboratory Results - last 24 hr 11/03/20 11/04/20 11/04/20 17:15 04:50 04:50 WBC 15.2 H RBC 4.23 L Hgb 12.5 L Hct 38.2 L MCV 90.4 MCH 29.7 MCHC 32.8 RDW 13.9 Plt Count 169 Neut % (Auto) 66.8 Lymph % (Auto) 9.8 L [place] % (Auto) 13.9 Eos % (Auto) 8.5 H Baso % (Auto) 1.0 Neut # (Auto) 47297 H Lymph # (Auto) 1500 [place] # (Auto) 2100 H Eos # (Auto) 1300 H Baso # (Auto) 100 Sodium 136 L Potassium 3.1 L Chloride 101 Carbon Dioxide 30 BUN 18 Creatinine 1.02 Estimated GFR > 60.0 BUN/Creatinine Ratio 17.6 Glucose 140 H Calcium 9.2 Magnesium 1.7 Total Bilirubin 0.8 Conjugated Bilirubin 0.0 Unconjugated Bilirubin 0.6 AST 29 ALT 20 Alkaline Phosphatase 100 Total Protein 6.4 Albumin 3.5 Globulin 2.9 Albumin/Globulin Ratio 1.2 PFSH Medical History Afib Anemia Arthritis Benign prostatic hyperplasia Chronic anemia Clostridioides difficile infection Diabetes 1.5, managed as type 2 Essential hypertension Frequent falls History of UTI LFT elevation Low back pain Mixed hyperlipidemia Osteoarthritis Paroxysmal atrial fibrillation Tremor Urinary retention Surgical History History of lobectomy of lung History of resection of rib Hx of bilateral cataract extraction Status post appendectomy Family History Father Hypertension Brother Atrial fibrillation Mother No significant medical problems Social History marital status: number of children: 3 household members: spouse occupational status: previously employed Smoking Status: Former smoker Tobacco: How many years used: 20 alcohol intake: never substance use type: does not use caffeine: Yes Assessment & Plan Assessment & Plan narrative: 1. Left hip fracture, acute, present on admission -s/p Hip pinning on 11/02 -Aspirin for DVT prevention -now pending SNF rehab per PT and ortho recommendations 2. Aspiration pneumonia -cxray worsened 11/04 compared to 11/03, patient has coarse breath sounds, mild leukocytosis -will start antibiotics here for concern for infection -speech consult ordered, npo for now until evaluated 2. Prediabetes with last A1c 6.5 -A1c 11/01 is 5.8. -has mildly elevated blood sugars so will order insulin sliding scale in hospital, but a1c is not consistent with diabetes 3. Essential hypertension fair control -now mildly hypertensive -Continue home dose of enalapril and amlodipine 4. Paroxysmal atrial fibrillation -previously anticoagulated on apixaban which was stopped due to frequent falls -patient currently in atrial fibrillation on telemetry but not requiring rate control -Patient cleared for surgery by , his transmission systems operator in anticipation of TURP which also applies to this surgery. 5.BPH with acute urinary retention -Currently has a Thorne -Patient's family has notified Urology that the patient is currently in house for a different problem and his TURP will have to be rescheduled.
[2020-11-04] MEDS: PIPERACILLIN/TAZO 4.5 GM in SODIUM CHLORIDE 0.9% 100 ML 200 ML IV (12:37)
--- NOTE | 2020-11-04 14:50 | CM.DPNOTE ---
Ghazala from [facility] called and said they were following this pt. When he is discharged, we need to fax Roro an order and new referral. I will pass this information onto LUPILLO Rosario. Kelsi Reddy CM Asst.
--- NOTE | 2020-11-04 15:21 | PC.NURSE ---
A&Ox3. HTN: 159/101. Denies pain but moans when moving. Given 5mg Oxycodone prior to PT. Speech came to evaluate his swallowing but he was too tired to participate, he is NPO until he can be evaluated better. Thorne patent and draining yellow urine. Anahi care done and nystatin applied. Call light within reach, bed low.
[2020-11-04] MEDS: PIPERACILLIN/TAZO 3.375 GM in SODIUM CHLORIDE 0.9% 100 ML 25 ML IV (16:33)
--- NOTE | 2020-11-04 16:36 | ST.IPCSEOM ---
Visit Care Team Role Provider Type Kal Bowers DO Primary Care Provider Physician Specialty: Family Practice Address: [address] [place] [address], [id number] Email: [email or web address] Other Providers Physician Specialty: Orthopedic Surgery Address: [address] [place] [address], [address] Email: [email or web address] [email or web address] DO Emergency Provider Physician Referring Provider Specialty: Emergency Medicine Address: [address] [place] [address], [address] Email: [email or web address] Admit Provider Physician Attending Provider Specialty: Internal Medicine Address: [address] [place] [address], [id number] Email: [email or web address] Unspecified intracapsular fracture of left femur, initial encounter for closed fracture (11/01/20) Past Medical History (Last Reviewed 11/04/20 @ 10:22 by Gino Montero PA-C) Afib (Medical) Anemia (Medical) Arthritis (Medical) Benign prostatic hyperplasia (Medical) Chronic anemia (Medical) Clostridioides difficile infection (Medical) Diabetes 1.5, managed as type 2 (Medical) Essential hypertension (Medical) Frequent falls (Medical) History of lobectomy of lung (Medical) History of resection of rib (Medical) History of UTI (Medical) Hx of bilateral cataract extraction (Medical) LFT elevation (Medical) Low back pain (Medical) Mixed hyperlipidemia (Medical) Osteoarthritis (Medical) Paroxysmal atrial fibrillation (Medical) Tremor (Medical) Urinary retention (Medical) Speech-Language Pathology Swallow Evaluation MICA SPLITTER Clinical Swallow Evaluation Start: 11/04/20 09:34 Freq: Status: Active Protocol: Document 11/04/20 10:23 LNK (Rec: 11/04/20 10:42 LNK [id number]) Clinical Swallow Evaluation Session Time Visit Start Time 09:45 Visit Stop Time 09:45 Total Visit Minutes 30 Setting Assessment Location Acute Care Visit Type Note Type Initial evaluation Next Note Type Next Note Type Re-evaluation Patient Information Identification Type Name,ID Card History Gallo Moore is an 84-year-old male with hypertension, hyperlipidemia, atrial fibrillation formerly anticoagulated on apixaban, and prediabetic presented to the emergency department ground level fall last evening . Patient states he dropped a pill and while he attempted to pick it up, stated he lost his balance and fell on his left hip. He denies hitting his head. He denies any headache, neck pain or back pain. His pain is specifically in the left hip with movement or any attempt at weight-bearing. Last evening, nursing observed that pt was choking in bed. He was relined and his was feeding him dinner. According to his daughter, pt eventually coughed up a small piece of carrot. Subjective Observations Pt was up in bed with his daughter in the room. Daughter remarked that pt has congestive heart failue. Reported by Patient Other Symptoms Choking,Coughing Current Diet Nothing by mouth Baseline Feeding Method Independent in self-feeding Objective Assessment Mental Status Responsive,Cooperative, Confused Oral Integrity WFL Dentition Within normal limits Lip Function Within normal limits Observation of Lips at Rest Symmetrical Lip Retraction Within normal limits Tongue Function Within normal limits Hard/Soft Palate Function Within normal limits Observations of Hard/Soft Palate Within normal limits Respiratory Sufficiency Moderate impairment Comment Pt was breathing rapidly this morning. O2 on room air was between 93 and 95% during assessment. Food and Liquid Trials Position During Assessment Slightly reclined Liquids Trialed [place] Solids Trialed Puree Administration Type Tea spoon,Cup single sip,Straw ,Needs some assistance Oral Impairment Within normal limits Oral Phase Comments Oral phase of swallow appeared to be WFL Pharyngeal Impairment Moderately impaired Pharyngeal Phase Comments Pt presented with a consistent throat clear following each teaspoon. His swallow was audible ~50% of swallows. Wet voicing noted x2 with cues to clear throat and swallow. His voice would clear. After ~6-7 small teaspoonsized trials, pt's breathing was wheezy with wetness. At that time, evaluation was stopped due to potential for aspiration. Continue NPO status. Pt fatigued at end of session. Fatigue/Endurance Moderate fatigue Findings Swallowing Function Pharyngeal phase dysphagia Severity of Swallow Impairment Mildly-moderately impaired Contributing Factors to Swallow Reduced alertness or attention Impairment ,Reduced oral strength/ coordination/sensation,Delayed swallow initiation,Reduced laryngeal excursion,Excessive pharyngeal residue Prognosis Good Based on Family support,Duration of symptoms/severity Impact on Safety and Functioning Risk for aspiration Recommendations Instrumental Assessment Yes Swallowing Treatment Yes Frequency MBSS is recommended when pt is able to tolerate sitting up for ~30 minuets Recommended Solids Nothing by Mouth Safety Precautions/Swallowing Supervision needed for all Recommendations meals,1 to 1 close supervision ,Feed only when alert,Reduce distractions,Remain upright ( 90 degrees) during all oral intake,Needs verbal cues to use recommended strategies, Upright position at least 30 minutes after meals,Small bites and sips when eating, Slow rate; swallow between bites,Sip by straw only, Multiple swallows,Set-up assistance,1 to 1 feeding assistance,Family assistance/ supervision Medication Recommendations Not Recommended by Mouth Discharge Recommendations shelter facility Education Patient/Caregiver Education Family/caregivers expressed understanding of evaluation, Family/caregivers expressed understanding of safety precautions,Family/caregivers expressed understanding of feeding recommendations,Family /caregivers require further education/training Goals Short-term Goals Pt will safely tolerate the least restrictive diet to maintain nutrition and hydration.
--- NOTE | 2020-11-04 17:32 | PT-IP ANOTE ---
Attempted to see pt for PM tx but pt stated he was too fatigued and would prefer regulo transfer. Informed RN and updated POC to once daily treatment as pt is unable to tolerate twice daily.
--- NOTE | 2020-11-04 18:17 | OT.IPNOTE ---
Order received. Discussed with DENI Patel and family. Pt needed assist or was dependent for all of his ADLs except eating and brushing his teeth. Per family, pt is able to get hand to mouth for both tasks at this time. Will discharge OT orders.
[2020-11-04] MEDS: DOCUSATE 100 MG CAPSULE PO (20:25)
[2020-11-04] MEDS: SENNOSIDES 8.6 MG TABLET PO (20:26)
[2020-11-04] MEDS: ATORVASTATIN 20 MG TABLET 10 MG PO (20:26)
[2020-11-04] MEDS: CLOTRIMAZOLE 1% CRM 30 GM 1 APPLIC TOP (20:29)
[2020-11-04] MEDS: SODIUM CHLORIDE 0.9% 500 ML 40 ML IV (21:20)
[2020-11-05] VITALS (7 sets, daily range): BP systolic 145–182; BP diastolic 84–97; PULSE 90–101; RESP 18–27; TEMP 36.3–37.1; O2SAT 95–100
[2020-11-05] MEDS: PIPERACILLIN/TAZO 3.375 GM in SODIUM CHLORIDE 0.9% 100 ML 25 ML IV ×2 (00:35→09:10)
[2020-11-05 05:21] LABS: Hematocrit 38.4 % (41-53); Hemoglobin 12.8 g/dL (13.5-17.5); Mean Corpuscular HGB Conc 33.2 % (30-36); Mean Corpuscular Hemoglobin 29.9 PG (26-34); Platelet Count 198 X10^3/uL (150-400); Red Blood Cell Count 4.27 X10^6/uL (4.5-5.9); Red Cell Distribution Width 13.7 % (11.6-14.8); White Blood Cell Count 14.9 X10^3/uL (4.5-11.0)
[2020-11-05 05:48] LABS: Blood Urea Nitrogen 18 mg/dL (9-20); Calcium 9.3 mg/dL (8.4-10.2); Carbon Dioxide 31 mmol/L (22-32); Chloride 100 mmol/L (98-107); Estimated Glomerular Filt Rate > 60.0 mL/min (>60); Glucose 142 mg/dL (80-110); HEMOLYSIS < 15 (0-50); Sodium 136 mmol/L (137-145)
[2020-11-05 05:53] LABS: NT-proBNP (BNP-Adult 18+) 1740 pg/mL (<450)
[2020-11-05] MEDS: FUROSEMIDE 40 MG/4 ML VIAL IV (09:20)
[2020-11-05] MEDS: AMLODIPINE 5 MG TABLET PO (09:24)
[2020-11-05] MEDS: ASPIRIN EC 81 MG TABLET PO (09:24)
[2020-11-05] MEDS: OXYCODONE IR 5 MG TABLET PO (09:24)
[2020-11-05] MEDS: ENALAPRIL 20 MG TABLET PO (09:25)
[2020-11-05] MEDS: FINASTERIDE 5 MG TABLET PO (09:25)
[2020-11-05] MEDS: FERROUS SULFATE 325 MG TABLET PO (09:25)
[2020-11-05] MEDS: NYSTATIN POWDER 15GM 1 APPLIC TOP (09:35)
[2020-11-05] MEDS: DOCUSATE 100 MG CAPSULE PO (09:35)
--- NOTE | 2020-11-05 09:35 | ST.IPDYTX ---
Visit Care Team Role Provider Type Kal Bowers DO Primary Care Provider Physician Specialty: Family Practice Address: [address] [place] [address], [address] Email: [email or web address] Oswaldo Choudhury MD Other Providers Physician Specialty: Orthopedic Surgery Address: [address] [place] [address], [address] Email: [email or web address] Dominga Andino DO Emergency Provider Physician Referring Provider Specialty: Emergency Medicine Address: [address] [place] [address], [address] Email: [email or web address] Turner MD Admit Provider Physician Attending Provider Specialty: Internal Medicine Address: [address] [place] [address], [address] Email: [email or web address] TECHNOLOGY ADMINISTRATOR Dysphagia Treatment INFORMATION TECHNOLOGY ADMINISTRATOR Dysphagia Treatment Start: 11/04/20 09:34 Freq: Status: Active Protocol: Document 11/05/20 09:21 [id number] (Rec: 11/05/20 09:35 LNK [email or web address]) Dysphagia Treatment Session Time Visit Start Time 08:50 Visit Stop Time 09:15 Total Visit Minutes 25 Setting Assessment Location Acute Care Visit Type Note Type Treatment Note Next Note Type Next Note Type Treatment Note Patient Information Subjective Observations Pt was up in his bed. Pt's daughter were in the room with him. Pt was much more cognizant today. eating/ drinking. Treatment Liquids Trialed [place] Solids Trialed Dysphagia Mechanical Administration Type Tea Spoon,Controlled Cup Sip, Straw,Dependent Feeding Pharyngeal Strategies Sitting Upright (90 deg), Effortful Swallow,Small Bites and Sips,Alternate Liquids/ Solids Treatment Activities PO trials with diced fruit. Pt safely tolerated the trials . Clear voicing after each trial. No wet voicing observed . No choking observed. Pt safely tolerated dysphagia advanced Will continue trials as pt is able to tolerate. Family instruction re: feeding the pt. Pt did cough x1 during the assessment; it did not seem that the coughing was swallow related. Assessment Patient Response to Treatment Excellent Rehab Potential Good Diet Recommendations Liquids Order [place] Diet Order Dysphagia Advanced Medication Recommendations Crushed in Carrier,One at a Time Comments Pt needs to be alert! Aspiration Precautions Recommended Precautions Upright at 90 Degrees,Frequent Rest Periods,Small Bites/Sips ,Chin Tuck,Effortful Swallow, Liquids from Cup Treatment Plan Placement Recommendation after Discharge Nursing Home Facility Dysphagia Goals Pt will safely tolerate the least restrictive diet without s/sx aspiration.
[2020-11-05] MEDS: CLOTRIMAZOLE 1% CRM 30 GM 1 APPLIC TOP (09:37)
--- NOTE | 2020-11-05 10:30 | PT.IPTN ---
Current Diagnoses Unspecified intracapsular fracture of left femur, initial encounter for closed fracture (11/01/20) Surgery Performed Operation Date: 11/02/20 09:30 Actual Procedures p ORIF Hip/Cannulated Screws(Left) - Oswaldo Choudhury MD Physical Therapy Treatment Note M2 PT-IP Current Condition Start: 11/02/20 16:04 Freq: NEEDED Status: Active Protocol: Document 11/03/20 09:51 AW (Rec: 11/03/20 12:13 AW [id number]) Physical Therapy Current Condition Current Condition Evaluation Date 11/03/20 Treatment Diagnosis GLF, L femoral neck fx s/p perc pin; impaired mobility and gait Onset Date 11/01/20 Weight Bearing Status Weight Bearing Status Partial Weight Bearing Allowed Weight Bearing Amount (enter % 50% PWB LLE or #) (%) M3 PT-IP Subjective Start: 11/02/20 16:04 Freq: NEEDED Status: Active Protocol: Document 11/05/20 10:30 AW (Rec: 11/05/20 10:48 AW [id number]) Subjective Physical Therapy Visit Type Type Treatment Note Visit Start Time 10:02 Visit Stop Time 10:30 Total Visit Minutes 28 Notes Coordinated with IGGY Mckeon for pre-medication to work with PT . Daughter was present this session and providing much encouragement. Physical Therapy Visit Comments Patient Comments Pt is groggy but rouses with transition to EOB.. Therapy Pain Assessment Pain When Pain Assessed During Mobility Pain Present Pain Present Pain Reported Location Left Hip Scale Used not quantified Description Aching,Throbbing,With Movement Pain Behaviors Calling Out,Facial Grimacing, Wincing Pain Management Techniques Modification of Treatment,Re- positioning,Timing of Activity with Medications M4 PT-IP Mobility and Gait Start: 11/02/20 16:04 Freq: NEEDED Status: Active Protocol: Document 11/05/20 10:30 AW (Rec: 11/05/20 10:48 AW [id number]) PT-Bed Mobility Assessment Supine to Sit Supine to Sit Total Assistance,2 Person Assistance,Head of Bed Elevated,Bedrails Scooting Scooting to Edge of Bed Dependent PT-Transfer Assessment Sit to and From Stand Sit to and from Stand Moderate Assistance,Maximum Assistance,2 Person Assistance ,Use of Upper Extremities Equipment Transfer Assistive Device Gait Belt,Front Wheeled Walker Orthotic/Prosthetic Devices or Brace: No Transfers Transfer Destination Chair Transfer Technique Stand Step Pivot Transfer Ability Level of Assist Maximum Assistance,2 Person Assistance,Use of Upper Extremities Comments Mobility Comments Pt was very sleepy as PT arrived. He consented to treatment but had difficulty keeping his eyes open. PT assisted pt to move his legs toward left EOB and used the draw pad to move his hips closer to EOB. Pt was able to dangle but did not tolerate righting his trunk. PT called for assist and STONE OPERATOR arrived. STONE OPERATOR provided assist from behind as PT used draw sheet to turn pt to sitting EOB total assist x 2. He sat EOB as PT lowered HOB to flat. Pt leaned to his right in order to offweight his left hip. He was unwilling to move toward midline. With mod/max assist x 2, pt stood from the bed pulling on the FWW in spite of cues to push off from the bed , requiring PT and STONE OPERATOR to stabilize the walker. Pt unable to respond to cues to extend knees and hips. He began step pivot transfer to chair on his left, requiring max assist x 2. Standing tolerance was more limited today and chair was brought into position behind pt. With cues, he reached right hand back for chair arm support to improve control of descent. SpO2 ranged 90-99% during activity. HR steve from 90 bpm at rest to max 132 bpm during activity. Gait Assessment Gait Gait Assistance Required: Maximum Assistance,2 Person Assist Distance (Feet) 2 Able to Maintain Weight Bearing Status No During Gait Assistive Devices Assistive Device Gait Belt,Front Wheeled Walker Gait Deviations General Gait Pattern Antalgic,Decreased Stride Length,Decreased Feet Clearance,Flexed Trunk,Step-to Gait Factors Limiting Gait Function Factors Limiting Gait Function Decreased Activity Tolerance, Decreased Strength,Difficulty Following Directions,Pain,Poor Balance,Poor Safety Awareness ,Respiratory Distress Comments Gait Comments Steps taken during transfer only. See mobility comments for details. Pt requires constant cues for breath awareness. Stair Climbing Assessment Comments Stair Climbing Comments Not assessed. Ramped entry and chair lift at home. PT-Balance Assessment Sitting Balance and Reactions Static Sitting Balance Ability Poor Dynamic Sitting Balance Ability Poor Standing Balance and Reactions Static Standing Balance Ability Poor Dynamic Standing Balance Ability Poor Device Used FWW M5 PT-IP Objective Assessments Start: 11/02/20 16:04 Freq: NEEDED Status: Active Protocol: Document 11/03/20 09:51 AW (Rec: 11/03/20 12:13 AW [id number]) Orientation Orientation/Cognition Level of Alertness Alert Orientation Name,Year,Place,Situation Language Function Ability No Deficits Noted Safety Awareness Decreased Safety Awareness Memory Description No Deficits Noted Gross Range of Motion Lower Extremity ROM Assessment Left Impaired Impairments all hip AROM and PROM limited by pain response Strength Lower Extremity Strength Assessment Bilaterally Impaired Hip R 3/5; L 3-/5 Knee R 4-/5; L 3/5 Ankle B 4-/5 Sensation Assessment Sensation Gross Sensation WNL Muscle Tone Muscle Tone WNL Yes M6 PT-IP Treatment Start: 11/02/20 16:04 Freq: NEEDED Status: Active Protocol: Document 11/05/20 10:30 AW (Rec: 11/05/20 10:48 AW [id number]) Physical Therapy Treatment Exercises Exercises Quad Sets,Heel Slides Education Education Provided Weight Bearing Status,Safety Other Treatments Other Treatment Performed QS and HS to prep pt for OOB mobility. M7 PT-IP Assessment and Plan Start: 11/02/20 16:04 Freq: NEEDED Status: Active Protocol: Document 11/05/20 10:30 AW (Rec: 11/05/20 10:48 AW [id number]) PT Summary Assessment and Plan Potential Rehabilitation Potential Fair Summary Impairments Pain,ROM,Strength,Balance, Cognition,Bed Mobility, Transfers,Gait,Activity Tolerance Progress Towards Goals Slow Progress due to Pain,Slow Progress due to Medical Issues,Slow Progress due to Activity Tolerance Assessment Summary Gallo is progressing incrementally. He was able to support himself with slightly less assist and for longer today in sitting. He continues to need max to total assist for bed mobility and transfers . He is unable to ambulate due to significant pain, weakness , and inability to maintain 50 % PWB LLE. He will need SNF rehab to improve stength and mobility independence before safe return home. Goals Bed Mobility Goal Minimal Assistance Transfer Goal Minimal Assistance,Front Wheeled Walker Gait Goal Minimal Assistance,Front Wheel Walker Gait Distance 10 Days to Meet Goals 10 Frequency of Treatment Frequency Of Treatment Once a Day Treatment Plan Physical Therapy Treatment Plan Bed Mobility Training,Transfer Training,Gait Training, Therapeutic Exercise,Balance Retraining,Post Op Education, Discharge Planning,Hot or Cold Pack,Neuromuscular Re-ed Other Recommendations and Next Treatment transfers, standing tolerance Focus with 50% PWB LLE Precautions Other Precautions 50% PWB LLE Recommendations To Nursing Amount of Assist Needed Mechanical Lift Discharge Recommendations PT Discharge Recommendations SNF Rehab Transportation Needs at Discharge Wheelchair/Cabulance,Stretcher /Ambulance
[2020-11-05] MEDS: POTASSIUM CHLORIDE 20 MEQ TAB 40 MEQ PO (10:35)
[2020-11-05 11:14] LABS: COVID19 -Nasal RAPID Negative (Negative)
--- NOTE | 2020-11-05 12:01 | CM.DPC ---
DCP SNF Discharge Per MD, pt is medically stable to d/c to SNF for ongoing rehab and no identified barriers to discharge. Per RN, getting updated rapid COVID swab for d/c today. Per ST, was able to assess pt this morning and much more alert and able to participate and no longer needing to be NPO. ARTHUR called [facility] admissions and confirmed they can accept pt today and can transport pt at 1400 and pt has been up sitting in the bedside chair and can transport via cabulance. [facility] confirms that family can visit but policy is in the common room not pt room. Family agreeable to SNF but they are sad pt cannot just d/c home but they state pt is currently too much assist for safe d/c home. Family plans to call [facility] for some questions regarding visitor policy and his room etc... Family felt that pt may be leaving the hospital earlier than they anticipated and SW discussed the purpose of the hospital is for acute medical needs and pt now medically stable for lower level of care at SNF and they acknowledged understanding that pt now is ready for healing and strengthening. ARTHUR provided RN report number to pt's RN and updated ASPHALT ROLLER OPERATOR on d/c location and time of 1400. NICOLAS Dolan kindly faxing d/c packet to [facility] to review. ARTHUR called [facility] and updated on d/c to [facility] today. Plan: Patient to d/c to [facility] today via cabulance at 1400 prior to safe return home with spouse, family, and [facility] and likely [facility]. LUPILLO Doran
--- NOTE | 2020-11-05 12:30 | SLP.IPNOTE ---
Attempted to see pt for noon meal. Pt's family reported that he will be discharging to SNF @ 2pm today. Will downgrade diet to dysphagia mechanical for discharge to SNF and increased tolerance as well as reduced aspiration risk.
--- NOTE | 2020-11-05 14:28 | PC.NURSE ---
Addendum entered by Linda Ortiz R.N. 11/05/20 14:58: Patient continued on RA, sats 96%. 1200 ml output via Thorne Cath emptied, clear yellow this shift. Breathing effort improved from this am, no wheezing noted post Lasix administration this am. Up in chair for lunch, accompanied with spouse and daughter. Tolerated Dysphagia diet, no coughing or choking. Original Note: Discharge note: Discharge instructions given to patient, daughter and spouse. Patient discharging to [facility]. Report given to Rita receiving nurse at receiving facility. Reported, mobility precautions, new medications, Covid result, and patients clinical status. Patient transported via by [facility] staff.
--- NOTE | 2020-11-05 18:19 | PM.DS.1 ---
History of Present Illness History of Present Illness Chief complaint: GLF, L hip pain Narrative: Fermín Martínez: Gallo Moore is an 84-year-old male with hypertension, hyperlipidemia, atrial fibrillation formerly anticoagulated on apixaban, and prediabetic presented to the emergency department ground level fall last evening. Patient states he dropped a pill and while he attempted to pick it up, stated he lost his balance and fell on his left hip. He denies hitting his head. He denies any headache, neck pain or back pain. His pain is specifically in the left hip with movement or any attempt at weight-bearing. If he is inactive his pain is controllable. He denies any chest pain or shortness of breath. No nausea or vomiting. No loss of bowel or bladder control. No other GI or urinary symptoms. Has pain with movement of his leg but denies any new swelling, numbness, tingling or other weakness. Has known bilateral benign essential familial tremor, he takes chronic pain medication including hydrocodone, omeprazole, medication for hypertension and dyslipidemia but denies any known cardiac history. He has known history of diabetes as well as proximal atrial fibrillation. Patient used to take Eliquis but this was stopped secondary to fall risk. Family did contact EMS last night for lift assist. When he attempted to get the car today they could not hardly even get his pants on and EMS was re-contacted. Patient is not currently anticoagulated. He does typically take an aspirin daily but stopped this several days ago in anticipation of having a TURP by Urology tomorrow. Patient was supposed to see urology outpatient today prior to his procedure. He has been self catheterizing for the past 6 days due to urinary retention. 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 He is accompanied by his daughter who he states is his DPOA. In the emergency department they did a CT of the lower extremities indicating ?Nondisplaced left subcapital femoral fracture extending to the proximal femoral neck.Patient is afebrile, blood pressure 151/102, heart rate 80, respiratory rate 19, oxygen saturation of 94% on room air, he weighs 103.2 kg with a BMI of 34.9. WBC is 13.2 likely due to injury stress, is a mild left shift of 10,000, platelet count is 214, sodium 136, potassium 4.5, chloride 101, bicarb 29, BUN 21, creatinine 0.9, with a GFR greater than 60, glucose is 147, total bilirubin is mildly elevated at 1.4, alk-phos is 127, patient COVID-19 PCR is negative. Hemoglobin A1c and patient's blood type are currently pending. Discharge Providers Provider Date of admission: 11/01/20 13:56 Discharge Date: 11/05/20 Primary care physician: Kal Bowers DO Consults: 11/01/20 16:54 Consult to Physician Routine Comment: Consulting Provider: Oswaldo Choudhury Reason for consultation: left hip fracture Has provider been notified: Yes 11/02/20 11:45 Consult to Discharge Planning Routine Comment: Consult to Physical Therapy Evaluate & Treat Comment: Physician Instructions: Evaluate and Treat Consult to Respiratory Therapy Evaluate & Treat Comment: Physician Instructions: Evaluate and treat 11/02/20 15:57 Consult to Occupational Therapy Evaluate & Treat Comment: Physician Instructions: Evaluate and treat 11/04/20 08:23 Consult to Speech Therapy Evaluate & Treat Comment: Physician Instructions: Evaluate and treat Discharge provider: Apolinar Cruz MD Summary Hospital Course Discharge Diagnosis: 1. Left hip fracture s/p hip pinning on 11/02 2. Aspiration pneumonia with dysphagia 3. Prediabetes 4. Mild dementia 5. Hospital acquired delirium 6. Hypertension 7. Paroxysmal atrial fibrillation 8. BPH with urinary retention with chronic black Hospital Course: Mr. Moore was admitted after a fall with a left hip fracture and underwent pinning on 11/02. He is recommended to continue on aspirin BID for DVT prophylaxis, and then can be switched back to full dose aspirin. He should follow up with ortho in 1-2 weeks. In addition he had hospital acquired delirium, likely related to surgery and pain medications with probable underlying dementia. In this setting he aspirated and chest xray showed a mild pneumonia, he did not require oxygen on discharge. He will be discharged on augmentin to complete an antibiotic course. In addition he has a chronic black for BPH and was supposed to see urology, but this will need to be rescheduled. In addition to PT/OT he is recommended to continue to have speech therapy for his dysphagia. Exam Vital Signs (past 8 hours): - 11/05/20 12:00 11/05/20 12:04 Temperature 97.4 F L Pulse Rate 90 91 H Respiratory Rate 18 Blood Pressure 145/84 H 145/84 H Pulse Oximetry 100 Oxygen Delivery Method Room Air Oxygen Flow Rate 0 Narrative Exam Narrative: GEN: he is mildly confused, No apparent distress. more awake and alert today CV: regular rate and rhythm PULM: clear bilaterally EXT: no ankle edema, clean dressing over left hip Objective Labs Result Diagrams: 11/05/20 04:50 11/05/20 04:50 Labs: Laboratory Results - last 24 hr 11/05/20 11/05/20 11/05/20 04:50 04:50 04:50 WBC 14.9 H RBC 4.27 L Hgb 12.8 L Hct 38.4 L MCV 90.0 MCH 29.9 MCHC 33.2 RDW 13.7 Plt Count 198 Sodium 136 L Potassium 3.0 L Chloride 100 Carbon Dioxide 31 BUN 18 Creatinine 0.90 Estimated GFR > 60.0 BUN/Creatinine Ratio 20.0 Glucose 142 H Calcium 9.3 NT-Pro-B Natriuret Pep 1740 H SARS-CoV-2 (PCR) 11/05/20 10:18 WBC RBC Hgb Hct MCV MCH MCHC RDW Plt Count Sodium Potassium Chloride Carbon Dioxide BUN Creatinine Estimated GFR BUN/Creatinine Ratio Glucose Calcium NT-Pro-B Natriuret Pep SARS-CoV-2 (PCR) Negative PFSH Medical History Afib Anemia Arthritis Benign prostatic hyperplasia Chronic anemia Clostridioides difficile infection Diabetes 1.5, managed as type 2 Essential hypertension Frequent falls History of UTI LFT elevation Low back pain Mixed hyperlipidemia Osteoarthritis Paroxysmal atrial fibrillation Tremor Urinary retention Surgical History History of lobectomy of lung History of resection of rib Hx of bilateral cataract extraction Status post appendectomy Family History Father Hypertension Brother Atrial fibrillation Mother No significant medical problems Social History marital status: number of children: 3 household members: spouse occupational status: previously employed Smoking Status: Former smoker Tobacco: How many years used: 20 alcohol intake: never substance use type: does not use caffeine: Yes Discharge Plan Discharge Plan Patient Disposition: SNF Transfer to: [facility] Provider Discharge Comment: Mr. Moore had a fall with a left hip femoral neck fracture. He underwent surgery with Dr. Choudhury on 11/02. He should continue on aspirin twice a day for DVT prophylaxis. He should follow up with Dr. Choudhury in 1-2 weeks. He also had aspiration after surgery. He was given antibiotics for a mild pneumonia and should complete 5 more days of antibiotics. He will be discharged to SNF for further therapy with PT/OT/speech therapy. Discharge orders & Medications Prescriptions: New acetaminophen 325 mg Tablet 650 mg PO Q6HR PRN (Reason: Fever/Mild Pain (1-3)) Qty: 20 RF: 0 aspirin 81 mg Tablet,Delayed Release (Dr/Ec) 81 mg PO BID Qty: 60 RF: 0 docusate sodium [DOK] 100 mg Capsule 100 mg PO BID Qty: 20 RF: 0 melatonin 3 mg Tablet 6 mg PO BEDTIME Qty: 20 RF: 0 oxycodone 5 mg Tablet 5 mg PO Q4HR PRN (Reason: Pain, Moderate (4-6)) Qty: 20 RF: 0 polyethylene glycol 3350 17 gram Powder In Packet 17 g PO DAILY PRN (Reason: Constipation) Qty: 14 RF: 0 sennosides [senna] 8.6 mg Tablet 8.6 mg PO BEDTIME Qty: 20 RF: 0 amoxicillin-pot clavulanate 875-125 mg tablet 1 tab PO BID Qty: 10 RF: 0 albuterol sulfate 90 mcg/actuation HFA aerosol inhaler 1 inh inhalation QID PRN (Reason: shortness of breath or wheezing) Qty: 6.7 RF: 0 Continued cholecalciferol (vitamin D3) [Vitamin D3] 25 mcg (1,000 unit) tablet 1,000 unit PO QAM Qty: 0 RF: 0 finasteride 5 mg tablet 5 mg PO DAILY Qty: 90 RF: 3 clotrimazole 1 % cream 1 applic topical BID Qty: 15 RF: 1 amlodipine 5 mg tablet 5 mg PO BID Qty: 90 RF: 3 nystatin 100,000 unit/gram powder 1 applic topical BID Qty: 60 RF: 2 trazodone 100 mg tablet 100 mg PO BEDTIME Qty: 90 RF: 1 enalapril maleate 20 mg tablet See Rx Instructions .ROUTE .COMPLEX Qty: 180 RF: 2 furosemide 20 mg tablet 20 mg PO DAILY Qty: 30 RF: 2 atorvastatin 10 mg tablet 10 mg PO BEDTIME Qty: 90 RF: 3 potassium chloride 10 mEq capsule, extended release 10 meq PO BID Qty: 270 RF: 3 omeprazole magnesium [Prilosec OTC] 20 mg tablet,delayed release (DR/EC) 20 mg PO QAM Qty: 90 RF: 3 aspirin 325 mg Tablet 325 mg PO QAM RF: 0 ferrous sulfate 325 mg (65 mg iron) Capsule, Extended Release 325 mg PO QAM RF: 0 vitamin B complex Tablet 1 tab PO QAM RF: 0 Discontinued hydrocodone-acetaminophen 5-325 mg tablet 0.5 tab PO DAILY PRN (Reason: pain) Qty: 60 RF: 0 No Action (DME) Disabled Parking Permit 0 .[address] .MEDSUPPLY Qty: 1 RF: 0 Follow up/Referrals: Kal Bowers, [Primary Care Provider] - Discharge Health Status Multidrug resistant organism: No MDRO Diet/Activity/Treatments Liquid consistency: [place] Consistency Food texture: Soft Diet comment: dysphagia advanced diet [facility] Reason for rehabilitation: Post-operative therapy Rehab type: Physical therapy, Occupational therapy and Speech therapy Restrictions to mobility: 50% weight bearing on left lower extremity Discharge Data Primary Care Provider: Kal Bowers Quality MIPS - DC The patient has current or prior documentation of left ventricular ejection fraction (LVEF) less than 40%, or moderate or severely depressed left ventricular systolic function.: No
== END 2020-11-05 14:30 | DRG 480 ==
LOC: ED 13:52 → AC 13:57
PROVIDERS: Internal Medicine; Nurse Practitioner Family; Orthopaedic Surgery Adult Reconstructive Orthopaedic Surgery; Admitting Provider Internal Medicine; Emergency Provider Emergency Medicine; PCP Family Medicine; Referring Provider Emergency Medicine; Visit Provider Internal Medicine
PROC: 0QH734Z Insertion of Internal Fixation Device into Left Upper Femur, Percutaneous Approach (ICD-10-PCS; principal; 2020-11-02 09:30)
DX: S72.012A Unspecified intracapsular fracture of left femur, initial encounter for closed fracture (principal); J69.0 Pneumonitis due to inhalation of food and vomit; F05 Delirium due to known physiological condition; I10 Essential (primary) hypertension; E78.5 Hyperlipidemia, unspecified; N40.1 Benign prostatic hyperplasia with lower urinary tract symptoms; R33.8 Other retention of urine; I48.0 Paroxysmal atrial fibrillation; E66.9 Obesity, unspecified; R73.03 Prediabetes; F03.90 Unspecified dementia, unspecified severity, without behavioral disturbance, psychotic disturbance, mood disturbance, and anxiety; W18.30XA Fall on same level, unspecified, initial encounter; Z87.891 Personal history of nicotine dependence; Z68.35 Body mass index [BMI] 35.0-35.9, adult; Z20.822 Contact with and (suspected) exposure to COVID-19
CPT/HCPCS: 36415; 36592; 71045; 73502; 73700; 76000; 80048; 80076; 82962; 83036; 83735; 83880; 85025; 85027; 85610; 85730; 86850; 86900; 86901; 87635; 92526; 92610; 93005; 94640; 94760; 96360; 96361; 97162; 97530; 99284; 99285; C9803; J0171; J0690; J1815; J1940; J2270; J2405; J2543; J2704; J3010; J7613

== ENCOUNTER → 2020-11-15 22:41 | Outpatient (ROUT) | payer MEDICARE, SELFPAY ==
[2020-11-01 16:18] VITALS: BMI 34.9
[2020-11-15 22:46] LABS: Bacteria Urine None Seen
[2020-11-15 23:02] LABS: Appearance Urine UA CLEAR; Bilirubin Urine UA NEGATIVE (NEGATIVE); Color Urine UA YELLOW; Glucose Urine UA NEGATIVE (Negative); Ketones Urine UA TRACE (NEGATIVE); Leukocyte Esterase Urine UA TRACE (NEGATIVE); Nitrite Urine UA NEGATIVE (Negative); Occult Blood Urine UA 3+ (Negative); Protein Urine UA 3+ (Negative); Specific Gravity Urine UA >=1.030 (1.000-1.035); Urobilinogen Urine UA 0.2 E.U./dL (0.2); pH Urine UA 5.5 (4.5-8.0)
[2020-11-15 23:55] LABS: Calcium Oxalate Crystals Urine Few; Hyaline Casts Urine 1-5/LPF; RBC Urine 10-30/HPF (0-5/HPF); WBC Urine 0-1/HPF (0-5/HPF)
[2020-11-15 23:56] LABS: Culture Indicated Urine Specimen Cultured; Mucus Urine 2+ (Negative)
== END ==
PROVIDERS: PCP Family Medicine; Visit Provider Nurse Practitioner
DX: R41.0 Disorientation, unspecified (principal)
CPT/HCPCS: 81001; 87086

== ENCOUNTER → 2020-11-20 11:12 | Outpatient (ROUT) | payer MEDICARE, SELFPAY ==
[2020-11-01 16:18] VITALS: BMI 34.9
== END ==
PROVIDERS: PCP Family Medicine; Visit Provider Family Medicine
DX: N39.0 Urinary tract infection, site not specified (principal); R41.0 Disorientation, unspecified; R70.0 Elevated erythrocyte sedimentation rate
CPT/HCPCS: 87086

== ENCOUNTER → 2020-11-26 10:18 | Outpatient (ROUT) | payer MEDICARE, SELFPAY ==
[2020-11-01 16:18] VITALS: BMI 34.9
[2020-11-26 10:40] LABS: Add Manual Diff / Slide Review NO; Basophils Absolute Auto 0 /uL (0-100); Basophils Percent Auto 0.4 % (0-2); Eosinophils Absolute Auto 400 /uL (0-450); Hemoglobin 12.3 g/dL (13.5-17.5); Lymphocytes Absolute Auto 1100 /uL (1100-4500); Lymphocytes Percent Auto 10.2 % (25-40); Mean Corpuscular HGB Conc 32.5 % (30-36); Mean Corpuscular Hemoglobin 29.8 PG (26-34); Mean Corpuscular Volume 91.7 fL (80-100); Monocytes Absolute Auto 700 /uL (0-900); Monocytes Percent Auto 7.1 % (3-14); Neutrophils Absolute Auto 8100 /uL (1500-7000); Neutrophils Percent Auto 78.3 % (50-75); Platelet Count 307 X10^3/uL (150-400); Red Blood Cell Count 4.14 X10^6/uL (4.5-5.9); Red Cell Distribution Width 13.8 % (11.6-14.8); White Blood Cell Count 10.3 X10^3/uL (4.5-11.0)
[2020-11-26 11:02] LABS: Alanine Aminotransferase 21 IU/L (<50); Albumin 3.3 g/dL (3.5-5.0); Albumin Globulin Ratio 1.2 (1.0-2.8); Alkaline Phosphatase 140 U/L (38-126); Aspartate Aminotransferase 26 IU/L (17-59); BUN Creatinine Ratio 16.1 (6-22); Bilirubin Total 0.4 mg/dL (0.2-1.3); Blood Urea Nitrogen 18 mg/dL (9-20); Calcium 9.5 mg/dL (8.4-10.2); Carbon Dioxide 31 mmol/L (22-32); Chloride 102 mmol/L (98-107); Estimated Glomerular Filt Rate > 60.0 mL/min (>60); Globulin 2.7 g/dL (1.7-4.1); Glucose 121 mg/dL (80-110); HEMOLYSIS < 15 (0-50); Potassium 4.2 mmol/L (3.4-5.1); Sodium 137 mmol/L (137-145)
== END ==
PROVIDERS: PCP Family Medicine; Visit Provider Family Medicine
DX: E87.6 Hypokalemia (principal); E78.2 Mixed hyperlipidemia; R33.9 Retention of urine, unspecified
CPT/HCPCS: 80053; 85025

== ENCOUNTER → 2021-01-31 08:47 | Outpatient (CLI) | payer MEDICARE, SELFPAY ==
[2020-11-01 16:18] VITALS: BMI 34.9
[2021-01-31 11:08] LABS: Appearance Urine UA CLEAR; Bilirubin Urine UA NEGATIVE (NEGATIVE); Color Urine UA YELLOW; Glucose Urine UA NEGATIVE (Negative); Ketones Urine UA NEGATIVE (NEGATIVE); Leukocyte Esterase Urine UA 2+ (NEGATIVE); Nitrite Urine UA POSITIVE (Negative); Occult Blood Urine UA 3+ (Negative); Protein Urine UA 2+ (Negative); Urobilinogen Urine UA 0.2 E.U./dL (0.2)
[2021-01-31 11:47] LABS: Bacteria Urine Many (>30); Culture Indicated Urine Specimen Cultured; RBC Urine 5-10/HPF (0-5/HPF); Squamous Epithelial Cell Urine None Seen (0-5/HPF); WBC Urine 30-100/HPF (0-5/HPF)
== END ==
PROVIDERS: PCP Family Medicine; Visit Provider Specialist
DX: R30.0 Dysuria (principal)
CPT/HCPCS: 81001; 87077; 87086; 87186; 99211

== ENCOUNTER → 2021-02-04 15:59 | Outpatient (CLI) | payer MEDICARE, SELFPAY ==
[2020-11-01 16:18] VITALS: BMI 34.9
[2021-02-04 17:00] LABS: COVID19 -Nasal RAPID Negative (Negative)
== END ==
PROVIDERS: PCP Family Medicine; Referring Provider Specialist; Visit Provider Specialist
DX: Z20.822 Contact with and (suspected) exposure to COVID-19 (principal)
CPT/HCPCS: 87635; C9803

== ENCOUNTER 2021-02-07 10:19 | Day surgery (SDC) | payer MEDICARE, SELFPAY ==
[2020-11-01 16:18] VITALS: BMI 34.9
[2021-02-03 08:38] VITALS: BMI 36.0
[2021-02-07] VITALS (7 sets, daily range): BP systolic 114–173; BP diastolic 69–93; PULSE 76–87; RESP 14–28; TEMP 36.4–36.6; O2SAT 93–96; BMI 36.0
[2021-02-07] MEDS: LACTATED RINGERS 1,000 ML 42 ML IV (11:45)
--- NOTE | 2021-02-07 11:54 | SUR.OPER ---
Lithotomy on padded OR bed, head on pillow, arms secured on padded arm boards at <90 degrees abduction. Legs secured in padded yellow fins stirrups.
[2021-02-07] MEDS: AMPICILLIN/SULBACTAM 3 GM 3 GM in SODIUM CHLORIDE 0.9% 100 ML IV (12:00)
--- NOTE | 2021-02-07 12:24 | PM.PREOP ---
Pre-operative Note Interval Note History & Physical reviewed/Exam performed by Physician: Yes Changes to H&P: No
[2021-02-07] MEDS: GENTAMICIN 160 MG in SODIUM CHLORIDE 0.9% 100 ML 104 ML IV (12:43)
--- NOTE | 2021-02-07 12:49 | SUR.OPER ---
bilateral hearing aids and 2 sets of partials taken with patient to recovery.
[2021-02-07] MEDS: BELLADONNA/OPIUM SUPPOSITORIES 1 EACH PR (13:04)
--- NOTE | 2021-02-07 13:14 | P.OP_ITS ---
Operative Date/Time/Diagnoses Date of procedure: 02/07/21 Time of procedure: 13:15 Pre-op diagnosis: 1. Urinary retention. 2. Bladder neck contracture. Post-op diagnosis: same Procedure & Clinicians Procedure: 1. Transurethral resection of bladder neck contracture. 2. Redo transurethral resection of prostate (button electrode). Same procedure as scheduled: No (Prostatic regrowth with moderate obstruction after release of BNC) Indications: 1. Urinary retention. 2. Bladder neck contracture. Surgeon: Blanca Jaffe Click Yes if Unassisted: Yes Anesthesia Type: General Operative Notes Findings: 1. 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 Remainder of urethra showed normal caliber without annular stricture or lesion. 2. External sphincter-mild to moderately gaping. Overlying urothelium was consistent with long-term indwelling Thorne mild erosion and erythema. 3. Prostate-status post previous TUR. There is a tight 18-20 [place]vian bladder ne ck contracture. Following release of the bladder neck contracture lateral lobe prostatic tissue fell medially causing a moderate degree of obstruction. 4. Bladder-2+ trabeculation. Normal ureteral orifices bilaterally. No stone, tumor, or diverticulum seen. Closure Type: not applicable Specimen(s): none sent Applied: catheter (Twenty [place] Thorne [address] way catheter) Estimated Blood Loss (mL): 0 Blood products transfused: none Procedure in detail: The patient was positioned supine and administered general anesthesia. He was then repositioned semi lithotomy and the lower abdomen condom genitalia, and groin were then prepped and draped in sterile fashion. The 25 [place]ian resectoscope was advanced lower inner tract under direct visualization with the findings as described above. The working element was then fitted with the button electrode and incisions were then made laterally at the 3 and 9:00 o'clock positions. The intervening tissue between those 2 points posteriorly was then resected using the same cautery element. Because of the resultant observation of significant prostatic regrowth the lateral and floor of the previously resected prostatic fossa were then resected using button electrode. Hemostasis was excellent. There were no tissue samples. The bladder was then filled partially and resectoscope was removed. A 20 [place] Thorne catheter was then inserted, the balloon was inflated to 20 cc, and a catheter was then placed to gravity drainage. The patient was then repositioned in supine, awakened, and transferred for to a gurney for transportation to PACU. Complications: none Post-operative Condition: stable Plan for aftercare: Discharge home
--- NOTE | 2021-02-07 13:50 | SUR.PHASEI ---
denied pain, dr sorto spoke to pt at bedside to opd stable
--- NOTE | 2021-02-07 13:55 | SUR.PHASEII ---
hearing aids and dentures back with pt.
== END 2021-02-07 14:31 | disposition home or self-care (01) ==
PROVIDERS: PCP Family Medicine; Referring Provider Specialist; Visit Provider Specialist
PROC: 0TBC8ZZ Excision of Bladder Neck, Via Natural or Artificial Opening Endoscopic (ICD-10-PCS; CPT 52500; principal; 2021-02-07 12:15)
DX: R33.9 Retention of urine, unspecified (principal); N32.0 Bladder-neck obstruction; Z87.440 Personal history of urinary (tract) infections; Q54.8 Other hypospadias
CPT/HCPCS: 52640; 82962; J0295; J1100; J2405; J2704; J3010

== ENCOUNTER → 2021-02-11 11:26 | Outpatient (CLI) | payer MEDICARE, SELFPAY ==
[2020-11-01 16:18] VITALS: BMI 34.9
== END ==
PROVIDERS: PCP Family Medicine; Visit Provider Specialist
DX: R30.0 Dysuria (principal)
CPT/HCPCS: 51702; 51798; 87086

== ENCOUNTER 2021-03-06 16:50 | Emergency (ER) | payer MEDICARE, SELFPAY ==
[2021-02-26 12:19] VITALS: BMI 34.9
[2021-03-06] VITALS (14 sets, daily range): BP systolic 149–177; BP diastolic 76–92; PULSE 88–107; RESP 16–41; TEMP 36.7; O2SAT 93–99
--- NOTE | 2021-03-06 | DI.RAD.S_ITS ---
PROCEDURE: XR CHEST 1V INDICATIONS: TRAUMA TECHNIQUE: One view of the chest was acquired. COMPARISON: [facility], CR, XR CHEST 1V, 11/04/2020, 9:45. FINDINGS: Surgical changes and devices: None. Lungs and pleura: Bibasilar atelectasis and infiltrate noted blunting of the left costophrenic angle. Study limited by low lung volumes. Mediastinum: Mediastinal contours appear normal. Heart size is normal. Bones and chest wall: No suspicious bony lesions. Overlying soft tissues appear unremarkable. IMPRESSION: Cardiomegaly and bibasilar atelectasis and infiltrate. No pneumothorax Low lung volumes accentuate pulmonary interstitium and heart size. Approved by: Telly Jimenes M.D. on 03/06/2021 at 16:09
--- NOTE | 2021-03-06 17:00 | RT ---
responded to Mod trauma, received patient on room air, airway patent, patient alert and responsive, no respiratory distress noted , RN, MD at bedside
--- NOTE | 2021-03-06 17:01 | DI.CT.S_ITS ---
PROCEDURE: CT HEAD/BRAIN WO CON INDICATIONS: fall, +LOC TECHNIQUE: Noncontrast 4.5 mm thick angled axial sections acquired from the foramen magnum to the vertex, with coronal and sagittal reformats. For radiation dose reduction, the following was used: automated exposure control, adjustment of mA and/or kV according to patient size. COMPARISON: [facility], CT, CT CERVICAL SPINE WO CON, 03/06/2021, 17:04. [facility], CT, CT HEAD/BRAIN WO CON, 12/07/2019, 14:14. FINDINGS: Image quality: Excellent. CSF spaces: Basal cisterns are patent. Small right posterior subdural hematoma with hyperdense blood products, (2/21). This measures approximately 5 mm, (4/33). Ventricles are prominent in size, unchanged. Brain: No midline shift. No intracranial masses or hemorrhage. No area of hypodensity in a large vascular distribution to suggest acute infarction. Periventricular hypodensity consistent with chronic microvascular ischemic change. Age-related parenchymal loss. Skull and face: Calvarium and visualized facial bones are intact, without suspicious lesions. Sinuses: Visualized sinuses and mastoids are clear. IMPRESSION: 1. Small right posterior subdural hematoma with hyperdense blood products. This measures approximately 0.5 cm. 2. Chronic microvascular ischemic disease. Comment: Findings were discussed with Latha Chance at the time of dictation. Dictated by: Manav Akers M.D. on 03/06/2021 at 17:10 Approved by: Manav Akers M.D. on 03/06/2021 at 17:16
--- NOTE | 2021-03-06 17:01 | DI.CT.S_ITS ---
PROCEDURE: CT CERVICAL SPINE WO CON INDICATIONS: fall, hit head, occiput, + LOC TECHNIQUE: Noncontrast 3 mm thick sections acquired from the skull base to the T4 level. Sagittal and coronal reformats were then constructed. For radiation dose reduction, the following was used: automated exposure control, adjustment of mA and/or kV according to patient size. COMPARISON: [facility], CT, CT CERVICAL SPINE WO CON, 12/07/2019, 14:14. FINDINGS: Image quality: Excellent. Bones: No fractures or dislocations. Visualized superior ribs are intact. Mild degenerative change. Soft tissues: Prevertebral soft tissues are normal in thickness. Carotid bulb atherosclerotic calcifications. No paravertebral hematomas. No apical pneumothoraces. IMPRESSION: No acute osseous abnormality. Dictated by: Manav Akers M.D. on 03/06/2021 at 17:17 Approved by: Manav Akers M.D. on 03/06/2021 at 17:19
--- NOTE | 2021-03-06 17:02 | ED.FALL ---
HPI - Fall <Magali Benjamin MD - Last Filed: 03/12/21 08:15> General Chief Complaint: Fall Stated Complaint: GLF, hit head, on thinners Time Seen by Provider: 03/06/21 16:50 Source: EMS Mode of arrival: EMS History of Present Illness HPI Narrative: 85-year-old gentleman with a history of hypertension, atrial fibrillation (not anticoagulated other than aspirin), hyperlipidemia and BPH with outlet obstruction issues and current Thorne catheter in place was doing well until he stood up and tripped over his Thorne catheter today. He ended up losing his balance, falling straight backwards landing on the occiput of his head with positive loss of consciousness per his . He is not complaining of any pain aside from a contusion to the occiput. He reports no fevers, cough, chills, chest pain, dyspnea no palpitation no symptoms prior to falling to suggest anything other than a mechanical fall related to tripping over his catheter. He does have some mild musculoskeletal chest pain with AP compression of the chest. No tenderness along the spine abdomen pelvis and no trauma to extremities. Medical history is notable for fall with a left hip fracture November 01, 2020. Was at this time that his anticoagulation was discontinued. Related Data Home Medications Medication Instructions Recorded Confirmed cholecalciferol (vitamin D3) 25 1,000 unit PO QAM #0 tab 06/30/19 02/25/21 mcg (1,000 unit) tablet (Vitamin D3) aspirin 325 mg tablet 325 mg PO QAM 04/08/20 02/25/21 ferrous sulfate 325 mg (65 mg 325 mg PO QAM 04/22/20 02/25/21 iron) capsule,extended release vitamin B complex 1 tab PO QAM 04/22/20 02/25/21 potassium chloride 10 mEq 20 meq PO BID 02/07/21 02/25/21 capsule,extended release Previous Rx's Medication Instructions Recorded Disabled Parking Permit #1 ea 07/26/18 atorvastatin 10 mg tablet 10 mg PO BEDTIME #90 tab 05/14/20 omeprazole magnesium 20 mg 20 mg PO QAM #90 tab 05/14/20 tablet,delayed release (Prilosec OTC) finasteride 5 mg tablet 5 mg PO DAILY #90 tab 07/10/20 trazodone 100 mg tablet 100 mg PO BEDTIME #90 tab 09/10/20 enalapril maleate 20 mg tablet See Rx Instructions .ROUTE 10/09/20 .COMPLEX #180 tab acetaminophen 325 mg tablet 650 mg PO Q6HR PRN #20 tab 11/05/20 docusate sodium 100 mg capsule 100 mg PO BID #20 cap 11/05/20 (DOK) amlodipine 5 mg tablet 5 mg PO BID #180 tab 12/23/20 clotrimazole 1 % topical cream 1 applic TOPICAL BID #15 g 01/06/21 nystatin 100,000 unit/gram topical 1 applic TOPICAL BID #60 g 01/06/21 powder furosemide 20 mg tablet 20 mg PO DAILY #30 tab 01/13/21 ciprofloxacin HCl 250 mg tablet 250 mg PO BID #6 tab 02/17/21 hydrocodone 5 mg-acetaminophen 325 1 tab PO BID PRN #30 tab 03/10/21 mg tablet Allergies Allergy/AdvReac Type Severity Reaction Status Date / Time clindamycin AdvReac Severe C.diff Verified 03/06/21 16:58 Colitis 04/11 Review of Systems <Magali Benjamin MD - Last Filed: 03/12/21 08:15> Review of Systems Narrative: Remainder of complete review of systems is otherwise unremarkable except for that included in the HPI. Patient History <Magali Benjamin MD - Last Filed: 03/12/21 08:15> Medical History Afib Anemia Arthritis Benign prostatic hyperplasia Bladder neck contracture Chronic anemia Clostridioides difficile infection Diabetes 1.5, managed as type 2 Essential hypertension Fracture of femoral neck, right Frequent falls History of UTI LFT elevation Low back pain Mixed hyperlipidemia Osteoarthritis Paroxysmal atrial fibrillation Tremor Urinary retention Surgical History History of lobectomy of lung History of resection of rib History of surgery (11/02/20) Hx of bilateral cataract extraction Hx of transurethral resection of prostate Status post appendectomy Family History Father Hypertension Brother Atrial fibrillation Mother No significant medical problems Social History marital status: number of children: 3 household members: spouse occupational status: previously employed Smoking Status: Former smoker Tobacco: How many years used: 20 alcohol intake: never substance use type: does not use caffeine: Yes Smoking Status: Former smoker alcohol intake frequency: 0-2 drinks per day Substance Use Type: does not use Exam <Magali Benjamin MD - Last Filed: 03/12/21 08:15> Narrative Exam Narrative: General: Older-appearing gentleman, in no acute distress. Able to cooperate with history taking, has neck restraint in place Well-nourished well-developed HEENT: Moist mucous membranes, normal sclera with reactive pupils, Neck: supple Respiratory: Lungs are clear to auscultation, no wheezing no rales no rhonchi. Full and symmetrical air movement Cardiac: Regular rate and rhythm no murmurs no bruits Chest: No subcutaneous air or obvious clavicular rib abnormalities. Minor tenderness with AP compression straight through to the center portion of his back. Abdomen: Soft, nontender, good bowel tones, no flank pain Skin: Warm and dry, no rashes Neurologic: Grossly neurologically intact with no obvious asymmetries or abnormalities Extremities: No trauma, well perfused, 1+ bilateral lower extremity edema Psych: Cooperative, appropriate insight and affect Initial Vital Signs Initial Vital Signs: Vital Signs Temperature 98.0 F 03/06/21 16:56 Pulse Rate 98 H 03/06/21 16:56 Respiratory Rate 16 03/06/21 16:56 Blood Pressure 177/84 H 03/06/21 16:56 Pulse Oximetry 99 03/06/21 16:56 <Dalila Llanos DO - Last Filed: 03/06/21 23:18> Initial Vital Signs Initial Vital Signs: Vital Signs Temperature 98.0 F 03/06/21 16:56 Pulse Rate 98 H 03/06/21 16:56 Respiratory Rate 16 03/06/21 16:56 Blood Pressure 177/84 H 03/06/21 16:56 Pulse Oximetry 99 03/06/21 16:56 Course <Magali Benjamin MD - Last Filed: 03/12/21 08:15> Orders Ordered: Discontinued Medications Lidocaine/Sodium Bicarbonate (Lido 1%/Sod Bicarb 8.4% (10ml) 10 Ml Syringe) 10 ml INJ NOW ONE Stop: 03/06/21 17:51 Last Admin: 03/06/21 17:59 Dose: 10 ml Documented by: DWAYNE Vital Signs Vital signs: Vital Signs - 8 hr 03/06/21 16:56 03/06/21 17:06 03/06/21 17:08 Temperature 98.0 F Pulse Rate 98 H 107 H 92 H Respiratory Rate 16 38 H 41 H Blood Pressure 177/84 H 174/86 H Pulse Oximetry 99 94 03/06/21 17:30 03/06/21 18:00 03/06/21 18:30 Temperature Pulse Rate 92 H 92 H 88 Respiratory Rate 35 H 30 H 31 H Blood Pressure 162/80 H 155/84 H 156/89 H Pulse Oximetry 94 95 95 03/06/21 19:00 03/06/21 19:30 03/06/21 20:00 Temperature Pulse Rate 94 H 98 H 102 H Respiratory Rate 31 H 20 20 Blood Pressure 168/77 H 149/81 H 157/92 H Pulse Oximetry 93 94 95 03/06/21 20:30 03/06/21 21:00 03/06/21 21:01 Temperature Pulse Rate 90 98 H 91 H Respiratory Rate 22 22 30 H Blood Pressure 163/76 H 149/81 H 149/81 H Pulse Oximetry 94 95 95 03/06/21 21:30 03/06/21 22:00 Temperature Pulse Rate 99 H 97 H Respiratory Rate 19 22 Blood Pressure 149/76 H Pulse Oximetry 97 95 <Dalila Llanos, - Last Filed: 03/06/21 23:18> Orders Ordered: Discontinued Medications Lidocaine/Sodium Bicarbonate (Lido 1%/Sod Bicarb 8.4% (10ml) 10 Ml Syringe) 10 ml INJ NOW ONE Stop: 03/06/21 17:51 Last Admin: 03/06/21 17:59 Dose: 10 ml Documented by: DEBISON Vital Signs Vital signs: Vital Signs - 8 hr 03/06/21 16:56 03/06/21 17:06 03/06/21 17:08 Temperature 98.0 F Pulse Rate 98 H 107 H 92 H Respiratory Rate 16 38 H 41 H Blood Pressure 177/84 H 174/86 H Pulse Oximetry 99 94 03/06/21 17:30 03/06/21 18:00 03/06/21 18:30 Temperature Pulse Rate 92 H 92 H 88 Respiratory Rate 35 H 30 H 31 H Blood Pressure 162/80 H 155/84 H 156/89 H Pulse Oximetry 94 95 95 03/06/21 19:00 03/06/21 19:30 03/06/21 20:00 Temperature Pulse Rate 94 H 98 H 102 H Respiratory Rate 31 H 20 20 Blood Pressure 168/77 H 149/81 H 157/92 H Pulse Oximetry 93 94 95 03/06/21 20:30 03/06/21 21:00 03/06/21 21:01 Temperature Pulse Rate 90 98 H 91 H Respiratory Rate 22 22 30 H Blood Pressure 163/76 H 149/81 H 149/81 H Pulse Oximetry 94 95 95 03/06/21 21:30 03/06/21 22:00 Temperature Pulse Rate 99 H 97 H Respiratory Rate 19 22 Blood Pressure 149/76 H Pulse Oximetry 97 95 MDM - Fall <Magali Benjamin MD - Last Filed: 03/12/21 08:15> Lab Data Result diagrams: 03/06/21 16:50 03/06/21 16:50 Labs: Lab Results 03/06/21 03/06/21 Range/Units 16:50 16:50 WBC 12.0 H (4.5-11.0) X10^3/uL RBC 4.46 L (4.5-5.9) X10^6/uL Hgb 13.6 (13.5-17.5) g/dL Hct 40.4 L (41-53) % MCV 90.7 (80-100) fL MCH 30.5 (26-34) PG MCHC 33.6 (30-36) % RDW 13.5 (11.6-14.8) % Plt Count 286 (150-400) X10^3/uL Neut % (Auto) 52.6 (50-75) % Lymph % (Auto) 29.5 (25-40) % [place] % (Auto) 10.2 (3-14) % Eos % (Auto) 6.7 H (2-4) % Baso % (Auto) 1.0 (0-2) % Neut # (Auto) 6300 (6969-8570) /uL Lymph # (Auto) 3500 (5390-8260) /uL [place] # (Auto) 1200 H (0-900) /uL Eos # (Auto) 800 H (0-450) /uL Baso # (Auto) 100 (0-100) /uL Sodium 140 (137-145) mmol/L Potassium 3.7 (3.4-5.1) mmol/L Chloride 104 (98-107) mmol/L Carbon Dioxide 30 (22-32) mmol/L BUN 20 (9-20) mg/dL Creatinine 1.15 (0.66-1.25) mg/dL Estimated GFR > 60.0 (>60) mL/min BUN/Creatinine Ratio 17.4 (6-22) Glucose 129 H (80-110) mg/dL Calcium 9.7 (8.4-10.2) mg/dL Magnesium 1.8 (1.6-2.3) mg/dL Total Bilirubin 0.5 (0.2-1.3) mg/dL AST 31 (17-59) IU/L ALT 19 (<50) IU/L Alkaline Phosphatase 124 (38-126) U/L Troponin I < 0.012 (0.01-0.034) ng/mL Total Protein 7.5 (6.3-8.2) g/dL Albumin 4.3 (3.5-5.0) g/dL Globulin 3.2 (1.7-4.1) g/dL Albumin/Globulin Ratio 1.3 (1.0-2.8) Point of Care Testing Glucose POC [address] scan - head: Radiologist's Impression: FINDINGS:? Image quality:? Excellent.? ? CSF spaces:? Basal cisterns are patent.? Small right posterior subdural hematoma with hyperdense blood products, (2/).? This measures approximately 5 mm, ().? Ventricles are prominent in size, unchanged.? ? Brain:? No midline shift.? No intracranial masses or hemorrhage.? No area of hypodensity in a large vascular distribution to suggest acute infarction. Periventricular hypodensity consistent with chronic microvascular ischemic change. Age-related parenchymal loss. ? Skull and face:? Calvarium and visualized facial bones are intact, without suspicious lesions.? ? Sinuses:? Visualized sinuses and mastoids are clear.? ? IMPRESSION:? 1. Small right posterior subdural hematoma with hyperdense blood products.? This measures approximately 0.5 cm. ? 2. Chronic microvascular ischemic disease. ? ? Comment: Findings were discussed with Latha Chance at the time of dictation. ? ? Dictated by: Manav Akers M.D. on 03/06/2021 at 17:10? ?? CT - cervical spine: Radiologist's Impression: FINDINGS:? Image quality:? Excellent.? ? Bones:? No fractures or dislocations.? Visualized superior ribs are intact.? Mild degenerative change. ? Soft tissues:? Prevertebral soft tissues are normal in thickness.? Carotid bulb atherosclerotic calcifications.? No paravertebral hematomas.? No apical pneumothoraces.? ? ? IMPRESSION:? No acute osseous abnormality. ? ? ? Dictated by: Manav Akers M.D. on 03/06/2021 at 17:17? ?? Chest x-ray: Radiologist's Impression: FINDINGS:? ? Surgical changes and devices:? None.? ? Lungs and pleura:? Bibasilar atelectasis and infiltrate noted blunting of the left costophrenic angle.? Study limited by low lung volumes. ? Mediastinum:? Mediastinal contours appear normal.? Heart size is normal.? ? Bones and chest wall:? No suspicious bony lesions.? Overlying soft tissues appear unremarkable.? ? IMPRESSION:? ? Cardiomegaly and bibasilar atelectasis and infiltrate.? No pneumothorax Low lung volumes accentuate pulmonary interstitium and heart size. ? ? ? Approved by: Telly Jimenes M.D. on 03/06/2021 at 16:09? MDM Narrative Medical decision making narrative: 85-year-old gentleman who describes a mechanical fall tripping on his Thorne catheter falling backward landing on the occiput. CT scan reveals a subdural hematoma. No cervical spine or chest injuries. No extremity pelvis or abdominal injuries. [facility] is contacted at 5:20pm. Images have been sent down electronically. Will wait for Neurosurgery to review. In the meantime, findings reviewed with patient and his and daughter. He states that if surgery were recommended he would want to proceed with that. <Dalila Llanos, DO - Last Filed: 03/06/21 23:18> Lab Data Labs: Lab Results 03/06/21 03/06/21 Range/Units 16:50 16:50 WBC 12.0 H (4.5-11.0) X10^3/uL RBC 4.46 L (4.5-5.9) X10^6/uL Hgb 13.6 (13.5-17.5) g/dL Hct 40.4 L (41-53) % MCV 90.7 (80-100) fL MCH 30.5 (26-34) PG MCHC 33.6 (30-36) % RDW 13.5 (11.6-14.8) % Plt Count 286 (150-400) X10^3/uL Neut % (Auto) 52.6 (50-75) % Lymph % (Auto) 29.5 (25-40) % [place] % (Auto) 10.2 (3-14) % Eos % (Auto) 6.7 H (2-4) % Baso % (Auto) 1.0 (0-2) % Neut # (Auto) 6300 (9877-4823) /uL Lymph # (Auto) 3500 (7557-5521) /uL [place] # (Auto) 1200 H (0-900) /uL Eos # (Auto) 800 H (0-450) /uL Baso # (Auto) 100 (0-100) /uL Sodium 140 (137-145) mmol/L Potassium 3.7 (3.4-5.1) mmol/L Chloride 104 (98-107) mmol/L Carbon Dioxide 30 (22-32) mmol/L BUN 20 (9-20) mg/dL Creatinine 1.15 (0.66-1.25) mg/dL Estimated GFR > 60.0 (>60) mL/min BUN/Creatinine Ratio 17.4 (6-22) Glucose 129 H (80-110) mg/dL Calcium 9.7 (8.4-10.2) mg/dL Magnesium 1.8 (1.6-2.3) mg/dL Total Bilirubin 0.5 (0.2-1.3) mg/dL AST 31 (17-59) IU/L ALT 19 (<50) IU/L Alkaline Phosphatase 124 (38-126) U/L Troponin I < 0.012 (0.01-0.034) ng/mL Total Protein 7.5 (6.3-8.2) g/dL Albumin 4.3 (3.5-5.0) g/dL Globulin 3.2 (1.7-4.1) g/dL Albumin/Globulin Ratio 1.3 (1.0-2.8) Point of Care Testing Glucose POC [address] head 2.: Radiologist's Impression: PROCEDURE:? CT HEAD/BRAIN WO CON ? INDICATIONS:? subdural hematoma ? TECHNIQUE:? Noncontrast 4.5 mm thick angled axial sections acquired from the foramen magnum to the vertex, with coronal and sagittal reformats.? For radiation dose reduction, the following was used:? automated exposure control, adjustment of mA and/or kV according to patient size.? ? COMPARISON:? [facility], CT, CT HEAD/BRAIN WO CON, 03/06/2021, 17:04. ? FINDINGS:? Image quality:? Excellent.? ? CSF spaces:? Basal cisterns are patent.? Right posterior subdural hematoma measures 0.5 cm, (4/39), unchanged.? Ventricles are prominent.? No intraventricular hemorrhage is seen.? ? Brain:? No midline shift.? No intracranial masses or hemorrhage.? Left basal ganglia calcifications.? No area of hypodensity in a large vascular distribution to suggest acute infarction. Periventricular hypodensity consistent with chronic microvascular ischemic change. Age-related parenchymal loss. ? Skull and face:? Calvarium and visualized facial bones are intact, without suspicious lesions.? ? Sinuses:? Visualized sinuses and mastoids are clear.? ? IMPRESSION:? Stable small acute right subdural hematoma. ? ? Dictated by: Manav Akers M.D. on 03/06/2021 at 21:42 ?? [facility] Narrative Medical decision making narrative: 85-year-old gentleman who describes a mechanical fall tripping on his Thorne catheter falling backward landing on the occiput. CT scan reveals a subdural hematoma. No cervical spine or chest injuries. No extremity pelvis or abdominal injuries. [facility] is contacted at 5:20pm. Images have been sent down electronically. Will wait for Neurosurgery to review. In the meantime, findings reviewed with patient and his and daughter. He states that if surgery were recommended he would want to proceed with that. Romi-received sign-out from Dr. Benjamin and seen evaluated patient myself. Laceration has been stapled by PAC, he is awake alert making jokes. He is noted have small subdural after mechanical fall he is on aspirin. No other complaints at this time he denies headache nausea or vomiting. I have discussed with daughter he is a full code, and would want any intervention available. 7:52pm Dr. Mejía neurosurgery are reviewed has reviewed CT updated on patient's test results and symptoms. His at this time he recommends a repeat head CT at 4hrs, if stable hold aspirin for 1 week and discharge. Patient remains neurovascularly intact he has had no nausea vomiting headache. Head CT is stable. He ambulated in the emergency department his walker and is stable. He is going home with his . Daughter will not be staying with him. Discharge Plan Departure Patient Disposition: Home Clinical Impression: Acute subdural hematoma Instructions: How to Prevent Falls, Subdural Hematoma Activity Restrictions/Additional Instructions: *You have been diagnosed with subdural hematoma (bleeding in your brain) *What to do: Please monitor and be careful so you do not fall again The pierre will need to be removed in 5-7 days by your primary care provider *Continue to take medications as directed STOP ASPIRIN FOR 7 DAYS *Follow up with your primary care provider in 2-3 days *Return to ER if you should have INCREASED CONFUSION, VOMITING, WORSENING HEADACHE, WEAKNESS IN ARMS OR LEGS, FACIAL DROOP OR any new, worsening or concerning symptoms Prescriptions: No Action cholecalciferol (vitamin D3) [Vitamin D3] 25 mcg (1,000 unit) tablet 1,000 unit PO QAM Qty: 0 0RF finasteride 5 mg tablet 5 mg PO DAILY Qty: 90 3RF trazodone 100 mg tablet 100 mg PO BEDTIME Qty: 90 1RF enalapril maleate 20 mg tablet See Rx Instructions .ROUTE .COMPLEX Qty: 180 2RF Dose Instruction: TAKE 1 TABLET BY MOUTH TWICE DAILY Rx Instructions: TAKE 1 TABLET BY MOUTH TWICE DAILY amlodipine 5 mg tablet 5 mg PO BID Qty: 180 0RF clotrimazole 1 % cream 1 applic topical BID Qty: 15 1RF nystatin 100,000 unit/gram powder 1 applic topical BID Qty: 60 2RF furosemide 20 mg tablet 20 mg PO DAILY Qty: 30 2RF ciprofloxacin HCl 250 mg tablet 250 mg PO BID Qty: 6 0RF Rx Instructions: Begin taking medication 02/24/21, one day prior to catheter removal. hydrocodone-acetaminophen 5-325 mg tablet 1 tab PO BID PRN (Reason: pain) Qty: 30 0RF atorvastatin 10 mg tablet 10 mg PO BEDTIME Qty: 90 3RF omeprazole magnesium [Prilosec OTC] 20 mg tablet,delayed release (DR/EC) 20 mg PO QAM Qty: 90 3RF (DME) Disabled Parking Permit 0 .Route .MEDSUPPLY Qty: 1 0RF Dose Instruction: As directed Rx Instructions: I find this patient to be medically disabled and qualified for disabled parking as indicated, and signed, on the accompanying disabled parking application for individuals aspirin 325 mg Tablet 325 mg PO QAM 0RF Rx Instructions: held prior to surgery acetaminophen 325 mg Tablet 650 mg PO Q6HR PRN (Reason: Fever/Mild Pain (1-3)) Qty: 20 0RF docusate sodium [DOK] 100 mg Capsule 100 mg PO BID Qty: 20 0RF ferrous sulfate 325 mg (65 mg iron) Capsule, Extended Release 325 mg PO QAM 0RF vitamin B complex Tablet 1 tab PO QAM 0RF potassium chloride 10 mEq capsule, extended release 20 meq PO BID 0RF Rx Instructions: To p.o. q.a.m. 1 p.o. q.h.s. Referrals: Kal Bowers DO [Primary Care Provider] - ED Sign-out <Magali Benjamin MD - Last Filed: 03/12/21 08:15> Cosign ED Attending Cosignature Attestation: I was immediately available in the department for consultation throughout this patient's visit. I agree with documentation as above. Magali Benjamin MD
[2021-03-06 17:10] LABS: Add Manual Diff / Slide Review NO; Basophils Absolute Auto 100 /uL (0-100); Eosinophils Absolute Auto 800 /uL (0-450); Eosinophils Percent Auto 6.7 % (2-4); Hematocrit 40.4 % (41-53); Hemoglobin 13.6 g/dL (13.5-17.5); Lymphocytes Absolute Auto 3500 /uL (1100-4500); Lymphocytes Percent Auto 29.5 % (25-40); Mean Corpuscular HGB Conc 33.6 % (30-36); Mean Corpuscular Hemoglobin 30.5 PG (26-34); Mean Corpuscular Volume 90.7 fL (80-100); Monocytes Absolute Auto 1200 /uL (0-900); Monocytes Percent Auto 10.2 % (3-14); Neutrophils Absolute Auto 6300 /uL (1500-7000); Neutrophils Percent Auto 52.6 % (50-75); Platelet Count 286 X10^3/uL (150-400); Red Blood Cell Count 4.46 X10^6/uL (4.5-5.9); Red Cell Distribution Width 13.5 % (11.6-14.8)
[2021-03-06 17:17] LABS: Alanine Aminotransferase 19 IU/L (<50); Albumin 4.3 g/dL (3.5-5.0); Albumin Globulin Ratio 1.3 (1.0-2.8); Alkaline Phosphatase 124 U/L (38-126); Aspartate Aminotransferase 31 IU/L (17-59); BUN Creatinine Ratio 17.4 (6-22); Bilirubin Total 0.5 mg/dL (0.2-1.3); Blood Urea Nitrogen 20 mg/dL (9-20); Calcium 9.7 mg/dL (8.4-10.2); Carbon Dioxide 30 mmol/L (22-32); Chloride 104 mmol/L (98-107); Estimated Glomerular Filt Rate > 60.0 mL/min (>60); Globulin 3.2 g/dL (1.7-4.1); Glucose 129 mg/dL (80-110); HEMOLYSIS 48 (0-50); Magnesium 1.8 mg/dL (1.6-2.3); Potassium 3.7 mmol/L (3.4-5.1); Sodium 140 mmol/L (137-145); Total Protein 7.5 g/dL (6.3-8.2)
[2021-03-06 17:28] LABS: Troponin I < 0.012 ng/mL (0.01-0.034)
--- NOTE | 2021-03-06 17:30 | PC.NURSE ---
and Daughter at bedside.
--- NOTE | 2021-03-06 17:30 | PC.NURSE ---
See paper code chart
--- NOTE | 2021-03-06 17:43 | PC.NURSE ---
C-Collar removed by Dr Benjamin
[2021-03-06] MEDS: LIDO 1%/SOD BICARB 8.4% (10ML) 10 ML SYRINGE INJ (17:59)
--- NOTE | 2021-03-06 21:00 | DI.CT.S_ITS ---
PROCEDURE: CT HEAD/BRAIN WO CON INDICATIONS: subdural hematoma TECHNIQUE: Noncontrast 4.5 mm thick angled axial sections acquired from the foramen magnum to the vertex, with coronal and sagittal reformats. For radiation dose reduction, the following was used: automated exposure control, adjustment of mA and/or kV according to patient size. COMPARISON: [facility], CT, CT HEAD/BRAIN WO CON, 03/06/2021, 17:04. FINDINGS: Image quality: Excellent. CSF spaces: Basal cisterns are patent. Right posterior subdural hematoma measures 0.5 cm, (4/39), unchanged. Ventricles are prominent. No intraventricular hemorrhage is seen. Brain: No midline shift. No intracranial masses or hemorrhage. Left basal ganglia calcifications. No area of hypodensity in a large vascular distribution to suggest acute infarction. Periventricular hypodensity consistent with chronic microvascular ischemic change. Age-related parenchymal loss. Skull and face: Calvarium and visualized facial bones are intact, without suspicious lesions. Sinuses: Visualized sinuses and mastoids are clear. IMPRESSION: Stable small acute right subdural hematoma. Dictated by: Manav Akers M.D. on 03/06/2021 at 21:42 Approved by: Manav Akers M.D. on 03/06/2021 at 21:44
== END 2021-03-06 22:24 | disposition home or self-care (01) ==
PROVIDERS: Emergency Medicine; Emergency Provider Emergency Medicine; PCP Family Medicine
DX: S06.5X9A Traumatic subdural hemorrhage with loss of consciousness of unspecified duration, initial encounter (principal); Z79.82 Long term (current) use of aspirin; Z87.891 Personal history of nicotine dependence; W18.09XA Striking against other object with subsequent fall, initial encounter
CPT/HCPCS: 70450; 71045; 72125; 80053; 82962; 83735; 84484; 85025; 99284

== ENCOUNTER → 2021-03-12 14:22 | Outpatient (CLI) | payer MEDICARE, SELFPAY ==
[2021-03-10 08:23] VITALS: BMI 34.9
[2021-03-12 14:58] LABS: Appearance Urine UA SL CLOUDY; Bilirubin Urine UA NEGATIVE (NEGATIVE); Color Urine UA YELLOW; Glucose Urine UA NEGATIVE (Negative); Ketones Urine UA NEGATIVE (NEGATIVE); Leukocyte Esterase Urine UA 2+ (NEGATIVE); Nitrite Urine UA NEGATIVE (Negative); Occult Blood Urine UA 1+ (Negative); Protein Urine UA 2+ (Negative); Urobilinogen Urine UA 0.2 E.U./dL (0.2)
[2021-03-12 15:04] LABS: RBC Urine 5-10/HPF (0-5/HPF); Squamous Epithelial Cell Urine 1-5 /HPF (0-5/HPF); WBC Urine 30-100/HPF (0-5/HPF)
[2021-03-12 15:05] LABS: Amorphous Sediment Urine 1+; Bacteria Urine Many (>30); Culture Indicated Urine Specimen Cultured; Mucus Urine 1+ (Negative)
== END ==
PROVIDERS: PCP Family Medicine; Referring Provider Family Medicine; Visit Provider Family Medicine
DX: R39.9 Unspecified symptoms and signs involving the genitourinary system (principal)
CPT/HCPCS: 81001; 87077; 87086; 87147; 87186

== ENCOUNTER → 2021-04-08 12:51 | Outpatient (ROUT) | payer MEDICARE, SELFPAY ==
[2021-03-10 08:23] VITALS: BMI 34.9
[2021-04-08 13:31] LABS: Appearance Urine UA CLOUDY; Bilirubin Urine UA NEGATIVE (NEGATIVE); Color Urine UA YELLOW; Glucose Urine UA NEGATIVE (Negative); Ketones Urine UA NEGATIVE (NEGATIVE); Leukocyte Esterase Urine UA 2+ (NEGATIVE); Nitrite Urine UA NEGATIVE (Negative); Occult Blood Urine UA 2+ (Negative); Protein Urine UA 3+ (Negative); Urobilinogen Urine UA 0.2 E.U./dL (0.2)
[2021-04-08 13:51] LABS: Amorphous Sediment Urine 2+; Bacteria Urine Few (2-10); Culture Indicated Urine Specimen Cultured; Mucus Urine 1+ (Negative); RBC Urine 1-5/HPF (0-5/HPF); Squamous Epithelial Cell Urine 1-5 /HPF (0-5/HPF); WBC Urine 30-100/HPF (0-5/HPF)
== END ==
PROVIDERS: PCP Family Medicine; Visit Provider Specialist
DX: R30.0 Dysuria (principal)
CPT/HCPCS: 81001; 87077; 87086; 87147; 87185; 87186

== ENCOUNTER 2021-04-28 10:09 | Inpatient (IN) | payer MEDICARE, SELFPAY ==
[2021-04-23 10:12] VITALS: BMI 34.9
[2021-04-28] VITALS (42 sets, daily range): BP systolic 101–203; BP diastolic 55–106; PULSE 74–115; RESP 14–44; TEMP 28–37; O2SAT 93–100; BMI 32.1; BMI 31.6
--- NOTE | 2021-04-28 10:26 | DI.RAD.S_ITS ---
PROCEDURE: XR CHEST 1V INDICATIONS: chest pain TECHNIQUE: One view of the chest was acquired. COMPARISON: [facility], CR, XR CHEST 1V, 03/06/2021, 16:52. FINDINGS: Surgical changes and devices: None. Lungs and pleura: Small left pleural effusion is seen with left basilar atelectasis. Trace right pleural effusion and right basilar atelectasis/infiltrate is also noted. There is pulmonary vascular congestion. No gross pneumothorax. Mediastinum: Tortuous thoracic aorta and cardiomegaly is seen. Bones and chest wall: No suspicious bony lesions. Overlying soft tissues appear unremarkable. IMPRESSION: Small left greater than right bilateral pleural effusion and bibasilar small infiltrate/atelectasis. Pulmonary vascular congestion and mild pulmonary edema. No gross pneumothorax. Dictated by: Denis Escoto M.D. on 04/28/2021 at 10:58 Approved by: Denis Escoto M.D. on 04/28/2021 at 10:59
[2021-04-28 10:39] LABS: Add Manual Diff / Slide Review NO; Basophils Absolute Auto 100 /uL (0-100); Basophils Percent Auto 0.4 % (0-2); Eosinophils Absolute Auto 400 /uL (0-450); Eosinophils Percent Auto 2.6 % (2-4); Hematocrit 36.2 % (41-53); Hemoglobin 12.1 g/dL (13.5-17.5); Lymphocytes Absolute Auto 800 /uL (1100-4500); Lymphocytes Percent Auto 5.2 % (25-40); Mean Corpuscular HGB Conc 33.5 % (30-36); Mean Corpuscular Hemoglobin 30.5 PG (26-34); Mean Corpuscular Volume 91.1 fL (80-100); Monocytes Absolute Auto 1500 /uL (0-900); Monocytes Percent Auto 9.8 % (3-14); Neutrophils Absolute Auto 12900 /uL (1500-7000); Platelet Count 235 X10^3/uL (150-400); Red Blood Cell Count 3.97 X10^6/uL (4.5-5.9); Red Cell Distribution Width 13.6 % (11.6-14.8); White Blood Cell Count 15.8 X10^3/uL (4.5-11.0)
[2021-04-28 10:40] LABS: Alanine Aminotransferase 16 IU/L (<50); Albumin 3.7 g/dL (3.5-5.0); Albumin Globulin Ratio 1.2 (1.0-2.8); Alkaline Phosphatase 100 U/L (38-126); Aspartate Aminotransferase 24 IU/L (17-59); Bilirubin Total 0.8 mg/dL (0.2-1.3); Blood Urea Nitrogen 16 mg/dL (9-20); Calcium 9.5 mg/dL (8.4-10.2); Carbon Dioxide 32 mmol/L (22-32); Chloride 102 mmol/L (98-107); Creatine Kinase 45 U/L (55-170); Estimated Glomerular Filt Rate > 60.0 mL/min (>60); Glucose 123 mg/dL (80-110); HEMOLYSIS 19 (0-50); Lipase 63 U/L (23-300); Magnesium 1.9 mg/dL (1.6-2.3); Potassium 3.9 mmol/L (3.4-5.1); Sodium 137 mmol/L (137-145); Total Protein 6.7 g/dL (6.3-8.2)
[2021-04-28 10:52] LABS: COVID19 -Nasal RAPID POSITIVE (Negative)
[2021-04-28 13:11] LABS: NT-proBNP (BNP-Adult 18+) 3740 pg/mL (<450)
--- NOTE | 2021-04-28 13:18 | ED.WEAKNESS ---
HPI - Weakness <Nuzhat Clarke PA-C - Last Filed: 04/28/21 16:18> General Chief complaint: Weakness Stated complaint: lethargic Time Seen by Provider: 04/28/21 11:17 Source: patient, family and EMS Mode of arrival: EMS History of Present Illness HPI Narrative: 85-year-old male with past medical history AFib, CHF, hypertension, hyperlipidemia, diabetes, bladder neck contracture presents to the ED with 1 week of worsening fatigue. Patient is currently being treated for a UTI, and is alf through his 2 week course. Patient was also diagnosed with COVID-19 3 weeks ago, experienced mild symptoms including sore throat, cough, runny nose, seemed to recover well after. Patient is brought in by his today, who has noticed that he has worsening fatigue, shortness of breath since last week. Patient denies fever, chills, chest pain, nausea, vomiting, abdominal pain, dysuria, flank pain, lightheadedness, dizziness, syncope. Patient's says that he is having trouble walking to the bathroom and back, which he used to be able to do comfortably with his walker. Patient also has the ongoing urinary retention issue, for which he self catheterizes twice daily. Patient is fully vaccinated for COVID, received a booster past week. Related Data Home Medications Medication Instructions Recorded Confirmed cholecalciferol (vitamin D3) 25 1,000 unit PO QAM #0 tab 06/30/19 02/25/21 mcg (1,000 unit) tablet (Vitamin D3) aspirin 325 mg tablet 325 mg PO QAM 04/08/20 02/25/21 ferrous sulfate 325 mg (65 mg 325 mg PO QAM 04/22/20 02/25/21 iron) capsule,extended release vitamin B complex 1 tab PO QAM 04/22/20 02/25/21 potassium chloride 10 mEq 20 meq PO BID 02/07/21 02/25/21 capsule,extended release Previous Rx's Medication Instructions Recorded Disabled Parking Permit #1 ea 07/26/18 atorvastatin 10 mg tablet 10 mg PO BEDTIME #90 tab 05/14/20 omeprazole magnesium 20 mg 20 mg PO QAM #90 tab 05/14/20 tablet,delayed release (Prilosec OTC) finasteride 5 mg tablet 5 mg PO DAILY #90 tab 07/10/20 enalapril maleate 20 mg tablet See Rx Instructions .ROUTE 10/09/20 .COMPLEX #180 tab acetaminophen 325 mg tablet 650 mg PO Q6HR PRN #20 tab 11/05/20 docusate sodium 100 mg capsule 100 mg PO BID #20 cap 11/05/20 (DOK) amlodipine 5 mg tablet 5 mg PO BID #180 tab 12/23/20 clotrimazole 1 % topical cream 1 applic TOPICAL BID #15 g 01/06/21 nystatin 100,000 unit/gram topical 1 applic TOPICAL BID #60 g 01/06/21 powder ciprofloxacin HCl 250 mg tablet 250 mg PO BID #6 tab 02/17/21 hydrocodone 5 mg-acetaminophen 325 1 tab PO BID PRN #30 tab 03/10/21 mg tablet amoxicillin 250 mg capsule 250 mg PO TID #21 cap 03/18/21 furosemide 20 mg tablet 20 mg PO DAILY #90 tab 03/24/21 trazodone 100 mg tablet 100 mg PO BEDTIME #90 tab 03/27/21 nitrofurantoin 100 mg PO BID #30 cap 04/18/21 monohydrate/macrocrystals 100 mg capsule (Macrobid) Allergies Allergy/AdvReac Type Severity Reaction Status Date / Time clindamycin AdvReac Severe C.diff Verified 04/28/21 10:20 Colitis 04/11 Review of Systems <Nuzhat Clarke PA-C - Last Filed: 04/28/21 16:18> Review of Systems ROS Unobtainable: All systems reviewed & are unremarkable except as noted in HPI and below Constitutional Constitutional: Denies chills, Reports fatigue, Denies fever(s), Denies frequent falls, Reports lethargy and Reports weakness Eyes Eyes: Denies change in vision, Denies eye discharge, Denies irritation and Denies loss of vision ENT Ears, Nose, Mouth, and Throat: Denies change in voice, Denies dizziness, Denies neck pain, Denies sore throat and Denies throat swelling Cardiovascular Cardiovascular: Denies chest pain, Denies irregular heart rhythm, Denies lightheadedness, Denies palpitations, Reports dyspnea, Reports dyspnea on exertion and Denies orthopnea Respiratory Respiratory: Reports cough, Reports dyspnea, Reports dyspnea on exertion and Denies wheezing Gastrointestinal Gastrointestinal: Denies abdominal pain, Denies change in bowel habits, Denies diarrhea, Denies nausea and Denies vomiting Genitourinary Genitourinary: Denies hematuria, Denies flank pain, Denies urinary incontinence and Denies urinary urgency Musculoskeletal Musculoskeletal: Denies back pain, Denies muscle weakness, Denies neck pain, Denies numbness and Denies tingling Integumentary/Breasts Skin/Breast: Denies pruritus, Denies erythema, Denies rash and Denies wounds Neurologic Neurologic: Denies behavioral changes, Denies confusion, Denies dizziness, Denies frequent falls, Denies loss of vision, Denies numbness, Denies tingling and Reports weakness Psychiatric Psychiatric: Denies anxiety, Denies behavioral changes, Denies confusion, Denies depression, Denies homicidal ideation and Denies suicidal ideation Endocrine Endocrine: Reports fatigue, Denies flushing and Denies palpitations Hematologic/Lymphatic Hematologic/Lymphatic: Denies easy bruising Allergic/Immunologic Allergic/Immunologic: Denies urticaria, Denies throat swelling and Denies wheezing Patient History <Nuzhat Clarke PA-C - Last Filed: 04/28/21 16:18> Medical History Afib Anemia Arthritis Benign prostatic hyperplasia Bladder neck contracture Chronic anemia Clostridioides difficile infection Diabetes 1.5, managed as type 2 Essential hypertension Fracture of femoral neck, right Frequent falls History of UTI LFT elevation Low back pain Mixed hyperlipidemia Osteoarthritis Paroxysmal atrial fibrillation Tremor Urinary retention Surgical History History of lobectomy of lung History of resection of rib History of surgery (11/02/20) Hx of bilateral cataract extraction Hx of transurethral resection of prostate Status post appendectomy Family History Father Hypertension Brother Atrial fibrillation Mother No significant medical problems Social History marital status: number of children: 3 household members: spouse occupational status: previously employed Smoking Status: Former smoker Tobacco: How many years used: 20 alcohol intake: never substance use type: does not use caffeine: Yes Smoking Status: Former smoker alcohol intake frequency: 0-2 drinks per day Substance Use Type: does not use Exam <Nuzhat Clarke PA-C - Last Filed: 04/28/21 16:18> Initial Vital Signs Initial Vital Signs: Vital Signs Pulse Rate 97 H 04/28/21 10:12 Respiratory Rate 35 H 04/28/21 10:12 Pulse Oximetry 94 04/28/21 10:12 Const General: cooperative Other: Patient appears somnolent, but easily arousable. A&O x3. Exhibits moderate work of breathing. HENMT Head: normal to inspection Ears: hearing grossly abnormal bilaterally (Patient is hard of hearing) Nose: external nose normal Eyes General: appearance normal, both eyes and all related structures Neck Neck: normal visual inspection Resp Effort & Inspection: normal respiratory effort Auscultation: clear to auscultation bilaterally Cardio Rate: regular rate Rhythm: regular rhythm GI Inspection: normal to inspection Other: Abdomen is soft, nondistended, nontender to palpation. No CVA tenderness. General: No CVA tenderness Skin General: no rashes or lesions noted Neuro General: patient alert, patient awake and patient oriented x3 Psych Appearance: grossly normal <Dominga Andino DO - Last Filed: 04/29/21 07:04> Initial Vital Signs Initial Vital Signs: Vital Signs Pulse Rate 97 H 04/28/21 10:12 Respiratory Rate 35 H 04/28/21 10:12 Pulse Oximetry 94 04/28/21 10:12 Course <Nuzhat Clarke PA-C - Last Filed: 04/28/21 16:18> Orders Ordered: Acetaminophen (Acetaminophen 325 Mg Tablet) 650 mg PO Q6HR PRN PRN Reason: Fever Aspirin (Aspirin Ec 81 Mg Tablet) 81 mg PO DAILY [facility] Atorvastatin Calcium (Atorvastatin 20 Mg Tablet) 10 mg PO BEDTIME [facility] Last Admin: 04/29/21 01:18 Dose: Not Given Documented by: [email or web address] Enoxaparin Sodium (Enoxaparin 40 Mg/0.4 Ml Syringe) 40 mg SUBCUT BID [facility] Furosemide (Furosemide 40 Mg/4 Ml Vial) 40 mg IV BID [facility] Last Admin: 04/28/21 20:38 Dose: 40 mg Documented by: [email or web address] Azithromycin 500 mg/ Dextrose 250 mls @ 250 mls/hr IV Q24H [facility] Piperacillin Sod/Tazobactam (Sod 3.375 gm/ Sodium Chloride) 100 mls @ 25 mls/hr IV Q8H [facility] Last Admin: 04/29/21 01:16 Dose: 25 mls/hr Documented by: [email or web address] Infusion: 04/28/21 22:35 Dose: 25 mls/hr Documented by: Admin: 04/28/21 18:35 Dose: 25 mls/hr Documented by: ADI Vancomycin HCl/Dextrose (Vancomycin) 1,500 mg in 300 mls @ 200 mls/hr IV Q24H [facility] Lisinopril (Lisinopril 20 Mg Tablet) 20 mg PO BID [facility] Last Admin: 04/29/21 01:18 Dose: Not Given Documented by: [email or web address] Methylprednisolone (Methylprednisolone 125 Mg/2 Ml Vial) 80 mg IV Q12H [facility] Naloxone HCl (Naloxone 0.4 Mg/Ml Vial) 0.2 mg IV Q2MIN PRN PRN Reason: Opiate Reversal Nitroglycerin (Nitroglycerin 0.4 Mg Sl Tab) 0.4 mg SL [id number] PRN PRN Reason: Chest Pain Vancomycin HCl (Vancomycin Peak) 1 request MISC 2030 ONE Stop: 05/01/21 20:31 Vancomycin HCl (Vancomycin Trough) 1 request MIS 1730 ONE Stop: 05/01/21 17:31 Discontinued Medications Enalaprilat (Enalaprilat 2.5 Mg/ 2 Ml Vial) 1 mg IV NOW ONE Stop: 04/28/21 16:02 Last Admin: 04/28/21 16:54 Dose: 1 mg Documented by: CARLOS Enoxaparin Sodium (Enoxaparin 40 Mg/0.4 Ml Syringe) 40 mg SUBCUT DAILY [facility] Enoxaparin Sodium (Enoxaparin 40 Mg/0.4 Ml Syringe) 40 mg SUBCUT BID [facility] Furosemide (Furosemide 40 Mg/4 Ml Vial) 40 mg IV NOW ONE Stop: 04/28/21 14:21 Last Admin: 04/28/21 14:38 Dose: 40 mg Documented by: HEBER Ceftriaxone Sodium 1,000 mg/ (Sodium Chloride) 100 mls @ 200 mls/hr IV NOW ONE Stop: 04/28/21 14:43 Last Infusion: 04/28/21 17:19 Dose: 0 mls/hr Documented by: Admin: 04/28/21 15:11 Dose: 200 mls/hr Documented by: CARLOS Azithromycin 500 mg/ Dextrose 250 mls @ 250 mls/hr IV NOW ONE Stop: 04/28/21 14:44 Last Infusion: 04/28/21 18:22 Dose: 0 mls/hr Documented by: Admin: 04/28/21 16:55 Dose: 250 mls/hr Documented by: CARLOS Remdesivir 200 mg/ Sodium (Chloride) 250 mls @ 250 mls/hr IV NOW ONE Stop: 04/28/21 17:31 Last Infusion: 04/28/21 19:37 Dose: 0 mls/hr Documented by: [email or web address] Admin: 04/28/21 18:37 Dose: 250 mls/hr Documented by: ADI Vancomycin HCl/Dextrose (Vancomycin) 2,000 mg in 400 mls @ 200 mls/hr IV NOW ONE Stop: 04/28/21 20:05 Last Infusion: 04/28/21 22:35 Dose: 0 mls/hr Documented by: [email or web address] Admin: 04/28/21 20:36 Dose: 200 mls/hr Documented by: CTRJOSEFINA Nitroglycerin (Nitroglycerin) 50 mg in 250 mls @ 1.5 mls/hr IV TITRATE [facility]; Protocol Magnesium Sulfate (Magnesium Sulfate) 2 gm in 50 mls @ 25 mls/hr IV NOW ONE Stop: 04/28/21 21:10 Last Infusion: 04/28/21 22:35 Dose: 0 mls/hr Documented by: [email or web address] Cosigned by: CASEY Admin: 04/28/21 20:36 Dose: 25 mls/hr Documented by: [email or web address] Cosigned by: CASEY POTASSIUM CHLORIDE IN WATER (Potassium Cl 10 Meq/100 Ml Leelee) 10 meq in 100 mls @ 100 mls/hr IV Q1H [facility] Stop: 04/29/21 02:44 Last Infusion: 04/29/21 03:22 Dose: 0 mls/hr Documented by: [email or web address] Admin: 04/29/21 02:22 Dose: 100 mls/hr Documented by: Infusion: 04/29/21 02:16 Dose: 100 mls/hr Documented by: [email or web address] Admin: 04/29/21 01:16 Dose: 100 mls/hr Documented by: [email or web address] Methylprednisolone (Methylprednisolone 125 Mg/2 Ml Vial) 60 mg IV NOW ONE Stop: 04/28/21 14:49 Last Admin: 04/28/21 15:09 Dose: 60 mg Documented by: CARLOS Nitroglycerin (Nitroglycerin Oint 1 Inch/Gm Oint...G.) 1 inch TOP NOW ONE Stop: 04/28/21 17:03 Last Admin: 04/28/21 18:34 Dose: 1 inch Documented by: ADI Potassium Chloride (Potassium Chloride 20 Meq/15 Ml Udc) 20 meq PO NOW ONE Stop: 04/28/21 19:12 Last Admin: 04/29/21 01:19 Dose: Not Given Documented by: [email or web address] Trazodone HCl (Trazodone 100 Mg Tablet) 100 mg PO BEDTIME PRN PRN Reason: for sleep as long Vital Signs Vital signs: Vital Signs - 8 hr 04/28/21 10:12 04/28/21 10:20 04/28/21 10:30 Temperature 98.6 F Pulse Rate 97 H 92 H 92 H Respiratory Rate 35 H 28 H 39 H Blood Pressure 186/105 H 150/82 H Pulse Oximetry 94 95 94 04/28/21 11:00 04/28/21 11:30 04/28/21 12:00 Temperature Pulse Rate 82 94 H 97 H Respiratory Rate 28 H 35 H 37 H Blood Pressure 119/69 133/83 Pulse Oximetry 93 95 95 04/28/21 12:01 04/28/21 12:30 04/28/21 12:31 Temperature Pulse Rate 95 H 86 91 H Respiratory Rate 35 H 32 H 32 H Blood Pressure 175/84 H 132/75 Pulse Oximetry 95 04/28/21 13:00 04/28/21 13:01 04/28/21 13:30 Temperature Pulse Rate 74 75 104 H Respiratory Rate 25 H 25 H 39 H Blood Pressure 101/55 L Pulse Oximetry 04/28/21 13:31 04/28/21 14:01 04/28/21 14:15 Temperature 98.0 F Pulse Rate 102 H 112 H Respiratory Rate 36 H Blood Pressure 177/89 H Pulse Oximetry 98 04/28/21 14:19 04/28/21 14:30 Temperature Pulse Rate 103 H 97 H Respiratory Rate 36 H 35 H Blood Pressure 193/92 H 164/96 H Pulse Oximetry 100 99 <Dominga Andino, DO - Last Filed: 04/29/21 07:04> Orders Ordered: Acetaminophen (Acetaminophen 325 Mg Tablet) 650 mg PO Q6HR PRN PRN Reason: Fever Aspirin (Aspirin Ec 81 Mg Tablet) 81 mg PO DAILY [facility] Atorvastatin Calcium (Atorvastatin 20 Mg Tablet) 10 mg PO BEDTIME [facility] Last Admin: 04/29/21 01:18 Dose: Not Given Documented by: [email or web address] Enoxaparin Sodium (Enoxaparin 40 Mg/0.4 Ml Syringe) 40 mg SUBCUT BID [facility] Furosemide (Furosemide 40 Mg/4 Ml Vial) 40 mg IV BID [facility] Last Admin: 04/28/21 20:38 Dose: 40 mg Documented by: [email or web address] Azithromycin 500 mg/ Dextrose 250 mls @ 250 mls/hr IV Q24H [facility] Piperacillin Sod/Tazobactam (Sod 3.375 gm/ Sodium Chloride) 100 mls @ 25 mls/hr IV Q8H [facility] Last Admin: 04/29/21 01:16 Dose: 25 mls/hr Documented by: [email or web address] Infusion: 04/28/21 22:35 Dose: 25 mls/hr Documented by: [email or web address] Admin: 04/28/21 18:35 Dose: 25 mls/hr Documented by: ADI Vancomycin HCl/Dextrose (Vancomycin) 1,500 mg in 300 mls @ 200 mls/hr IV Q24H [facility] Lisinopril (Lisinopril 20 Mg Tablet) 20 mg PO BID [facility] Last Admin: 04/29/21 01:18 Dose: Not Given Documented by: [email or web address] Methylprednisolone (Methylprednisolone 125 Mg/2 Ml Vial) 80 mg IV Q12H [facility] Naloxone HCl (Naloxone 0.4 Mg/Ml Vial) 0.2 mg IV Q2MIN PRN PRN Reason: Opiate Reversal Nitroglycerin (Nitroglycerin 0.4 Mg Sl Tab) 0.4 mg SL [id number] PRN PRN Reason: Chest Pain Vancomycin HCl (Vancomycin Peak) 1 request MISC 2030 ONE Stop: 05/01/21 20:31 Vancomycin HCl (Vancomycin Trough) 1 request MISC 1730 ONE Stop: 05/01/21 17:31 Discontinued Medications Enalaprilat (Enalaprilat 2.5 Mg/ 2 Ml Vial) 1 mg IV NOW ONE Stop: 04/28/21 16:02 Last Admin: 04/28/21 16:54 Dose: 1 mg Documented by: CARLOS Enoxaparin Sodium (Enoxaparin 40 Mg/0.4 Ml Syringe) 40 mg SUBCUT DAILY [facility] Enoxaparin Sodium (Enoxaparin 40 Mg/0.4 Ml Syringe) 40 mg SUBCUT BID [facility] Furosemide (Furosemide 40 Mg/4 Ml Vial) 40 mg IV NOW ONE Stop: 04/28/21 14:21 Last Admin: 04/28/21 14:38 Dose: 40 mg Documented by: HEBER Ceftriaxone Sodium 1,000 mg/ (Sodium Chloride) 100 mls @ 200 mls/hr IV NOW ONE Stop: 04/28/21 14:43 Last Infusion: 04/28/21 17:19 Dose: 0 mls/hr Documented by: Admin: 04/28/21 15:11 Dose: 200 mls/hr Documented by: CARLOS Azithromycin 500 mg/ Dextrose 250 mls @ 250 mls/hr IV NOW ONE Stop: 04/28/21 14:44 Last Infusion: 04/28/21 18:22 Dose: 0 mls/hr Documented by: Admin: 04/28/21 16:55 Dose: 250 mls/hr Documented by: CARLOS Remdesivir 200 mg/ Sodium (Chloride) 250 mls @ 250 mls/hr IV NOW ONE Stop: 04/28/21 17:31 Last Infusion: 04/28/21 19:37 Dose: 0 mls/hr Documented by: Admin: 04/28/21 18:37 Dose: 250 mls/hr Documented by: ADI Vancomycin HCl/Dextrose (Vancomycin) 2,000 mg in 400 mls @ 200 mls/hr IV NOW ONE Stop: 04/28/21 20:05 Last Infusion: 04/28/21 22:35 Dose: 0 mls/hr Documented by: Admin: 04/28/21 20:36 Dose: 200 mls/hr Documented by: BLU Nitroglycerin (Nitroglycerin) 50 mg in 250 mls @ 1.5 mls/hr IV TITRATE ROMELIA; Protocol Magnesium Sulfate (Magnesium Sulfate) 2 gm in 50 mls @ 25 mls/hr IV NOW ONE Stop: 04/28/21 21:10 Last Infusion: 04/28/21 22:35 Dose: 0 mls/hr Documented by: [email or web address] Cosigned by: CASEY Admin: 04/28/21 20:36 Dose: 25 mls/hr Documented by: [email or web address] Cosigned by: CASEY POTASSIUM CHLORIDE IN WATER (Potassium Cl 10 Meq/100 Ml Leelee) 10 meq in 100 mls @ 100 mls/hr IV Q1H [facility] Stop: 04/29/21 02:44 Last Infusion: 04/29/21 03:22 Dose: 0 mls/hr Documented by: [email or web address] Admin: 04/29/21 02:22 Dose: 100 mls/hr Documented by: [email or web address] Infusion: 04/29/21 02:16 Dose: 100 mls/hr Documented by: [email or web address] Admin: 04/29/21 01:16 Dose: 100 mls/hr Documented by: [email or web address] Methylprednisolone (Methylprednisolone 125 Mg/2 Ml Vial) 60 mg IV NOW ONE Stop: 04/28/21 14:49 Last Admin: 04/28/21 15:09 Dose: 60 mg Documented by: CARLOS Nitroglycerin (Nitroglycerin Oint 1 Inch/Gm Oint...G.) 1 inch TOP NOW ONE Stop: 04/28/21 17:03 Last Admin: 04/28/21 18:34 Dose: 1 inch Documented by: ADI Potassium Chloride (Potassium Chloride 20 Meq/15 Ml Udc) 20 meq PO NOW ONE Stop: 04/28/21 19:12 Last Admin: 04/29/21 01:19 Dose: Not Given Documented by: [email or web address] Trazodone HCl (Trazodone 100 Mg Tablet) 100 mg PO BEDTIME PRN PRN Reason: for sleep as long Vital Signs Vital signs: Vital Signs - 8 hr 04/28/21 10:12 04/28/21 10:20 04/28/21 10:30 Temperature 98.6 F Pulse Rate 97 H 92 H 92 H Respiratory Rate 35 H 28 H 39 H Blood Pressure 186/105 H 150/82 H Pulse Oximetry 94 95 94 04/28/21 11:00 04/28/21 11:30 04/28/21 12:00 Temperature Pulse Rate 82 94 H 97 H Respiratory Rate 28 H 35 H 37 H Blood Pressure 119/69 133/83 Pulse Oximetry 93 95 95 04/28/21 12:01 04/28/21 12:30 04/28/21 12:31 Temperature Pulse Rate 95 H 86 91 H Respiratory Rate 35 H 32 H 32 H Blood Pressure 175/84 H 132/75 Pulse Oximetry 95 04/28/21 13:00 04/28/21 13:01 04/28/21 13:30 Temperature Pulse Rate 74 75 104 H Respiratory Rate 25 H 25 H 39 H Blood Pressure 101/55 L Pulse Oximetry 04/28/21 13:31 04/28/21 14:01 04/28/21 14:15 Temperature 98.0 F Pulse Rate 102 H 112 H Respiratory Rate 36 H Blood Pressure 177/89 H Pulse Oximetry 98 04/28/21 14:19 04/28/21 14:30 Temperature Pulse Rate 103 H 97 H Respiratory Rate 36 H 35 H Blood Pressure 193/92 H 164/96 H Pulse Oximetry 100 99 MDM - Weakness <Nuzhat Clarke PA-C - Last Filed: 04/28/21 16:18> Medical Records Attestation: I reviewed the patient's medical records. Lab Data Attestation: I reviewed the patient's lab results. Lab results narrative: NT proBNP elevated to 3740. D-dimer elevated to 883. WBC elevated to 15.8 Result diagrams: 04/29/21 05:04 04/29/21 05:04 Labs: Lab Results 04/28/21 04/28/21 04/28/21 Range/Units 00:18 10:00 10:00 WBC 15.8 H (4.5-11.0) X10^3/uL RBC 3.97 L (4.5-5.9) X10^6/uL Hgb 12.1 L (13.5-17.5) g/dL Hct 36.2 L (41-53) % MCV 91.1 (80-100) fL MCH 30.5 (26-34) PG MCHC 33.5 (30-36) % RDW 13.6 (11.6-14.8) % Plt Count 235 (150-400) X10^3/uL Neut % (Auto) 82.0 H (50-75) % Lymph % (Auto) 5.2 L (25-40) % Lyman % (Auto) 9.8 (3-14) % Eos % (Auto) 2.6 (2-4) % Baso % (Auto) 0.4 (0-2) % Neut # (Auto) 85537 H (8555-7731) /uL Lymph # (Auto) 800 L (6621-6859) /uL Lyman # (Auto) 1500 H (0-900) /uL Eos # (Auto) 400 (0-450) /uL Baso # (Auto) 100 (0-100) /uL D-Dimer (<230) ng/mL ABG pH 7.51 H (7.35-7.45) ABG pCO2 38.2 (35-45) mmHg ABG pO2 155 H (80-100) mmHg ABG HCO3 31 H (22-26) mmol/L ABG Total CO2 32 H (21-31) mmol/L ABG O2 Saturation 100 (95-100) % ABG Base Excess 8.0 H (-2-2) mmol/L FiO2 30 Sodium 137 (137-145) mmol/L Potassium 3.9 (3.4-5.1) mmol/L Chloride 102 (98-107) mmol/L Carbon Dioxide 32 (22-32) mmol/L BUN 16 (9-20) mg/dL Creatinine 1.07 (0.66-1.25) mg/dL Estimated GFR > 60.0 (>60) mL/min BUN/Creatinine Ratio 15.0 (6-22) Glucose 123 H (80-110) mg/dL Lactate (0.7-2.1) mmol/L Calcium 9.5 (8.4-10.2) mg/dL Magnesium 1.9 (1.6-2.3) mg/dL Total Bilirubin 0.8 (0.2-1.3) mg/dL AST 24 (17-59) IU/L ALT 16 (<50) IU/L Alkaline Phosphatase 100 (38-126) U/L Total Creatine Kinase 45 L (55-170) U/L CK-MB (CK-2) TNP CK-MB (CK-2) Rel Index TNP Troponin I 0.030 (0.01-0.034) ng/mL NT-Pro-B Natriuret Pep (<450) pg/mL Total Protein 6.7 (6.3-8.2) g/dL Albumin 3.7 (3.5-5.0) g/dL Globulin 3.0 (1.7-4.1) g/dL Albumin/Globulin Ratio 1.2 (1.0-2.8) Lipase 63 (23-300) U/L Procalcitonin (<0.5) ng/mL SARS-CoV-2 (PCR) (Negative) 04/28/21 04/28/21 04/28/21 Range/Units 10:00 10:00 10:00 WBC (4.5-11.0) X10^3/uL RBC (4.5-5.9) X10^6/uL Hgb (13.5-17.5) g/dL Hct (41-53) % MCV (80-100) fL MCH (26-34) PG MCHC (30-36) % RDW (11.6-14.8) % Plt Count (150-400) X10^3/uL Neut % (Auto) (50-75) % Lymph % (Auto) (25-40) % Lyman % (Auto) (3-14) % Eos % (Auto) (2-4) % Baso % (Auto) (0-2) % Neut # (Auto) (7496-9874) /uL Lymph # (Auto) (4590-1459) /uL Lyman # (Auto) (0-900) /uL Eos # (Auto) (0-450) /uL Baso # (Auto) (0-100) /uL D-Dimer 883 H (<230) ng/mL ABG pH (7.35-7.45) ABG pCO2 (35-45) mmHg ABG pO2 (80-100) mmHg ABG HCO3 (22-26) mmol/L ABG Total CO2 (21-31) mmol/L ABG O2 Saturation (95-100) % ABG Base Excess (-2-2) mmol/L FiO2 Sodium (137-145) mmol/L Potassium (3.4-5.1) mmol/L Chloride (98-107) mmol/L Carbon Dioxide (22-32) mmol/L BUN (9-20) mg/dL Creatinine (0.66-1.25) mg/dL Estimated GFR (>60) mL/min BUN/Creatinine Ratio (6-22) Glucose (80-110) mg/dL Lactate 1.3 (0.7-2.1) mmol/L Calcium (8.4-10.2) mg/dL Magnesium (1.6-2.3) mg/dL Total Bilirubin (0.2-1.3) mg/dL AST (17-59) IU/L ALT (<50) IU/L Alkaline Phosphatase (38-126) U/L Total Creatine Kinase (55-170) U/L CK-MB (CK-2) CK-MB (CK-2) Rel Index Troponin I (0.01-0.034) ng/mL NT-Pro-B Natriuret Pep 3740 H (<450) pg/mL Total Protein (6.3-8.2) g/dL Albumin (3.5-5.0) g/dL Globulin (1.7-4.1) g/dL Albumin/Globulin Ratio (1.0-2.8) Lipase (23-300) U/L Procalcitonin 0.23 (<0.5) ng/mL SARS-CoV-2 (PCR) (Negative) 04/28/21 Range/Units 10:18 WBC (4.5-11.0) X10^3/uL RBC (4.5-5.9) X10^6/uL Hgb (13.5-17.5) g/dL Hct (41-53) % MCV (80-100) fL MCH (26-34) PG MCHC (30-36) % RDW (11.6-14.8) % Plt Count (150-400) X10^3/uL Neut % (Auto) (50-75) % Lymph % (Auto) (25-40) % Lyman % (Auto) (3-14) % Eos % (Auto) (2-4) % Baso % (Auto) (0-2) % Neut # (Auto) (8766-5485) /uL Lymph # (Auto) (3239-3676) /uL Lyman # (Auto) (0-900) /uL Eos # (Auto) (0-450) /uL Baso # (Auto) (0-100) /uL D-Dimer (<230) ng/mL ABG pH (7.35-7.45) ABG pCO2 (35-45) mmHg ABG pO2 (80-100) mmHg ABG HCO3 (22-26) mmol/L ABG Total CO2 (21-31) mmol/L ABG O2 Saturation (95-100) % ABG Base Excess (-2-2) mmol/L FiO2 Sodium (137-145) mmol/L Potassium (3.4-5.1) mmol/L Chloride (98-107) mmol/L Carbon Dioxide (22-32) mmol/L BUN (9-20) mg/dL Creatinine (0.66-1.25) mg/dL Estimated GFR (>60) mL/min BUN/Creatinine Ratio (6-22) Glucose (80-110) mg/dL Lactate (0.7-2.1) mmol/L Calcium (8.4-10.2) mg/dL Magnesium (1.6-2.3) mg/dL Total Bilirubin (0.2-1.3) mg/dL AST (17-59) IU/L ALT (<50) IU/L Alkaline Phosphatase (38-126) U/L Total Creatine Kinase (55-170) U/L CK-MB (CK-2) CK-MB (CK-2) Rel Index Troponin I (0.01-0.034) ng/mL NT-Pro-B Natriuret Pep (<450) pg/mL Total Protein (6.3-8.2) g/dL Albumin (3.5-5.0) g/dL Globulin (1.7-4.1) g/dL Albumin/Globulin Ratio (1.0-2.8) Lipase (23-300) U/L Procalcitonin (<0.5) ng/mL SARS-CoV-2 (PCR) Positive H (Negative) Urine Dip Bedside Urine Glucose Negative Bedside Urine Bilirubin - Negative Bedside Urine Ketone - Negative Urine Specific [place] 1.010 Bedside Urine Occult Blood +/- Bedside Urine pH 6.0 Bedside Urine Protein - Negative Bedside Urine Urobilinogen - Negative Bedside Urine Nitrite - Negative Bedside Urine Leukocytes - Negative Esterase Imaging Data CT scan - chest: Radiologist Impression: PROCEDURE:? CT ANGIO CHEST PE PROTOCOL ? INDICATIONS:? SHORTNESS OF BREATH --- COVID + ? TECHNIQUE:? After the administration of intravenous contrast, 2 mm thick sections acquired from the pulmonary apices to the posterior costophrenic angles.? 3-dimensional maximum intensity projection (MIP) coronal and sagittal reformats were then acquired through the thorax.? For radiation dose reduction, the following was used:? automated exposure control, adjustment of mA and/or kV according to patient size.? ? COMPARISON:? [facility], CT, CT CHEST ABD PEL W CON, 04/22/2020, 17:48. ? FINDINGS:? Image quality:? Fair.? ? Pulmonary arteries:? Pulmonary arteries are normal in size, and demonstrate no intraluminal filling defects to suggest central pulmonary embolism.? ? Lungs and pleura:? Minimal scattered ground-glass airspace opacity.? Mild platelike consolidation at the left lung base is similar to the prior exam.? No significant pleural effusions.? No pneumothorax.? Central and peripheral airways are patent.? ? Mediastinum:? Heart size is enlarged, without pericardial effusion.? Three-vessel coronary artery calcifications.? No mediastinal or hilar adenopathy.? Thoracic aorta is normal in caliber and enhancement.? Esophagus is normal in caliber, small hiatal hernia.? ? ? Bones and chest wall:? Deformity of the left lateral 6th rib.? No suspicious bony lesions.? Ribs and thoracic spine appear intact throughout.? Thyroid gland is unremarkable.? No axillary or supraclavicular adenopathy.? ? Abdomen:? Visualized upper abdominal solid organs appear normal in the early arterial phase of enhancement.? Hypodensity in the left lobe of the liver measuring 2 cm, (4/131), unchanged in the short-term interval.? Right renal cyst.? ? IMPRESSION:? 1. No central pulmonary embolism. ? 2. Mild interstitial thickening and scattered ground-glass opacity.? This could be due to pneumonia, pulmonary edema, or chronic interstitial lung disease. ? ? ? Dictated by: Manav Akers M.D. on 04/28/2021 at 14:10 ? ? Approved by: Manav Akers M.D. on 04/28/2021 at 14:21 ? Chest x-ray: Radiologist Impression: PROCEDURE:? XR CHEST 1V ? INDICATIONS:? chest pain ? TECHNIQUE:? One view of the chest was acquired.? ? COMPARISON:? [facility], CR, XR CHEST 1V, 03/06/2021, 16:52. ? FINDINGS:? ? Surgical changes and devices:? None.? ? Lungs and pleura:? Small left pleural effusion is seen with left basilar atelectasis.? Trace right pleural effusion and right basilar atelectasis/infiltrate is also noted.? There is pulmonary vascular congestion.? No gross pneumothorax. ? Mediastinum:? Tortuous thoracic aorta and cardiomegaly is seen. ? Bones and chest wall:? No suspicious bony lesions.? Overlying soft tissues appear unremarkable.? ? IMPRESSION:? Small left greater than right bilateral pleural effusion and bibasilar small infiltrate/atelectasis.? Pulmonary vascular congestion and mild pulmonary edema.? No gross pneumothorax. ? ? Dictated by: Denis Escoto M.D. on 04/28/2021 at 10:58 ? ? Approved by: Denis Escoto M.D. on 04/28/2021 at 10:59 ? ECG Data Interpretation: Atrial fibrillation with PVCs, nonspecific ST-T abnormalities, no axis deviation. MDM Narrative Medical decision making narrative: 85-year-old male with past medical history AFib, CHF, hypertension, hyperlipidemia, diabetes, bladder neck contracture presents to the ED with 1 week of worsening fatigue. Concern for ACS versus CHF exacerbation versus PE versus UTI versus sepsis versus pneumonia. Will order labs, troponin, chest x-ray, EKG, BNP, D-dimer, UA. Will reassess. NT proBNP elevated to 3740. D-dimer elevated to 883 which is above the age adjusted cut off. WBC elevated to 15.8. CT PE shows no evidence of pulmonary embolism, but shows mild interstitial thickening with scattered ground-glass opacities, indicative of pneumonia versus pulmonary edema versus chronic interstitial lung disease. Will start patient on Lasix 40 mg IV. Will start patient on antibiotics ceftriaxone and azithromycin, methylprednisolone for the pneumonia. Will consult Cardiology, hospitalist, admit. Cardiology consulted, spoke with Dr. Akins who advises to continue diuresis, control blood pressure, admitted. Will give patient enalaprilat, nitroglycerin for blood pressure control. Dr. Nelsno consulted, patient will be admitted as inpatient. <Dominga Andino DO - Last Filed: 04/29/21 07:04> Lab Data Labs: Lab Results 04/28/21 04/28/21 04/28/21 Range/Units 00:18 10:00 10:00 WBC 15.8 H (4.5-11.0) X10^3/uL RBC 3.97 L (4.5-5.9) X10^6/uL Hgb 12.1 L (13.5-17.5) g/dL Hct 36.2 L (41-53) % MCV 91.1 (80-100) fL MCH 30.5 (26-34) PG MCHC 33.5 (30-36) % RDW 13.6 (11.6-14.8) % Plt Count 235 (150-400) X10^3/uL Neut % (Auto) 82.0 H (50-75) % Lymph % (Auto) 5.2 L (25-40) % [place] % (Auto) 9.8 (3-14) % Eos % (Auto) 2.6 (2-4) % Baso % (Auto) 0.4 (0-2) % Neut # (Auto) 74423 H (5009-4267) /uL Lymph # (Auto) 800 L (3978-9486) /uL [place] # (Auto) 1500 H (0-900) /uL Eos # (Auto) 400 (0-450) /uL Baso # (Auto) 100 (0-100) /uL D-Dimer (<230) ng/mL ABG pH 7.51 H (7.35-7.45) ABG pCO2 38.2 (35-45) mmHg ABG pO2 155 H (80-100) mmHg ABG HCO3 31 H (22-26) mmol/L ABG Total CO2 32 H (21-31) mmol/L ABG O2 Saturation 100 (95-100) % ABG Base Excess 8.0 H (-2-2) mmol/L FiO2 30 Sodium 137 (137-145) mmol/L Potassium 3.9 (3.4-5.1) mmol/L Chloride 102 (98-107) mmol/L Carbon Dioxide 32 (22-32) mmol/L BUN 16 (9-20) mg/dL Creatinine 1.07 (0.66-1.25) mg/dL Estimated GFR > 60.0 (>60) mL/min BUN/Creatinine Ratio 15.0 (6-22) Glucose 123 H (80-110) mg/dL Lactate (0.7-2.1) mmol/L Calcium 9.5 (8.4-10.2) mg/dL Magnesium 1.9 (1.6-2.3) mg/dL Total Bilirubin 0.8 (0.2-1.3) mg/dL AST 24 (17-59) IU/L ALT 16 (<50) IU/L Alkaline Phosphatase 100 (38-126) U/L Total Creatine Kinase 45 L (55-170) U/L CK-MB (CK-2) TNP CK-MB (CK-2) Rel Index TNP Troponin I 0.030 (0.01-0.034) ng/mL NT-Pro-B Natriuret Pep (<450) pg/mL Total Protein 6.7 (6.3-8.2) g/dL Albumin 3.7 (3.5-5.0) g/dL Globulin 3.0 (1.7-4.1) g/dL Albumin/Globulin Ratio 1.2 (1.0-2.8) Lipase 63 (23-300) U/L Procalcitonin (<0.5) ng/mL SARS-CoV-2 (PCR) (Negative) 04/28/21 04/28/21 04/28/21 Range/Units 10:00 10:00 10:00 WBC (4.5-11.0) X10^3/uL RBC (4.5-5.9) X10^6/uL Hgb (13.5-17.5) g/dL Hct (41-53) % MCV (80-100) fL MCH (26-34) PG MCHC (30-36) % RDW (11.6-14.8) % Plt Count (150-400) X10^3/uL Neut % (Auto) (50-75) % Lymph % (Auto) (25-40) % [place] % (Auto) (3-14) % Eos % (Auto) (2-4) % Baso % (Auto) (0-2) % Neut # (Auto) (7383-2712) /uL Lymph # (Auto) (3147-0520) /uL [place] # (Auto) (0-900) /uL Eos # (Auto) (0-450) /uL Baso # (Auto) (0-100) /uL D-Dimer 883 H (<230) ng/mL ABG pH (7.35-7.45) ABG pCO2 (35-45) mmHg ABG pO2 (80-100) mmHg ABG HCO3 (22-26) mmol/L ABG Total CO2 (21-31) mmol/L ABG O2 Saturation (95-100) % ABG Base Excess (-2-2) mmol/L FiO2 Sodium (137-145) mmol/L Potassium (3.4-5.1) mmol/L Chloride (98-107) mmol/L Carbon Dioxide (22-32) mmol/L BUN (9-20) mg/dL Creatinine (0.66-1.25) mg/dL Estimated GFR (>60) mL/min BUN/Creatinine Ratio (6-22) Glucose (80-110) mg/dL Lactate 1.3 (0.7-2.1) mmol/L Calcium (8.4-10.2) mg/dL Magnesium (1.6-2.3) mg/dL Total Bilirubin (0.2-1.3) mg/dL AST (17-59) IU/L ALT (<50) IU/L Alkaline Phosphatase (38-126) U/L Total Creatine Kinase (55-170) U/L CK-MB (CK-2) CK-MB (CK-2) Rel Index Troponin I (0.01-0.034) ng/mL NT-Pro-B Natriuret Pep 3740 H (<450) pg/mL Total Protein (6.3-8.2) g/dL Albumin (3.5-5.0) g/dL Globulin (1.7-4.1) g/dL Albumin/Globulin Ratio (1.0-2.8) Lipase (23-300) U/L Procalcitonin 0.23 (<0.5) ng/mL SARS-CoV-2 (PCR) (Negative) 04/28/21 Range/Units 10:18 WBC (4.5-11.0) X10^3/uL RBC (4.5-5.9) X10^6/uL Hgb (13.5-17.5) g/dL Hct (41-53) % MCV (80-100) fL MCH (26-34) PG MCHC (30-36) % RDW (11.6-14.8) % Plt Count (150-400) X10^3/uL Neut % (Auto) (50-75) % Lymph % (Auto) (25-40) % [place] % (Auto) (3-14) % Eos % (Auto) (2-4) % Baso % (Auto) (0-2) % Neut # (Auto) (5936-6754) /uL Lymph # (Auto) (0187-0682) /uL [place] # (Auto) (0-900) /uL Eos # (Auto) (0-450) /uL Baso # (Auto) (0-100) /uL D-Dimer (<230) ng/mL ABG pH (7.35-7.45) ABG pCO2 (35-45) mmHg ABG pO2 (80-100) mmHg ABG HCO3 (22-26) mmol/L ABG Total CO2 (21-31) mmol/L ABG O2 Saturation (95-100) % ABG Base Excess (-2-2) mmol/L FiO2 Sodium (137-145) mmol/L Potassium (3.4-5.1) mmol/L Chloride (98-107) mmol/L Carbon Dioxide (22-32) mmol/L BUN (9-20) mg/dL Creatinine (0.66-1.25) mg/dL Estimated GFR (>60) mL/min BUN/Creatinine Ratio (6-22) Glucose (80-110) mg/dL Lactate (0.7-2.1) mmol/L Calcium (8.4-10.2) mg/dL Magnesium (1.6-2.3) mg/dL Total Bilirubin (0.2-1.3) mg/dL AST (17-59) IU/L ALT (<50) IU/L Alkaline Phosphatase (38-126) U/L Total Creatine Kinase (55-170) U/L CK-MB (CK-2) CK-MB (CK-2) Rel Index Troponin I (0.01-0.034) ng/mL NT-Pro-B Natriuret Pep (<450) pg/mL Total Protein (6.3-8.2) g/dL Albumin (3.5-5.0) g/dL Globulin (1.7-4.1) g/dL Albumin/Globulin Ratio (1.0-2.8) Lipase (23-300) U/L Procalcitonin (<0.5) ng/mL SARS-CoV-2 (PCR) Positive H (Negative) Urine Dip Bedside Urine Glucose Negative Bedside Urine Bilirubin - Negative Bedside Urine Ketone - Negative Urine Specific [place] 1.010 Bedside Urine Occult Blood +/- Bedside Urine pH 6.0 Bedside Urine Protein - Negative Bedside Urine Urobilinogen - Negative Bedside Urine Nitrite - Negative Bedside Urine Leukocytes - Negative Esterase Discharge Plan Departure Patient Disposition: Admitted As Inpatient Clinical Impression: CHF exacerbation Admit Date/Time: 04/28/21 16:13 Admit Provider: Dong Wilkins <Dominga Andino DO - Last Filed: 04/29/21 07:04> Cosign ED Attending Cosignature Attestation: I was immediately available in the department for consultation. Documentation has been reviewed. Case was discussed and agree with current plan. Cardiology was consulted as he follows with them regularly does appear to have a CHF exacerbation.
[2021-04-28 13:19] LABS: Procalcitonin 0.23 ng/mL (<0.5)
[2021-04-28 13:23] LABS: D Dimer 883 ng/mL (<230)
--- NOTE | 2021-04-28 13:46 | DI.CT.S_ITS ---
PROCEDURE: CT ANGIO CHEST PE PROTOCOL INDICATIONS: SHORTNESS OF BREATH --- COVID + TECHNIQUE: After the administration of intravenous contrast, 2 mm thick sections acquired from the pulmonary apices to the posterior costophrenic angles. 3-dimensional maximum intensity projection (MIP) coronal and sagittal reformats were then acquired through the thorax. For radiation dose reduction, the following was used: automated exposure control, adjustment of mA and/or kV according to patient size. COMPARISON: [facility], CT, CT CHEST ABD PEL W CON, 04/22/2020, 17:48. FINDINGS: Image quality: Fair. Pulmonary arteries: Pulmonary arteries are normal in size, and demonstrate no intraluminal filling defects to suggest central pulmonary embolism. Lungs and pleura: Minimal scattered ground-glass airspace opacity. Mild platelike consolidation at the left lung base is similar to the prior exam. No significant pleural effusions. No pneumothorax. Central and peripheral airways are patent. Mediastinum: Heart size is enlarged, without pericardial effusion. Three-vessel coronary artery calcifications. No mediastinal or hilar adenopathy. Thoracic aorta is normal in caliber and enhancement. Esophagus is normal in caliber, small hiatal hernia. Bones and chest wall: Deformity of the left lateral 6th rib. No suspicious bony lesions. Ribs and thoracic spine appear intact throughout. Thyroid gland is unremarkable. No axillary or supraclavicular adenopathy. Abdomen: Visualized upper abdominal solid organs appear normal in the early arterial phase of enhancement. Hypodensity in the left lobe of the liver measuring 2 cm, (4/131), unchanged in the short-term interval. Right renal cyst. IMPRESSION: 1. No central pulmonary embolism. 2. Mild interstitial thickening and scattered ground-glass opacity. This could be due to pneumonia, pulmonary edema, or chronic interstitial lung disease. Dictated by: Manav Akers M.D. on 04/28/2021 at 14:10 Approved by: Manav Akers M.D. on 04/28/2021 at 14:21
--- NOTE | 2021-04-28 14:15 | PC.NURSE ---
pt tolerated well, used a 14fr I/O cath.
[2021-04-28 14:31] LABS: Lactate (Lactic Acid) 1.3 mmol/L (0.7-2.1)
[2021-04-28] MEDS: FUROSEMIDE 40 MG/4 ML VIAL IV ×2 (14:38→20:38)
[2021-04-28] MEDS: methylPREDNISolone 125 MG/2 ML VIAL 60 MG IV (15:09)
[2021-04-28] MEDS: cefTRIAXone 1,000 MG in SODIUM CHLORIDE 0.9% 100 ML 200 ML IV (15:11)
--- NOTE | 2021-04-28 16:21 | PC.NURSE ---
provider aware of increased breathing, orders noted.
--- NOTE | 2021-04-28 16:24 | PC.NURSE ---
Guera PRETTYO / Clara Director approved visit from Richelle.
[2021-04-28] MEDS: ENALAPRILAT 2.5 MG/ 2 ML VIAL 1 MG IV (16:54)
[2021-04-28] MEDS: AZITHROMYCIN 500 MG in DEXTROSE 5% IN WATER 250 ML IV (16:55)
[2021-04-28 17:07] LABS: Fractionated Inspired Oxygen 21; HCO3 ABG 31 mmol/L (22-26); Oxygen Saturation ABG 94 % (95-100); PCO2 ABG 51.5 mmHg (35-45); PO2 ABG 71 mmHg (80-100); TCO2 ABG 32 mmol/L (21-31); pH ABG 7.39 (7.35-7.45)
--- NOTE | 2021-04-28 17:16 | P.HP_ITS ---
History of Present Illness History of Present Illness Date Patient Seen: 04/28/21 Time Patient Seen: 16:30 Date of Onset of Symptoms: 04/23/21 Chief complaint: lethargic Narrative: Patient is 84-year-old male with history of atrial fibrillation, history of subdural bleed, hypertension, hyperlipidemia, history of aspiration pneumonia, history of chronic urinary retention presented to emergency department due to increased difficulty with breathing. Patient is unable to provide much history due to labored breathing but accurate history is obtained from spouse. Patient is double vaxxed and got boosted last week. He did test positive for COVID 3 or 4 weeks ago and had some mild illness. About 5 or 6 days ago he started to have significant progressive difficulty with his breathing. No known fever or chills. Has not noticed leg swelling. He is normally on 20 mg furosemide daily. Upon ED arrival he was noted to be tachypneic with respiratory rate in the mid 30s to mid 40s, hypertensive BP 186/105, tachycardic pulse 97, O2 sat 94-95% room air. He denies chest pain. His labs showed moderately elevated WBC with left shift although this is not abnormal for him. Renal function noted normal. Lactate normal. N BNP was quite elevated at over 3700, initial troponin normal at 0.03, procalcitonin 0.23. Chest x-ray showed cardiomegaly and pulmonary vascular congestion, small pleural effusions, and bibasilar atelectasis or infiltrate. He had chest CTA which was negative for pulmonary embolism and showed mild interstitial thickening and minimal scattered ground glass opacities. His COVID-19 PCR was positive. On ABG pH 7.39, pCO2 51.5, PO2 71 on 21% FiO2. Patient received IV Lasix, IV antibiotics, remdesevir and Solu- Medrol in the ED and is being admitted to the ICU for impending respiratory failure. Also note he was started on oral antibiotic last week for UTI. He has had chronic Thorne catheter for the past 10 months but finally had it removed last week. Patient History Medical History Afib Anemia Arthritis Benign prostatic hyperplasia Bladder neck contracture Chronic anemia Clostridioides difficile infection Diabetes 1.5, managed as type 2 Essential hypertension Fracture of femoral neck, right Frequent falls History of UTI LFT elevation Low back pain Mixed hyperlipidemia Osteoarthritis Paroxysmal atrial fibrillation Tremor Urinary retention Surgical History History of lobectomy of lung History of resection of rib History of surgery (11/02/20) Hx of bilateral cataract extraction Hx of transurethral resection of prostate Status post appendectomy Family & Social History Family History Father Hypertension Brother Atrial fibrillation Mother No significant medical problems Social History: household members spouse Tobacco & Substance use: Smoking Status Former smoker alcohol intake never alcohol intake frequency 0-2 drinks per day Substance Use Type does not use Meds Home Medications and Allergies Home Medications Medication Instructions Recorded Confirmed Type Disabled Parking Permit #1 ea 07/26/18 02/25/21 Rx cholecalciferol (vitamin D3) 25 1,000 unit PO QAM #0 tab 06/30/19 02/25/21 History mcg (1,000 unit) tablet (Vitamin D3) aspirin 325 mg tablet 325 mg PO QAM 04/08/20 02/25/21 History ferrous sulfate 325 mg (65 mg 325 mg PO QAM 04/22/20 02/25/21 History iron) capsule,extended release vitamin B complex 1 tab PO QAM 04/22/20 02/25/21 History atorvastatin 10 mg tablet 10 mg PO BEDTIME #90 tab 05/14/20 02/25/21 Rx omeprazole magnesium 20 mg 20 mg PO QAM #90 tab 05/14/20 02/25/21 Rx tablet,delayed release (Prilosec OTC) finasteride 5 mg tablet 5 mg PO DAILY #90 tab 07/10/20 02/25/21 Rx enalapril maleate 20 mg tablet See Rx Instructions .ROUTE 10/09/20 02/25/21 Rx .COMPLEX #180 tab acetaminophen 325 mg tablet 650 mg PO Q6HR PRN #20 tab 11/05/20 02/25/21 Rx docusate sodium 100 mg capsule 100 mg PO BID #20 cap 11/05/20 02/25/21 Rx (DOK) amlodipine 5 mg tablet 5 mg PO BID #180 tab 12/23/20 02/25/21 Rx clotrimazole 1 % topical cream 1 applic TOPICAL BID #15 g 01/06/21 02/25/21 Rx nystatin 100,000 unit/gram topical 1 applic TOPICAL BID #60 g 01/06/21 02/25/21 Rx powder potassium chloride 10 mEq 20 meq PO BID 02/07/21 02/25/21 History capsule,extended release ciprofloxacin HCl 250 mg tablet 250 mg PO BID #6 tab 02/17/21 02/25/21 Rx hydrocodone 5 mg-acetaminophen 325 1 tab PO BID PRN #30 tab 03/10/21 Rx mg tablet amoxicillin 250 mg capsule 250 mg PO TID #21 cap 03/18/21 Rx furosemide 20 mg tablet 20 mg PO DAILY #90 tab 03/24/21 Rx trazodone 100 mg tablet 100 mg PO BEDTIME #90 tab 03/27/21 Rx nitrofurantoin 100 mg PO BID #30 cap 04/18/21 Rx monohydrate/macrocrystals 100 mg capsule (Macrobid) Allergies Allergy/AdvReac Type Severity Reaction Status Date / Time clindamycin AdvReac Severe C.diff Verified 04/28/21 10:20 Colitis 04/11 Review of Systems Review of Systems Narrative: Complete 10 point ROS limited by patient unable to give full history Exam Vital Signs (past 8 hours): - 04/28/21 10:12 04/28/21 10:20 04/28/21 10:30 Temperature 98.6 F Pulse Rate 97 H 92 H 92 H Respiratory Rate 35 H 28 H 39 H Blood Pressure 186/105 H 150/82 H Pulse Oximetry 94 95 94 04/28/21 11:00 04/28/21 11:30 04/28/21 12:00 Temperature Pulse Rate 82 94 H 97 H Respiratory Rate 28 H 35 H 37 H Blood Pressure 119/69 133/83 Pulse Oximetry 93 95 95 04/28/21 12:01 04/28/21 12:30 04/28/21 12:31 Temperature Pulse Rate 95 H 86 91 H Respiratory Rate 35 H 32 H 32 H Blood Pressure 175/84 H 132/75 Pulse Oximetry 95 04/28/21 13:00 04/28/21 13:01 04/28/21 13:30 Temperature Pulse Rate 74 75 104 H Respiratory Rate 25 H 25 H 39 H Blood Pressure 101/55 L Pulse Oximetry 04/28/21 13:31 04/28/21 14:01 04/28/21 14:15 Temperature 98.0 F Pulse Rate 102 H 112 H Respiratory Rate 36 H Blood Pressure 177/89 H Pulse Oximetry 98 04/28/21 14:19 04/28/21 14:30 04/28/21 15:00 Temperature Pulse Rate 103 H 97 H 103 H Respiratory Rate 36 H 35 H 38 H Blood Pressure 193/92 H 164/96 H 162/106 H Pulse Oximetry 100 99 98 04/28/21 15:30 04/28/21 15:31 04/28/21 15:53 Temperature Pulse Rate 111 H 110 H 108 H Respiratory Rate 37 H 40 H 42 H Blood Pressure 203/92 H 200/90 H Pulse Oximetry 98 99 96 04/28/21 16:00 Temperature 98.1 F Pulse Rate 115 H Respiratory Rate 43 H Blood Pressure 181/84 H Pulse Oximetry 95 Oxygen Delivery Method Room Air Oxygen Flow Rate 2 Narrative Exam Narrative: General: He is alert and working hard to breathe HEENT: Nontraumatic, pupils equal Neck: No lymphadenopathy Lungs: Using accessory muscles to breathe, unable to speak full sentences, diminished throughout without crackles or wheeze Heart: Normal S1 and S2, irregularly irregular, tachycardic Abdomen: Obese, nontender, no abdominal mass Extremities: Warm, nonedematous Neurological: Oriented to person and place, speech normal though limited, no focal weakness Objective Labs Result Diagrams: 04/28/21 10:00 04/28/21 10:00 Labs: Laboratory Results - last 24 hr 04/28/21 04/28/21 04/28/21 10:00 10:00 10:00 WBC 15.8 H RBC 3.97 L Hgb 12.1 L Hct 36.2 L MCV 91.1 MCH 30.5 MCHC 33.5 RDW 13.6 Plt Count 235 Neut % (Auto) 82.0 H Lymph % (Auto) 5.2 L [place] % (Auto) 9.8 Eos % (Auto) 2.6 Baso % (Auto) 0.4 Neut # (Auto) 23558 H Lymph # (Auto) 800 L [place] # (Auto) 1500 H Eos # (Auto) 400 Baso # (Auto) 100 D-Dimer ABG pH ABG pCO2 ABG pO2 ABG HCO3 ABG Total CO2 ABG O2 Saturation ABG Base Excess FiO2 Sodium 137 Potassium 3.9 Chloride 102 Carbon Dioxide 32 BUN 16 Creatinine 1.07 Estimated GFR > 60.0 BUN/Creatinine Ratio 15.0 Glucose 123 H Lactate Calcium 9.5 Magnesium 1.9 Total Bilirubin 0.8 AST 24 ALT 16 Alkaline Phosphatase 100 Total Creatine Kinase 45 L CK-MB (CK-2) TNP CK-MB (CK-2) Rel Index TNP Troponin I 0.030 NT-Pro-B Natriuret Pep 3740 H Total Protein 6.7 Albumin 3.7 Globulin 3.0 Albumin/Globulin Ratio 1.2 Lipase 63 Procalcitonin 0.23 SARS-CoV-2 (PCR) 04/28/21 04/28/21 04/28/21 10:00 10:00 10:18 WBC RBC Hgb Hct MCV MCH MCHC RDW Plt Count Neut % (Auto) Lymph % (Auto) [place] % (Auto) Eos % (Auto) Baso % (Auto) Neut # (Auto) Lymph # (Auto) [place] # (Auto) Eos # (Auto) Baso # (Auto) D-Dimer 883 H ABG pH ABG pCO2 ABG pO2 ABG HCO3 ABG Total CO2 ABG O2 Saturation ABG Base Excess FiO2 Sodium Potassium Chloride Carbon Dioxide BUN Creatinine Estimated GFR BUN/Creatinine Ratio Glucose Lactate 1.3 Calcium Magnesium Total Bilirubin AST ALT Alkaline Phosphatase Total Creatine Kinase CK-MB (CK-2) CK-MB (CK-2) Rel Index Troponin I NT-Pro-B Natriuret Pep Total Protein Albumin Globulin Albumin/Globulin Ratio Lipase Procalcitonin SARS-CoV-2 (PCR) Positive H 04/28/21 16:39 WBC RBC Hgb Hct MCV MCH MCHC RDW Plt Count Neut % (Auto) Lymph % (Auto) [place] % (Auto) Eos % (Auto) Baso % (Auto) Neut # (Auto) Lymph # (Auto) [place] # (Auto) Eos # (Auto) Baso # (Auto) D-Dimer ABG pH 7.39 ABG pCO2 51.5 H ABG pO2 71 L ABG HCO3 31 H ABG Total CO2 32 H ABG O2 Saturation 94 L ABG Base Excess 6.0 H FiO2 21 Sodium Potassium Chloride Carbon Dioxide BUN Creatinine Estimated GFR BUN/Creatinine Ratio Glucose Lactate Calcium Magnesium Total Bilirubin AST ALT Alkaline Phosphatase Total Creatine Kinase CK-MB (CK-2) CK-MB (CK-2) Rel Index Troponin I NT-Pro-B Natriuret Pep Total Protein Albumin Globulin Albumin/Globulin Ratio Lipase Procalcitonin SARS-CoV-2 (PCR) Assessment & Plan Assessment & Plan narrative: 1. Impending respiratory failure due to pneumonia and congestive heart failure -severely tachypneic, hypertensive and tachycardic in ED -lung imaging consistent with CHF and possible pneumonia, bacterial versus viral, a pneumonia secondary to COVID is less likely since he was COVID positive 3 or 4 weeks ago -elevated WBC with left shift consistent with bacterial although patient seems to run chronically elevated WBC -blood cultures pending -start BiPAP -continue Lasix 40 mg IV b.i.d. -topical nitroglycerin 1 in -Zosyn and Zithromax for antibiotics -Solu-Medrol 80 mg IV b.i.d. -continue home meds lisinopril 20 mg b.i.d., atorvastatin 10 mg q.p.m., and aspirin 81 mg q.d. -nasal PCR for MRSA-consider add vancomycin if MRSA positive -patient full code and would want intubation -enoxaparin 40 mg q.d. for DVT prophylaxis -CBC, CMP in a.m. 2. Chronic or paroxysmal AFib with RVR -EKG AFib, PVCs, nonspecific ST and T-wave changes unchanged from prior -not anticoagulated or on AV blockers -telemetry monitoring 3. History of chronic urinary retention -Thorne catheter removed 1 week ago and patient on oral antibiotic for UTI -check urinalysis -new catheter placed in ED to monitor urine output Medication reconciliation to be completed. DPOA: Spouse Time Spent With Patient Critical Care time: I spent a total of [] minutes of critical care time on this patient's care today; this time is exclusive of procedural time.
--- NOTE | 2021-04-28 17:20 | PC.NURSE ---
RT has placed pt on bipap to help with work of breathing, dr. wei as visited at bedside.
[2021-04-28 17:51] LABS: Lactate Dehydrogenase 513 U/L (313-618)
[2021-04-28 18:01] LABS: Troponin I 0.021 ng/mL (0.01-0.034)
[2021-04-28 18:05] LABS: C-Reactive Protein Quant 24.4 mg/dL (<1.0)
[2021-04-28] MEDS: NITROGLYCERIN OINT 1 INCH/GM OINT...G. TOP (18:34)
[2021-04-28] MEDS: PIPERACILLIN/TAZO 3.375 GM in SODIUM CHLORIDE 0.9% 100 ML 25 ML IV (18:35)
[2021-04-28] MEDS: REMDESIVIR 200 MG in SODIUM CHLORIDE 0.9% 210 ML 250 ML IV (18:37)
--- NOTE | 2021-04-28 18:38 | P.TELICUCN_ITS ---
History of Present Illness Consult details Chief complaint: lethargic :: This patient was seen via real time interactive two-way audiovisual telecommunication. HPI: 84-year-old male with PMH Of Afib, HTN, HL, h/o chronic urinary retention with chronic Thorne for several months but recently removed last week, recent SDH, and recent COVID infection 3 weeks ago (pt. has been Covid vaccinated and boostered) admitted today for acute respiratory distress and hypertensino (186/105). Pt. developed progressive SOB 5-6 days ago. ROS: no chest pain, fever/chills, no LE edema Work up in ED included + COVID PCR test, CXR (showing pulm congestion, bibasilar iniltrates vs atelecasis small L > R pleural effusion but no PTX), CTA (?Mild interstitial thickening and scattered ground-glass opacity which could be due to pneumonia, pulmonary edema, or chronic interstitial lung disease but neg for P E), ABG pH 7.39, pCO2 51.5, PO2 71 on 21% FiO2, elevated BNP, WBC 15.8, PRocal 0.23, Trop not elevated. Patient received IV Lasix, Nitro paste, IV antibioticsv (Ceftriaxone and Aziothromycin), remdesevir and Solu-Medrol in the ED. He was placed on BIPAP and has improved both in terms of his HR, BP, and RR. PFSH Medical History Afib Anemia Arthritis Benign prostatic hyperplasia Bladder neck contracture Chronic anemia Clostridioides difficile infection Diabetes 1.5, managed as type 2 Essential hypertension Fracture of femoral neck, right Frequent falls History of UTI LFT elevation Low back pain Mixed hyperlipidemia Osteoarthritis Paroxysmal atrial fibrillation Tremor Urinary retention Surgical History History of lobectomy of lung History of resection of rib History of surgery (11/02/20) Hx of bilateral cataract extraction Hx of transurethral resection of prostate Status post appendectomy Family History Father Hypertension Brother Atrial fibrillation Mother No significant medical problems Social History marital status: number of children: 3 household members: spouse occupational status: previously employed Smoking Status: Former smoker Tobacco: How many years used: 20 alcohol intake: never substance use type: does not use caffeine: Yes Current Medications Current Medications Medications: Home Medications Disabled Parking Permit #1 ea 07/26/18 [Rx Confirmed 02/25/21] cholecalciferol (vitamin D3) 25 mcg (1,000 unit) tablet (Vitamin D3) 1,000 unit PO QAM #0 tab 06/30/19 [History Confirmed 02/25/21] aspirin 325 mg tablet 325 mg PO QAM 04/08/20 [History Confirmed 02/25/21] ferrous sulfate 325 mg (65 mg iron) capsule,extended release 325 mg PO QAM 04/22/20 [History Confirmed 02/25/21] vitamin B complex 1 tab PO QAM 04/22/20 [History Confirmed 02/25/21] atorvastatin 10 mg tablet 10 mg PO BEDTIME #90 tab 05/14/20 [Rx Confirmed 02/25/21] omeprazole magnesium 20 mg tablet,delayed release (Prilosec OTC) 20 mg PO QAM #90 tab 05/14/20 [Rx Confirmed 02/25/21] finasteride 5 mg tablet 5 mg PO DAILY #90 tab 07/10/20 [Rx Confirmed 02/25/21] enalapril maleate 20 mg tablet See Rx Instructions .ROUTE .COMPLEX #180 tab 10/09/20 [Rx Confirmed 02/25/21] acetaminophen 325 mg tablet 650 mg PO Q6HR PRN #20 tab 11/05/20 [Rx Confirmed 02/25/21] docusate sodium 100 mg capsule (DOK) 100 mg PO BID #20 cap 11/05/20 [Rx Confirmed 02/25/21] amlodipine 5 mg tablet 5 mg PO BID #180 tab 12/23/20 [Rx Confirmed 02/25/21] clotrimazole 1 % topical cream 1 applic TOPICAL BID #15 g 01/06/21 [Rx Confirmed 02/25/21] nystatin 100,000 unit/gram topical powder 1 applic TOPICAL BID #60 g 01/06/21 [Rx Confirmed 02/25/21] potassium chloride 10 mEq capsule,extended release 20 meq PO BID 02/07/21 [History Confirmed 02/25/21] ciprofloxacin HCl 250 mg tablet 250 mg PO BID #6 tab 02/17/21 [Rx Confirmed 02/25/21] hydrocodone 5 mg-acetaminophen 325 mg tablet 1 tab PO BID PRN #30 tab 03/10/21 [Rx] amoxicillin 250 mg capsule 250 mg PO TID #21 cap 03/18/21 [Rx] furosemide 20 mg tablet 20 mg PO DAILY #90 tab 03/24/21 [Rx] trazodone 100 mg tablet 100 mg PO BEDTIME #90 tab 03/27/21 [Rx] nitrofurantoin monohydrate/macrocrystals 100 mg capsule (Macrobid) 100 mg PO BID #30 cap 04/18/21 [Rx] Visit Medications (administered) Generic Name Dose Route Start Last Admin Trade Name Freq PRN Reason Stop Dose Admin Piperacillin Sod/Tazobactam 100 mls @ 25 mls/hr 04/28/21 18:00 04/28/21 18:35 Sod 3.375 gm/ Sodium Chloride IV 25 mls/hr Q8H ROMELIA Administration Exam Vital Signs (past 8 hours): - 04/28/21 11:00 04/28/21 11:30 04/28/21 12:00 Temperature Pulse Rate 82 94 H 97 H Respiratory Rate 28 H 35 H 37 H Blood Pressure 119/69 133/83 Pulse Oximetry 93 95 95 04/28/21 12:01 04/28/21 12:30 04/28/21 12:31 Temperature Pulse Rate 95 H 86 91 H Respiratory Rate 35 H 32 H 32 H Blood Pressure 175/84 H 132/75 Pulse Oximetry 95 04/28/21 13:00 04/28/21 13:01 04/28/21 13:30 Temperature Pulse Rate 74 75 104 H Respiratory Rate 25 H 25 H 39 H Blood Pressure 101/55 L Pulse Oximetry 04/28/21 13:31 04/28/21 14:01 04/28/21 14:15 Temperature 98.0 F Pulse Rate 102 H 112 H Respiratory Rate 36 H Blood Pressure 177/89 H Pulse Oximetry 98 04/28/21 14:19 04/28/21 14:30 04/28/21 15:00 Temperature Pulse Rate 103 H 97 H 103 H Respiratory Rate 36 H 35 H 38 H Blood Pressure 193/92 H 164/96 H 162/106 H Pulse Oximetry 100 99 98 04/28/21 15:30 04/28/21 15:31 04/28/21 15:53 Temperature Pulse Rate 111 H 110 H 108 H Respiratory Rate 37 H 40 H 42 H Blood Pressure 203/92 H 200/90 H Pulse Oximetry 98 99 96 04/28/21 16:00 04/28/21 16:30 04/28/21 16:31 Temperature 98.1 F Pulse Rate 115 H 111 H 113 H Respiratory Rate 43 H 44 H 41 H Blood Pressure 181/84 H 186/104 H Pulse Oximetry 95 94 94 04/28/21 17:00 04/28/21 17:04 04/28/21 17:32 Temperature Pulse Rate 111 H 110 H 110 H Respiratory Rate 43 H 40 H 35 H Blood Pressure 183/91 H Pulse Oximetry 99 99 04/28/21 17:34 04/28/21 17:42 04/28/21 18:00 Temperature 98.2 F Pulse Rate 106 H 93 H Respiratory Rate 39 H 34 H Blood Pressure 172/82 H 183/91 H 143/82 H Pulse Oximetry 98 97 Fraction of Inspired Oxygen 30 Oxygen Delivery Method BiPAP Oxygen Flow Rate 2 Objective Labs Result Diagrams: 04/28/21 10:00 04/28/21 10:00 Labs: Laboratory Results - last 24 hr 04/28/21 04/28/21 04/28/21 10:00 10:00 10:00 WBC 15.8 H RBC 3.97 L Hgb 12.1 L Hct 36.2 L MCV 91.1 MCH 30.5 MCHC 33.5 RDW 13.6 Plt Count 235 Neut % (Auto) 82.0 H Lymph % (Auto) 5.2 L [place] % (Auto) 9.8 Eos % (Auto) 2.6 Baso % (Auto) 0.4 Neut # (Auto) 75463 H Lymph # (Auto) 800 L [place] # (Auto) 1500 H Eos # (Auto) 400 Baso # (Auto) 100 D-Dimer ABG pH ABG pCO2 ABG pO2 ABG HCO3 ABG Total CO2 ABG O2 Saturation ABG Base Excess FiO2 Sodium 137 Potassium 3.9 Chloride 102 Carbon Dioxide 32 BUN 16 Creatinine 1.07 Estimated GFR > 60.0 BUN/Creatinine Ratio 15.0 Glucose 123 H Lactate Calcium 9.5 Magnesium 1.9 Total Bilirubin 0.8 AST 24 ALT 16 Alkaline Phosphatase 100 Lactate Dehydrogenase Total Creatine Kinase 45 L CK-MB (CK-2) TNP CK-MB (CK-2) Rel Index TNP Troponin I 0.030 C-Reactive Protein NT-Pro-B Natriuret Pep 3740 H Total Protein 6.7 Albumin 3.7 Globulin 3.0 Albumin/Globulin Ratio 1.2 Lipase 63 Procalcitonin 0.23 SARS-CoV-2 (PCR) 04/28/21 04/28/21 04/28/21 10:00 10:00 10:18 WBC RBC Hgb Hct MCV MCH MCHC RDW Plt Count Neut % (Auto) Lymph % (Auto) [place] % (Auto) Eos % (Auto) Baso % (Auto) Neut # (Auto) Lymph # (Auto) [place] # (Auto) Eos # (Auto) Baso # (Auto) D-Dimer 883 H ABG pH ABG pCO2 ABG pO2 ABG HCO3 ABG Total CO2 ABG O2 Saturation ABG Base Excess FiO2 Sodium Potassium Chloride Carbon Dioxide BUN Creatinine Estimated GFR BUN/Creatinine Ratio Glucose Lactate 1.3 Calcium Magnesium Total Bilirubin AST ALT Alkaline Phosphatase Lactate Dehydrogenase Total Creatine Kinase CK-MB (CK-2) CK-MB (CK-2) Rel Index Troponin I C-Reactive Protein NT-Pro-B Natriuret Pep Total Protein Albumin Globulin Albumin/Globulin Ratio Lipase Procalcitonin SARS-CoV-2 (PCR) Positive H 04/28/21 04/28/21 16:39 17:00 WBC RBC Hgb Hct MCV MCH MCHC RDW Plt Count Neut % (Auto) Lymph % (Auto) [place] % (Auto) Eos % (Auto) Baso % (Auto) Neut # (Auto) Lymph # (Auto) [place] # (Auto) Eos # (Auto) Baso # (Auto) D-Dimer ABG pH 7.39 ABG pCO2 51.5 H ABG pO2 71 L ABG HCO3 31 H ABG Total CO2 32 H ABG O2 Saturation 94 L ABG Base Excess 6.0 H FiO2 21 Sodium Potassium Chloride Carbon Dioxide BUN Creatinine Estimated GFR BUN/Creatinine Ratio Glucose Lactate Calcium Magnesium Total Bilirubin AST ALT Alkaline Phosphatase Lactate Dehydrogenase 513 Total Creatine Kinase CK-MB (CK-2) CK-MB (CK-2) Rel Index Troponin I 0.021 C-Reactive Protein 24.4 H NT-Pro-B Natriuret Pep Total Protein Albumin Globulin Albumin/Globulin Ratio Lipase Procalcitonin SARS-CoV-2 (PCR) Assessment & Plan Assessment & Plan narrative: Assessment 85 yo Acute respiratory failure CHF exacerbation COVID + (diagnosed 3 weeks ago_ Possible PNA HTN Afib-currently rate controlled Discussion: Suspect acute respiratory failure most likely secondary to acute CHF exacerbation but will also treat for possible PNA given elevated WBC and possible Bibasilar infiltrates. Suspicion for COVID infection as cause of respiratory is less at this time given pt. improved sig with CHF treatment so will hold off on further Remdesivir for now. Plan [employer]CH[employer]: -home trazadone prn for sleep CV: -NItropaste and NItro drip as needed to keep SBP <140 -continue home anastacio-I -diurese with lasix Pulm: -wean down BIPAP settings as tolerated -wean down steroids as tolerated ID: -check blood, sputum, and urine culture -start empiric VAnco, Zosyn, and Azithromycin for HCAP and CPA -if suspicion for COVID pneumonitis PNA as cause of acute respiratory failure becomes higher later, will restart Remdesivir Heme: daily CBC GI: NPO while BIPAP dependent FEN/Renal: -monitor CHEM and replace electrolytes as needed ENdo: monitor BG and treat as needed if hyperglycemic or hypoglycemic PPX: Lovenox 40mg SQ BID CCT spent 50 min Time Spent With Patient Critical Care time: I spent a total of [] minutes of critical care time on this patient's care today; this time is exclusive of procedural time.
--- NOTE | 2021-04-28 18:56 | PC.NURSE ---
Admit Note Patient arrived to room 227 at 1725 via stretcher, 4 person assist to transfer across to bed. Alert and oriented to self and place. (Richelle) at bedside. Placed to bipap by RT 16/10 and FiO2 30%. RR in the upper 30s, SpO2 96%. BP in the 170s systolic, down to the 140s systolic and nitro paste placed per order. Notified Dr. Nunez of pt's arrival, order received to start nitro gtt to keep SBP below 140, not initiated at this time due to BP 143/82. Thorne catheter draining clear yellow urine. reports med list given to ER, ER called and will send up med list to us for med rec. Oriented to room and to bed/tv/call light controls. Bed alarm on.
[2021-04-28 19:06] LABS: Ferritin 968 ng/mL (18-464)
[2021-04-28 19:28] LABS: Appearance Urine UA CLEAR; Bilirubin Urine UA NEGATIVE (NEGATIVE); Color Urine UA YELLOW; Glucose Urine UA NEGATIVE (Negative); Ketones Urine UA NEGATIVE (NEGATIVE); Leukocyte Esterase Urine UA 1+ (NEGATIVE); Nitrite Urine UA NEGATIVE (Negative); Occult Blood Urine UA 1+ (Negative); Protein Urine UA 2+ (Negative); Specific Gravity Urine UA 1.015 (1.000-1.035); Urobilinogen Urine UA 0.2 E.U./dL (0.2)
[2021-04-28 19:42] LABS: Influenza A - CEPHEID Flu A NEGATIVE (NEGATIVE); Influenza B - CEPHEID Flu B NEGATIVE (NEGATIVE)
[2021-04-28 19:45] LABS: Bacteria Urine None Seen; Culture Indicated Urine Specimen Cultured; Granular Casts Urine 1-5/LPF; Hyaline Casts Urine 1-5/LPF; Mucus Urine 1+ (Negative); RBC Urine 1-5/HPF (0-5/HPF); WBC Urine 10-30/HPF (0-5/HPF)
[2021-04-28] MEDS: MAGNESIUM SULFATE 2 GM/50 ML PIGGYBACK IV (20:36)
[2021-04-28] MEDS: VANCOMYCIN 2,000 MG/400 ML PIGGYBACK 200 MG IV (20:36)
--- NOTE | 2021-04-28 20:38 | PM.ICURNDS ---
- :: This patient was seen via real time interactive two-way audiovisual telecommunication. Note: 85 yo man admitted with respiratory distress probably secondary to CHF exacerbation. Other possibilities include PNA and COVID PNA (though covid was diagnosed 3 weeks ago and pt. had improved). Patient improving with BIPAP, lasix, steroids, and Nitropaste. Never had ot start NItro drip. Pt. diuresed out 500 cc -will reduce BIPAP settings from 16/10 30% to 12/7 30 -continue to diurese with lasix and replace electrolytes as needed CCT 20 min
[2021-04-29] VITALS (55 sets, daily range): BP systolic 99–188; BP diastolic 57–96; PULSE 66–107; RESP 13–42; TEMP 28–36.8; O2SAT 91–97
[2021-04-29 00:42] LABS: HCO3 ABG 31 mmol/L (22-26); Oxygen Saturation ABG 100 % (95-100); PCO2 ABG 38.2 mmHg (35-45); PO2 ABG 155 mmHg (80-100); TCO2 ABG 32 mmol/L (21-31); pH ABG 7.51 (7.35-7.45)
[2021-04-29 00:43] LABS: Fractionated Inspired Oxygen 30
[2021-04-29] MEDS: POTASSIUM CHLORIDE IN WATER 10 MEQ/100 ML PIGGYBACK 100 MEQ IV ×2 (01:16→02:22)
[2021-04-29] MEDS: PIPERACILLIN/TAZO 3.375 GM in SODIUM CHLORIDE 0.9% 100 ML 25 ML IV ×3 (01:16→18:03)
[2021-04-29 05:18] LABS: Add Manual Diff / Slide Review NO; Basophils Absolute Auto 0 /uL (0-100); Basophils Percent Auto 0.3 % (0-2); Eosinophils Absolute Auto 0 /uL (0-450); Eosinophils Percent Auto 0.2 % (2-4); Hematocrit 34.2 % (41-53); Hemoglobin 11.6 g/dL (13.5-17.5); Lymphocytes Absolute Auto 500 /uL (1100-4500); Lymphocytes Percent Auto 5.4 % (25-40); Mean Corpuscular HGB Conc 33.9 % (30-36); Mean Corpuscular Volume 91.5 fL (80-100); Monocytes Absolute Auto 300 /uL (0-900); Monocytes Percent Auto 3.4 % (3-14); Neutrophils Absolute Auto 9000 /uL (1500-7000); Neutrophils Percent Auto 90.7 % (50-75); Platelet Count 230 X10^3/uL (150-400); Red Blood Cell Count 3.74 X10^6/uL (4.5-5.9); Red Cell Distribution Width 13.9 % (11.6-14.8)
[2021-04-29 05:29] LABS: Alanine Aminotransferase 15 IU/L (<50); Albumin 3.2 g/dL (3.5-5.0); Albumin Globulin Ratio 1.1 (1.0-2.8); Alkaline Phosphatase 84 U/L (38-126); Aspartate Aminotransferase 19 IU/L (17-59); BUN Creatinine Ratio 16.7 (6-22); Bilirubin Total 0.5 mg/dL (0.2-1.3); Blood Urea Nitrogen 21 mg/dL (9-20); Calcium 9.3 mg/dL (8.4-10.2); Carbon Dioxide 31 mmol/L (22-32); Chloride 103 mmol/L (98-107); Estimated Glomerular Filt Rate 54.3 mL/min (>60); Globulin 2.9 g/dL (1.7-4.1); Glucose 135 mg/dL (80-110); HEMOLYSIS < 15 (0-50); Potassium 3.4 mmol/L (3.4-5.1); Sodium 138 mmol/L (137-145); Total Protein 6.1 g/dL (6.3-8.2)
[2021-04-29] MEDS: FUROSEMIDE 40 MG/4 ML VIAL IV ×2 (09:19→20:22)
[2021-04-29] MEDS: ENOXAPARIN 40 MG/0.4 ML SYRINGE SUBCUT ×2 (09:19→20:22)
[2021-04-29] MEDS: ASPIRIN EC 81 MG TABLET PO (09:21)
[2021-04-29] MEDS: methylPREDNISolone 125 MG/2 ML VIAL 80 MG IV (09:24)
[2021-04-29] MEDS: POTASSIUM CHLORIDE 20 MEQ TAB 40 MEQ PO (09:30)
--- NOTE | 2021-04-29 09:38 | P.TELICUPN_ITS ---
Subjective Subjective :: This patient was seen via real time interactive two-way audiovisual telecommunication. No acute issues overnight. Off BiPAP this morning on 6 liters eating breakfast. Remains tachypnea to the 30s which will need to go back on BiPAP. Current Medications Current Medications Medications: Home Medications Disabled Parking Permit #1 ea 07/26/18 [Rx Confirmed 02/25/21] cholecalciferol (vitamin D3) 25 mcg (1,000 unit) tablet (Vitamin D3) 1,000 unit PO QAM #0 tab 06/30/19 [History Confirmed 02/25/21] aspirin 325 mg tablet 325 mg PO QAM 04/08/20 [History Confirmed 02/25/21] ferrous sulfate 325 mg (65 mg iron) capsule,extended release 325 mg PO QAM 04/22/20 [History Confirmed 02/25/21] vitamin B complex 1 tab PO QAM 04/22/20 [History Confirmed 02/25/21] atorvastatin 10 mg tablet 10 mg PO BEDTIME #90 tab 05/14/20 [Rx Confirmed 02/25/21] omeprazole magnesium 20 mg tablet,delayed release (Prilosec OTC) 20 mg PO QAM #90 tab 05/14/20 [Rx Confirmed 02/25/21] finasteride 5 mg tablet 5 mg PO DAILY #90 tab 07/10/20 [Rx Confirmed 02/25/21] enalapril maleate 20 mg tablet See Rx Instructions .ROUTE .COMPLEX #180 tab 10/09/20 [Rx Confirmed 02/25/21] acetaminophen 325 mg tablet 650 mg PO Q6HR PRN #20 tab 11/05/20 [Rx Confirmed 02/25/21] docusate sodium 100 mg capsule (DOK) 100 mg PO BID #20 cap 11/05/20 [Rx Confirmed 02/25/21] amlodipine 5 mg tablet 5 mg PO BID #180 tab 12/23/20 [Rx Confirmed 02/25/21] clotrimazole 1 % topical cream 1 applic TOPICAL BID #15 g 01/06/21 [Rx Confirmed 02/25/21] nystatin 100,000 unit/gram topical powder 1 applic TOPICAL BID #60 g 01/06/21 [Rx Confirmed 02/25/21] potassium chloride 10 mEq capsule,extended release 20 meq PO BID 02/07/21 [ History Confirmed 02/25/21] ciprofloxacin HCl 250 mg tablet 250 mg PO BID #6 tab 02/17/21 [Rx Confirmed 02/25/21] hydrocodone 5 mg-acetaminophen 325 mg tablet 1 tab PO BID PRN #30 tab 03/10/21 [Rx] amoxicillin 250 mg capsule 250 mg PO TID #21 cap 03/18/21 [Rx] furosemide 20 mg tablet 20 mg PO DAILY #90 tab 03/24/21 [Rx] trazodone 100 mg tablet 100 mg PO BEDTIME #90 tab 03/27/21 [Rx] nitrofurantoin monohydrate/macrocrystals 100 mg capsule (Macrobid) 100 mg PO BID #30 cap 04/18/21 [Rx] Visit Medications (administered) Generic Name Dose Route Start Last Admin Trade Name Chapis PRN Reason Stop Dose Admin Aspirin 81 mg 04/29/21 09:00 04/29/21 09:21 Aspirin Ec 81 Mg Tablet PO 81 mg DAILY ROMELIA Administration Atorvastatin Calcium 10 mg 04/28/21 21:00 04/29/21 01:18 Atorvastatin 20 Mg Tablet PO Not Given BEDTIME ROMELIA Enoxaparin Sodium 40 mg 04/29/21 09:00 04/29/21 09:19 Enoxaparin 40 Mg/0.4 Ml Syringe SUBCUT 40 mg BID ROMELIA Administration Furosemide 40 mg 04/28/21 21:00 04/29/21 09:19 Furosemide 40 Mg/4 Ml Vial IV 40 mg BID ROMELIA Administration Piperacillin Sod/Tazobactam 100 mls @ 25 mls/hr 04/28/21 18:00 04/29/21 09:22 Sod 3.375 gm/ Sodium Chloride IV 25 mls/hr Q8H ROMELIA Administration Lisinopril 20 mg 04/28/21 21:00 04/29/21 09:14 Lisinopril 20 Mg Tablet PO Not Given BID ROMELIA Methylprednisolone 80 mg 04/29/21 09:00 04/29/21 09:24 Methylprednisolone 125 Mg/2 Ml Vial IV 80 mg Q12H ROMELIA Administration Objective Ventilator Parameters: Ventilator Settings FiO2 0.30 Labs Result Diagrams: 04/29/21 05:04 04/29/21 05:04 Labs: Laboratory Results - last 24 hr 04/28/21 04/28/21 04/28/21 00:18 10:00 10:00 WBC 15.8 H RBC 3.97 L Hgb 12.1 L Hct 36.2 L MCV 91.1 MCH 30.5 MCHC 33.5 RDW 13.6 Plt Count 235 Neut % (Auto) 82.0 H Lymph % (Auto) 5.2 L [place] % (Auto) 9.8 Eos % (Auto) 2.6 Baso % (Auto) 0.4 Neut # (Auto) 52040 H Lymph # (Auto) 800 L [place] # (Auto) 1500 H Eos # (Auto) 400 Baso # (Auto) 100 D-Dimer ABG pH 7.51 H ABG pCO2 38.2 ABG pO2 155 H ABG HCO3 31 H ABG Total CO2 32 H ABG O2 Saturation 100 ABG Base Excess 8.0 H FiO2 30 Sodium 137 Potassium 3.9 Chloride 102 Carbon Dioxide 32 BUN 16 Creatinine 1.07 Estimated GFR > 60.0 BUN/Creatinine Ratio 15.0 Glucose 123 H Lactate Calcium 9.5 Magnesium 1.9 Ferritin Total Bilirubin 0.8 AST 24 ALT 16 Alkaline Phosphatase 100 Lactate Dehydrogenase Total Creatine Kinase 45 L CK-MB (CK-2) TNP CK-MB (CK-2) Rel Index TNP Troponin I 0.030 C-Reactive Protein NT-Pro-B Natriuret Pep Total Protein 6.7 Albumin 3.7 Globulin 3.0 Albumin/Globulin Ratio 1.2 Lipase 63 Procalcitonin Urine Color Urine Appearance Urine pH Ur Specific [place] Urine Protein Urine Glucose (UA) Urine Ketones Urine Occult Blood Urine Nitrate Urine Bilirubin Urine Urobilinogen Ur Leukocyte Esterase Urine RBC Urine WBC Urine Bacteria Hyaline Casts Granular Casts Urine Mucus Ur Culture Indicated? Nasal Screen MRSA (PCR) SARS-CoV-2 (PCR) Influenza A (RT-PCR) Influenza B (RT-PCR) 04/28/21 04/28/21 04/28/21 10:00 10:00 10:00 WBC RBC Hgb Hct MCV MCH MCHC RDW Plt Count Neut % (Auto) Lymph % (Auto) [place] % (Auto) Eos % (Auto) Baso % (Auto) Neut # (Auto) Lymph # (Auto) [place] # (Auto) Eos # (Auto) Baso # (Auto) D-Dimer 883 H ABG pH ABG pCO2 ABG pO2 ABG HCO3 ABG Total CO2 ABG O2 Saturation ABG Base Excess FiO2 Sodium Potassium Chloride Carbon Dioxide BUN Creatinine Estimated GFR BUN/Creatinine Ratio Glucose Lactate 1.3 Calcium Magnesium Ferritin Total Bilirubin AST ALT Alkaline Phosphatase Lactate Dehydrogenase Total Creatine Kinase CK-MB (CK-2) CK-MB (CK-2) Rel Index Troponin I C-Reactive Protein NT-Pro-B Natriuret Pep 3740 H Total Protein Albumin Globulin Albumin/Globulin Ratio Lipase Procalcitonin 0.23 Urine Color Urine Appearance Urine pH Ur Specific [place] Urine Protein Urine Glucose (UA) Urine Ketones Urine Occult Blood Urine Nitrate Urine Bilirubin Urine Urobilinogen Ur Leukocyte Esterase Urine RBC Urine WBC Urine Bacteria Hyaline Casts Granular Casts Urine Mucus Ur Culture Indicated? Nasal Screen MRSA (PCR) SARS-CoV-2 (PCR) Influenza A (RT-PCR) Influenza B (RT-PCR) 04/28/21 04/28/21 04/28/21 10:18 16:39 17:00 WBC RBC Hgb Hct MCV MCH MCHC RDW Plt Count Neut % (Auto) Lymph % (Auto) [place] % (Auto) Eos % (Auto) Baso % (Auto) Neut # (Auto) Lymph # (Auto) [place] # (Auto) Eos # (Auto) Baso # (Auto) D-Dimer ABG pH 7.39 ABG pCO2 51.5 H ABG pO2 71 L ABG HCO3 31 H ABG Total CO2 32 H ABG O2 Saturation 94 L ABG Base Excess 6.0 H FiO2 21 Sodium Potassium Chloride Carbon Dioxide BUN Creatinine Estimated GFR BUN/Creatinine Ratio Glucose Lactate Calcium Magnesium Ferritin 968 H Total Bilirubin AST ALT Alkaline Phosphatase Lactate Dehydrogenase 513 Total Creatine Kinase CK-MB (CK-2) CK-MB (CK-2) Rel Index Troponin I 0.021 C-Reactive Protein 24.4 H NT-Pro-B Natriuret Pep Total Protein Albumin Globulin Albumin/Globulin Ratio Lipase Procalcitonin Urine Color Urine Appearance Urine pH Ur Specific [place] Urine Protein Urine Glucose (UA) Urine Ketones Urine Occult Blood Urine Nitrate Urine Bilirubin Urine Urobilinogen Ur Leukocyte Esterase Urine RBC Urine WBC Urine Bacteria Hyaline Casts Granular Casts Urine Mucus Ur Culture Indicated? Nasal Screen MRSA (PCR) SARS-CoV-2 (PCR) Positive H Influenza A (RT-PCR) Influenza B (RT-PCR) 04/28/21 04/28/21 04/28/21 17:15 17:50 17:50 WBC RBC Hgb Hct MCV MCH MCHC RDW Plt Count Neut % (Auto) Lymph % (Auto) [place] % (Auto) Eos % (Auto) Baso % (Auto) Neut # (Auto) Lymph # (Auto) [place] # (Auto) Eos # (Auto) Baso # (Auto) D-Dimer ABG pH ABG pCO2 ABG pO2 ABG HCO3 ABG Total CO2 ABG O2 Saturation ABG Base Excess FiO2 Sodium Potassium Chloride Carbon Dioxide BUN Creatinine Estimated GFR BUN/Creatinine Ratio Glucose Lactate Calcium Magnesium Ferritin Total Bilirubin AST ALT Alkaline Phosphatase Lactate Dehydrogenase Total Creatine Kinase CK-MB (CK-2) CK-MB (CK-2) Rel Index Troponin I C-Reactive Protein NT-Pro-B Natriuret Pep Total Protein Albumin Globulin Albumin/Globulin Ratio Lipase Procalcitonin Urine Color Yellow Urine Appearance Clear Urine pH 5.0 Ur Specific [place] 1.015 Urine Protein 2+ H Urine Glucose (UA) Negative Urine Ketones Negative Urine Occult Blood 1+ H Urine Nitrate Negative Urine Bilirubin Negative Urine Urobilinogen 0.2 Ur Leukocyte Esterase 1+ H Urine RBC 1-5/hpf Urine WBC 10-30/hpf H Urine Bacteria None seen Hyaline Casts 1-5/lpf Granular Casts 1-5/lpf Urine Mucus 1+ H Ur Culture Indicated? Specimen cultured Nasal Screen MRSA (PCR) Negative for mrsa SARS-CoV-2 (PCR) Influenza A (RT-PCR) Flu a negative Influenza B (RT-PCR) Flu b negative 04/29/21 04/29/21 05:04 05:04 WBC 10.0 RBC 3.74 L Hgb 11.6 L Hct 34.2 L MCV 91.5 MCH 31.0 MCHC 33.9 RDW 13.9 Plt Count 230 Neut % (Auto) 90.7 H Lymph % (Auto) 5.4 L [place] % (Auto) 3.4 Eos % (Auto) 0.2 L Baso % (Auto) 0.3 Neut # (Auto) 9000 H Lymph # (Auto) 500 L [place] # (Auto) 300 Eos # (Auto) 0 Baso # (Auto) 0 D-Dimer ABG pH ABG pCO2 ABG pO2 ABG HCO3 ABG Total CO2 ABG O2 Saturation ABG Base Excess FiO2 Sodium 138 Potassium 3.4 Chloride 103 Carbon Dioxide 31 BUN 21 H Creatinine 1.26 H Estimated GFR 54.3 L BUN/Creatinine Ratio 16.7 Glucose 135 H Lactate Calcium 9.3 Magnesium Ferritin Total Bilirubin 0.5 AST 19 ALT 15 Alkaline Phosphatase 84 Lactate Dehydrogenase Total Creatine Kinase CK-MB (CK-2) CK-MB (CK-2) Rel Index Troponin I C-Reactive Protein NT-Pro-B Natriuret Pep Total Protein 6.1 L Albumin 3.2 L Globulin 2.9 Albumin/Globulin Ratio 1.1 Lipase Procalcitonin Urine Color Urine Appearance Urine pH Ur Specific [place] Urine Protein Urine Glucose (UA) Urine Ketones Urine Occult Blood Urine Nitrate Urine Bilirubin Urine Urobilinogen Ur Leukocyte Esterase Urine RBC Urine WBC Urine Bacteria Hyaline Casts Granular Casts Urine Mucus Ur Culture Indicated? Nasal Screen MRSA (PCR) SARS-CoV-2 (PCR) Influenza A (RT-PCR) Influenza B (RT-PCR) Exam Vital Signs (past 8 hours): - 04/29/21 02:00 04/29/21 02:30 04/29/21 03:00 Pulse Rate 78 77 67 Respiratory Rate 30 H 26 H 26 H Blood Pressure 145/77 H 111/60 Pulse Oximetry 95 96 96 04/29/21 03:10 04/29/21 03:15 04/29/21 03:30 Pulse Rate 75 66 Respiratory Rate 28 H 26 H Blood Pressure 113/57 L Pulse Oximetry 95 95 04/29/21 04:00 04/29/21 05:00 04/29/21 05:09 Pulse Rate 72 79 73 Respiratory Rate 27 H 26 H 27 H Blood Pressure 106/58 L 113/57 L Pulse Oximetry 95 96 96 04/29/21 06:00 04/29/21 06:01 04/29/21 07:20 Pulse Rate 86 87 Respiratory Rate 31 H 34 H Blood Pressure 152/73 H 144/71 H Pulse Oximetry 94 95 04/29/21 09:21 Pulse Rate Respiratory Rate Blood Pressure Pulse Oximetry 94 Fraction of Inspired Oxygen 21 Oxygen Delivery Method Room Air Oxygen Flow Rate 6 Quality TeleICU VTE Deep Vein Thrombosis/Pulmonary Embolism Present on Admission: No Assessment & Plan Assessment & Plan narrative: NEURO: -- Seek early mobility as tolerated -- Cont trazodone as needed for sleep RESP: # Acute hypoxemia respiratory failure -- Secondary to COVID PNA w/superimposed pulmonary edema -- Cont aggressive diuresis to seek net negative fluid balance -- COVID rx as below -- EArly mobility as tolerated -- Will need to go back on BiPAP due to tachypnea -- Goal SpO2 > 88% CVS: # HTN -- Currently controlled on nitropaste -- Goal SBP < 140 # Acute CHF exacerbation -- Needs BiPAP for afterload and preload reduction -- COnt diuresis to seek net negative fluid balance ID: # COVID PNA -- ON solumedrol -- Cont diuresis -- On strict contact, droplet/airborne, eye protection, and critical meticulous hand hygiene ENDO: -- Goal BS < 180 D/w RN. Time Spent With Patient Critical Care time: I spent a total of [] minutes of critical care time on this patient's care today; this time is exclusive of procedural time.
--- NOTE | 2021-04-29 11:49 | CM.DANOTE ---
DCP: Case received, EMR reviewed. Have not been able to meet with patient due to his being positive for COVID, and spouse is currently in the room. Was able to obtain some information from ICU nurse, Rosemarie, regarding his home history, as well as last DCP note from October. DCP assessment completed with information currently available. Patient is an 85 year old male who admitted yesterday afternoon to the care of the hospitalist team. PCP: Dr. Bowers. Payer: confirmed: Medicare/[employer]. Patient came to the hospital via private vehicle secondary to having increased shortness of breath. Patient has been vaccinated with his booster, but had tested positive for COVID approximately 3-4 weeks ago with mild symptoms. Patient had recent UTI, and was placed on antibiotics, and had his black catheter removed last week. He does have history of falls at home. Patient holds diagnosis of impending respiratory failure due to pneumonia and congestive heart failure. Patient also has history of chronic or paroxysmal afib with RVR. Since he does have history of urinary retention, black was placed in the ER to measure urine output. Have not been able to meet with patient due to his COVID status. is in room, she arrived with a FWW walker. Daughter, Sapna Zelaya is daughter, and POA. She has checked in for medical update by ICU nurse. [facility] [email or web address] had also called and spoke to Rosemarie, ICU nurse. Patient is under [facility], but have been unable to call them due to hospital phones not yet working for outside calls. Was able to gather further information from patient's last admission in October. At that time, he was discharged to [facility]. Patient resides with his spouse here in [place]. [facility] has been on board, but it is unclear as to how many hours that they come in. Patient has also used [facility] for nursing when he had black. He is currently still under their care. P: DCP to continue to follow for any needs. He currently has no P.T. orders, but nursing indicated that they would get him up out of bed to see how he does. Will continue to reach out to [facility] for additional information when phone system works. They may need a resumption order if patient becomes inpatient status. Looking at last admission, goal for family is to keep patient home. Clary Sr RN/Billboard Poster Helper Discharge Planning/Care Management CM Discharge Assessment Start: 04/29/21 11:46 Freq: Status: Active Protocol: Document 04/29/21 11:46 (Rec: 04/29/21 11:47 [id number]) Discharge Planning Assessment Assigned Brick Baker Clary Sr RN/Billboard Poster Helper Advance Directives? Yes Advance Directives on File No History Provided By Patient,Family Member,Medical Record Prior Living Arrangements House Household Members spouse Type of transporation used prior to Relies on Others admit Independent with ADL's Yes Is patient alert and oriented? Yes Needs Assistance With Bathing,Meal Prep,Managing Medications,Home Chores / Shopping Caregiver for Another No DME Already Rented / Owned FWW / Walker Patient/Family Preference Home with Home Health Comment Patient is currently under [facility] services. Barriers to Discharge No Discharge Plan Home with Home Health Transportation Arrangement Family Referrals Initiated Half-Way,Home Health Additional Comment H&P sent to [facility] Whiteboard Updated in Patient Room with Yes name and ext. # of Brick Baker Review Status In Process Next Review Type Continued Stay Review
[2021-04-29] MEDS: AMLODIPINE 5 MG TABLET PO ×2 (12:21→23:38)
[2021-04-29] MEDS: POTASSIUM CHLORIDE 20 MEQ TAB PO ×2 (12:21→17:36)
--- NOTE | 2021-04-29 14:50 | DIET.CONS ---
Dietary Consultation Note Admission Date: 04/28/2021 16:13 Assessment: 85y M admitted for lethargy found to be covid19+ with CHF exacerbation referred to nutrition for low MNA (9). Pt diuresing well, -500cc, tolerating diet and consuming 100% meal trays. Pts reduced appetite likely secondary to fluid overload status which is resolving. Pt obese with BMI 31.7. Pts BGs have been elevated this hospital stay, 140-231. RD noticed pt on heart healthy diet but not CCD so started 45g CHO limit for dinner this evening. Recc ssi insulin coverage as needed for BGs >180. Ht: 180.34 cm Wt: 103 kg BMI: 31.6 Last BM: 04/27/21 (04/28/21 18:09) MNA: 9 Eliseo Score: 20 Diet: 04/28/21 Dinner Heart Healthy Diet Diet Modifications: Consistent Carb 45g Sodium Level: 2 gm Sodium 04/29/21 Dinner caregiver tray [Courtesy Tray (Peds, comfort care)] Diet Modifications: Nutrition Percent Meal Consumed 100% 04/29/21 13:38 Percent Meal Consumed 100% 04/29/21 10:32 Labs: RBC 3.74 X10^6/uL (4.5-5.9) L 04/29/21 05:04 Hgb 11.6 g/dL (13.5-17.5) L 04/29/21 05:04 Hct 34.2 % (41-53) L 04/29/21 05:04 Creatinine 1.26 mg/dL (0.66-1.25) H 04/29/21 05:04 Lactate 1.3 mmol/L (0.7-2.1) 04/28/21 10:00 Ferritin 968 ng/mL (18-464) H 04/28/21 17:00 NT-Pro-B Natriuret Pep 3740 pg/mL (<450) H 04/28/21 10:00 Interventions: 1. Set CCD 45g CHO limit for this pt with good POs but suboptimal BGs. Electronically Signed by: Brisa Nava 04/29/21 14:50 Clinical Dietitian [address] [id number]
--- NOTE | 2021-04-29 16:49 | PM.PN.1 ---
Subjective Subjective Date Patient Seen: 04/29/21 Interval history: 84-year-old male with history of atrial fibrillation, history of subdural bleed, hypertension, hyperlipidemia, history of aspiration pneumonia, history of chronic urinary retention presented to emergency department due to increased difficulty with breathing.?? Patient has marked improvement overnight with BiPAP, antibiotics and IV diuresis. He feels almost back to normal. Exam Vital Signs (past 8 hours): - 04/29/21 09:00 04/29/21 09:21 04/29/21 09:30 Temperature Pulse Rate 74 85 Respiratory Rate 26 H 27 H Blood Pressure 108/57 L Pulse Oximetry 94 94 94 04/29/21 10:00 04/29/21 10:01 04/29/21 10:30 Temperature Pulse Rate 98 H 95 H Respiratory Rate Blood Pressure 184/85 H Pulse Oximetry 94 04/29/21 11:00 04/29/21 11:16 04/29/21 11:30 Temperature Pulse Rate 88 88 Respiratory Rate 13 15 Blood Pressure 149/67 H Pulse Oximetry 94 94 93 04/29/21 12:00 04/29/21 12:30 04/29/21 13:00 Temperature Pulse Rate 77 95 H 98 H Respiratory Rate 21 Blood Pressure 126/58 L 148/75 H Pulse Oximetry 94 94 95 04/29/21 14:00 04/29/21 16:00 Temperature 98.2 F Pulse Rate 84 89 Respiratory Rate 23 18 Blood Pressure 123/70 152/85 H Pulse Oximetry 93 95 Fraction of Inspired Oxygen 21 Oxygen Delivery Method Room Air Oxygen Flow Rate 0 Narrative Exam Narrative: General: Alert, conversant, NAD Lungs: Breathing nonlabored. Clear to auscultation Heart: Irregularly irregular Extremities: No edema Neurological: Alert, well oriented, affect good, speech normal interactive Objective Labs Result Diagrams: 04/29/21 05:04 04/29/21 05:04 Labs: Laboratory Results - last 24 hr 04/28/21 04/28/21 04/28/21 00:18 16:39 17:00 WBC RBC Hgb Hct MCV MCH MCHC RDW Plt Count Neut % (Auto) Lymph % (Auto) [place] % (Auto) Eos % (Auto) Baso % (Auto) Neut # (Auto) Lymph # (Auto) [place] # (Auto) Eos # (Auto) Baso # (Auto) ABG pH 7.51 H 7.39 ABG pCO2 38.2 51.5 H ABG pO2 155 H 71 L ABG HCO3 31 H 31 H ABG Total CO2 32 H 32 H ABG O2 Saturation 100 94 L ABG Base Excess 8.0 H 6.0 H FiO2 30 21 Sodium Potassium Chloride Carbon Dioxide BUN Creatinine Estimated GFR BUN/Creatinine Ratio Glucose Calcium Ferritin 968 H Total Bilirubin AST ALT Alkaline Phosphatase Lactate Dehydrogenase 513 Troponin I 0.021 C-Reactive Protein 24.4 H Total Protein Albumin Globulin Albumin/Globulin Ratio Urine Color Urine Appearance Urine pH Ur Specific [place] Urine Protein Urine Glucose (UA) Urine Ketones Urine Occult Blood Urine Nitrate Urine Bilirubin Urine Urobilinogen Ur Leukocyte Esterase Urine RBC Urine WBC Urine Bacteria Hyaline Casts Granular Casts Urine Mucus Ur Culture Indicated? Nasal Screen MRSA (PCR) Influenza A (RT-PCR) Influenza B (RT-PCR) 04/28/21 04/28/21 04/28/21 17:15 17:50 17:50 WBC RBC Hgb Hct MCV MCH MCHC RDW Plt Count Neut % (Auto) Lymph % (Auto) [place] % (Auto) Eos % (Auto) Baso % (Auto) Neut # (Auto) Lymph # (Auto) [place] # (Auto) Eos # (Auto) Baso # (Auto) ABG pH ABG pCO2 ABG pO2 ABG HCO3 ABG Total CO2 ABG O2 Saturation ABG Base Excess FiO2 Sodium Potassium Chloride Carbon Dioxide BUN Creatinine Estimated GFR BUN/Creatinine Ratio Glucose Calcium Ferritin Total Bilirubin AST ALT Alkaline Phosphatase Lactate Dehydrogenase Troponin I C-Reactive Protein Total Protein Albumin Globulin Albumin/Globulin Ratio Urine Color Yellow Urine Appearance Clear Urine pH 5.0 Ur Specific [place] 1.015 Urine Protein 2+ H Urine Glucose (UA) Negative Urine Ketones Negative Urine Occult Blood 1+ H Urine Nitrate Negative Urine Bilirubin Negative Urine Urobilinogen 0.2 Ur Leukocyte Esterase 1+ H Urine RBC 1-5/hpf Urine WBC 10-30/hpf H Urine Bacteria None seen Hyaline Casts 1-5/lpf Granular Casts 1-5/lpf Urine Mucus 1+ H Ur Culture Indicated? Specimen cultured Nasal Screen MRSA (PCR) Negative for mrsa Influenza A (RT-PCR) Flu a negative Influenza B (RT-PCR) Flu b negative 04/29/21 04/29/21 05:04 05:04 WBC 10.0 RBC 3.74 L Hgb 11.6 L Hct 34.2 L MCV 91.5 MCH 31.0 MCHC 33.9 RDW 13.9 Plt Count 230 Neut % (Auto) 90.7 H Lymph % (Auto) 5.4 L [place] % (Auto) 3.4 Eos % (Auto) 0.2 L Baso % (Auto) 0.3 Neut # (Auto) 9000 H Lymph # (Auto) 500 L [place] # (Auto) 300 Eos # (Auto) 0 Baso # (Auto) 0 ABG pH ABG pCO2 ABG pO2 ABG HCO3 ABG Total CO2 ABG O2 Saturation ABG Base Excess FiO2 Sodium 138 Potassium 3.4 Chloride 103 Carbon Dioxide 31 BUN 21 H Creatinine 1.26 H Estimated GFR 54.3 L BUN/Creatinine Ratio 16.7 Glucose 135 H Calcium 9.3 Ferritin Total Bilirubin 0.5 AST 19 ALT 15 Alkaline Phosphatase 84 Lactate Dehydrogenase Troponin I C-Reactive Protein Total Protein 6.1 L Albumin 3.2 L Globulin 2.9 Albumin/Globulin Ratio 1.1 Urine Color Urine Appearance Urine pH Ur Specific [place] Urine Protein Urine Glucose (UA) Urine Ketones Urine Occult Blood Urine Nitrate Urine Bilirubin Urine Urobilinogen Ur Leukocyte Esterase Urine RBC Urine WBC Urine Bacteria Hyaline Casts Granular Casts Urine Mucus Ur Culture Indicated? Nasal Screen MRSA (PCR) Influenza A (RT-PCR) Influenza B (RT-PCR) PFSH Medical History Afib Anemia Arthritis Benign prostatic hyperplasia Bladder neck contracture Chronic anemia Clostridioides difficile infection Diabetes 1.5, managed as type 2 Essential hypertension Fracture of femoral neck, right Frequent falls History of UTI LFT elevation Low back pain Mixed hyperlipidemia Osteoarthritis Paroxysmal atrial fibrillation Tremor Urinary retention Surgical History History of lobectomy of lung History of resection of rib History of surgery (11/02/20) Hx of bilateral cataract extraction Hx of transurethral resection of prostate Status post appendectomy Family History Father Hypertension Brother Atrial fibrillation Mother No significant medical problems Social History marital status: number of children: 3 household members: spouse occupational status: previously employed Smoking Status: Former smoker Tobacco: How many years used: 20 alcohol intake: never substance use type: does not use caffeine: Yes Assessment & Plan Assessment & Plan narrative: 1. Impending respiratory failure due to pneumonia and congestive heart failure -severely tachypneic, hypertensive and tachycardic in ED, patient was never hypoxic, P/F > 300, pCO2 50 well compensated -lung imaging consistent with CHF and possible pneumonia, bacterial versus viral, a pneumonia secondary to COVID is less likely since he was COVID positive 3 or 4 weeks ago -elevated WBC with left shift consistent with bacterial and has come down with antibiotics -blood cultures no growth -04/29 discontinued BiPAP -continue Lasix 40 mg IV b.i.d. for diuresis -discontinued topical nitroglycerin -Zosyn and Zithromax for antibiotics continue -discontinued vancomycin due to rapid improvement and negative MRSA screen -remdesivir discontinued as less likely COVID pneumonia -Solu-Medrol 80 mg IV b.i.d. continue -home meds lisinopril 20 mg b.i.d., atorvastatin 10 mg q.p.m., and aspirin 81 mg q.d. continue -patient full code and would want intubation -enoxaparin 40 mg b.i.d. for DVT prophylaxis -CBC, BMP in a.m. 2. Chronic or paroxysmal AFib with RVR -EKG AFib, PVCs, nonspecific ST and T-wave changes unchanged from prior -not anticoagulated or on AV blockers -telemetry monitoring 3.?UTI with history of chronic urinary retention -urine culture from admission growing Gram-negative bacilli -Thorne catheter removed 1 week TILE GRINDER and patient was taking an oral antibiotic for UTI -new catheter placed in ED unclear if retaining then -continue Zosyn Medication reconciliation to be completed. Patient with significant improvement in 24 hours and may be able to discharge home tomorrow Wednesday Time Spent With Patient Critical Care time: I spent a total of [] minutes of critical care time on this patient's care today; this time is exclusive of procedural time. Quality VTE Deep Vein Thrombosis/Pulmonary Embolism Present on Admission: No
[2021-04-29] MEDS: AZITHROMYCIN 500 MG in DEXTROSE 5% IN WATER 250 ML IV (17:35)
--- NOTE | 2021-04-29 18:32 | PC.NURSE ---
Day Shift Note Pt off bipap at 0920 and has remained off rest of day. On RA with SpO2 93-96%. RR 18-24 bpm, denies shortness of breath. Up to chair this afternoon, 1 person assist with FWW. Alert and oriented x3, mild forgetfulness noted. Call light within reach.
[2021-04-29] MEDS: ATORVASTATIN 20 MG TABLET 10 MG PO (20:21)
[2021-04-29] MEDS: lisinopriL 20 MG TABLET PO (23:38)
[2021-04-30] VITALS (23 sets, daily range): BP systolic 161–191; BP diastolic 71–129; PULSE 75–115; RESP 20–37; TEMP 36.6; O2SAT 93–96
[2021-04-30] MEDS: PIPERACILLIN/TAZO 3.375 GM in SODIUM CHLORIDE 0.9% 100 ML 25 ML IV (02:14)
[2021-04-30 05:03] LABS: Add Manual Diff / Slide Review NO; Basophils Absolute Auto 100 /uL (0-100); Basophils Percent Auto 0.3 % (0-2); Eosinophils Absolute Auto 0 /uL (0-450); Hematocrit 41.8 % (41-53); Hemoglobin 13.8 g/dL (13.5-17.5); Lymphocytes Absolute Auto 1100 /uL (1100-4500); Mean Corpuscular HGB Conc 32.9 % (30-36); Monocytes Absolute Auto 600 /uL (0-900); Monocytes Percent Auto 2.7 % (3-14); Neutrophils Absolute Auto 19600 /uL (1500-7000); Platelet Count 338 X10^3/uL (150-400); Red Blood Cell Count 4.59 X10^6/uL (4.5-5.9); Red Cell Distribution Width 14.2 % (11.6-14.8); White Blood Cell Count 21.3 X10^3/uL (4.5-11.0)
[2021-04-30 05:15] LABS: BUN Creatinine Ratio 25.5 (6-22); Blood Urea Nitrogen 37 mg/dL (9-20); Calcium 9.7 mg/dL (8.4-10.2); Carbon Dioxide 32 mmol/L (22-32); Chloride 101 mmol/L (98-107); Estimated Glomerular Filt Rate 46.1 mL/min (>60); Glucose 173 mg/dL (80-110); HEMOLYSIS 16 (0-50); Potassium 3.5 mmol/L (3.4-5.1); Sodium 140 mmol/L (137-145)
[2021-04-30] MEDS: lisinopriL 20 MG TABLET PO (05:45)
[2021-04-30] MEDS: AMLODIPINE 5 MG TABLET PO (05:46)
[2021-04-30] MEDS: LORazepam 1 MG TABLET 2 MG PO (05:59)
--- NOTE | 2021-04-30 09:31 | CM.DPC ---
Addendum entered by Marlene Dee CARTRIDGE MAKER 04/30/21 14:59: ADD: Per RN, as of 1230 pt was still very drowsy and felt transport should be moved later in the day. NICOLAS Dolan kindly called [facility] and they can transport around 1630 today. SW updated RN and spoke to pt's spouse in room and pt just started to wake some around 1300 and spouse in agreement with d/c around 1630. Spouse thankful to be getting pt home today and confirms both Dtrs and PP CG and herself will be home for d/c. BF Original Note: DCP Discharge home Per MD, pt has made progress and medically stable to d/c home today for ongoing COVID+ recovery. Per RN and RT, pt tolerating room air and has been ambulating in the room but deconditioned and could benefit from PT as well. Pt already open to [facility] RN. RN spoke to pt's Dtr/DPSHANTAL Crawford and updated on pt stable for d/c today and Dtr is agreeable but requesting BLS transport home today. ARTHUR called Dtr/DANNI Crawford and she confirms that she is agreeable with d/c today and pt's spouse will be home, along with one of pt's [facility] Caregivers, and one of pt's Dtrs at d/c for assist. Dtr confirms Resume [facility] RN and agreeable with PT as well. SW discussed her request of BLS ambulance transport and Dtr aware that insurance will likely not cover the cost of transport but she is agreeable to paying as she feels due to the multiple steps to enter and pt's weakness that it would be unsafe to attempt to get him upstairs without BLS and agreeable to paying whatever the bill might be. NICOLAS Dolan kindly called [facility] transport and scheduled for 1330 to home and called and updated Dtr Yvette. ARTHUR completed BLS transport form. ARTHUR updated RN, , BLUE [employer]INTS TRIMMER and stripper preliminary. ARTHUR called [facility] and updated on pt d/c and Resume Orders to include PT and RN. SW to fax Resume Orders and d/c summ when available today. Plan: Patient to d/c home via [facility] at 1330 to home and Resume [facility] RN with added PT. Family and [facility] will be present at home for assist. LUPILLO Doran
--- NOTE | 2021-04-30 09:37 | CM.DPNOTE ---
Addendum entered by Kelsi Reddy 04/30/21 12:10: Spoke to Kary at [facility] to change transport to [phone], per Marlene. Kelsi Reddy CM Assist. Original Note: Arranged [facility] transport through Ambulance, [place], for 1330 pickup per Marlene. Called daughter Yvette [phone] to let her know this information. Kelsi Reddy CM Assist.
[2021-04-30] MEDS: ENOXAPARIN 40 MG/0.4 ML SYRINGE SUBCUT (12:44)
[2021-04-30] MEDS: POTASSIUM CHLORIDE 20 MEQ TAB PO (12:45)
[2021-04-30] MEDS: FUROSEMIDE 20 MG TABLET PO (12:45)
[2021-04-30] MEDS: ASPIRIN EC 81 MG TABLET PO (12:45)
[2021-04-30] MEDS: CEFDINIR 300 MG CAPSULE PO (12:45)
--- NOTE | 2021-04-30 13:14 | P.DS_ITS ---
History of Present Illness History of Present Illness Date Patient Seen: 04/30/21 Time Patient Seen: 13:14 Chief complaint: lethargic Narrative: Per Dr. Rojo, Patient is 84-year-old male with history of atrial fibrillation, history of subdural bleed, hypertension, hyperlipidemia, history of aspiration pneumonia, history of chronic urinary retention presented to emergency department due to increased difficulty with breathing.? Patient is unable to provide much history due to labored breathing but accurate history is obtained from spouse.? Patient is double vaxxed and got boosted last week.? He did test positive for COVID 3 or 4 weeks ago and had some mild illness.? About 5 or 6 days ago he started to have significant progressive difficulty with his breathing.? No known fever or chills.? Has not noticed leg swelling.? He is normally on 20 mg furosemide daily.? Upon ED arrival he was noted to be tachypneic with respiratory rate in the mid 30s to mid 40s, hypertensive BP 186/105, tachycardic pulse 97, O2 sat 94-95% room air.? He denies chest pain.? His labs showed moderately elevated WBC with left shift although this is not abnormal for him.? Renal function noted normal.? Lactate normal.? N BNP was quite elevated at over 3700, initial troponin normal at 0.03, procalcitonin 0.23.? Chest x-ray showed cardiomegaly and pulmonary vascular congestion, small pleural effusions, and bibasilar atelectasis or infiltrate.? He had chest CTA which was negative for pulmonary embolism and showed mild interstitial thickening and minimal scattered ground glass opacities.? His COVID-19 PCR was positive.? On ABG pH 7.39, pCO2 51.5, PO2 71 on 21% FiO2.? Patient received IV Lasix, IV antibiotics, remdesevir and Solu- Medrol in the ED and is being admitted to the ICU for impending respiratory failure.? Also note he was started on oral antibiotic last week for UTI.? He has had chronic Throne catheter for the past 10 months but finally had it removed last week. Discharge Providers Provider Date of admission: 04/28/21 16:13 Discharge Date: 04/30/21 Primary care physician: Theresa Mak DO Consults: 04/28/21 16:57 Consult to Tele-refrigerating engineer Routine Comment: Consulting Provider: [facility] [employer] Reason for consultation: [facility] 04/28/21 17:07 Consult to Respiratory Therapy Evaluate & Treat Comment: Physician Instructions: Evaluate and treat 04/28/21 18:15 Consult to Dietitian, Adult Routine Comment: Reason For Exam: assessed at high risk on MNA 04/30/21 09:41 Consult to Home Health Routine Comment: COVID+ pneumonia/CHF Reason For Exam: Resume Roro MCGARRY RN and add PT for d/c to home Discharge provider: Neil Zamorano DO Summary Hospital Course Discharge Diagnosis: 1. 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 2. Chronic or paroxysmal AFib with , RVR resolved 3.?UTI with history of chronic urinary retention 4. Possible COVID 19 pneumonia,COVID 19 infection Hospital Course: This was an 85-year-old male who was admitted for respiratory distress noted in the emergency room. Chest x-ray showed possible volume overload, or bacterial versus viral pneumonia with bilateral patchy infiltrates. He was COVID-19 positive. He was initially placed on blood I Pap given his tachypnea, he improved rapidly with diuresis as well as initiation of broad-spectrum antibiotics. He was also started on steroids, which did cause a rise in his leukocytosis later in his admission just before discharge. On the day of discharge he appeared comfortable and had no complaints of shortness of breath. His AFib with RVR was controlled with resumption of his home medications. He was also noted to have a UTI, and history of chronic urinary retention. He does use straight catheterization at home and can continue this process. He was prescribed an antibiotic for coverage of his urinary tract infection as well as possible pneumonia, the respiratory symptoms are more likely due to volume overload given his rapid improvement with diuresis. Prior echocardiogram had been performed and EF was 55-60%. Please note patient was not initially sent home on antibiotic, this was prescribed the following day after reviewing urine culture results. was called and informed that prescription was sent to [facility] and questions were answered. Time Spent with Patient Time spent: Greater than 30 minutes Exam Vital Signs (past 8 hours): - 04/30/21 05:45 04/30/21 06:00 04/30/21 06:04 Temperature Pulse Rate 100 H 110 H Respiratory Rate 26 H Blood Pressure 191/91 H 191/91 H Pulse Oximetry 93 04/30/21 06:30 04/30/21 06:35 04/30/21 06:37 Temperature Pulse Rate 103 H 103 H 110 H Respiratory Rate 37 H 25 H 26 H Blood Pressure 173/129 H 161/93 H Pulse Oximetry 94 94 94 04/30/21 06:38 04/30/21 07:52 04/30/21 10:00 Temperature 97.9 F Pulse Rate 104 H 83 76 Respiratory Rate 25 H 24 Blood Pressure 161/93 H 161/71 H Pulse Oximetry 93 94 04/30/21 11:00 Temperature Pulse Rate Respiratory Rate Blood Pressure Pulse Oximetry 96 Fraction of Inspired Oxygen 21 Oxygen Delivery Method Room Air Oxygen Flow Rate 0 Narrative Exam Narrative: General:? Alert, conversant, NAD Lungs:? CTA b/l no m/r/g. Heart:? Irregularly irregular, no m/r/g. Extremities: No edema, joint effusions. Neurological:? Alert, well oriented, affect good, speech normal interactive Objective Labs Result Diagrams: 04/30/21 04:42 04/30/21 04:42 Labs: Laboratory Results - last 24 hr 04/30/21 04/30/21 04:42 04:42 WBC 21.3 H D RBC 4.59 Hgb 13.8 Hct 41.8 MCV 91.0 MCH 30.0 MCHC 32.9 RDW 14.2 Plt Count 338 Neut % (Auto) 92.0 H Lymph % (Auto) 5.0 L [place] % (Auto) 2.7 L Eos % (Auto) 0.0 L Baso % (Auto) 0.3 Neut # (Auto) 39630 H Lymph # (Auto) 1100 [place] # (Auto) 600 Eos # (Auto) 0 Baso # (Auto) 100 Sodium 140 Potassium 3.5 Chloride 101 Carbon Dioxide 32 BUN 37 H Creatinine 1.45 H Estimated GFR 46.1 L BUN/Creatinine Ratio 25.5 H Glucose 173 H Calcium 9.7 PFSH Medical History Afib Anemia Arthritis Benign prostatic hyperplasia Bladder neck contracture Chronic anemia Clostridioides difficile infection Diabetes 1.5, managed as type 2 Essential hypertension Fracture of femoral neck, right Frequent falls History of UTI LFT elevation Low back pain Mixed hyperlipidemia Osteoarthritis Paroxysmal atrial fibrillation Tremor Urinary retention Surgical History History of lobectomy of lung History of resection of rib History of surgery (11/02/20) Hx of bilateral cataract extraction Hx of transurethral resection of prostate Status post appendectomy Family History Father Hypertension Brother Atrial fibrillation Mother No significant medical problems Social History marital status: number of children: 3 household members: spouse occupational status: previously employed Smoking Status: Former smoker Tobacco: How many years used: 20 alcohol intake: never substance use type: does not use caffeine: Yes Discharge Plan Discharge Plan Patient Disposition: Home Health Service Provider Discharge Comment: You were admitted to the hospital with difficulty breathing. Unclear what exactly led to this but could be all or some of the following, pneumonia, COVID infection, heart failure, or UTI. Please increase your home furosemide to 20 mg twice daily for 4 days. Follow up with PCP as soon as possible. Discharge orders & Medications Prescriptions: New cefdinir 300 mg capsule 300 mg PO Q12H 5 Days Qty: 10 0RF Continued cholecalciferol (vitamin D3) [Vitamin D3] 25 mcg (1,000 unit) tablet 1,000 unit PO QAM Qty: 0 0RF finasteride 5 mg tablet 5 mg PO DAILY Qty: 90 3RF amlodipine 5 mg tablet 5 mg PO BID Qty: 180 0RF trazodone 100 mg tablet 100 mg PO BEDTIME Qty: 90 1RF atorvastatin 10 mg tablet 10 mg PO BEDTIME Qty: 90 3RF omeprazole magnesium [Prilosec OTC] 20 mg tablet,delayed release (DR/EC) 20 mg PO QAM Qty: 90 3RF (DME) Disabled Parking Permit 0 .Route .MEDSUPPLY Qty: 1 0RF Dose Instruction: As directed Rx Instructions: I find this patient to be medically disabled and qualified for disabled parking as indicated, and signed, on the accompanying disabled parking application for individuals aspirin 325 mg Tablet 325 mg PO QAM 0RF vitamin B complex Tablet 1 tab PO QPM 0RF potassium chloride 10 mEq capsule, extended release 20 meq PO BID 0RF enalapril maleate 20 mg Tablet 20 mg PO BID 0RF ferrous sulfate 325 mg (65 mg iron) Tablet 325 mg PO DAILY 0RF up4 Probiotics Adult 15 billion cell Capsule 1 cap PO TID 0RF acetaminophen 325 mg tablet 650 mg PO BID PRN (Reason: Pain (Scale Score 1-3)) 0RF diphenhydramine HCl [Benadryl] 25 mg Capsule 50 mg PO BEDTIME 0RF Changed furosemide 20 mg tablet 20 mg PO BID 30 Days Qty: 60 2RF No Action hydrocodone-acetaminophen 5-325 mg tablet 0.5 tab PO BEDTIME PRN (Reason: Pain (Scale Score 4-6)) Qty: 30 0RF Follow up/Referrals: Theresa Mak DO [Primary Care Provider] - 05/08/21 2:45 pm (FOLLOW-UP APPOINTMENT WITH DR. THERESA MAK ON @ 3:00 PM APPOINTMENT TIME. CHECK IN TIME 2:45 PM.) Diet/Activity/Treatments Diet: Diet as Tolerated Activity: As tolerated Visit Report/Discharge Packet Instructions: DI for Heart Failure, Furosemide Discharge Data Primary Care Provider: Theresa Mak Quality VTE Deep Vein Thrombosis/Pulmonary Embolism Present on Admission: No
== END 2021-04-30 16:00 | disposition home health service (06) | DRG 291 ==
LOC: ED 16:07 → AC 16:14 → ICU 16:35
PROVIDERS: Emergency Medicine; Internal Medicine; Admitting Provider Internal Medicine; Emergency Provider Student in an Organized Health Care Education/Training Program; PCP Family Medicine; Referring Provider Student in an Organized Health Care Education/Training Program; Visit Provider Internal Medicine
DX: I11.0 Hypertensive heart disease with heart failure (principal); J15.9 Unspecified bacterial pneumonia; I50.33 Acute on chronic diastolic (congestive) heart failure; U07.1 COVID-19; J12.82 Pneumonia due to coronavirus disease 2019; N39.0 Urinary tract infection, site not specified; I48.20 Chronic atrial fibrillation, unspecified; B96.1 Klebsiella pneumoniae [K. pneumoniae] as the cause of diseases classified elsewhere; R33.9 Retention of urine, unspecified; E78.5 Hyperlipidemia, unspecified; D64.9 Anemia, unspecified; Z87.891 Personal history of nicotine dependence
CPT/HCPCS: 36415; 36600; 71045; 71275; 80048; 80053; 81001; 81003; 82550; 82728; 82805; 82962; 83605; 83615; 83690; 83735; 83880; 84145; 84484; 85025; 85379; 86140; 87040; 87077; 87086; 87186; 87502; 87635; 87797; 93005; 93010; 94660; 94762; 96365; 96366; 96375; 99285; C9803; J0696; J1650; J1940; J2543; J2920; J2930; J3475

== ENCOUNTER → 2021-05-12 11:08 | Outpatient (CLI) | payer MEDICARE, SELFPAY ==
[2021-04-28 18:09] VITALS: BMI 31.6
[2021-04-29 07:20] VITALS: PULSE 86; RESP 36; O2SAT 92
[2021-05-12 14:32] LABS: Appearance Urine UA TURBID; Bilirubin Urine UA NEGATIVE (NEGATIVE); Color Urine UA YELLOW; Glucose Urine UA NEGATIVE (Negative); Ketones Urine UA NEGATIVE (NEGATIVE); Leukocyte Esterase Urine UA 3+ (NEGATIVE); Nitrite Urine UA POSITIVE (Negative); Occult Blood Urine UA 3+ (Negative); Protein Urine UA 2+ (Negative); Urobilinogen Urine UA 0.2 E.U./dL (0.2); pH Urine UA 6.5 (4.5-8.0)
[2021-05-12 15:15] LABS: Bacteria Urine Many (>30); Culture Indicated Urine Specimen Cultured; RBC Urine 5-10/HPF (0-5/HPF); WBC Urine >100/HPF (0-5/HPF)
== END ==
PROVIDERS: PCP Family Medicine; Visit Provider Family Medicine
DX: N39.0 Urinary tract infection, site not specified (principal)
CPT/HCPCS: 81001; 87077; 87086; 87186

== ENCOUNTER → 2021-05-22 11:13 | Outpatient (ROUT) | payer MEDICARE, SELFPAY ==
[2021-04-28 18:09] VITALS: BMI 31.6
[2021-04-29 07:20] VITALS: PULSE 86; RESP 36; O2SAT 92
[2021-05-22 11:20] LABS: Appearance Urine UA CLEAR; Bilirubin Urine UA NEGATIVE (NEGATIVE); Color Urine UA YELLOW; Glucose Urine UA NEGATIVE (Negative); Ketones Urine UA NEGATIVE (NEGATIVE); Leukocyte Esterase Urine UA NEGATIVE (NEGATIVE); Nitrite Urine UA NEGATIVE (Negative); Occult Blood Urine UA NEGATIVE (Negative); Protein Urine UA 2+ (Negative); Urobilinogen Urine UA 0.2 E.U./dL (0.2); pH Urine UA 6.5 (4.5-8.0)
[2021-05-22 11:26] LABS: Bacteria Urine None Seen; Culture Indicated Urine Cult Not Indicated; RBC Urine None Seen (0-5/HPF); Urine Comments Microscopic Normal; WBC Urine None Seen (0-5/HPF)
== END ==
PROVIDERS: PCP Family Medicine; Visit Provider Family Medicine
DX: N39.0 Urinary tract infection, site not specified (principal)
CPT/HCPCS: 81001

== ENCOUNTER → 2021-06-12 16:19 | Outpatient (CLI) | payer MEDICARE, SELFPAY ==
[2021-04-28 18:09] VITALS: BMI 31.6
[2021-04-29 07:20] VITALS: PULSE 86; RESP 36; O2SAT 92
[2021-06-12 16:47] LABS: Appearance Urine UA SL CLOUDY; Bilirubin Urine UA NEGATIVE (NEGATIVE); Color Urine UA YELLOW; Glucose Urine UA NEGATIVE (Negative); Ketones Urine UA TRACE (NEGATIVE); Leukocyte Esterase Urine UA 1+ (NEGATIVE); Nitrite Urine UA NEGATIVE (Negative); Occult Blood Urine UA TRACE-LYSED (Negative); Protein Urine UA 2+ (Negative); Urobilinogen Urine UA 0.2 E.U./dL (0.2)
[2021-06-12 17:06] LABS: Bacteria Urine Many (>30); Culture Indicated Urine Specimen Cultured; RBC Urine 0-1/HPF (0-5/HPF); WBC Urine 30-100/HPF (0-5/HPF)
== END ==
PROVIDERS: PCP Family Medicine; Referring Provider Family Medicine; Visit Provider Family Medicine
DX: Z87.440 Personal history of urinary (tract) infections (principal)
CPT/HCPCS: 81001; 87077; 87086; 87186

== ENCOUNTER → 2021-07-31 15:11 | Outpatient (CLI) | payer MEDICARE, SELFPAY ==
[2021-04-28 18:09] VITALS: BMI 31.6
[2021-04-29 07:20] VITALS: PULSE 86; RESP 36; O2SAT 92
[2021-07-31 16:56] LABS: Appearance Urine UA SL CLOUDY; Bilirubin Urine UA NEGATIVE (NEGATIVE); Color Urine UA YELLOW; Glucose Urine UA NEGATIVE (Negative); Ketones Urine UA NEGATIVE (NEGATIVE); Leukocyte Esterase Urine UA NEGATIVE (NEGATIVE); Nitrite Urine UA NEGATIVE (Negative); Occult Blood Urine UA TRACE-LYSED (Negative); Protein Urine UA 2+ (Negative); Specific Gravity Urine UA 1.015 (1.000-1.035); Urobilinogen Urine UA 0.2 E.U./dL (0.2)
[2021-07-31 17:31] LABS: Amorphous Sediment Urine 1+; Bacteria Urine Many (>30); Culture Indicated Urine Specimen Cultured; RBC Urine 0-1/HPF (0-5/HPF); Squamous Epithelial Cell Urine None Seen (0-5/HPF); WBC Urine 5-10/HPF (0-5/HPF)
== END ==
PROVIDERS: PCP Family Medicine; Referring Provider Family Medicine; Visit Provider Family Medicine
DX: E13.9 Other specified diabetes mellitus without complications (principal); I10 Essential (primary) hypertension; N40.0 Benign prostatic hyperplasia without lower urinary tract symptoms; R33.9 Retention of urine, unspecified; Z87.440 Personal history of urinary (tract) infections
CPT/HCPCS: 81001; 87077; 87086; 87186

== ENCOUNTER → 2021-08-08 15:44 | Outpatient (CLI) | payer MEDICARE, SELFPAY ==
[2021-04-28 18:09] VITALS: BMI 31.6
[2021-04-29 07:20] VITALS: PULSE 86; RESP 36; O2SAT 92
[2021-08-08 16:08] LABS: Appearance Urine UA CLEAR; Bilirubin Urine UA NEGATIVE (NEGATIVE); Color Urine UA YELLOW; Glucose Urine UA NEGATIVE (Negative); Ketones Urine UA NEGATIVE (NEGATIVE); Leukocyte Esterase Urine UA NEGATIVE (NEGATIVE); Nitrite Urine UA NEGATIVE (Negative); Occult Blood Urine UA NEGATIVE (Negative); Protein Urine UA 2+ (Negative); Specific Gravity Urine UA 1.015 (1.000-1.035); Urobilinogen Urine UA 0.2 E.U./dL (0.2); pH Urine UA 6.5 (4.5-8.0)
[2021-08-08 16:21] LABS: RBC Urine 0-1/HPF (0-5/HPF)
[2021-08-08 16:22] LABS: Bacteria Urine None Seen; Culture Indicated Urine Cult Not Indicated; Squamous Epithelial Cell Urine 0-1 /HPF (0-5/HPF); WBC Urine 1-5/HPF (0-5/HPF)
== END ==
PROVIDERS: PCP Family Medicine; Referring Provider Family Medicine; Visit Provider Family Medicine
DX: Z87.440 Personal history of urinary (tract) infections (principal)
CPT/HCPCS: 81001

== ENCOUNTER → 2021-08-14 11:15 | Outpatient (CLI) | payer MEDICARE, SELFPAY ==
[2021-04-28 18:09] VITALS: BMI 31.6
[2021-04-29 07:20] VITALS: PULSE 86; RESP 36; O2SAT 92
[2021-08-14 12:05] LABS: Add Manual Diff / Slide Review NO; Basophils Absolute Auto 100 /uL (0-100); Basophils Percent Auto 0.9 % (0-2); Eosinophils Absolute Auto 100 /uL (0-450); Eosinophils Percent Auto 1.5 % (2-4); Hematocrit 40.1 % (41-53); Hemoglobin 13.6 g/dL (13.5-17.5); Lymphocytes Absolute Auto 1500 /uL (1100-4500); Lymphocytes Percent Auto 16.1 % (25-40); Mean Corpuscular HGB Conc 33.9 % (30-36); Mean Corpuscular Hemoglobin 30.9 PG (26-34); Mean Corpuscular Volume 91.1 fL (80-100); Monocytes Absolute Auto 700 /uL (0-900); Monocytes Percent Auto 7.1 % (3-14); Neutrophils Absolute Auto 6900 /uL (1500-7000); Neutrophils Percent Auto 74.4 % (50-75); Platelet Count 254 X10^3/uL (150-400); White Blood Cell Count 9.3 X10^3/uL (4.5-11.0)
[2021-08-14 12:10] LABS: Alanine Aminotransferase 20 IU/L (<50); Albumin 4.2 g/dL (3.5-5.0); Albumin Globulin Ratio 1.4 (1.0-2.8); Alkaline Phosphatase 110 U/L (38-126); Aspartate Aminotransferase 27 IU/L (17-59); BUN Creatinine Ratio 15.7 (6-22); Bilirubin Total 0.5 mg/dL (0.2-1.3); Blood Urea Nitrogen 17 mg/dL (9-20); Calcium 9.4 mg/dL (8.4-10.2); Carbon Dioxide 33 mmol/L (22-32); Chloride 99 mmol/L (98-107); Estimated Glomerular Filt Rate > 60 mL/min (>60); Globulin 2.9 g/dL (1.7-4.1); Glucose 160 mg/dL (80-110); HEMOLYSIS < 15 (0-50); Potassium 3.3 mmol/L (3.4-5.1); Sodium 139 mmol/L (137-145); Total Protein 7.1 g/dL (6.3-8.2)
[2021-08-14 12:15] LABS: NT-proBNP (BNP-Adult 18+) 1130 pg/mL (<450)
[2021-08-14 12:39] LABS: TSH w/ Reflex to FT4 1.65 uIU/mL (0.47-4.68)
== END ==
PROVIDERS: PCP Family Medicine; Referring Provider Family Medicine; Visit Provider Family Medicine
DX: I10 Essential (primary) hypertension (principal); R53.83 Other fatigue; I48.91 Unspecified atrial fibrillation; N40.0 Benign prostatic hyperplasia without lower urinary tract symptoms
CPT/HCPCS: 36415; 80053; 83880; 84443; 85025

== ENCOUNTER → 2021-08-22 11:57 | Outpatient (CLI) | payer MEDICARE, SELFPAY ==
[2021-04-28 18:09] VITALS: BMI 31.6
[2021-04-29 07:20] VITALS: PULSE 86; RESP 36; O2SAT 92
[2021-08-22 12:33] LABS: Hemoglobin A1C% w Est Avg Glu 5.9 % (4.0-6.0)
[2021-08-22 12:35] LABS: Alanine Aminotransferase 18 IU/L (<50); Albumin 4.1 g/dL (3.5-5.0); Albumin Globulin Ratio 1.6 (1.0-2.8); Alkaline Phosphatase 119 U/L (38-126); Aspartate Aminotransferase 24 IU/L (17-59); BUN Creatinine Ratio 12.8 (6-22); Bilirubin Total 0.6 mg/dL (0.2-1.3); Blood Urea Nitrogen 15 mg/dL (9-20); Calcium 9.4 mg/dL (8.4-10.2); Carbon Dioxide 31 mmol/L (22-32); Chloride 100 mmol/L (98-107); Estimated Glomerular Filt Rate > 60 mL/min (>60); Globulin 2.5 g/dL (1.7-4.1); Glucose 137 mg/dL (80-110); HEMOLYSIS < 15 (0-50); Potassium 3.8 mmol/L (3.4-5.1); Sodium 139 mmol/L (137-145); Total Protein 6.6 g/dL (6.3-8.2)
== END ==
PROVIDERS: PCP Family Medicine; Referring Provider Family Medicine; Visit Provider Family Medicine
DX: E13.9 Other specified diabetes mellitus without complications (principal); I10 Essential (primary) hypertension; N40.0 Benign prostatic hyperplasia without lower urinary tract symptoms; R33.9 Retention of urine, unspecified; Z87.440 Personal history of urinary (tract) infections
CPT/HCPCS: 36415; 80053; 83036

== ENCOUNTER → 2021-09-13 10:03 | Outpatient (CLI) | payer MEDICARE, SELFPAY ==
[2021-04-28 18:09] VITALS: BMI 31.6
[2021-04-29 07:20] VITALS: PULSE 86; RESP 36; O2SAT 92
[2021-09-13 10:31] LABS: Appearance Urine UA CLEAR; Bilirubin Urine UA NEGATIVE (NEGATIVE); Color Urine UA YELLOW; Glucose Urine UA NEGATIVE (Negative); Ketones Urine UA NEGATIVE (NEGATIVE); Leukocyte Esterase Urine UA NEGATIVE (NEGATIVE); Nitrite Urine UA NEGATIVE (Negative); Occult Blood Urine UA 2+ (Negative); Protein Urine UA 1+ (Negative); Specific Gravity Urine UA 1.015 (1.000-1.035); Urobilinogen Urine UA 0.2 E.U./dL (0.2)
[2021-09-13 10:45] LABS: Bacteria Urine None Seen; Culture Indicated Urine Cult Not Indicated; RBC Urine 1-5/HPF (0-5/HPF); Squamous Epithelial Cell Urine None Seen (0-5/HPF); WBC Urine 0-1/HPF (0-5/HPF)
== END ==
PROVIDERS: PCP Family Medicine; Referring Provider Family Medicine; Visit Provider Family Medicine
DX: R41.0 Disorientation, unspecified (principal)
CPT/HCPCS: 81001

== ENCOUNTER → 2021-11-06 07:50 | Outpatient (CLI) | payer MEDICARE, SELFPAY ==
[2021-04-28 18:09] VITALS: BMI 31.6
[2021-04-29 07:20] VITALS: PULSE 86; RESP 36; O2SAT 92
--- NOTE | 2021-11-06 | DI.NM.S_ITS ---
PROCEDURE: NM ANURAG PERF SPECT R&S PHARM Rest and pharmacological stress myocardial perfusion SPECT with gated imaging and ejection fraction RADIOPHARMACEUTICAL: 12 mCi Tc-99m tetrafosmin IV at rest and 24.4 mCi Tc-99m tetrafosmin IV at peak effect of pharmacological stress. [id number] was performed. INDICATIONS: Nonrheumatic aortic (valve) stenosis TECHNIQUE: Radiopharmaceutical was injected at peak stress test, and also at rest. SPECT images were obtained. SPECT myocardial perfusion images were displayed in short axis, horizontal long axis, and vertical long axis views. Gated images were reviewed using mAPPn software. COMPARISON: None. CARDIAC STRESS: A pharmacologic stress test was performed under the supervision of an attending staff, using an infusion of regadenoson. Hemodynamic data: There is normal blood pressure and heart rate response to pharmacologic stress. Symptoms: The patient denied anginal chest pain. EKG: Baseline atrial fibrillation. No diagnostic changes of ischemia; frequent PVCs. FINDINGS: Raw data: There is good myocardial uptake of radiotracer. No significant motion artifacts. Jlek-vt-svxsw ratio is 0.37 (normal is less than 0.38 for tetrafosmin tracer). Left ventricle function: Gated images demonstrate normal left ventricular wall thickening. No segmental wall motion abnormalities. No transient ischemic dilation; TID is 1.1 (normal less than 1.3). Left ventricle resting end diastolic volume is 102 mL. Left ventricle stress ejection fraction is 71%; normal range is above 45%. Myocardial perfusion: There is normal distribution of activity in the right and left ventricular myocardium. No fixed or reversible perfusion defects. IMPRESSION: No evidence of pharmacologic induced ischemia or scar. Normal left ventricular function. Dictated by: Joelle Wade D.O. on 11/07/2021 at 16:41 Approved by: Joelle Wade D.O. on 11/07/2021 at 16:46
--- NOTE | 2021-11-06 | DI.ECHO.S_ITS ---
[facility] +---------+ : : [address] : [place] : : : : [id number] : : : : Phone: [phone]+ Echocardiogram Report + + :Name: LIVAN GALLARDO Study Date: 11/06/2021 Height: 70 in : :[facility] ReadingLocation: Weight: 212 lb : : Gender: Other BSA: 2.1 m2 : :: 1935 Age: 85 yrs BP: 139/94 mmHg: :Reason For Study: CONGESTIVE HEART FAILURE : :Ordering Physician: EVITA, : :FELIX Otero Performed By: Jannette Tompkins : :Referring: FELIX JAMA : + + Interpretation Summary The left ventricle is normal in size. Left ventricular ejection fraction is estimated to be 60 +/- 5%. No significant change in LVEF from the previous study. The right ventricle is mildly dilated. The right ventricular systolic function is normal. No significant valvular pathology seen. The inferior vena cava was not well visualized. Procedure: A two-dimensional transthoracic echocardiogram with color flow and Doppler was performed. The study quality was technically adequate. Comparison is made with the echocardiogram of 07/10/2019. The patient was in atrial fibrillation with controlled ventricular rate during the exam. Left Ventricle: The left ventricle is normal in size. There is mild concentric left ventricular hypertrophy. Proximal septal thickening is noted. There is no echo evidence for significant left ventricular outflow tract obstruction. There is no thrombus. Left ventricular ejection fraction is estimated to be 60 +/- 5%. There are no focal wall motion abnormalities. E/E' med: 10.0. Diastolic function could not be accurately assessed due to atrial fibrillation. Right Ventricle: The right ventricle is mildly dilated. The right ventricular systolic function is normal. Atria: The left atrium is severely dilated. The left atrium has remained unchanged in size since the prior echo exam. The right atrium is moderately dilated. There has been no significant change since the previous study. There is no Doppler evidence for an interatrial shunt. Mitral Valve: The mitral valve leaflets appear mildly thickened, but open well. There is mild mitral regurgitation. There has been no significant change since the previous study. Aortic Valve: The aortic valve is trileaflet. The aortic valve opens well. There is no aortic valve stenosis. No aortic regurgitation is present. Tricuspid Valve: The tricuspid valve is normal in structure and function. There is mild tricuspid regurgitation. Pulmonary artery pressures cannot be estimated because of the lack of a measurable TR jet velocity. Compared to the prior echo exam, there has been no change in TR severity. Pulmonic Valve: The pulmonic valve leaflets are thin and pliable; valve motion is normal. There is mild pulmonic regurgitation. Great Vessels: The aortic root is normal size. The inferior vena cava was not well visualized. Pericardium/ Pleura There is no pericardial effusion. Due to the poor quality of the echocardiogram, a pericardial effusion cannot be excluded. There is no pleural effusion. MMode/2D Measurements & Calculations LVIDd: 5.0 cm LVOT diam: 2.2 cm LVIDs: 2.9 cm Ao root diam: 3.8 cm FS: 41.3 % asc Aorta Diam: 3.8 cm IVSd: 1.1 cm Ao Arch Diam (Prox Trans): 3.4 cm LVPWd: 1.2 cm LV nogueira. diameter/BSA (cm/m^2): 2.3 LV sys. diameter/BSA (cm/m^2): 1.4 LA A2 area: 37.2 cm2 RA long axis: 7.1 cm LA A4 area: 29.4 cm2 RA area: 27.8 cm2 LA length (vol): 7.2 cm RA vol: 92.8 ml LA vol: 129.2 ml RA : 43.4 ml/m2 LA vol index: 60.4 ml/m2 RVD1 (basal): 4.4 cm TAPSE: 1.9 cm Doppler Measurements & Calculations Ao V2 max: 144.0 cm/sec LVOT Max Vinay: 80.0 cm/sec Ao V2 mean: 97.1 cm/sec LV V1 max P.6 mmHg Ao max P.3 mmHg LV V1 VTI: 14.3 cm Ao mean P.2 mmHg LORNA(I,D): 2.6 cm2 Ao V2 VTI: 21.1 cm LORNA(V,D): 2.1 cm2 sev ratio: 0.68 LORNA indexed to BSA (cm^2/m^2): 1.2 MV E max vinay: 77.7 cm/sec PA V2 max: 98.5 cm/sec MV A max vinay: 39.3 cm/sec PA V2 mean: 59.6 cm/sec MV E/A: 2.0 PA mean P.7 mmHg Med Peak E' Vinay: 7.7 cm/sec PA pr(Accel): 39.6 mmHg E/E' med: 10.0 Lat Peak E' Vinay: 11.3 cm/sec E/E' lat: 6.9 E/e' average: 8.5 MV dec time: 0.18 sec SV(JEAN MARIE): 55.2 ml Reading Physician:11:48 AM
[2021-11-06 12:01] LABS: COVID19 -Nasal RAPID Negative (Negative)
== END ==
PROVIDERS: PCP Family Medicine; Referring Provider Nurse Practitioner; Visit Provider Nurse Practitioner
DX: I50.30 Unspecified diastolic (congestive) heart failure (principal); I13.0 Hypertensive heart and chronic kidney disease with heart failure and stage 1 through stage 4 chronic kidney disease, or unspecified chronic kidney disease; I08.1 Rheumatic disorders of both mitral and tricuspid valves; Z20.822 Contact with and (suspected) exposure to COVID-19
CPT/HCPCS: 78452; 87635; 93017; 93306; A9502; J2785

== ENCOUNTER → 2021-11-12 12:54 | Outpatient (ROUT) | payer MEDICARE, SELFPAY ==
[2021-04-28 18:09] VITALS: BMI 31.6
[2021-04-29 07:20] VITALS: PULSE 86; RESP 36; O2SAT 92
[2021-11-12 13:41] LABS: Appearance Urine UA CLEAR; Bilirubin Urine UA NEGATIVE (NEGATIVE); Color Urine UA YELLOW; Glucose Urine UA NEGATIVE (Negative); Ketones Urine UA NEGATIVE (NEGATIVE); Leukocyte Esterase Urine UA 3+ (NEGATIVE); Nitrite Urine UA POSITIVE (Negative); Occult Blood Urine UA TRACE-INTACT (Negative); Protein Urine UA TRACE (Negative); Urobilinogen Urine UA 0.2 E.U./dL (0.2)
[2021-11-12 13:45] LABS: RBC Urine 0-1/HPF (0-5/HPF)
[2021-11-12 13:46] LABS: Bacteria Urine Many (>30); Culture Indicated Urine Specimen Cultured; WBC Urine 30-100/HPF (0-5/HPF)
== END ==
PROVIDERS: Specialist; PCP Family Medicine; Visit Provider Family Medicine
DX: R30.0 Dysuria (principal)
CPT/HCPCS: 81001; 87077; 87086; 87186

== ENCOUNTER → 2021-12-16 11:37 | Outpatient (CLI) | payer MEDICARE, SELFPAY ==
[2021-04-28 18:09] VITALS: BMI 31.6
[2021-04-29 07:20] VITALS: PULSE 86; RESP 36; O2SAT 92
[2021-12-16 12:10] LABS: Appearance Urine UA SL CLOUDY; Bilirubin Urine UA NEGATIVE (NEGATIVE); Color Urine UA YELLOW; Glucose Urine UA NEGATIVE (Negative); Ketones Urine UA NEGATIVE (NEGATIVE); Leukocyte Esterase Urine UA 3+ (NEGATIVE); Nitrite Urine UA POSITIVE (Negative); Occult Blood Urine UA 1+ (Negative); Protein Urine UA TRACE (Negative); Urobilinogen Urine UA 0.2 E.U./dL (0.2)
[2021-12-16 12:16] LABS: Bacteria Urine Many (>30); Culture Indicated Urine Specimen Cultured; RBC Urine 1-5/HPF (0-5/HPF); Squamous Epithelial Cell Urine 0-1 /HPF (0-5/HPF); WBC Urine 10-30/HPF (0-5/HPF)
== END ==
PROVIDERS: PCP Family Medicine; Referring Provider Specialist; Visit Provider Specialist
DX: N17.9 Acute kidney failure, unspecified (principal); N32.0 Bladder-neck obstruction; R33.9 Retention of urine, unspecified; Z87.440 Personal history of urinary (tract) infections
CPT/HCPCS: 81001; 87077; 87086; 87186

== ENCOUNTER → 2022-01-28 09:59 | Outpatient (CLI) | payer MEDICARE, SELFPAY ==
[2021-04-28 18:09] VITALS: BMI 31.6
[2021-04-29 07:20] VITALS: PULSE 86; RESP 36; O2SAT 92
[2022-01-28 12:32] LABS: Appearance Urine UA CLEAR; Bilirubin Urine UA NEGATIVE (NEGATIVE); Color Urine UA YELLOW; Glucose Urine UA NEGATIVE (Negative); Ketones Urine UA NEGATIVE (NEGATIVE); Leukocyte Esterase Urine UA 1+ (NEGATIVE); Nitrite Urine UA NEGATIVE (Negative); Occult Blood Urine UA TRACE-LYSED (Negative); Protein Urine UA TRACE (Negative); Specific Gravity Urine UA 1.015 (1.000-1.035); Urobilinogen Urine UA 0.2 E.U./dL (0.2)
[2022-01-28 12:42] LABS: Bacteria Urine Many (>30); Culture Indicated Urine Specimen Cultured; RBC Urine 0-1/HPF (0-5/HPF); WBC Urine 30-100/HPF (0-5/HPF)
== END ==
PROVIDERS: PCP Family Medicine; Referring Provider Specialist; Visit Provider Specialist
DX: N17.9 Acute kidney failure, unspecified (principal); N32.0 Bladder-neck obstruction; R33.9 Retention of urine, unspecified; Z87.440 Personal history of urinary (tract) infections
CPT/HCPCS: 81001; 87077; 87086; 87186

== ENCOUNTER → 2022-04-08 10:51 | Outpatient (CLI) | payer MEDICARE, SELFPAY ==
[2021-04-28 18:09] VITALS: BMI 31.6
[2021-04-29 07:20] VITALS: PULSE 86; RESP 36; O2SAT 92
[2022-04-08 12:12] LABS: Add Manual Diff / Slide Review NO; Basophils Absolute Auto 100 /uL (0-100); Basophils Percent Auto 0.7 % (0-2); Eosinophils Absolute Auto 300 /uL (0-450); Eosinophils Percent Auto 3.4 % (2-4); Hemoglobin 13.3 g/dL (13.5-17.5); Lymphocytes Absolute Auto 1300 /uL (1100-4500); Lymphocytes Percent Auto 14.7 % (25-40); Mean Corpuscular HGB Conc 33.2 % (30-36); Mean Corpuscular Hemoglobin 30.8 PG (26-34); Mean Corpuscular Volume 92.8 fL (80-100); Monocytes Absolute Auto 800 /uL (0-900); Monocytes Percent Auto 8.4 % (3-14); Neutrophils Absolute Auto 6600 /uL (1500-7000); Neutrophils Percent Auto 72.8 % (50-75); Platelet Count 286 X10^3/uL (150-400); Red Blood Cell Count 4.31 X10^6/uL (4.5-5.9); Red Cell Distribution Width 13.2 % (11.6-14.8); White Blood Cell Count 9.1 X10^3/uL (4.5-11.0)
[2022-04-08 12:42] LABS: Alanine Aminotransferase 28 IU/L (<50); Alkaline Phosphatase 144 U/L (38-126); Aspartate Aminotransferase 28 IU/L (17-59); BUN Creatinine Ratio 14.7 (6-22); Bilirubin Total 0.9 mg/dL (0.2-1.3); Blood Urea Nitrogen 20 mg/dL (9-20); Calcium 9.6 mg/dL (8.4-10.2); Carbon Dioxide 27 mmol/L (22-32); Chloride 102 mmol/L (98-107); Estimated Glomerular Filt Rate 50 mL/min (>60); Glucose 98 mg/dL (80-110); HEMOLYSIS < 15 (0-50); Potassium 4.2 mmol/L (3.4-5.1); Sodium 140 mmol/L (137-145); Total Protein 7.5 g/dL (6.3-8.2)
[2022-04-08 12:46] LABS: NT-proBNP (BNP-Adult 18+) 630 pg/mL (<450)
[2022-04-08 13:05] LABS: TSH w/ Reflex to FT4 2.26 uIU/mL (0.47-4.68)
[2022-04-10 16:40] LABS: Albumin 4.4 g/dL (3.5-5.0); Albumin Globulin Ratio 1.4 (1.0-2.8); Globulin 3.1 g/dL (1.7-4.1)
== END ==
PROVIDERS: PCP Family Medicine; Referring Provider Family Medicine; Visit Provider Family Medicine
DX: I10 Essential (primary) hypertension (principal); I48.91 Unspecified atrial fibrillation; N40.0 Benign prostatic hyperplasia without lower urinary tract symptoms
CPT/HCPCS: 36415; 80053; 83880; 84443; 85025

== ENCOUNTER → 2022-04-09 08:51 | Outpatient (CLI) | payer MEDICARE, SELFPAY ==
[2021-04-28 18:09] VITALS: BMI 31.6
[2021-04-29 07:20] VITALS: PULSE 86; RESP 36; O2SAT 92
[2022-04-09 10:07] LABS: Appearance Urine UA SL CLOUDY; Bilirubin Urine UA NEGATIVE (NEGATIVE); Color Urine UA YELLOW; Glucose Urine UA NEGATIVE (Negative); Ketones Urine UA NEGATIVE (NEGATIVE); Leukocyte Esterase Urine UA 2+ (NEGATIVE); Nitrite Urine UA POSITIVE (Negative); Occult Blood Urine UA NEGATIVE (Negative); Protein Urine UA NEGATIVE (Negative); Urobilinogen Urine UA 0.2 E.U./dL (0.2)
[2022-04-09 10:14] LABS: RBC Urine 1-5/HPF (0-5/HPF); Squamous Epithelial Cell Urine 0-1 /HPF (0-5/HPF); WBC Urine 30-100/HPF (0-5/HPF)
[2022-04-09 10:15] LABS: Bacteria Urine Many (>30); Culture Indicated Urine Specimen Cultured
== END ==
PROVIDERS: PCP Family Medicine; Referring Provider Specialist; Visit Provider Specialist
DX: I10 Essential (primary) hypertension (principal); I48.91 Unspecified atrial fibrillation; N40.0 Benign prostatic hyperplasia without lower urinary tract symptoms
CPT/HCPCS: 81001; 87077; 87086; 87186

== ENCOUNTER 2022-05-26 14:04 | Emergency (ER) | payer MEDICARE, SELFPAY ==
[2021-04-28 18:09] VITALS: BMI 31.6
[2021-04-29 07:20] VITALS: PULSE 86; RESP 36; O2SAT 92
[2022-05-26] VITALS (7 sets, daily range): BP systolic 135–183; BP diastolic 73–92; PULSE 70–91; RESP 18; TEMP 36.7; O2SAT 93–99; BMI 31.5
--- NOTE | 2022-05-26 14:52 | DI.CT.S_ITS ---
PROCEDURE: CT HEAD/BRAIN WO CON INDICATIONS: left leg weakness TECHNIQUE: Noncontrast 4.5 mm thick angled axial sections acquired from the foramen magnum to the vertex, with coronal and sagittal reformats. For radiation dose reduction, the following was used: automated exposure control, adjustment of mA and/or kV according to patient size. COMPARISON: Merged With [facility], CT, CT HEAD/BRAIN WO CON, 03/06/2021, 21:09. FINDINGS: Image quality: Excellent. CSF spaces: Basal cisterns are patent. No extra-axial fluid collections. The ventricles are symmetric in size and shape. Brain: No intracranial bleeds or masses. There is cerebral volume loss for age, with resultant ventricular and sulcal prominence. There are periventricular and deep white matter chronic small vessel ischemic changes. There is intracranial internal carotid artery atherosclerosis. Skull and face: Calvarium and visualized facial bones appear intact, without suspicious lesions. Sinuses: Visualized sinuses and mastoids are clear. IMPRESSION: No acute intracranial pathology. Dictated by: Vinod Bartholomew M.D. on 05/26/2022 at 15:22 Approved by: Vinod Bartholomew M.D. on 05/26/2022 at 15:25
[2022-05-26 15:46] LABS: Adenovirus Not Detected (Not Detect); B. parapertussis Not Detected (Not Detecte); Bordetella pertussis Not Detected (Not Detecte); Chlamydophila pneumoniae Not Detected (Not Detect); Coronavirus 229E Not Detected (Not Detect); Coronavirus HKU1 Not Detected (Not Detect); Coronavirus NL 63 Not Detected (Not Detect); Coronavirus OC43 Not Detected (Not Detect); Human Metapneumovirus Not Detected (Not Detect); Human Rhinovirus/Enterovirus Not Detected (Not Detect); Influenza A Not Detected (Not Detect); Influenza B Not Detected (Not Detect); Mycoplasma pneumoniae Not Detected (Not Detect); Parainfluenza Virus 1 Not Detected (Not Detect); Parainfluenza Virus 2 Not Detected (Not Detect); Parainfluenza Virus 3 Not Detected (Not Detect); Parainfluenza Virus 4 Not Detected (Not Detect); Respiratory Syncytial Virus Not Detected (Not Detect); SARS- CoV-2 Not Detected (Not Detecte)
[2022-05-26 16:02] LABS: Appearance Urine UA CLEAR; Bilirubin Urine UA NEGATIVE (NEGATIVE); Color Urine UA YELLOW; Glucose Urine UA NEGATIVE (Negative); Ketones Urine UA NEGATIVE (NEGATIVE); Leukocyte Esterase Urine UA NEGATIVE (NEGATIVE); Nitrite Urine UA NEGATIVE (Negative); Occult Blood Urine UA NEGATIVE (Negative); Protein Urine UA NEGATIVE (Negative); Specific Gravity Urine UA 1.015 (1.000-1.035); Urobilinogen Urine UA 0.2 E.U./dL (0.2); pH Urine UA 5.5 (4.5-8.0)
[2022-05-26 16:11] LABS: Bacteria Urine None Seen; Culture Indicated Urine Cult Not Indicated; RBC Urine None Seen (0-5/HPF); WBC Urine None Seen (0-5/HPF)
--- NOTE | 2022-05-26 19:15 | ED_ITS ---
HPI - Neuro Symptoms/Deficit General Chief Complaint: Neuro Symptoms/Deficit Stated Complaint: sent by [facility] weakness in legs/cough/ Time Seen by Provider: 05/26/22 19:05 Source: patient, family () and other (Printer Slotter Operator) Mode of arrival: Wheelchair Limitations: no limitations History of Present Illness HPI Narrative: Patient is a 86-year-old male. Has multiple baseline chronic medical problems. Has baseline weakness in his left lower extremity but apparently this has been worse over the past couple days. He is at his baseline dementia but has caretakers state that he has been more angry/mean than normal. He is normally able to walk around the house with a walker but this has been less over the past couple days. Specifically this morning he had quite a bit of difficulty even standing and moving his left leg. Patient has had a cough. Does self cath. He has had multiple falls recently however does not endorse any discomfort to his legs. History is provided by patient and and caretakers. On Anticoagulants: Yes (eliquis) Related Data Home Medications Medication Instructions Recorded Confirmed cholecalciferol (vitamin D3) 25 1,000 unit PO QAM #0 tabs 06/30/19 05/26/22 mcg (1,000 unit) tablet (Vitamin D3) vitamin B complex 1 tab PO QPM 04/22/20 05/26/22 Lactobacillus 1 cap PO TID 04/29/21 05/26/22 acidophil,plantar-Bifido no.7 15 billion cell capsule (up4 Probiotics Adult) acetaminophen 325 mg tablet 650 mg PO BID PRN Pain (Scale 04/29/21 05/26/22 Score 1-3) diphenhydramine HCl 25 mg capsule 50 mg PO BEDTIME 04/29/21 05/26/22 (Benadryl) ferrous sulfate 325 mg (65 mg 325 mg PO DAILY 04/29/21 05/26/22 iron) tablet aspirin 325 mg tablet 81 mg PO QAM 06/12/21 05/26/22 spironolactone 25 mg tablet 25 mg PO 04/08/22 05/26/22 Previous Rx's Medication Instructions Recorded Disabled Parking Permit #1 ea 07/26/18 amlodipine 5 mg tablet 5 mg PO BID #180 tabs 06/12/21 atorvastatin 10 mg tablet 10 mg PO BEDTIME #90 tabs 08/23/21 enalapril maleate 20 mg tablet 20 mg PO BID #180 tabs 03/06/22 furosemide 20 mg tablet 20 mg PO BID 30 days #60 tabs 03/06/22 potassium chloride 10 mEq 10 meq PO BID #180 tabs 03/06/22 tablet,extended release omeprazole 20 mg capsule,delayed See Rx Instructions .Route 03/18/22 release .COMPLEX #90 caps trazodone 100 mg tablet 100 mg PO BEDTIME #90 tabs 03/24/22 hydrocodone 5 mg-acetaminophen 325 0.5 tab PO BEDTIME PRN Pain (Scale 04/14/22 mg tablet Score 4-6) #30 tabs finasteride 5 mg tablet 5 mg PO DAILY #30 tabs 04/21/22 nystatin 100,000 unit/gram topical 1 applic topical DAILY #60 grams 04/22/22 powder (Nystop) Allergies Allergy/AdvReac Type Severity Reaction Status Date / Time clindamycin AdvReac Severe C.diff Verified 05/26/22 13:57 Colitis 04/11 Review of Systems Constitutional Constitutional: Reports system reviewed and no additional complaints, except as documented Cardiovascular Cardiovascular: Reports system reviewed and no additional complaints, except as documented Respiratory Respiratory: Reports system reviewed and no additional complaints, except as documented Gastrointestinal Gastrointestinal: Reports system reviewed and no additional complaints, except as documented Musculoskeletal Musculoskeletal: Reports system reviewed and no additional complaints, except as documented Integumentary/Breasts Skin/Breast: Reports system reviewed and no additional complaints, except as documented Neurologic Neurologic: Reports system reviewed and no additional complaints, except as documented Hematologic/Lymphatic On Anticoagulants: Yes (eliquis) Patient History Medical History Afib Anemia Arthritis Benign prostatic hyperplasia Bladder neck contracture Chronic anemia Clostridioides difficile infection Diabetes 1.5, managed as type 2 Essential hypertension Fracture of femoral neck, right Frequent falls History of UTI LFT elevation Low back pain Mixed hyperlipidemia Osteoarthritis Paroxysmal atrial fibrillation Tremor Urinary retention Surgical History History of lobectomy of lung History of resection of rib History of surgery (11/02/20) Hx of bilateral cataract extraction Hx of transurethral resection of prostate Status post appendectomy Family History Father Hypertension Brother Atrial fibrillation Mother No significant medical problems Social History marital status: number of children: 3 household members: spouse occupational status: previously employed Smoking Status: Former smoker Tobacco: How many years used: 20 alcohol intake: never substance use type: does not use caffeine: Yes Smoking Status: Former smoker alcohol intake frequency: 0-2 drinks per day Substance Use Type: does not use Exam Initial Vital Signs Initial Vital Signs: Vital Signs Temperature 98.1 F 05/26/22 14:18 Pulse Rate 70 05/26/22 14:18 Respiratory Rate 18 05/26/22 14:18 Blood Pressure 135/73 05/26/22 14:18 Pulse Oximetry 99 05/26/22 14:18 Oxygen Delivery Method Room Air 05/26/22 14:18 HENMT Head: normal to inspection and normocephalic Resp Effort & Inspection: normal respiratory effort Auscultation: clear to auscultation bilaterally Cardio Rate: regular rate Rhythm: abnormal rhythm Skin General: no rashes or lesions noted Neuro General: patient alert, patient awake and moves all extremities Extrem General: capillary refill normal Course Orders Ordered: ED Orders 05/26/22 19:17 EKG-12 Lead Stat 05/26/22 19:30 Basic Metabolic Panel Stat Complete Blood Count AUTO DIFF Stat Vital Signs Vital signs: Vital Signs - 8 hr 05/26/22 20:39 05/26/22 20:40 05/26/22 20:40 Pulse Rate 91 H 91 H Blood Pressure 183/84 H Pulse Oximetry 96 96 Oxygen Delivery Method Room Air 05/26/22 20:58 05/26/22 21:01 05/26/22 21:11 Pulse Rate 90 89 Blood Pressure 177/81 H Pulse Oximetry 93 97 Oxygen Delivery Method Room Air Room Air MDM - Neuro Symptoms/Deficit Lab Data Attestation: I reviewed the patient's lab results. 05/26/22 19:30 05/26/22 19:30 Labs: Lab Results 05/26/22 05/26/22 05/26/22 Range/Units 14:35 15:50 19:30 WBC 12.4 H (4.5-11.0) X10^3/uL RBC 4.21 L (4.5-5.9) X10^6/uL Hgb 13.0 L (13.5-17.5) g/dL Hct 38.6 L (41-53) % MCV 91.7 (80-100) fL MCH 30.9 (26-34) PG MCHC 33.7 (30-36) % RDW 13.2 (11.6-14.8) % Plt Count 293 (150-400) X10^3/uL Neut % (Auto) 71.2 (50-75) % Lymph % (Auto) 15.0 L (25-40) % Cavalier % (Auto) 10.1 (3-14) % Eos % (Auto) 2.9 (2-4) % Baso % (Auto) 0.8 (0-2) % Neut # (Auto) 8800 H (8469-9805) /uL Lymph # (Auto) 1900 (6364-5102) /uL Cavalier # (Auto) 1300 H (0-900) /uL Eos # (Auto) 400 (0-450) /uL Baso # (Auto) 100 (0-100) /uL Sodium (137-145) mmol/L Potassium (3.4-5.1) mmol/L Chloride (98-107) mmol/L Carbon Dioxide (22-32) mmol/L BUN (9-20) mg/dL Creatinine (0.66-1.25) mg/dL Estimated GFR (>60) mL/min BUN/Creatinine Ratio (6-22) Glucose (80-110) mg/dL Calcium (8.4-10.2) mg/dL Urine Color Yellow Urine Appearance Clear Urine pH 5.5 (4.5-8.0) Ur Specific [place] 1.015 (1.000-1.035) Urine Protein Negative (Negative) Urine Glucose (UA) Negative (Negative) g/dL Urine Ketones Negative (NEGATIVE) Urine Occult Blood Negative (Negative) Urine Nitrate Negative (Negative) Urine Bilirubin Negative (NEGATIVE) Urine Urobilinogen 0.2 (0.2) E.U./dL Ur Leukocyte Esterase Negative (NEGATIVE) Urine RBC None seen (0-5/HPF) Urine WBC None seen (0-5/HPF) Urine Bacteria None seen (None) Ur Culture Indicated? Cult not indicated Chlamy pneumoniae PCR Not detected (Not Detect) Adenovirus (PCR) Not detected (Not Detect) B. pertussis DNA (PCR) Not detected (Not Detecte) B.parapertussis DNA PCR Not detected (Not Detecte) Coronavirus OC43 (PCR) Not detected (Not Detect) Coronavirus HKU1 (PCR) Not detected (Not Detect) Coronavirus 229E (PCR) Not detected (Not Detect) SARS-CoV-2 (PCR) Not detected (Not Detecte) Coronavirus NL63 (PCR) Not detected (Not Detect) Human Metapneumovir PCR Not detected (Not Detect) Influenza Type A (PCR) Not detected (Not Detect) Influenza Type B (PCR) Not detected (Not Detect) M. pneumoniae (PCR) Not detected (Not Detect) Parainfluenza 1 (PCR) Not detected (Not Detect) Parainfluenza 2 (PCR) Not detected (Not Detect) Parainfluenza 3 (PCR) Not detected (Not Detect) Parainfluenza 4 (PCR) Not detected (Not Detect) RSV (PCR) Not detected (Not Detect) Entero/Rhino (PCR) Not detected (Not Detect) 05/26/22 Range/Units 19:30 WBC (4.5-11.0) X10^3/uL RBC (4.5-5.9) X10^6/uL Hgb (13.5-17.5) g/dL Hct (41-53) % MCV (80-100) fL MCH (26-34) PG MCHC (30-36) % RDW (11.6-14.8) % Plt Count (150-400) X10^3/uL Neut % (Auto) (50-75) % Lymph % (Auto) (25-40) % [place]alier % (Auto) (3-14) % Eos % (Auto) (2-4) % Baso % (Auto) (0-2) % Neut # (Auto) (6873-6600) /uL Lymph # (Auto) (7881-6833) /uL [place] # (Auto) (0-900) /uL Eos # (Auto) (0-450) /uL Baso # (Auto) (0-100) /uL Sodium 138 (137-145) mmol/L Potassium 4.5 (3.4-5.1) mmol/L Chloride 103 (98-107) mmol/L Carbon Dioxide 23 (22-32) mmol/L BUN 28 H (9-20) mg/dL Creatinine 1.45 H (0.66-1.25) mg/dL Estimated GFR 47 L (>60) mL/min BUN/Creatinine Ratio 19.3 (6-22) Glucose 141 H (80-110) mg/dL Calcium 9.3 (8.4-10.2) mg/dL Urine Color Urine Appearance Urine pH (4.5-8.0) Ur Specific [place] (1.000-1.035) Urine Protein (Negative) Urine Glucose (UA) (Negative) g/dL Urine Ketones (NEGATIVE) Urine Occult Blood (Negative) Urine Nitrate (Negative) Urine Bilirubin (NEGATIVE) Urine Urobilinogen (0.2) E.U./dL Ur Leukocyte Esterase (NEGATIVE) Urine RBC (0-5/HPF) Urine WBC (0-5/HPF) Urine Bacteria (None) Ur Culture Indicated? Chlamy pneumoniae PCR (Not Detect) Adenovirus (PCR) (Not Detect) B. pertussis DNA (PCR) (Not Detecte) B.parapertussis DNA PCR (Not Detecte) Coronavirus OC43 (PCR) (Not Detect) Coronavirus HKU1 (PCR) (Not Detect) Coronavirus 229E (PCR) (Not Detect) SARS-CoV-2 (PCR) (Not Detecte) Coronavirus NL63 (PCR) (Not Detect) Human Metapneumovir PCR (Not Detect) Influenza Type A (PCR) (Not Detect) Influenza Type B (PCR) (Not Detect) M. pneumoniae (PCR) (Not Detect) Parainfluenza 1 (PCR) (Not Detect) Parainfluenza 2 (PCR) (Not Detect) Parainfluenza 3 (PCR) (Not Detect) Parainfluenza 4 (PCR) (Not Detect) RSV (PCR) (Not Detect) Entero/Rhino (PCR) (Not Detect) Imaging Data CT scan - head: Radiologist's Impression: PROCEDURE:? CT HEAD/BRAIN WO CON ? INDICATIONS:? left leg weakness ? TECHNIQUE:? Noncontrast 4.5 mm thick angled axial sections acquired from the foramen magnum to the vertex, with coronal and sagittal reformats.? For radiation dose reduction, the following was used:? automated exposure control, adjustment of mA and/or kV according to patient size.? ? COMPARISON:? [facility], CT, CT HEAD/BRAIN WO FRED, 03/06/2021, 21:09. ? FINDINGS:? Image quality:? Excellent.? ? CSF spaces:? Basal cisterns are patent.? No extra-axial fluid collections.? The ventricles are symmetric in size and shape.? ? Brain:? No intracranial bleeds or masses.? There is cerebral volume loss for age, with resultant ventricular and sulcal prominence.? There are periventricular and deep white matter chronic small vessel ischemic changes.? There is intracranial internal carotid artery atherosclerosis.? ? Skull and face:? Calvarium and visualized facial bones appear intact, without suspicious lesions.? ? Sinuses:? Visualized sinuses and mastoids are clear.? ? IMPRESSION:? No acute intracranial pathology.? ECG Data Attestation: I personally reviewed and interpreted this ECG as follows: Interpretation: AFib Ventricular rate 105 Normal axis Normal QRS Normal QTC No ST T wave changes MDM Narrative Medical decision making narrative: Patient is alert to person and place but does not know what year it is. He states that he feels fine. He does admit to having some weakness to his left leg. He reports no hip or knee discomfort. Patient was able to move his hip and knee when he is sitting on the bed but when he stood up he felt very weak in his left leg. His head CT is unremarkable. He is baseline AFib. He is at his baseline mental status although his shredded filler machine wrapper layer state that he has been more angry than normal. His urinalysis shows no signs of infection. His labs are unremarkable. He does have a walker and a wheelchair at home. He does not walk on his own at bedside but uses a gait belt. He was able to take some steps here in the emergency department. Was able to walk from the gurney to the door but then became tired and had to sit down. It appears that the weakness in his leg has improved somewhat. Had a long discussion with the patient's and shredded filler machine wrapper layer. No definitive admission criteria found on the exam today. Does not appear to be a CVA/TIA. and shredded filler machine wrapper layer comfortable taking the patient home we did discuss the possibility that he may need higher level of care and that they should talk with primary provider regarding this. They expressed understanding and agreement with plan. Discharge Plan Departure Patient Disposition: Home Clinical Impression: Weakness Instructions: How to Prevent Falls Activity Restrictions/Additional Instructions: Recommend that Gallo continue to take all of his medications as directed. Contact his primary doctor for a follow-up. Return to the emergency department for any new symptoms. Prescriptions: No Action cholecalciferol (vitamin D3) [Vitamin D3] 25 mcg (1,000 unit) tablet 1,000 unit PO QAM Qty: 0 atorvastatin 10 mg tablet 10 mg PO BEDTIME Qty: 90 3RF enalapril maleate 20 mg tablet 20 mg PO BID Qty: 180 0RF potassium chloride 10 mEq tablet extended release 10 meq PO BID Qty: 180 0RF furosemide 20 mg tablet 20 mg PO BID 30 Days Qty: 60 2RF omeprazole 20 mg capsule,delayed release(DR/EC) See Rx Instructions .ROUTE .COMPLEX Qty: 90 0RF Dose Instruction: TAKE 1 CAPSULE BY MOUTH EVERY MORNING Rx Instructions: TAKE 1 CAPSULE BY MOUTH EVERY MORNING trazodone 100 mg tablet 100 mg PO BEDTIME Qty: 90 1RF hydrocodone-acetaminophen 5-325 mg tablet 0.5 tab PO BEDTIME PRN (Reason: Pain (Scale Score 4-6)) Qty: 30 0RF nystatin [Nystop] 100,000 unit/gram powder 1 applic topical DAILY Qty: 60 1RF (DME) Disabled Parking Permit 0 .Route .MEDSUPPLY Qty: 1 0RF Dose Instruction: As directed Rx Instructions: I find this patient to be medically disabled and qualified for disabled parking as indicated, and signed, on the accompanying disabled parking application for individuals amlodipine 5 mg tablet 5 mg PO BID Qty: 180 3RF aspirin 325 mg tablet 81 mg PO QAM spironolactone 25 mg tablet 25 mg PO vitamin B complex Tablet 1 tab PO QPM ferrous sulfate 325 mg (65 mg iron) Tablet 325 mg PO DAILY up4 Probiotics Adult 15 billion cell Capsule 1 cap PO TID acetaminophen 325 mg tablet 650 mg PO BID PRN (Reason: Pain (Scale Score 1-3)) diphenhydramine HCl [Benadryl] 25 mg Capsule 50 mg PO BEDTIME finasteride 5 mg tablet 5 mg PO DAILY Qty: 30 0RF Rx Instructions: Needs appt for further refills. Referrals: Kal Bowers DO [Primary Care Provider] - Stand Alone Forms: Patient Portal/API
[2022-05-26 19:38] LABS: Add Manual Diff / Slide Review NO; Basophils Absolute Auto 100 /uL (0-100); Basophils Percent Auto 0.8 % (0-2); Eosinophils Absolute Auto 400 /uL (0-450); Eosinophils Percent Auto 2.9 % (2-4); Hematocrit 38.6 % (41-53); Lymphocytes Absolute Auto 1900 /uL (1100-4500); Mean Corpuscular HGB Conc 33.7 % (30-36); Mean Corpuscular Hemoglobin 30.9 PG (26-34); Mean Corpuscular Volume 91.7 fL (80-100); Monocytes Absolute Auto 1300 /uL (0-900); Monocytes Percent Auto 10.1 % (3-14); Neutrophils Absolute Auto 8800 /uL (1500-7000); Neutrophils Percent Auto 71.2 % (50-75); Platelet Count 293 X10^3/uL (150-400); Red Blood Cell Count 4.21 X10^6/uL (4.5-5.9); Red Cell Distribution Width 13.2 % (11.6-14.8); White Blood Cell Count 12.4 X10^3/uL (4.5-11.0)
[2022-05-26 19:48] LABS: BUN Creatinine Ratio 19.3 (6-22); Blood Urea Nitrogen 28 mg/dL (9-20); Calcium 9.3 mg/dL (8.4-10.2); Carbon Dioxide 23 mmol/L (22-32); Chloride 103 mmol/L (98-107); Estimated Glomerular Filt Rate 47 mL/min (>60); Glucose 141 mg/dL (80-110); HEMOLYSIS < 15 (0-50); Potassium 4.5 mmol/L (3.4-5.1); Sodium 138 mmol/L (137-145)
--- NOTE | 2022-05-26 20:30 | PC.NURSE ---
PLANOGRAPH OPERATOR NOTE during ambulation trial pt did not make it out the door before stating he needed to sit down nurse helped and brought over wheel chair
--- NOTE | 2022-05-27 18:19 | CM.SWNOTE ---
ED BLOCK PILER f/u note BLOCK PILER receives consult from ED provider Dr. Chow requesting [facility] referral for patient. It is reported that patient has left side weakness, currently has visiting [place] caregivers and resides with spouse. BLOCK PILER calls Patient's DPOA Gayatri and she reports that she called patient's PCP Dr. Bowers regarding HH referral to [facility] but she is unsure if the referral was submitted. ED provider Dr. Chow signs F2F and order for HH referral for patient. BLOCK PILER calls [facility] and leaves VM regarding referral. BLOCK PILER faxes clinicals, F2F, and order for review. Plan: [facility] referral in place for patient ARIEL Hay
== END 2022-05-26 21:26 | disposition home or self-care (01) ==
PROVIDERS: Emergency Medicine; Emergency Provider Emergency Medicine; PCP Family Medicine
DX: R53.1 Weakness (principal); R05.9 Cough, unspecified; R07.9 Chest pain, unspecified; Z79.01 Long term (current) use of anticoagulants
CPT/HCPCS: 36415; 70450; 80048; 81001; 85025; 87633; 93005; 99283; 99284

== ENCOUNTER → 2022-07-07 15:56 | Outpatient (CLI) | payer MEDICARE, SELFPAY ==
[2021-04-28 18:09] VITALS: BMI 31.6
[2021-04-29 07:20] VITALS: PULSE 86; RESP 36; O2SAT 92
[2022-07-07 19:13] LABS: Appearance Urine UA CLEAR; Bilirubin Urine UA NEGATIVE (NEGATIVE); Color Urine UA YELLOW; Glucose Urine UA NEGATIVE (Negative); Ketones Urine UA NEGATIVE (NEGATIVE); Leukocyte Esterase Urine UA 2+ (NEGATIVE); Nitrite Urine UA NEGATIVE (Negative); Occult Blood Urine UA NEGATIVE (Negative); Protein Urine UA NEGATIVE (Negative); Specific Gravity Urine UA 1.015 (1.000-1.035); Urobilinogen Urine UA 0.2 E.U./dL (0.2); pH Urine UA 5.5 (4.5-8.0)
[2022-07-07 19:39] LABS: Bacteria Urine Moderate (10-30); Culture Indicated Urine Specimen Cultured; Hyaline Casts Urine 1-5/LPF; RBC Urine None Seen (0-5/HPF); Renal Epithelial Cells Urine 0-1/HPF (0-1/HPF); Transitional Epi Cells Urine 0-1/HPF (0-5/HPF); WBC Urine 10-30/HPF (0-5/HPF)
== END ==
PROVIDERS: PCP Family Medicine; Referring Provider Family Medicine; Visit Provider Family Medicine
DX: R35.0 Frequency of micturition (principal)
CPT/HCPCS: 81001; 87086

== ENCOUNTER → 2022-08-19 12:14 | Outpatient (CLI) | payer MEDICARE, SELFPAY ==
[2021-04-28 18:09] VITALS: BMI 31.6
[2021-04-29 07:20] VITALS: PULSE 86; RESP 36; O2SAT 92
[2022-08-19 13:19] LABS: Appearance Urine UA CLEAR; Bilirubin Urine UA NEGATIVE (NEGATIVE); Color Urine UA YELLOW; Glucose Urine UA NEGATIVE (Negative); Ketones Urine UA NEGATIVE (NEGATIVE); Leukocyte Esterase Urine UA 1+ (NEGATIVE); Nitrite Urine UA POSITIVE (Negative); Occult Blood Urine UA NEGATIVE (Negative); Protein Urine UA NEGATIVE (Negative); Urobilinogen Urine UA 0.2 E.U./dL (0.2); pH Urine UA 5.5 (4.5-8.0)
[2022-08-19 13:24] LABS: RBC Urine None Seen (0-5/HPF); WBC Urine 1-5/HPF (0-5/HPF)
[2022-08-19 13:25] LABS: Bacteria Urine Many (>30); Culture Indicated Urine Specimen Cultured
== END ==
PROVIDERS: PCP Family Medicine; Referring Provider Specialist; Visit Provider Specialist
DX: N17.9 Acute kidney failure, unspecified (principal); Z87.440 Personal history of urinary (tract) infections; R33.9 Retention of urine, unspecified
CPT/HCPCS: 81001; 87077; 87086; 87186

== ENCOUNTER → 2022-09-30 13:07 | Outpatient (CLI) | payer MEDICARE, SELFPAY ==
[2021-04-28 18:09] VITALS: BMI 31.6
[2021-04-29 07:20] VITALS: PULSE 86; RESP 36; O2SAT 92
[2022-09-30 13:23] LABS: Appearance Urine UA CLEAR; Bilirubin Urine UA NEGATIVE (NEGATIVE); Color Urine UA YELLOW; Glucose Urine UA NEGATIVE (Negative); Ketones Urine UA NEGATIVE (NEGATIVE); Leukocyte Esterase Urine UA 1+ (NEGATIVE); Nitrite Urine UA POSITIVE (Negative); Occult Blood Urine UA NEGATIVE (Negative); Protein Urine UA NEGATIVE (Negative); Urobilinogen Urine UA 0.2 E.U./dL (0.2); pH Urine UA 5.5 (4.5-8.0)
[2022-09-30 13:57] LABS: Bacteria Urine Many (>30); RBC Urine None Seen (0-5/HPF); Squamous Epithelial Cell Urine 0-1 /HPF (0-5/HPF); WBC Urine 5-10/HPF (0-5/HPF)
[2022-09-30 13:58] LABS: Culture Indicated Urine Specimen Cultured
== END ==
PROVIDERS: PCP Family Medicine; Referring Provider Family Medicine; Visit Provider Family Medicine
DX: N39.0 Urinary tract infection, site not specified (principal); R33.9 Retention of urine, unspecified
CPT/HCPCS: 81001; 87077; 87086; 87186

== ENCOUNTER → 2022-11-27 12:45 | Outpatient (CLI) | payer MEDICARE, SELFPAY ==
[2021-04-28 18:09] VITALS: BMI 31.6
[2021-04-29 07:20] VITALS: PULSE 86; RESP 36; O2SAT 92
[2022-11-27 17:15] LABS: Appearance Urine UA SL CLOUDY; Bilirubin Urine UA NEGATIVE (NEGATIVE); Color Urine UA YELLOW; Glucose Urine UA NEGATIVE (Negative); Ketones Urine UA NEGATIVE (NEGATIVE); Leukocyte Esterase Urine UA 3+ (NEGATIVE); Nitrite Urine UA NEGATIVE (Negative); Occult Blood Urine UA TRACE-INTACT (Negative); Protein Urine UA NEGATIVE (Negative); Specific Gravity Urine UA 1.015 (1.000-1.035); Urobilinogen Urine UA 0.2 E.U./dL (0.2); pH Urine UA 5.5 (4.5-8.0)
[2022-11-27 17:30] LABS: Bacteria Urine Many (>30); RBC Urine 0-1/HPF (0-5/HPF); Squamous Epithelial Cell Urine 1-5 /HPF (0-5/HPF); Urine Comments Other Elements Seen:; WBC Urine >100/HPF (0-5/HPF)
[2022-11-27 17:31] LABS: Culture Indicated Urine Specimen Cultured
== END ==
PROVIDERS: PCP Family Medicine; Visit Provider Family Medicine
DX: R39.89 Other symptoms and signs involving the genitourinary system (principal); R46.89 Other symptoms and signs involving appearance and behavior
CPT/HCPCS: 81001; 87077; 87086; 87186

== ENCOUNTER → 2022-11-27 12:58 | Outpatient (ROUT) | payer MEDICARE, SELFPAY ==
[2021-04-28 18:09] VITALS: BMI 31.6
[2021-04-29 07:20] VITALS: PULSE 86; RESP 36; O2SAT 92
== END ==
PROVIDERS: PCP Family Medicine; Visit Provider Family Medicine
DX: R39.89 Other symptoms and signs involving the genitourinary system (principal); R46.89 Other symptoms and signs involving appearance and behavior
CPT/HCPCS: 87077; 87086; 87186

== ENCOUNTER → 2022-12-18 12:19 | Outpatient (CLI) | payer MEDICARE, SELFPAY ==
[2021-04-28 18:09] VITALS: BMI 31.6
[2021-04-29 07:20] VITALS: PULSE 86; RESP 36; O2SAT 92
[2022-12-18 12:53] LABS: Appearance Urine UA CLOUDY; Bilirubin Urine UA NEGATIVE (NEGATIVE); Color Urine UA YELLOW; Glucose Urine UA NEGATIVE (Negative); Ketones Urine UA TRACE (NEGATIVE); Leukocyte Esterase Urine UA 2+ (NEGATIVE); Nitrite Urine UA NEGATIVE (Negative); Occult Blood Urine UA 1+ (Negative); Protein Urine UA TRACE (Negative); Specific Gravity Urine UA 1.015 (1.000-1.035); pH Urine UA 5.5 (4.5-8.0)
[2022-12-18 13:16] LABS: Bacteria Urine Few (2-10); RBC Urine 1-5/HPF (0-5/HPF); Squamous Epithelial Cell Urine 0-1 /HPF (0-5/HPF); WBC Urine 10-30/HPF (0-5/HPF)
[2022-12-18 13:17] LABS: Calcium Oxalate Crystals Urine Many; Culture Indicated Urine Cult Not Indicated; Hyaline Casts Urine 0-1/LPF
== END ==
PROVIDERS: PCP Family Medicine; Referring Provider Family Medicine; Visit Provider Family Medicine
DX: R33.9 Retention of urine, unspecified (principal); Z87.440 Personal history of urinary (tract) infections
CPT/HCPCS: 81001; 87077; 87086; 87186

== ENCOUNTER 2022-12-29 21:11 | Emergency (ER) | payer MEDICARE, SELFPAY ==
[2021-04-28 18:09] VITALS: BMI 31.6
[2021-04-29 07:20] VITALS: PULSE 86; RESP 36; O2SAT 92
[2022-12-29] VITALS (7 sets, daily range): BP systolic 119–150; BP diastolic 52–91; PULSE 79–92; RESP 18–41; TEMP 36.9; O2SAT 94–99; BMI 31.5
--- NOTE | 2022-12-29 21:28 | DI.RAD.S_ITS ---
PROCEDURE: XR CHEST 1V INDICATIONS: Shortness of breath TECHNIQUE: One view of the chest was acquired. COMPARISON: [facility], CR, XR CHEST 1V, 04/28/2021, 10:35. FINDINGS: Surgical changes and devices: None. Lungs and pleura: There is pulmonary vascular congestion. Small bilateral pleural effusion is seen. Ill-defined airspace opacities are noted in bilateral mid to lower lung matamoros. No gross pneumothorax. Mediastinum: Mediastinal contours appear normal. Heart size is enlarged. Bones and chest wall: No suspicious bony lesions. Overlying soft tissues appear unremarkable. IMPRESSION: Finding is suggestive of CHF. Superimposed bilateral lower lobe infiltrate/atelectasis cannot be excluded. Small bilateral pleural effusion. No pneumothorax. Dictated by: Denis Escoto M.D. on 12/29/2022 at 22:01 Approved by: Denis Escoto M.D. on 12/29/2022 at 22:01
[2022-12-29 21:39] LABS: INR 1.3 (0.9-1.3); Prothrombin Time 14.5 SECONDS (10.1-12.7)
[2022-12-29 21:40] LABS: Add Manual Diff / Slide Review NO; Basophils Absolute Auto 100 /uL (0-100); Basophils Percent Auto 0.9 % (0-2); Eosinophils Absolute Auto 900 /uL (0-450); Eosinophils Percent Auto 6.3 % (2-4); Hematocrit 35.5 % (41-53); Hemoglobin 11.6 g/dL (13.5-17.5); Lymphocytes Absolute Auto 1100 /uL (1100-4500); Lymphocytes Percent Auto 7.5 % (25-40); Mean Corpuscular HGB Conc 32.6 % (30-36); Mean Corpuscular Hemoglobin 30.4 PG (26-34); Mean Corpuscular Volume 93.2 fL (80-100); Monocytes Absolute Auto 1400 /uL (0-900); Monocytes Percent Auto 9.6 % (3-14); Neutrophils Absolute Auto 11100 /uL (1500-7000); Neutrophils Percent Auto 75.7 % (50-75); Platelet Count 292 X10^3/uL (150-400); Red Blood Cell Count 3.81 X10^6/uL (4.5-5.9); Red Cell Distribution Width 13.3 % (11.6-14.8); White Blood Cell Count 14.7 X10^3/uL (4.5-11.0)
[2022-12-29 21:43] LABS: Lactate (Lactic Acid) 1.4 mmol/L (0.7-2.1)
[2022-12-29 21:44] LABS: Alanine Aminotransferase 19 IU/L (<50); Albumin 3.9 g/dL (3.5-5.0); Albumin Globulin Ratio 1.3 (1.0-2.8); Alkaline Phosphatase 82 U/L (38-126); Aspartate Aminotransferase 29 IU/L (17-59); BUN Creatinine Ratio 16.4 (6-22); Bilirubin Total 0.5 mg/dL (0.2-1.3); Blood Urea Nitrogen 23 mg/dL (9-20); Calcium 9.6 mg/dL (8.4-10.2); Carbon Dioxide 25 mmol/L (22-32); Chloride 102 mmol/L (98-107); Estimated Glomerular Filt Rate 48 mL/min (>60); Glucose 141 mg/dL (80-110); Potassium 4.9 mmol/L (3.4-5.1); Sodium 136 mmol/L (137-145); Total Protein 6.9 g/dL (6.3-8.2)
[2022-12-29 21:46] LABS: HEMOLYSIS 67 (0-50)
[2022-12-29 21:56] LABS: NT-proBNP (BNP-Adult 18+) 1910 pg/mL (<450); Troponin I < 0.012 ng/mL (0.01-0.034)
[2022-12-29] MEDS: ALBUTEROL/IPRATROPIUM 3 ML AMPUL INH (22:32)
--- NOTE | 2022-12-29 22:51 | RT ---
PT was unable to perform peak flow maneuver
[2022-12-29 23:39] LABS: COVID19 -Nasal RAPID Negative (Negative)
[2022-12-30] MEDS: FUROSEMIDE 60 MG in SODIUM CHLORIDE 0.9% 50 ML 112 MG IV (00:09)
[2022-12-30 00:30] VITALS: BP 152/97; PULSE 92; RESP 41; O2SAT 94
[2022-12-30 01:00] VITALS: BP 155/73; PULSE 88; RESP 40; O2SAT 94
--- NOTE | 2022-12-30 01:58 | ED_ITS ---
HPI - SOB/Dyspnea General Chief Complaint: Shortness of Breath/Dyspnea Stated Complaint: SOB Time Seen by Provider: 12/29/22 22:12 Source: patient, family and EMS Mode of arrival: EMS History of Present Illness HPI Narrative: 87-year-old female with history of of atrial fibrillation on Eliquis, CHF, hypertension dyslipidemia, diabetes, bladder neck contracture, prior lobectomy remotely for lung disease, dementia, benign essential tremor who presents with complaint of shortness of breath since yesterday. Patient family denies any fevers or chills. No chest pain or pressure, no tightness. No nausea or vomiting, no diarrhea constipation. They have noted some increasing swelling over several days of the lower extremities. Patient does have some reported memory issues has not had significant changes in mentation. Cough cold or congestive symptoms. Per EMS patient was wheezy received a neb, was never hypoxic patient did feel improved. Patient family state he does not normally use any sort of nebulizer. They do know he is on Lasix skin COVID 20 mg. He is not had any recent changes to his medications. Patient family state lobectomy is his only prior surgery this was several decades ago. No known drug allergies. No tobacco, alcohol or illicit. Patient lives with family at home. Dr. Bowers is his primary care. Dr. Gorman is his exercise instruct although he is not following regularly with them currently. Related Data Home Medications Medication Instructions Recorded Confirmed cholecalciferol (vitamin D3) 25 1,000 unit PO QAM #0 tabs 06/30/19 05/26/22 mcg (1,000 unit) tablet (Vitamin D3) vitamin B complex 1 tab PO QPM 04/22/20 05/26/22 Lactobacillus 1 cap PO TID 04/29/21 05/26/22 acidophil,plantar-Bifido no.7 15 billion cell capsule (up4 Probiotics Adult) acetaminophen 325 mg tablet 650 mg PO BID PRN Pain (Scale 04/29/21 05/26/22 Score 1-3) diphenhydramine HCl 25 mg capsule 50 mg PO BEDTIME 04/29/21 05/26/22 (Benadryl) ferrous sulfate 325 mg (65 mg 325 mg PO DAILY 04/29/21 05/26/22 iron) tablet aspirin 325 mg tablet 81 mg PO QAM 06/12/21 05/26/22 apixaban 2.5 mg tablet (Eliquis) 2.5 mg PO BID 11/19/22 Previous Rx's Medication Instructions Recorded Disabled Parking Permit #1 ea 07/26/18 nystatin 100,000 unit/gram topical 1 applic topical DAILY #60 grams 04/22/22 powder (Nystop) citalopram 10 mg tablet 10 mg PO BEDTIME #30 tabs 06/12/22 omeprazole 20 mg capsule,delayed See Rx Instructions .Route 06/16/22 release .COMPLEX #90 caps atorvastatin 10 mg tablet 10 mg PO BEDTIME #90 tabs 07/03/22 finasteride 5 mg tablet 5 mg PO DAILY #90 tabs 07/08/22 furosemide 20 mg tablet See Rx Instructions .Route 07/21/22 .COMPLEX #180 tabs amlodipine 5 mg tablet 5 mg PO BID #180 tabs 08/04/22 spironolactone 25 mg tablet 25 mg PO DAILY #90 tabs 08/04/22 potassium chloride 10 mEq 10 meq PO DAILY #90 tabs 09/25/22 tablet,extended release trazodone 100 mg tablet 100 mg PO BEDTIME #90 tabs 09/25/22 hydrocodone 5 mg-acetaminophen 325 0.5 tab PO BEDTIME PRN Pain (Scale 11/13/22 mg tablet Score 4-6) #30 tabs ciprofloxacin HCl 250 mg tablet 250 mg PO BID #14 tabs 11/27/22 enalapril maleate 20 mg tablet 20 mg PO BID #180 tabs 12/14/22 furosemide 40 mg tablet (Lasix) 40 mg PO DAILY #5 tabs 12/30/22 Allergies Allergy/AdvReac Type Severity Reaction Status Date / Time clindamycin AdvReac Severe C.diff Verified 09/25/22 13:51 Colitis 04/11 Review of Systems Review of Systems ROS Unobtainable: All systems reviewed & are unremarkable except as noted in HPI and below Patient History Medical History Agitation due to dementia Fracture of femoral neck, right Bladder neck contracture Afib Low back pain History of UTI Arthritis Anemia Frequent falls Benign prostatic hyperplasia Clostridioides difficile infection Osteoarthritis LFT elevation Urinary retention Diabetes 1.5, managed as type 2 Paroxysmal atrial fibrillation Tremor Chronic anemia Mixed hyperlipidemia Essential hypertension Surgical History History of surgery (11/02/20) Hx of transurethral resection of prostate Hx of bilateral cataract extraction History of lobectomy of lung History of resection of rib Status post appendectomy Family History Father Hypertension Brother Atrial fibrillation Mother No significant medical problems Social History marital status: number of children: 3 household members: spouse occupational status: previously employed Smoking Status: Former smoker Tobacco: How many years used: 20 alcohol intake: never substance use type: does not use caffeine: Yes Smoking Status: Former smoker alcohol intake frequency: 0-2 drinks per day Substance Use Type: does not use Exam Narrative Exam Narrative: GENERAL: Alert and oriented self, patient thought he was at the hospital in [place] but does know he is in the emergency department, answers most questions appropriately in terms of past medical history. HEENT: Head normocephalic, atraumatic, EOMI, pupils reactive, face symmetric, moist mucous membranes NECK: Supple, full range of motion CARDIOVASCULAR: Regular rate and rhythm without murmurs, rubs or gallops. JVD bilaterally. Patient has 2+ edema bilateral lower extremities. RESPIRATORY: Breath sounds equal bilaterally, no wheezes rales or rhonchi. No tachypnea. No accessory muscle use. Speaks in full sentences. ABDOMEN: Soft, nontender. Normoactive bowel sounds all 4 quadrants. No guarding or rebound, rigidity, no mass : No CVA tenderness EXTREMITIES: Normal range of motion, no clubbing or edema. Neurovascularly intact NEUROLOGICAL: Cranial nerves II through XII grossly intact. Moving all extremities SKIN: Warm, dry, no petechiae, no rashes or lesions. Initial Vital Signs Initial Vital Signs: Vital Signs Temperature 98.5 F 12/29/22 21:23 Pulse Rate 92 H 12/29/22 21:23 Respiratory Rate 35 H 12/29/22 21:23 Blood Pressure 119/52 L 12/29/22 21:23 Pulse Oximetry 96 12/29/22 21:23 Oxygen Delivery Method Room Air 12/29/22 21:23 Course Orders Ordered: ED Orders 12/29/22 21:25 Complete Blood Count AUTO DIFF Stat Comprehensive Metabolic Panel Stat Lactate (Lactic Acid) Stat NT-proBNP (BNP-Adult 18+) Stat Prothrombin Time INR Stat Troponin I Stat 12/29/22 21:28 XR chest 1V Stat EKG-12 Lead Stat Measure peak expiratory flow ONCE RT Consult Eval and Treat NOW 12/29/22 23:13 COVID19 -Nasal RAPID Stat 12/30/22 01:30 EKG-12 Lead Stat 12/30/22 01:39 Trop I [Troponin I] Stat Discontinued Medications Hydrocodone Bitart/Acetaminophen (Hydrocodone/Acet 5/325 Tablet) 0.5 tab PO NOW ONE Stop: 12/30/22 02:10 Last Admin: 12/30/22 02:13 Dose: 0.5 tab Documented By: Albuterol (Albuterol Hfa Prepack) 1 box MISC SEEINSTR ONE Stop: 12/30/22 02:29 Last Admin: 12/30/22 02:49 Dose: 1 box Documented By: Albuterol/Ipratropium (Albuterol/Ipratropium 3 Ml Ampul) 3 ml INH NOW ONE Stop: 12/29/22 22:28 Last Admin: 12/29/22 22:32 Dose: 3 ml Documented By: EVON Furosemide 60 mg/ Sodium (Chloride) 56 mls @ 112 mls/hr IV NOW ONE Stop: 12/29/22 23:44 Last Infusion: 12/30/22 00:47 Dose: Infused Documented By: Admin: 12/30/22 00:09 Dose: 112 mls/hr Documented By: TUTU Vital Signs Vital signs: Vital Signs - 8 hr 12/29/22 22:00 12/29/22 22:00 12/29/22 22:00 Pulse Rate 88 88 Respiratory Rate 41 H Blood Pressure 134/91 H 134/91 H Pulse Oximetry 95 95 Oxygen Delivery Method Room Air Room Air 12/29/22 22:33 12/29/22 23:00 12/29/22 23:30 Pulse Rate 79 86 Respiratory Rate 18 Blood Pressure 136/79 149/70 H Pulse Oximetry 99 94 94 Oxygen Delivery Method Room Air Room Air Room Air 12/30/22 00:30 12/30/22 01:00 12/30/22 02:10 Pulse Rate 92 H 88 87 Respiratory Rate 41 H 40 H 30 H Blood Pressure 152/97 H 155/73 H 163/91 H Pulse Oximetry 94 94 95 Oxygen Delivery Method Room Air Room Air Room Air MDM - SOB/Dyspnea Lab Data 12/29/22 21:25 12/29/22 21:25 Labs: Lab Results 12/29/22 12/29/22 12/30/22 Range/Units 21:25 23:13 01:39 WBC 14.7 H (4.5-11.0) X10^3/uL RBC 3.81 L (4.5-5.9) X10^6/uL Hgb 11.6 L (13.5-17.5) g/dL Hct 35.5 L (41-53) % MCV 93.2 (80-100) fL MCH 30.4 (26-34) PG MCHC 32.6 (30-36) % RDW 13.3 (11.6-14.8) % Plt Count 292 (150-400) X10^3/uL Neut % (Auto) 75.7 H (50-75) % Lymph % (Auto) 7.5 L (25-40) % [place] % (Auto) 9.6 (3-14) % Eos % (Auto) 6.3 H (2-4) % Baso % (Auto) 0.9 (0-2) % Neut # (Auto) 93901 H (4786-4917) /uL Lymph # (Auto) 1100 (6271-1362) /uL [place] # (Auto) 1400 H (0-900) /uL Eos # (Auto) 900 H (0-450) /uL Baso # (Auto) 100 (0-100) /uL PT 14.5 H (10.1-12.7) SECONDS INR 1.3 (0.9-1.3) Sodium 136 L (137-145) mmol/L Potassium 4.9 (3.4-5.1) mmol/L Chloride 102 (98-107) mmol/L Carbon Dioxide 25 (22-32) mmol/L BUN 23 H (9-20) mg/dL Creatinine 1.40 H (0.66-1.25) mg/dL Estimated GFR 48 L (>60) mL/min BUN/Creatinine Ratio 16.4 (6-22) Glucose 141 H (80-110) mg/dL Lactate 1.4 (0.7-2.1) mmol/L Calcium 9.6 (8.4-10.2) mg/dL Total Bilirubin 0.5 (0.2-1.3) mg/dL AST 29 (17-59) IU/L ALT 19 (<50) IU/L Alkaline Phosphatase 82 (38-126) U/L Troponin I < 0.012 < 0.012 (0.01-0.034) ng/mL NT-Pro-B Natriuret Pep 1910 H (<450) pg/mL Total Protein 6.9 (6.3-8.2) g/dL Albumin 3.9 (3.5-5.0) g/dL Globulin 3.0 (1.7-4.1) g/dL Albumin/Globulin Ratio 1.3 (1.0-2.8) SARS-CoV-2 (PCR) Negative (Negative) Imaging Data Chest x-ray: Radiologist's Impression: [address] [address] XRay Report Signed Patient: Gallo Moore MR#: [id number] : 1935 Acct:[id number] Age/Sex: 87 / M Date of Service: 12/29/22 Loc: ED Accession Number: [id number] Procedure: XR chest 1V Ordering Provider: Dominga Andino D.O. PROCEDURE: XR CHEST 1V INDICATIONS: Shortness of breath TECHNIQUE: One view of the chest was acquired. COMPARISON: [facility], , XR CHEST 1V, 04/28/2021, 10:35. FINDINGS: Surgical changes and devices: None. Lungs and pleura: There is pulmonary vascular congestion. Small bilateral pleural effusion is seen. Ill-defined airspace opacities are noted in bilateral mid to lower lung matamoros. No gross pneumothorax. Mediastinum: Mediastinal contours appear normal. Heart size is enlarged. Bones and chest wall: No suspicious bony lesions. Overlying soft tissues appear unremarkable. IMPRESSION: Finding is suggestive of CHF. Superimposed bilateral lower lobe infiltrate/atelectasis cannot be excluded. Small bilateral pleural effusion. No pneumothorax. Dictated by: Denis Escoto M.D. on 12/29/2022 at 22:01 Approved by: Denis Escoto M.D. on 12/29/2022 at 22:01 ECG Data Attestation: I personally reviewed and interpreted this ECG as follows: Prior ECG tracings: available for review Interpretation: Atrial fibrillation rate 87 QRS 86 QTC [address] No acute ST elevation or depression appreciated. Nonspecific change. Patient has prior from 05/26/22 which appears similar. EKG 2. AFib rate of 76 QRS 82 QTC [address] No acute ST elevation or depression noted. MDM Narrative Medical decision making narrative: Three 7-year-old male with no dementia, known congestive heart failure, hypertension prior lobectomy 25 years ago on Eliquis daily for atrial fibrillation and possible prior stroke. Patient has AFib but appears to be rate controlled. He received neb treatment EN route, had an additional neb treatment here patient felt improved but was never hypoxic. He does have clinical symptoms of congestive heart failure and family notes worsening swelling of the lower extremities. Does not have any known history of COPD, does not have any other recent infectious changes, chest x-ray shows changes most consistent with pulmonary edema. Patient does have a white count of 14.7, hemoglobin of 11 was in the 13 range in May of 2022 slight leftward shift with normal platelets. INR is appropriate, sodium is 136 creatinine is 1.40 appears at baseline patient is going back to March 2022 BUN 23 with normal potassium glucose of 141 normal lactate LFTs negative troponin x2 with a BNP of 1910 was 630 in March of 2022. Patient was given a dose of Lasix here in the department he continues to feel improved. Has never been hypoxic. Patient is having some back pain sitting on the gurney here in the department and family states he normally takes a half tablet of [place] or Vicodin in the evenings. Home dose was given here in the department. Family requested albuterol inhaler he has felt it is helpful although I do not have any suspicion for significant reactive airway disease at this time but was given. Also had Lasix increased to 60 mg in the morning from 20 mg to continue 20 mg in the afternoon. Plan for follow up with primary care and return precautions if worsening shortly. Discharge Plan Departure Patient Disposition: Home Clinical Impression: Congestive heart failure Qualifiers: Heart failure chronicity: acute on chronic Instructions: DI for Heart Failure Activity Restrictions/Additional Instructions: Please follow-up with your primary care or cardiology team. You appear to be having some worsening of congestive heart failure today. Increase your furosemide or Lasix to 60 mg in the morning (40mg x your usual 20mg) and continue with 20 mg in the afternoon. Prescription for additional Lasix is included. [facility] [place]. Please return for fevers new or worsening chest pain shortness of breath, lightheadedness or passing out increasing swelling of extremities, vomiting, difficulty with bowel movements or other new or concerning changes. Prescriptions: New furosemide [Lasix] 40 mg tablet 40 mg PO DAILY Qty: 5 0RF Rx Instructions: Take 60 mg in the morning (40mg +20mg) in the am and your usual 20mg in the afternoon x 5 days. No Action cholecalciferol (vitamin D3) [Vitamin D3] 25 mcg (1,000 unit) tablet 1,000 unit PO QAM Qty: 0 nystatin [Nystop] 100,000 unit/gram powder 1 applic topical DAILY Qty: 60 1RF omeprazole 20 mg capsule,delayed release(DR/EC) See Rx Instructions .ROUTE .COMPLEX Qty: 90 2RF Dose Instruction: TAKE 1 CAPSULE BY MOUTH EVERY MORNING Rx Instructions: TAKE 1 CAPSULE BY MOUTH EVERY MORNING atorvastatin 10 mg tablet 10 mg PO BEDTIME Qty: 90 3RF finasteride 5 mg tablet 5 mg PO DAILY Qty: 90 0RF Rx Instructions: Future refill should be requested from Primary Care Physician per Dr. Jaffe. furosemide 20 mg tablet See Rx Instructions .ROUTE .COMPLEX Qty: 180 1RF Dose Instruction: TAKE 1 TABLET BY MOUTH TWICE DAILY Rx Instructions: TAKE 1 TABLET BY MOUTH TWICE DAILY amlodipine 5 mg tablet 5 mg PO BID Qty: 180 3RF spironolactone 25 mg tablet 25 mg PO DAILY Qty: 90 1RF hydrocodone-acetaminophen 5-325 mg tablet 0.5 tab PO BEDTIME PRN (Reason: Pain (Scale Score 4-6)) Qty: 30 0RF Eliquis 2.5 mg tablet 2.5 mg PO BID ciprofloxacin HCl 250 mg tablet 250 mg PO BID Qty: 14 0RF Rx Instructions: take BID for 7 days enalapril maleate 20 mg tablet 20 mg PO BID Qty: 180 1RF citalopram 10 mg tablet 10 mg PO BEDTIME Qty: 30 2RF potassium chloride 10 mEq tablet extended release 10 meq PO DAILY Qty: 90 3RF trazodone 100 mg tablet 100 mg PO BEDTIME Qty: 90 3RF (DME) Disabled Parking Permit 0 .Route .MEDSUPPLY Qty: 1 0RF Dose Instruction: As directed Rx Instructions: I find this patient to be medically disabled and qualified for disabled parking as indicated, and signed, on the accompanying disabled parking application for individuals aspirin 325 mg tablet 81 mg PO QAM vitamin B complex Tablet 1 tab PO QPM ferrous sulfate 325 mg (65 mg iron) Tablet 325 mg PO DAILY up4 Probiotics Adult 15 billion cell Capsule 1 cap PO TID acetaminophen 325 mg tablet 650 mg PO BID PRN (Reason: Pain (Scale Score 1-3)) diphenhydramine HCl [Benadryl] 25 mg Capsule 50 mg PO BEDTIME Referrals: Kal Bowers DO [Primary Care Provider] - Stand Alone Forms: Patient Portal/API
[2022-12-30 02:08] LABS: Troponin I < 0.012 ng/mL (0.01-0.034)
[2022-12-30 02:10] VITALS: BP 163/91; PULSE 87; RESP 30; O2SAT 95
[2022-12-30] MEDS: HYDROCODONE/ACET 5/325 TABLET 0.5 TAB PO (02:13)
[2022-12-30] MEDS: ALBUTEROL HFA PREPACK 1 BOX MISC (02:49)
== END 2022-12-30 02:51 | disposition home or self-care (01) ==
PROVIDERS: Emergency Provider Emergency Medicine; PCP Family Medicine
DX: I50.9 Heart failure, unspecified (principal); Z79.01 Long term (current) use of anticoagulants; Z79.899 Other long term (current) drug therapy; Z20.822 Contact with and (suspected) exposure to COVID-19
CPT/HCPCS: 36415; 71045; 80053; 83605; 83880; 84484; 85025; 85610; 87635; 93005; 94640; 96365; 99284; C9803; J1940

== ENCOUNTER 2023-01-26 09:27 | Emergency (ER) | payer MEDICARE, SELFPAY ==
[2021-04-28 18:09] VITALS: BMI 31.6
[2021-04-29 07:20] VITALS: PULSE 86; RESP 36; O2SAT 92
[2023-01-26] VITALS (9 sets, daily range): BP systolic 124–137; BP diastolic 58–65; PULSE 78–89; RESP 18; TEMP 36.5–37.2; O2SAT 96–98
--- NOTE | 2023-01-26 09:37 | DI.RAD.S_ITS ---
PROCEDURE: XR SHOULDER LT MIN 2V INDICATIONS: GLF/pain TECHNIQUE: 3 views of the shoulder were acquired. COMPARISON: None. FINDINGS: Bones: Limited views. [id number] displacement of the humeral neck fracture with comminution. Soft tissues: Glenohumeral effusion. IMPRESSION: Proximal humerus fracture. Dictated by: Trip Howard M.D. on 01/26/2023 at 10:05 Approved by: Trip Howard M.D. on 01/26/2023 at 10:06
--- NOTE | 2023-01-26 09:37 | DI.RAD.S_ITS ---
PROCEDURE: XR ELBOW LT 2V INDICATIONS: GLF/pain TECHNIQUE: 3 views of the elbow were acquired. COMPARISON: None. FINDINGS: Bones: Limited positioning. Suspected minimally displaced radial head/neck fracture. Soft tissues: Small elbow joint effusion. Tiny radiodensity at the proximal forearm, possibly on the skin. IMPRESSION: Small elbow joint effusion, likely secondary to a minimally displaced radial head/neck fracture. Tiny radiodensity at the proximal forearm, possibly on the skin. Dictated by: Trip Howard M.D. on 01/26/2023 at 10:03 Approved by: Trip Howard M.D. on 01/26/2023 at 10:05
--- NOTE | 2023-01-26 09:39 | DI.CT.S_ITS ---
P a ROCEDURE: CT CERVICAL SPINE WO CON INDICATIONS: GLF/thinners TECHNIQUE: Noncontrast 3 mm thick sections acquired from the skull base to the T4 level. Sagittal and coronal reformats were then constructed. For radiation dose reduction, the following was used: automated exposure control, adjustment of mA and/or kV according to patient size. COMPARISON: [facility], CT, CT CERVICAL SPINE WO CON, 03/06/2021, 17:04. FINDINGS: Image quality: Excellent. Bones: No fractures or dislocations. Visualized superior ribs are intact. Diffuse spondylitic change. Multilevel facet arthropathy and uncovertebral joint hypertrophy with multilevel bony foraminal narrowing. Probable canal stenosis at C3-C4 and C4-C5. Soft tissues: Prevertebral soft tissues are normal in thickness. No paravertebral hematomas. No apical pneumothoraces. IMPRESSION: 1. No acute cervical fracture or dislocation. 2. Cervical spondylosis. Dictated by: Jeremy Bob M.D. on 01/26/2023 at 10:22 Approved by: Jeremy Bob M.D. on 01/26/2023 at 10:24
--- NOTE | 2023-01-26 09:39 | DI.CT.S_ITS ---
PROCEDURE: CT HEAD/BRAIN WO CON INDICATIONS: GLF/thinners TECHNIQUE: Noncontrast 4.5 mm thick angled axial sections acquired from the foramen magnum to the vertex, with coronal and sagittal reformats. For radiation dose reduction, the following was used: automated exposure control, adjustment of mA and/or kV according to patient size. COMPARISON: [facility], CT, CT HEAD/BRAIN WO CON, 05/26/2022, 14:42. FINDINGS: Image quality: Excellent. CSF spaces: Basal cisterns are patent. No extra-axial fluid collections. The ventricles are symmetric in size and shape. Brain: No intracranial bleeds or masses. There is cerebral volume loss for age, with resultant ventricular and sulcal prominence. There are severe periventricular and deep white matter chronic small vessel ischemic changes. There is intracranial internal carotid artery atherosclerosis. Skull and face: Calvarium and visualized facial bones appear intact, without suspicious lesions. Sinuses: Visualized sinuses and mastoids are clear. IMPRESSION: 1. No acute intracranial process. 2. Age-related volume loss and severe small vessel ischemic change. Dictated by: Jeremy Bob M.D. on 01/26/2023 at 10:21 Approved by: Jeremy Bob M.D. on 01/26/2023 at 10:22
--- NOTE | 2023-01-26 12:55 | ED_ITS ---
HPI - Fall <Nuzhat Clarke PA-C - Last Filed: 01/26/23 13:39> General Chief Complaint: Fall Stated Complaint: Left arm pain, GLF x2 days Time Seen by Provider: 01/26/23 12:06 Source: patient and EMS Mode of arrival: EMS History of Present Illness HPI Narrative: 87-year-old male with past medical history diabetes, paroxysmal AFib, anemia, hyperlipidemia, hypertension, CHF, BPH, dementia brought into the ED status post a fall sustained last night. Patient usually has a caregiver present, however last night he suffered a fall when he tried to get up from bed and walk, sustaining a fall. Patient was found on the floor. Unclear if head injury or LOC. Patient has dementia, therefore unable to obtain direct history from the patient. Patient's and caregiver provided history. Patient is on Eliquis. Related Data Home Medications Medication Instructions Recorded Confirmed cholecalciferol (vitamin D3) 25 1,000 unit PO QAM #0 tabs 06/30/19 01/26/23 mcg (1,000 unit) tablet (Vitamin D3) vitamin B complex 1 tab PO QPM 04/22/20 01/26/23 Lactobacillus 1 cap PO TID 04/29/21 01/26/23 acidophil,plantar-Bifido no.7 15 billion cell capsule (up4 Probiotics Adult) acetaminophen 325 mg tablet 650 mg PO BID PRN Pain (Scale 04/29/21 01/26/23 Score 1-3) ferrous sulfate 325 mg (65 mg 325 mg PO DAILY 04/29/21 01/26/23 iron) tablet apixaban 2.5 mg tablet (Eliquis) 2.5 mg PO BID 11/19/22 01/26/23 amlodipine 5 mg tablet 5 mg PO BID 01/26/23 01/26/23 cranberry extract BID 01/26/23 vitamin E 01/26/23 Previous Rx's Medication Instructions Recorded Disabled Parking Permit #1 ea 07/26/18 nystatin 100,000 unit/gram topical 1 applic topical DAILY #60 grams 04/22/22 powder (Nystop) omeprazole 20 mg capsule,delayed See Rx Instructions .Route 06/16/22 release .COMPLEX #90 caps atorvastatin 10 mg tablet 10 mg PO BEDTIME #90 tabs 07/03/22 finasteride 5 mg tablet 5 mg PO DAILY #90 tabs 07/08/22 spironolactone 25 mg tablet 25 mg PO DAILY #90 tabs 08/04/22 potassium chloride 10 mEq 10 meq PO DAILY #90 tabs 09/25/22 tablet,extended release trazodone 100 mg tablet 100 mg PO BEDTIME #90 tabs 09/25/22 enalapril maleate 20 mg tablet 20 mg PO BID #180 tabs 12/14/22 furosemide 20 mg tablet 20 mg PO BID #180 tabs 01/13/23 hydrocodone 5 mg-acetaminophen 325 1 tab PO BID PRN Pain (Scale Score 01/28/23 mg tablet 4-6) #60 tabs paroxetine HCl 10 mg tablet 10 mg PO .QHS #30 tabs 01/28/23 Allergies Allergy/AdvReac Type Severity Reaction Status Date / Time clindamycin AdvReac Severe C.diff Verified 01/26/23 09:44 Colitis 04/11 Review of Systems <Nuzhat Clarke PA-C - Last Filed: 01/26/23 13:39> Review of Systems ROS Unobtainable: Unobtainable due to mental condition Constitutional Constitutional: Denies chills, Denies fatigue, Denies fever(s), Denies frequent falls, Denies lethargy and Denies weakness Eyes Eyes: Denies change in vision, Denies eye discharge, Denies irritation and Denies loss of vision ENT Ears, Nose, Mouth, and Throat: Denies change in voice, Denies dizziness, Denies neck pain, Denies sore throat and Denies throat swelling Cardiovascular Cardiovascular: Denies chest pain, Denies irregular heart rhythm, Denies lightheadedness, Denies palpitations, Denies dyspnea, Denies dyspnea on exertion and Denies orthopnea Respiratory Respiratory: Denies cough, Denies dyspnea, Denies dyspnea on exertion and Denies wheezing Gastrointestinal Gastrointestinal: Denies abdominal pain, Denies change in bowel habits, Denies diarrhea, Denies nausea and Denies vomiting Musculoskeletal Musculoskeletal: Denies neck pain and Denies numbness Integumentary/Breasts Skin/Breast: Denies pruritus, Denies erythema, Denies rash and Denies wounds Neurologic Neurologic: Denies behavioral changes, Denies confusion, Denies dizziness, Denies frequent falls, Denies loss of vision, Denies numbness and Denies weakness Psychiatric Psychiatric: Denies anxiety, Denies behavioral changes, Denies confusion, Denies depression, Denies homicidal ideation and Denies suicidal ideation Endocrine Endocrine: Denies fatigue, Denies flushing and Denies palpitations Hematologic/Lymphatic Hematologic/Lymphatic: Denies easy bruising Allergic/Immunologic Allergic/Immunologic: Denies urticaria, Denies throat swelling and Denies wheezing Patient History <uNzhat Clarke PA-C - Last Filed: 01/26/23 13:39> Medical History Agitation due to dementia Fracture of femoral neck, right Bladder neck contracture Afib Low back pain History of UTI Arthritis Anemia Frequent falls Benign prostatic hyperplasia Clostridioides difficile infection Osteoarthritis LFT elevation Urinary retention Diabetes 1.5, managed as type 2 Paroxysmal atrial fibrillation Tremor Chronic anemia Mixed hyperlipidemia Essential hypertension Surgical History History of surgery (11/02/20) Hx of transurethral resection of prostate Hx of bilateral cataract extraction History of lobectomy of lung History of resection of rib Status post appendectomy Family History Father Hypertension Brother Atrial fibrillation Mother No significant medical problems Social History marital status: number of children: 3 household members: spouse occupational status: previously employed Smoking Status: Former smoker Tobacco: How many years used: 20 alcohol intake: never substance use type: does not use caffeine: Yes Smoking Status: Former smoker alcohol intake frequency: 0-2 drinks per day Substance Use Type: does not use Exam <Nuzhat Clarke PA-C - Last Filed: 01/26/23 13:39> Narrative Exam Narrative: Const General:?cooperative, healthy appearing and comfortable [facility] Head:?normal to inspection, no injuries noted Ears:?hearing grossly normal bilaterally Nose:?external nose normal Face and sinus:?normal facial exam and sinuses nontender Mouth:?oral mucosae normal Throat:?posterior oropharynx normal Eyes General:?appearance normal, both eyes and all related structures Neck Neck:?normal visual inspection and no lymphadenopathy noted Resp Effort & Inspection:?normal respiratory effort Auscultation:?clear to auscultation bilaterally Cardio Rate:?regular rate Rhythm:?regular rhythm Musculoskeletal There is some bruising to the left upper arm, tenderness to palpation. Neuro General:?patient alert, patient awake and patient oriented x3 Initial Vital Signs Initial Vital Signs: Vital Signs Temperature 97.7 F 01/26/23 09:34 Pulse Rate 87 01/26/23 09:34 Respiratory Rate 18 01/26/23 09:34 Blood Pressure 137/65 01/26/23 09:34 Pulse Oximetry 98 01/26/23 09:34 Oxygen Delivery Method Room Air 01/26/23 09:34 <DO Balwinder Martinez Last Filed: 02/03/23 00:21> Initial Vital Signs Initial Vital Signs: Vital Signs Temperature 97.7 F 01/26/23 09:34 Pulse Rate 87 01/26/23 09:34 Respiratory Rate 18 01/26/23 09:34 Blood Pressure 137/65 01/26/23 09:34 Pulse Oximetry 98 01/26/23 09:34 Oxygen Delivery Method Room Air 01/26/23 09:34 Course <Nuzhat Clarke PA-C - Last Filed: 01/26/23 13:39> Orders Ordered: ED Orders 01/26/23 09:37 XR elbow LT 2V Stat XR shoulder LT min 2V Stat 01/26/23 09:39 CT cervical spine wo con Stat CT head/brain wo con Stat Vital Signs Vital signs: Vital Signs - 8 hr 01/26/23 09:34 01/26/23 10:04 01/26/23 10:04 Temperature 97.7 F Pulse Rate 87 79 Respiratory Rate 18 Blood Pressure 137/65 125/62 Pulse Oximetry 98 97 Oxygen Delivery Method Room Air 01/26/23 10:30 01/26/23 11:00 01/26/23 11:27 Temperature Pulse Rate 85 78 Respiratory Rate Blood Pressure 130/62 Pulse Oximetry 98 97 Oxygen Delivery Method 01/26/23 11:27 01/26/23 11:30 01/26/23 11:30 Temperature Pulse Rate 86 86 Respiratory Rate Blood Pressure 128/58 L Pulse Oximetry 98 98 Oxygen Delivery Method 01/26/23 12:00 01/26/23 12:00 01/26/23 12:30 Temperature Pulse Rate 89 80 Respiratory Rate Blood Pressure 124/65 Pulse Oximetry 97 96 Oxygen Delivery Method <DO Balwinder Martinez Filed: 02/03/23 00:21> Orders Ordered: ED Orders 01/26/23 09:37 XR elbow LT 2V Stat XR shoulder LT min 2V Stat 01/26/23 09:39 CT cervical spine wo con Stat CT head/brain wo con Stat Vital Signs Vital signs: Vital Signs - 8 hr 01/26/23 09:34 01/26/23 10:04 01/26/23 10:04 Temperature 97.7 F Pulse Rate 87 79 Respiratory Rate 18 Blood Pressure 137/65 125/62 Pulse Oximetry 98 97 Oxygen Delivery Method Room Air 01/26/23 10:30 01/26/23 11:00 01/26/23 11:27 Temperature Pulse Rate 85 78 Respiratory Rate Blood Pressure 130/62 Pulse Oximetry 98 97 Oxygen Delivery Method 01/26/23 11:27 01/26/23 11:30 01/26/23 11:30 Temperature Pulse Rate 86 86 Respiratory Rate Blood Pressure 128/58 L Pulse Oximetry 98 98 Oxygen Delivery Method 01/26/23 12:00 01/26/23 12:00 01/26/23 12:30 Temperature Pulse Rate 89 80 Respiratory Rate Blood Pressure 124/65 Pulse Oximetry 97 96 Oxygen Delivery Method MDM - Fall <Nuhzat Clarke PA-C - Last Filed: 01/26/23 13:39> MDM Narrative Medical decision making narrative: 87-year-old male with past medical history diabetes, paroxysmal AFib, anemia, hyperlipidemia, hypertension, CHF, BPH, dementia brought into the ED status post a fall sustained last night. Concern for fracture/dislocation versus intracranial hemorrhage versus cervical spine fracture versus musculoskeletal sprain/strain versus other. Will obtain CT head, CT C-spine, x-rays of the arm and shoulder. Will reassess. CT head and CT C-spine without acute findings. Shoulder x-ray shows a proximal humerus fracture. The elbow x-ray shows a small elbow joint effusion, suspected minimally displaced radial head or neck fracture. Discussed findings with patient's and caregiver. Patient fitted in a sling. Recommend ortho follow-up as soon as possible. Prescribed pain control, counseled patient's and caregiver to take extra fall precautions since the medication could make him sleepy. ED return precautions discussed with patient's and caregiver. They verbalized understanding. Medical records reviewed: Yes Discharge Plan Departure Patient Disposition: Home Clinical Impression: Humeral fracture Qualifiers: Encounter type: subsequent encounter Humerus Location: proximal Fracture type: closed Fracture morphology: unspecified fracture morphology Laterality: right Fracture healing: with routine healing Qualified Code(s): S42.201D - Unspecified fracture of upper end of right humerus, subsequent encounter for fracture with routine healing Instructions: How to Prevent Falls, DI for Humeral Fracture Activity Restrictions/Additional Instructions: You were evaluated in the ED today for an arm injury from a fall. The x-ray shows that you have a proximal humerus fracture of the left upper arm, and possibly a minimally displaced elbow fracture. You are being fitted in a sling, please continue to wear that to enable proper healing. You are being prescribed some pain medications, however please do note that they might make you sleepy and more susceptible to falls. Please follow-up with [facility] at [phone] as soon as possible. Return to the ED if you have worsening symptoms, numbness, tingling, weakness. Prescriptions: No Action cholecalciferol (vitamin D3) [Vitamin D3] 25 mcg (1,000 unit) tablet 1,000 unit PO QAM Qty: 0 nystatin [Nystop] 100,000 unit/gram powder 1 applic topical DAILY Qty: 60 1RF omeprazole 20 mg capsule,delayed release(DR/EC) See Rx Instructions .ROUTE .COMPLEX Qty: 90 2RF Dose Instruction: TAKE 1 CAPSULE BY MOUTH EVERY MORNING Rx Instructions: TAKE 1 CAPSULE BY MOUTH EVERY MORNING atorvastatin 10 mg tablet 10 mg PO BEDTIME Qty: 90 3RF finasteride 5 mg tablet 5 mg PO DAILY Qty: 90 0RF Rx Instructions: Future refill should be requested from Primary Care Physician per Dr. Jaffe. spironolactone 25 mg tablet 25 mg PO DAILY Qty: 90 1RF Eliquis 2.5 mg tablet 2.5 mg PO BID enalapril maleate 20 mg tablet 20 mg PO BID Qty: 180 1RF furosemide 20 mg tablet 20 mg PO BID Qty: 180 1RF potassium chloride 10 mEq tablet extended release 10 meq PO DAILY Qty: 90 3RF trazodone 100 mg tablet 100 mg PO BEDTIME Qty: 90 3RF hydrocodone-acetaminophen 5-325 mg tablet 1 tab PO BID PRN (Reason: Pain (Scale Score 4-6)) Qty: 60 0RF Patient Comments: took a full tab this morning paroxetine HCl 10 mg tablet 10 mg PO .QHS Qty: 30 2RF (DME) Disabled Parking Permit 0 .Route .MEDSUPPLY Qty: 1 0RF Dose Instruction: As directed Rx Instructions: I find this patient to be medically disabled and qualified for disabled parking as indicated, and signed, on the accompanying disabled parking application for individuals amlodipine 5 mg tablet 5 mg PO BID cranberry extract capsule BID vitamin E vitamin B complex Tablet 1 tab PO QPM ferrous sulfate 325 mg (65 mg iron) Tablet 325 mg PO DAILY up4 Probiotics Adult 15 billion cell Capsule 1 cap PO TID acetaminophen 325 mg tablet 650 mg PO BID PRN (Reason: Pain (Scale Score 1-3)) Referrals: Kal Bowers DO [Primary Care Provider] - Stand Alone Forms: Patient Portal/API ED Sign-out <Dominga Andino DO - Last Filed: 02/03/23 00:21> Cosign ED Attending Elvis Attestation: I was immediately available in the department for consultation. Images were reviewed.
== END 2023-01-26 14:16 | disposition home or self-care (01) ==
PROVIDERS: Emergency Provider Student in an Organized Health Care Education/Training Program; PCP Family Medicine
DX: S42.202A Unspecified fracture of upper end of left humerus, initial encounter for closed fracture (principal); W18.30XA Fall on same level, unspecified, initial encounter; Z79.01 Long term (current) use of anticoagulants; R29.6 Repeated falls
CPT/HCPCS: 36415; 70450; 72125; 73030; 73070; 99283; 99284

== ENCOUNTER → 2023-02-20 17:41 | Outpatient (ROUT) | payer MEDICARE, SELFPAY ==
[2021-04-28 18:09] VITALS: BMI 31.6
[2021-04-29 07:20] VITALS: PULSE 86; RESP 36; O2SAT 92
[2023-02-20 17:49] LABS: Appearance Urine UA CLOUDY; Bilirubin Urine UA NEGATIVE (NEGATIVE); Color Urine UA YELLOW; Glucose Urine UA NEGATIVE (Negative); Ketones Urine UA NEGATIVE (NEGATIVE); Leukocyte Esterase Urine UA 2+ (NEGATIVE); Nitrite Urine UA NEGATIVE (Negative); Occult Blood Urine UA 3+ (Negative); Protein Urine UA 1+ (Negative); Specific Gravity Urine UA 1.025 (1.000-1.035)
[2023-02-20 18:00] LABS: Bacteria Urine Many (>30); Culture Indicated Urine Specimen Cultured; RBC Urine 30-100/HPF (0-5/HPF); Squamous Epithelial Cell Urine None Seen (0-5/HPF); WBC Urine 30-100/HPF (0-5/HPF)
== END ==
PROVIDERS: PCP Family Medicine; Visit Provider Internal Medicine
DX: R82.90 Unspecified abnormal findings in urine (principal); R33.9 Retention of urine, unspecified; Z87.440 Personal history of urinary (tract) infections
CPT/HCPCS: 81001; 87077; 87086; 87186

== ENCOUNTER → 2023-03-08 17:34 | Outpatient (ROUT) | payer MEDICARE, SELFPAY ==
[2021-04-28 18:09] VITALS: BMI 31.6
[2021-04-29 07:20] VITALS: PULSE 86; RESP 36; O2SAT 92
[2023-03-08 17:49] LABS: Appearance Urine UA SL CLOUDY; Bilirubin Urine UA NEGATIVE (NEGATIVE); Color Urine UA YELLOW; Glucose Urine UA NEGATIVE (Negative); Ketones Urine UA NEGATIVE (NEGATIVE); Leukocyte Esterase Urine UA 2+ (NEGATIVE); Nitrite Urine UA NEGATIVE (Negative); Occult Blood Urine UA TRACE-INTACT (Negative); Protein Urine UA TRACE (Negative); Urobilinogen Urine UA 0.2 E.U./dL (0.2)
[2023-03-08 18:02] LABS: Bacteria Urine Moderate (10-30); Culture Indicated Urine Specimen Cultured; Hyaline Casts Urine 0-1/LPF; RBC Urine 0-1/HPF (0-5/HPF); Squamous Epithelial Cell Urine 0-1 /HPF (0-5/HPF); WBC Urine 10-30/HPF (0-5/HPF)
== END ==
PROVIDERS: PCP Family Medicine; Visit Provider Family Medicine
DX: N40.1 Benign prostatic hyperplasia with lower urinary tract symptoms (principal); R33.8 Other retention of urine
CPT/HCPCS: 81001; 87077; 87086; 87186

== ENCOUNTER 2023-03-22 13:50 | Emergency (ER) | payer MEDICARE, SELFPAY ==
[2021-04-28 18:09] VITALS: BMI 31.6
[2021-04-29 07:20] VITALS: PULSE 86; RESP 36; O2SAT 92
[2023-03-22] VITALS (8 sets, daily range): BP systolic 109–143; BP diastolic 58–77; PULSE 78–88; RESP 16–38; TEMP 36.9; O2SAT 91–96
--- NOTE | 2023-03-22 14:00 | DI.CT.S_ITS ---
PROCEDURE: CT HEAD/BRAIN WO CON INDICATIONS: altered mental status TECHNIQUE: Noncontrast 4.5 mm thick angled axial sections acquired from the foramen magnum to the vertex, with coronal and sagittal reformats. For radiation dose reduction, the following was used: automated exposure control, adjustment of mA and/or kV according to patient size. COMPARISON: [facility], CT, CT HEAD/BRAIN WO CON, 03/06/2021, 21:09. [facility], CT, CT HEAD/BRAIN WO CON, 05/26/2022, 14:42. [facility], CR, XR CHEST 1V, 03/22/2023, 14:29. [facility], CT, CT HEAD/BRAIN WO CON, 01/26/2023, 9:56. FINDINGS: Image quality: This examination is limited by involuntary motion artifact. CSF spaces: Basal cisterns are patent. No extra-axial fluid collections. The ventricles are symmetric in size and shape. Brain: No intracranial bleeds or masses. There is cerebral volume loss for age, with resultant ventricular and sulcal prominence. There are periventricular and deep white matter chronic small vessel ischemic changes. Remote volume loss can be seen involving the left occipital lobe. There is intracranial internal carotid artery atherosclerosis. Skull and face: Calvarium and visualized facial bones appear intact, without suspicious lesions. Sinuses: Visualized sinuses and mastoids are clear. IMPRESSION: Motion limited study, without an acute intracranial abnormality seen. No recurrent intracranial hemorrhage is seen. Remote left occipital lobe infarction. Dictated by: Abilio Chong M.D. on 03/22/2023 at 14:04 Approved by: Abilio Chong M.D. on 03/22/2023 at 14:06
--- NOTE | 2023-03-22 14:00 | DI.RAD.S_ITS ---
PROCEDURE: XR CHEST 1V INDICATIONS: altered mental status TECHNIQUE: One view of the chest was acquired. COMPARISON: [facility], CT, CT HEAD/BRAIN WO CON, 03/22/2023, 14:16. [facility], CR, XR CHEST 1V, 04/28/2021, 10:35. [facility], CR, XR CHEST 1V, 12/29/2022, 21:40. FINDINGS: Surgical changes and devices: None. Lungs and pleura: An incomplete inspiratory result is noted, causing a crowded appearance to the lung markings. Generalized interstitial prominence can be seen. No pneumothorax or significant pleural effusions are seen. Mediastinum: Mediastinal contours appear normal. Heart size is normal. Bones and chest wall: No suspicious bony lesions. Age-appropriate bony degenerative changes are seen. Overlying soft tissues appear unremarkable. IMPRESSION: Low lung volumes, with mild interstitial prominence, which is likely artifactual, given the low lung volumes. Dictated by: Abilio Chong M.D. on 03/22/2023 at 14:06 Approved by: Abilio Chong M.D. on 03/22/2023 at 14:07
--- NOTE | 2023-03-22 14:14 | ED_ITS ---
HPI - Altered Mental Status General Chief Complaint: Neuro Symptoms/Deficit Stated Complaint: decreased LOC, UTI w/ cath. low UO Time Seen by Provider: 03/22/23 13:57 History of Present Illness HPI narrative: Patient 87-year-old male history of dementia, indwelling Thorne catheter on Macrobid, Atrial fibrillation on Eliquis, diabetes presenting today with weakness. He apparently was diagnosed with a UTI started on Macrobid 3 days ago. Started having behavior changes today. He reports no pain he has decreased urinary output no abdominal pain. Or chest pain he is in rate controlled atrial fibrillation on monitor. Sounds as though there is home health urinalysis was collected and ordered by PCP although I do not record of it. He apparently was started on Macrobid I do not see a culture. Urinalysis from March 08 does show Klebsiella he also previously had previously had Klebsiella on February 20. He is afebrile. Related Data Home Medications Medication Instructions Recorded Confirmed cholecalciferol (vitamin D3) 25 1,000 unit PO QAM #0 tabs 06/30/19 01/26/23 mcg (1,000 unit) tablet (Vitamin D3) vitamin B complex 1 tab PO QPM 04/22/20 01/26/23 Lactobacillus 1 cap PO TID 04/29/21 01/26/23 acidophil,plantar-Bifido no.7 15 billion cell capsule (up4 Probiotics Adult) acetaminophen 325 mg tablet 650 mg PO BID PRN Pain (Scale 04/29/21 01/26/23 Score 1-3) ferrous sulfate 325 mg (65 mg 325 mg PO DAILY 04/29/21 01/26/23 iron) tablet amlodipine 5 mg tablet 5 mg PO BID 01/26/23 01/26/23 cranberry extract BID 01/26/23 vitamin E 01/26/23 Previous Rx's Medication Instructions Recorded Disabled Parking Permit #1 ea 07/26/18 nystatin 100,000 unit/gram topical 1 applic topical DAILY #60 grams 04/22/22 powder (Nystop) atorvastatin 10 mg tablet 10 mg PO BEDTIME #90 tabs 07/03/22 finasteride 5 mg tablet 5 mg PO DAILY #90 tabs 07/08/22 spironolactone 25 mg tablet 25 mg PO DAILY #90 tabs 08/04/22 potassium chloride 10 mEq 10 meq PO DAILY #90 tabs 09/25/22 tablet,extended release trazodone 100 mg tablet 100 mg PO BEDTIME #90 tabs 09/25/22 enalapril maleate 20 mg tablet 20 mg PO BID #180 tabs 12/14/22 furosemide 20 mg tablet 20 mg PO BID #180 tabs 01/13/23 hydrocodone 5 mg-acetaminophen 325 1 tab PO BID PRN Pain (Scale Score 01/28/23 mg tablet 4-6) #60 tabs paroxetine HCl 10 mg tablet 10 mg PO .QHS #30 tabs 01/28/23 apixaban 2.5 mg tablet (Eliquis) 2.5 mg PO BID #180 tabs 02/17/23 cephalexin 500 mg capsule 500 mg PO TID #30 caps 02/20/23 omeprazole 20 mg capsule,delayed See Rx Instructions .Route 03/16/23 release .COMPLEX #90 caps nitrofurantoin 100 mg PO BID 7 days #14 caps 03/20/23 monohydrate/macrocrystals 100 mg capsule (Macrobid) cephalexin 500 mg capsule 500 mg PO BID 7 days #14 caps 03/22/23 Allergies Allergy/AdvReac Type Severity Reaction Status Date / Time clindamycin AdvReac Severe C.diff Verified 03/22/23 14:39 Colitis 04/11 Review of Systems Review of Systems ROS Unobtainable: All systems reviewed & are unremarkable except as noted in HPI and below Patient History Medical History Agitation due to dementia Fracture of femoral neck, right Bladder neck contracture Afib Low back pain History of UTI Arthritis Anemia Frequent falls Benign prostatic hyperplasia Clostridioides difficile infection Osteoarthritis LFT elevation Urinary retention Diabetes 1.5, managed as type 2 Paroxysmal atrial fibrillation Tremor Chronic anemia Mixed hyperlipidemia Essential hypertension Surgical History History of surgery (11/02/20) Hx of transurethral resection of prostate Hx of bilateral cataract extraction History of lobectomy of lung History of resection of rib Status post appendectomy Family History Father Hypertension Brother Atrial fibrillation Mother No significant medical problems Social History marital status: number of children: 3 household members: spouse occupational status: previously employed Smoking Status: Former smoker Tobacco: How many years used: 20 alcohol intake: never substance use type: does not use caffeine: Yes Smoking Status: Former smoker alcohol intake frequency: 0-2 drinks per day Substance Use Type: does not use Exam Initial Vital Signs Initial Vital Signs: Vital Signs Temperature 98.5 F 03/22/23 14:05 Pulse Rate 88 03/22/23 14:05 Respiratory Rate 16 03/22/23 14:05 Blood Pressure 109/58 L 03/22/23 14:05 Pulse Oximetry 96 03/22/23 14:05 Oxygen Delivery Method Room Air 03/22/23 14:05 GENERAL: Alert 87-year-old male and in [no acute] distress. HEENT: Head atraumatic,EOMI, pupils reactive, face symmetric, [moist] mucous membranes CARDIOVASCULAR: Regular rate and rhythm without murmurs, rubs or gallops. RESPIRATORY: Breath sounds equal bilaterally, no wheezes rales or rhonchi. ABDOMEN: Soft, nontender. Normoactive bowel sounds all 4 quadrants. No guarding or rebound. : Indwelling Thorne catheter EXTREMITIES: Normal range of motion, no clubbing or edema. Neurovascularly intact NEUROLOGICAL: Alert 87-year-old male no facial droop no gross deficits SKIN: Warm, dry, no laceration, no petechiae, no rashes or lesions. Course Orders Ordered: Discontinued Medications Ceftriaxone Sodium 2,000 mg/ (Sodium Chloride) 100 mls @ 200 mls/hr IV NOW ONE Stop: 03/22/23 15:07 Last Infusion: 03/22/23 15:54 Dose: Infused Documented By: Admin: 03/22/23 15:24 Dose: 200 mls/hr Documented By: XIN Sodium Chloride (Normal Saline 0.9%) 1,000 mls @ 125 mls/hr IV CONT ROMELIA Last Infusion: 03/22/23 17:44 Dose: Infused Documented By: Admin: 03/22/23 16:06 Dose: 125 mls/hr Documented By: XIN Vital Signs Vital signs: Vital Signs - 8 hr 03/22/23 14:05 03/22/23 15:20 03/22/23 15:30 Temperature 98.5 F Pulse Rate 88 78 83 Respiratory Rate 16 28 H Blood Pressure 109/58 L Pulse Oximetry 96 95 91 Oxygen Delivery Method Room Air 03/22/23 15:34 03/22/23 15:34 03/22/23 16:00 Temperature Pulse Rate 80 79 Respiratory Rate 25 H 33 H Blood Pressure 137/67 Pulse Oximetry 94 96 Oxygen Delivery Method Room Air Room Air 03/22/23 16:00 03/22/23 16:30 03/22/23 16:30 Temperature Pulse Rate 84 Respiratory Rate 35 H Blood Pressure 121/63 119/77 Pulse Oximetry 94 Oxygen Delivery Method 03/22/23 17:00 03/22/23 17:00 03/22/23 17:30 Temperature Pulse Rate 83 82 Respiratory Rate 35 H 38 H Blood Pressure 126/72 Pulse Oximetry 96 95 Oxygen Delivery Method Room Air 03/22/23 17:30 Temperature Pulse Rate Respiratory Rate Blood Pressure 143/75 H Pulse Oximetry Oxygen Delivery Method MDM - Altered Mental Status Lab Data 03/22/23 15:00 03/22/23 15:00 Labs: Lab Results 03/22/23 03/22/23 03/22/23 Range/Units 14:30 14:41 15:00 WBC 17.5 H (4.5-11.0) X10^3/uL RBC 3.97 L (4.5-5.9) X10^6/uL Hgb 11.9 L (13.5-17.5) g/dL Hct 36.5 L (41-53) % MCV 91.9 (80-100) fL MCH 30.0 (26-34) PG MCHC 32.6 (30-36) % RDW 13.6 (11.6-14.8) % Plt Count 251 (150-400) X10^3/uL Neut % (Auto) 84.3 H (50-75) % Lymph % (Auto) 3.5 L (25-40) % [place] % (Auto) 5.7 (3-14) % Eos % (Auto) 6.5 H (2-4) % Baso % (Auto) 0.0 (0-2) % Neut # (Auto) 09698 H (8553-2235) /uL Lymph # (Auto) 600 L (1148-2853) /uL [place] # (Auto) 1000 H (0-900) /uL Eos # (Auto) 1100 H (0-450) /uL Baso # (Auto) 0 (0-100) /uL Sodium 135 L (137-145) mmol/L Potassium 4.0 (3.4-5.1) mmol/L Chloride 98 (98-107) mmol/L Carbon Dioxide 27 (22-32) mmol/L BUN 30 H (9-20) mg/dL Creatinine 1.90 H (0.66-1.25) mg/dL Estimated GFR 34 L (>60) mL/min BUN/Creatinine Ratio 15.8 (6-22) Glucose 120 H (80-110) mg/dL Lactate 1.6 (0.7-2.1) mmol/L Calcium 9.6 (8.4-10.2) mg/dL Total Bilirubin 0.6 (0.2-1.3) mg/dL AST 22 (17-59) IU/L ALT 20 (<50) IU/L Alkaline Phosphatase 107 (38-126) U/L Total Creatine Kinase 30 L (55-170) U/L Troponin I < 0.012 (0.01-0.034) ng/mL Total Protein 6.9 (6.3-8.2) g/dL Albumin 3.8 (3.5-5.0) g/dL Globulin 3.1 (1.7-4.1) g/dL Albumin/Globulin Ratio 1.2 (1.0-2.8) Procalcitonin 0.45 (<0.5) ng/mL Urine Color Yellow Urine Appearance Clear Urine pH 5.0 (4.5-8.0) Ur Specific [place] 1.020 (1.000-1.035) Urine Protein 1+ H (Negative) Urine Glucose (UA) Negative (Negative) g/dL Urine Ketones Trace H (NEGATIVE) Urine Occult Blood Trace-intact (Negative) Urine Nitrate Negative (Negative) Urine Bilirubin Negative (NEGATIVE) Urine Urobilinogen 0.2 (0.2) E.U./dL Ur Leukocyte Esterase 2+ H (NEGATIVE) Urine RBC 1-5/hpf (0-5/HPF) Urine WBC 30-100/hpf H (0-5/HPF) Ur Squamous Epith Cells 0-1 /hpf (0-5/HPF) Calcium Oxalate Crystal Few H Urine Bacteria Few (2-10) H (None) Ur Culture Indicated? Specimen cultured SARS-CoV-2 (PCR) Negative (Negative) Influenza A (RT-PCR) Flu a negative (NEGATIVE) Influenza B (RT-PCR) Flu b negative (NEGATIVE) RSV (PCR) Negative (Negative) Imaging Data CT scan - head: Radiologist's Impression: PROCEDURE: CT HEAD/BRAIN WO CON INDICATIONS: altered mental status TECHNIQUE: Noncontrast 4.5 mm thick angled axial sections acquired from the foramen magnum to the vertex, with coronal and sagittal reformats. For radiation dose reduction, the following was used: automated exposure control, adjustment of mA and/or kV according to patient size. COMPARISON: [facility], CT, CT HEAD/BRAIN WO CON, 03/06/2021, 21:09. [facility], CT, CT HEAD/BRAIN WO CON, 05/26/2022, 14:42. [facility], CR, XR CHEST 1V, 03/22/2023, 14:29. [facility], CT, CT HEAD/BRAIN WO CON, 01/26/2023, 9:56. FINDINGS: Image quality: This examination is limited by involuntary motion artifact. CSF spaces: Basal cisterns are patent. No extra-axial fluid collections. The ventricles are symmetric in size and shape. Brain: No intracranial bleeds or masses. There is cerebral volume loss for age, with resultant ventricular and sulcal prominence. There are periventricular and deep white matter chronic small vessel ischemic changes. Remote volume loss can be seen involving the left occipital lobe. There is intracranial internal carotid artery atherosclerosis. Skull and face: Calvarium and visualized facial bones appear intact, without suspicious lesions. Sinuses: Visualized sinuses and mastoids are clear. IMPRESSION: Motion limited study, without an acute intracranial abnormality seen. No recurrent intracranial hemorrhage is seen. Remote left occipital lobe infarction. Dictated by: Abilio Chong M.D. on 03/22/2023 at 14:04 Chest x-ray: Radiologist's Impression: PROCEDURE: XR CHEST 1V INDICATIONS: altered mental status TECHNIQUE: One view of the chest was acquired. COMPARISON: [facility], CT, CT HEAD/BRAIN WO CON, 03/22/2023, 14:16. [facility], CR, XR CHEST 1V, 04/28/2021, 10:35. [facility], CR, XR CHEST 1V, 12/29/2022, 21:40. FINDINGS: Surgical changes and devices: None. Lungs and pleura: An incomplete inspiratory result is noted, causing a crowded appearance to the lung markings. Generalized interstitial prominence can be seen. No pneumothorax or significant pleural effusions are seen. Mediastinum: Mediastinal contours appear normal. Heart size is normal. Bones and chest wall: No suspicious bony lesions. Age-appropriate bony degenerative changes are seen. Overlying soft tissues appear unremarkable. IMPRESSION: Low lung volumes, with mild interstitial prominence, which is likely artifactual, given the low lung volumes. Dictated by: Abilio Chong M.D. on 03/22/2023 at 14:06 MDM Narrative Medical decision making narrative: Patient 87-year-old male who has some dementia presents today with possibly increased weakness and decreased intake. He has been on Macrobid for 5 doses now concerning for UTI. He does have an indwelling Thorne catheter with decreased urine output. Wishes family's biggest concern. He has home health Blood work SKYLER, creatinine today 1.90 previously 1.40 other electrolytes are stable lactate 1.6, negative troponin, procalcitonin 0.45, leukocytosis 17.5 previous WBC 14.5 hemoglobin stable 11.[address] head reports remote stroke in left occipital region family unaware CT in January does not show any intracranial abnormality. Family unaware of any CVA. He has not had any deficits. This is likely old Long extensive discussion with family in regards to admission with SKYLER increase leukocytosis. They report that they would like to take him home they have home health they will be there tomorrow his good care at home. Discussed repeating kidney function week stopping Macrobid secondary to SKYLER starting him on Keflex waiting for culture and sensitivity. They are encouraged to bring him back at any time needed. Discharge Plan Departure Patient Disposition: Home Clinical Impression: Acute UTI, SKYLER (acute kidney injury) Instructions: DI for Urinary Tract Infection (UTI) Activity Restrictions/Additional Instructions: *You have been diagnosed with UTI, kidney injury *What to do: At this time there is some dehydration noted in blood work, need to have a kidney function checked this week. Stop taking Macrobid There is evidence of UTI *Continue to take medications as directed Stop Macrobid Keflex 500 mg twice a day for 7 days *Follow up with your primary care provider in 2-3 days or call [phone] *Return to ER if you should have increased confusion decreased urine output or any new, worsening or concerning symptoms Prescriptions: New cephalexin 500 mg capsule 500 mg PO BID 7 Days Qty: 14 0RF No Action cholecalciferol (vitamin D3) [Vitamin D3] 25 mcg (1,000 unit) tablet 1,000 unit PO QAM Qty: 0 nystatin [Nystop] 100,000 unit/gram powder 1 applic topical DAILY Qty: 60 1RF atorvastatin 10 mg tablet 10 mg PO BEDTIME Qty: 90 3RF finasteride 5 mg tablet 5 mg PO DAILY Qty: 90 0RF Rx Instructions: Future refill should be requested from Primary Care Physician per Dr. Jaffe. spironolactone 25 mg tablet 25 mg PO DAILY Qty: 90 1RF enalapril maleate 20 mg tablet 20 mg PO BID Qty: 180 1RF furosemide 20 mg tablet 20 mg PO BID Qty: 180 1RF Eliquis 2.5 mg tablet 2.5 mg PO BID Qty: 180 1RF cephalexin 500 mg capsule 500 mg PO TID Qty: 30 0RF omeprazole 20 mg capsule,delayed release(DR/EC) See Rx Instructions .ROUTE .COMPLEX Qty: 90 2RF Dose Instruction: TAKE 1 CAPSULE BY MOUTH EVERY MORNING Rx Instructions: TAKE 1 CAPSULE BY MOUTH EVERY MORNING nitrofurantoin monohyd/m-cryst [Macrobid] 100 mg capsule 100 mg PO BID 7 Days Qty: 14 0RF Rx Instructions: must administer with a meal/food potassium chloride 10 mEq tablet extended release 10 meq PO DAILY Qty: 90 3RF trazodone 100 mg tablet 100 mg PO BEDTIME Qty: 90 3RF hydrocodone-acetaminophen 5-325 mg tablet 1 tab PO BID PRN (Reason: Pain (Scale Score 4-6)) Qty: 60 0RF Patient Comments: took a full tab this morning paroxetine HCl 10 mg tablet 10 mg PO .QHS Qty: 30 2RF (DME) Disabled Parking Permit 0 .Route .MEDSUPPLY Qty: 1 0RF Dose Instruction: As directed Rx Instructions: I find this patient to be medically disabled and qualified for disabled parking as indicated, and signed, on the accompanying disabled parking application for individuals amlodipine 5 mg tablet 5 mg PO BID cranberry extract capsule BID vitamin E vitamin B complex Tablet 1 tab PO QPM ferrous sulfate 325 mg (65 mg iron) Tablet 325 mg PO DAILY up4 Probiotics Adult 15 billion cell Capsule 1 cap PO TID acetaminophen 325 mg tablet 650 mg PO BID PRN (Reason: Pain (Scale Score 1-3)) Referrals: Kal Bowers DO [Primary Care Provider] - Stand Alone Forms: Patient Portal/API
--- NOTE | 2023-03-22 14:42 | PC.NURSE ---
pt arrived to Er with left arm swelling.medics report from a prior injury. pt has an indwelling black 16 f. draining yellow urine in small amount.
[2023-03-22 14:47] LABS: Appearance Urine UA CLEAR; Bilirubin Urine UA NEGATIVE (NEGATIVE); Color Urine UA YELLOW; Glucose Urine UA NEGATIVE (Negative); Ketones Urine UA TRACE (NEGATIVE); Leukocyte Esterase Urine UA 2+ (NEGATIVE); Nitrite Urine UA NEGATIVE (Negative); Occult Blood Urine UA TRACE-INTACT (Negative); Protein Urine UA 1+ (Negative); Urobilinogen Urine UA 0.2 E.U./dL (0.2)
[2023-03-22 15:01] LABS: RBC Urine 1-5/HPF (0-5/HPF); WBC Urine 30-100/HPF (0-5/HPF)
[2023-03-22 15:02] LABS: Bacteria Urine Few (2-10); Calcium Oxalate Crystals Urine Few; Culture Indicated Urine Specimen Cultured; Squamous Epithelial Cell Urine 0-1 /HPF (0-5/HPF)
[2023-03-22 15:14] LABS: Add Manual Diff / Slide Review NO; Basophils Absolute Auto 0 /uL (0-100); Eosinophils Absolute Auto 1100 /uL (0-450); Eosinophils Percent Auto 6.5 % (2-4); Hematocrit 36.5 % (41-53); Hemoglobin 11.9 g/dL (13.5-17.5); Lymphocytes Absolute Auto 600 /uL (1100-4500); Lymphocytes Percent Auto 3.5 % (25-40); Mean Corpuscular HGB Conc 32.6 % (30-36); Mean Corpuscular Volume 91.9 fL (80-100); Monocytes Absolute Auto 1000 /uL (0-900); Monocytes Percent Auto 5.7 % (3-14); Neutrophils Absolute Auto 14700 /uL (1500-7000); Neutrophils Percent Auto 84.3 % (50-75); Platelet Count 251 X10^3/uL (150-400); Red Blood Cell Count 3.97 X10^6/uL (4.5-5.9); Red Cell Distribution Width 13.6 % (11.6-14.8); White Blood Cell Count 17.5 X10^3/uL (4.5-11.0)
[2023-03-22] MEDS: cefTRIAXone 2,000 MG in SODIUM CHLORIDE 0.9% 100 ML 200 MG IV (15:24)
[2023-03-22 15:47] LABS: Alanine Aminotransferase 20 IU/L (<50); Albumin 3.8 g/dL (3.5-5.0); Albumin Globulin Ratio 1.2 (1.0-2.8); Alkaline Phosphatase 107 U/L (38-126); Aspartate Aminotransferase 22 IU/L (17-59); BUN Creatinine Ratio 15.8 (6-22); Bilirubin Total 0.6 mg/dL (0.2-1.3); Blood Urea Nitrogen 30 mg/dL (9-20); Calcium 9.6 mg/dL (8.4-10.2); Carbon Dioxide 27 mmol/L (22-32); Chloride 98 mmol/L (98-107); Creatine Kinase 30 U/L (55-170); Estimated Glomerular Filt Rate 34 mL/min (>60); Globulin 3.1 g/dL (1.7-4.1); Glucose 120 mg/dL (80-110); HEMOLYSIS 17 (0-50); Lactate (Lactic Acid) 1.6 mmol/L (0.7-2.1); Procalcitonin 0.45 ng/mL (<0.5); Sodium 135 mmol/L (137-145); Total Protein 6.9 g/dL (6.3-8.2); Troponin I < 0.012 ng/mL (0.01-0.034)
[2023-03-22] MEDS: SODIUM CHLORIDE 0.9% 1,000 ML 125 ML IV (16:06)
[2023-03-22 16:12] LABS: COVID-19 CEPHEID 4-PLEX PCR Negative (Negative); Influenza A - CEPHEID Flu A NEGATIVE (NEGATIVE); Influenza B - CEPHEID Flu B NEGATIVE (NEGATIVE); Respiratory Syncytial Virus Negative (Negative)
== END 2023-03-22 17:52 | disposition home or self-care (01) ==
PROVIDERS: Emergency Provider Emergency Medicine; PCP Family Medicine
DX: N39.0 Urinary tract infection, site not specified (principal); N17.9 Acute kidney failure, unspecified; E86.0 Dehydration; R03.1 Nonspecific low blood-pressure reading; R41.82 Altered mental status, unspecified
CPT/HCPCS: 0241U; 36415; 51798; 70450; 71045; 80053; 81001; 82550; 83605; 84145; 84484; 85025; 87040; 87077; 87086; 87186; 93005; 96361; 96365; 99284; 99285; J0696

== ENCOUNTER → 2023-03-30 15:51 | Outpatient (ROUT) | payer MEDICARE, SELFPAY ==
[2021-04-28 18:09] VITALS: BMI 31.6
[2021-04-29 07:20] VITALS: PULSE 86; RESP 36; O2SAT 92
[2023-03-30 16:17] LABS: Alanine Aminotransferase 23 IU/L (<50); Albumin 3.6 g/dL (3.5-5.0); Albumin Globulin Ratio 1.3 (1.0-2.8); Alkaline Phosphatase 103 U/L (38-126); Aspartate Aminotransferase 25 IU/L (17-59); BUN Creatinine Ratio 17.2 (6-22); Bilirubin Total 0.5 mg/dL (0.2-1.3); Blood Urea Nitrogen 23 mg/dL (9-20); Calcium 9.7 mg/dL (8.4-10.2); Carbon Dioxide 30 mmol/L (22-32); Chloride 98 mmol/L (98-107); Estimated Glomerular Filt Rate 51 mL/min (>60); Globulin 2.8 g/dL (1.7-4.1); Glucose 151 mg/dL (80-110); HEMOLYSIS < 15 (0-50); Potassium 4.4 mmol/L (3.4-5.1); Sodium 136 mmol/L (137-145); Total Protein 6.4 g/dL (6.3-8.2)
== END ==
PROVIDERS: PCP Family Medicine; Visit Provider Family Medicine
DX: N17.9 Acute kidney failure, unspecified (principal)
CPT/HCPCS: 36415; 80053

== ENCOUNTER → 2023-08-10 15:44 | Outpatient (CLI) | payer MEDICARE, SELFPAY ==
[2021-04-28 18:09] VITALS: BMI 31.6
[2021-04-29 07:20] VITALS: PULSE 86; RESP 36; O2SAT 92
[2023-08-10 17:05] LABS: Appearance Urine UA CLEAR; Bilirubin Urine UA NEGATIVE (NEGATIVE); Color Urine UA YELLOW; Glucose Urine UA NEGATIVE (Negative); Ketones Urine UA NEGATIVE (NEGATIVE); Leukocyte Esterase Urine UA 1+ (NEGATIVE); Nitrite Urine UA POSITIVE (Negative); Occult Blood Urine UA NEGATIVE (Negative); Protein Urine UA NEGATIVE (Negative); Urobilinogen Urine UA 0.2 E.U./dL (0.2); pH Urine UA 5.5 (4.5-8.0)
[2023-08-10 17:19] LABS: RBC Urine 0-1/HPF (0-5/HPF); Urine Volume 10mL (spun); WBC Urine 1-5/HPF (0-5/HPF)
[2023-08-10 17:20] LABS: Bacteria Urine Many (>30); Culture Indicated Urine Specimen Cultured; Granular Casts Urine 0-1/LPF; Hyaline Casts Urine 1-5/LPF; Squamous Epithelial Cell Urine 0-1 /HPF (0-5/HPF)
== END ==
PROVIDERS: PCP Family Medicine; Referring Provider Family Medicine; Visit Provider Family Medicine
DX: R33.9 Retention of urine, unspecified (principal); Z87.440 Personal history of urinary (tract) infections; R41.0 Disorientation, unspecified
CPT/HCPCS: 81001; 87077; 87086

== ENCOUNTER → 2023-10-26 16:45 | Outpatient (CLI) | payer MEDICARE, SELFPAY ==
[2021-04-28 18:09] VITALS: BMI 31.6
[2021-04-29 07:20] VITALS: PULSE 86; RESP 36; O2SAT 92
[2023-10-26 17:16] LABS: Appearance Urine UA CLEAR; Bilirubin Urine UA NEGATIVE (NEGATIVE); Color Urine UA YELLOW; Glucose Urine UA NEGATIVE (Negative); Ketones Urine UA NEGATIVE (NEGATIVE); Leukocyte Esterase Urine UA NEGATIVE (NEGATIVE); Nitrite Urine UA NEGATIVE (Negative); Occult Blood Urine UA NEGATIVE (Negative); Protein Urine UA NEGATIVE (Negative); Urobilinogen Urine UA 0.2 E.U./dL (0.2)
[2023-10-26 17:26] LABS: Bacteria Urine None Seen; Culture Indicated Urine Cult Not Indicated; RBC Urine None Seen (0-5/HPF); Squamous Epithelial Cell Urine None Seen (0-5/HPF); Urine Volume 10mL (spun); WBC Urine None Seen (0-5/HPF)
== END ==
PROVIDERS: PCP Family Medicine; Referring Provider Nurse Practitioner; Visit Provider Nurse Practitioner
DX: E87.6 Hypokalemia (principal); R30.0 Dysuria
CPT/HCPCS: 81001

== ENCOUNTER → 2023-11-03 14:25 | Outpatient (CLI) | payer MEDICARE, SELFPAY ==
[2021-04-28 18:09] VITALS: BMI 31.6
[2021-04-29 07:20] VITALS: PULSE 86; RESP 36; O2SAT 92
[2023-11-03 21:05] LABS: Bilirubin Urine UA NEGATIVE (NEGATIVE); Color Urine UA YELLOW; Glucose Urine UA NEGATIVE (Negative); Ketones Urine UA NEGATIVE (NEGATIVE); Nitrite Urine UA NEGATIVE (Negative); Occult Blood Urine UA 2+ (Negative); Protein Urine UA 1+ (Negative); Urobilinogen Urine UA 0.2 E.U./dL (0.2); pH Urine UA 5.5 (4.5-8.0)
[2023-11-03 21:08] LABS: Appearance Urine UA CLOUDY
[2023-11-03 21:09] LABS: Bacteria Urine Moderate (10-30); Culture Indicated Urine Specimen Cultured; Leukocyte Esterase Urine UA 3+ (NEGATIVE); RBC Urine 0-1/HPF (0-5/HPF); Squamous Epithelial Cell Urine None Seen (0-5/HPF); Urine Volume Low Vol <1mL unspun; WBC Urine 30-100/HPF (0-5/HPF)
== END ==
PROVIDERS: PCP Family Medicine; Referring Provider Family Medicine; Visit Provider Family Medicine
DX: R82.90 Unspecified abnormal findings in urine (principal); Z87.440 Personal history of urinary (tract) infections; R45.1 Restlessness and agitation
CPT/HCPCS: 81001; 87086

== ENCOUNTER → 2023-12-21 14:26 | Outpatient (CLI) | payer MEDICARE, SELFPAY ==
[2021-04-28 18:09] VITALS: BMI 31.6
[2021-04-29 07:20] VITALS: PULSE 86; RESP 36; O2SAT 92
[2023-12-21 15:28] LABS: Appearance Urine UA CLEAR; Bilirubin Urine UA NEGATIVE (NEGATIVE); Color Urine UA YELLOW; Glucose Urine UA NEGATIVE (Negative); Ketones Urine UA NEGATIVE (NEGATIVE); Leukocyte Esterase Urine UA 2+ (NEGATIVE); Nitrite Urine UA NEGATIVE (Negative); Occult Blood Urine UA 2+ (Negative); Protein Urine UA TRACE (Negative); Specific Gravity Urine UA 1.015 (1.000-1.035); Urobilinogen Urine UA 0.2 E.U./dL (0.2); pH Urine UA 5.5 (4.5-8.0)
[2023-12-21 16:01] LABS: Bacteria Urine Moderate (10-30); Culture Indicated Urine Specimen Cultured; RBC Urine 1-5/HPF (0-5/HPF); Squamous Epithelial Cell Urine 1-5 /HPF (0-5/HPF); Urine Volume 10mL (spun); WBC Urine 10-30/HPF (0-5/HPF)
== END ==
LOC: LAB 14:27
PROVIDERS: PCP Family Medicine; Referring Provider Family Medicine; Visit Provider Family Medicine
DX: Z87.440 Personal history of urinary (tract) infections (principal); R33.9 Retention of urine, unspecified
CPT/HCPCS: 81001; 87077; 87086